=== PATIENT | female | born 1995 | race Caucasian/White ===

== ENCOUNTER 2016-09-09 04:30 | Emergency (ER) | payer BC ==
[~2016-09-09] VITALS: Ht 154.9 cm; Wt 66.7 kg
[2016-09-09 04:33] VITALS: TEMP 36.8; Ht 154.9 cm; Wt 66.7 kg
[2016-09-09] MEDS ORDERED: ONDANSETRON INJ 2 MG/ML 2 ML VIAL IV STA ×2 (04:43→06:56)
[2016-09-09] MEDS ORDERED: SODIUM CHLORIDE 0.9% 1000ML 1,000 ML IV STA ×3 (04:43→06:07)
[2016-09-09] MEDS ORDERED: DICYCLOMINE HCL 10 MG/ML 2 ML AMP IM ONE (04:45)
[2016-09-09 05:20] VITALS: O2SAT 99
[2016-09-09 05:34] LABS: BASO % 0.1 %; BASO ABS # 0.01 K/uL (0-0.2); COMPLETE YES; EOS % 0.9 %; HEMATOCRIT 38.9 % (37-47); IG% 0.1 %; LYMPH % 4.6 %; LYMPH ABS # 0.44 K/uL (1.2-3.4); MEAN CELL VOLUME 86.8 fL (80-100); MEAN CORPUSCULAR HEMOGLOBIN 30.4 pg (25-34); MEAN PLATELET VOLUME 11.3 fL (7.4-10.4); MONO % 3.2 %; NEUT % 91.1 %; PLATELET COUNT 182 K/uL (130-400); RED BLOOD COUNT 4.48 M/uL (4.2-5.4); WHITE BLOOD COUNT 9.63 K/uL (4.8-10.8)
[2016-09-09 05:50] LABS: BUN/CREATININE RATIO 17.7 (10-20); CREATININE 0.82 mg/dl (0.60-1.20); POTASSIUM 3.9 mmol/L (3.5-5.1)
[2016-09-09 06:00] LABS: URINE APPEARANCE CLEAR (CLEAR); URINE BILIRUBIN NEG (NEG); URINE COLOR YELLOW; URINE NITRITE NEG (NEG); URINE PH 8.5 (4.5-7.5); URINE SPECIFIC GRAVITY 1.033 (1.000-1.030); UROBILINOGEN NEG (NEG); ZZUR CULT IF INDIC CLEAN CATCH NO
[2016-09-09 06:02] LABS: MANUAL MICROSCOPIC REQUIRED? NO; REVIEW REQ? NO
[2016-09-09] MEDS ORDERED: MoRPHine SULFATE 4 MG/ML 1 ML CARP\\VIAL IV STA (06:13)
[2016-09-09 06:19] LABS: PREG INTERNAL NEGATIVE QC NEG CLEAR BACKGROUND; PREG INTERNAL POSITIVE QC POS CONTROL LINE
[2016-09-09] MEDS ORDERED: ETON1IMP2 (06:20)
[2016-09-09] MEDS ORDERED: ONDANSETRON HOME PACK 4MG OD TAB PO ONE (06:30)
[2016-09-09] MEDS ORDERED: OPTIRAY 320 IV PRN (06:30)
[2016-09-09] MEDS ORDERED: PROCHLORPERAZINE 5 MG/ML 2 ML VIAL IV STA (07:24)
[2016-09-09] MEDS ORDERED: DiphenhydrAMINE HCL 50 MG/ML VIAL IV STA (07:24)
--- NOTE | 2016-09-09 09:02 | DIAGNOSTIC IMAGING REPORT ---
CT SCAN OF THE ABDOMEN AND PELVIS WITH IV CONTRAST CLINICAL HISTORY: Right lower quadrant abdominal pain. COMPARISON STUDY: No priors. TECHNIQUE: Following the IV administration of 120 cc of Optiray 320, CT scan of the abdomen and pelvis is performed from the lung bases to the proximal femora. Images are reviewed in the axial, sagittal, and coronal planes. IV contrast was administered without complication. Automated dose control exposure was utilized. CT DOSE: 327.57 mGy.cm FINDINGS: Lung bases: The heart is normal in size and without pericardial effusion. The lung bases are clear. Liver: The contrast-enhanced liver is normal in size, contour, and attenuation. There is no intrahepatic biliary ductal dilatation. The hepatic veins and portal veins are patent. Gallbladder: Unremarkable. Spleen: Normal in size and attenuation. Pancreas: Unremarkable. Adrenal glands: Unremarkable. Kidneys: The contrast enhanced kidneys are normal in size and without hydronephrosis. The kidneys enhance symmetrically. Abdominal vasculature: The abdominal aorta is normal in course and caliber. Bowel: The small bowel and colon are normal in course and caliber. The appendix is well-visualized and normal. Peritoneum: There is no intraperitoneal free air or abdominal ascites. There is a fat-containing umbilical hernia. Lymphadenopathy: None. Pelvic viscera: The bladder, uterus, and adnexa are normal as visualized. There are numerous ovarian follicles. Trace free fluid is seen in the cul-de-sac. Skeletal structures: No lytic or blastic lesions are seen. IMPRESSION: 1. There are no acute infectious or inflammatory findings in the abdomen or pelvis. 2. There is trace and likely physiologic free fluid in the cul-de-sac. Electronically signed by: Vinicius Casas M.D. 09/09/2016 9:01 AM Dictated Date/Time: 09/09/2016 8:56 AM
[2016-09-09] MEDS ORDERED: ONDA4TAB10 SL (10:16)
[2016-09-09 10:20] VITALS: BP 107/68; PULSE 104; O2SAT 99
--- NOTE | 2016-09-09 21:34 | EMERGENCY ROOM VISIT NOTE ---
History First contact with patient: 04:38 Chief Complaint: ABDOMINAL PAIN Stated Complaint: RIGHT ABD PAIN,VOMITING Nursing Triage Summary: Pt complains of right sided abdominal pain, vomiting and diarrhea since 11pm. History of Present Illness The patient is a 20 year old female who presents to the Emergency Room with complaints of nausea, vomiting, diarrhea and lower abdominal cramping for the past few hours. Patient complains of several episodes of vomiting and diarrhea that is nonbloody nonbilious nonblack and tarry in nature. No recent antibiotics. No well water. No recent travel. Patient scribed the pain as cramping, ranging in severity 5 out of 10 to the lower abdomen. It does not radiate. Nothing makes it better or worse. Patient denies chest pain, dyspnea , fever, chills, cough, congestion, back pain, urinary symptoms, vaginal itching or discharge. Review of Systems See HPI for pertinent positives & negatives. A total of 10 systems reviewed and were otherwise negative. Past Medical/Surgical History None Social History Smoking Status: Never Smoker Smokeless Tobacco Use: No Drug Use: none Housing Status: lives with family Occupation Status: employed Current/Historical Medications Scheduled Etonogestrel (Nexplanon), 1 DOSE CONTINOUS Scheduled PRN Ondasetron Odt (Zofran Odt), 1 TAB SL Q6 PRN for Nausea or Vomiting Allergies Coded Allergies: No Known Allergies (Unverified , 09/09/16) Physical Exam Vital Signs Date Time Temp Pulse Resp B/P Pulse Ox O2 Delivery O2 Flow Rate FiO2 09/09/16 10:20 104 18 107/68 99 09/09/16 09:26 110 18 107/62 99 Room Air 09/09/16 09:03 105 09/09/16 07:52 108 18 116/66 99 Room Air 09/09/16 06:30 110 18 129/80 100 Room Air 09/09/16 05:25 105 09/09/16 05:20 99 Room Air 09/09/16 04:33 36.8 124 20 109/64 100 Room Air Physical Exam VITALS: Vitals are noted on the nurse's note and reviewed by myself. Vital signs stable. GENERAL: Pleasant female, in no acute distress, nondiaphoretic, well-developed well-nourished. SKIN: The skin was without rashes, erythema, edema, or bruising. There is no tenting of the skin. Capillary reflex less than 2 seconds. HEAD: Normocephalic atraumatic. EARS: External auditory canals clear, tympanic membranes pearly villarreal without erythema or effusion bilaterally. EYES: Pupils equal round and reactive to light and accommodation. Conjunctivae without injection, sclerae without icterus. Extraocular movements intact. NOSE: Patent, turbinates without inflammation or discharge. MOUTH: Mucous membranes mildly dry. Pharynx without erythema or exudate. Uvula midline. Airway patent. Tongue does not deviate. NECK: Supple without nuchal rigidity. No lymphadenopathy. No thyromegaly. Cervical spine is nontender. No JVD. HEART: Regular rate and rhythm without murmurs gallops or rubs. LUNGS: Clear to auscultation bilaterally without wheezes, rales or rhonchi. No dullness to percussion. No retractions or accessory muscle use. ABDOMEN: Positive bowel sounds x 4. Normal tympanic percussion. Soft, tender to palpation lower abdomen, no CVA tenderness, without masses or organomegaly. Ferrell sign negative. No guarding or rebound tenderness. MUSCULOSKELETAL: No muscle atrophy, erythema, or edema noted. NEURO: Patient was alert and oriented to person place and time. Normal sensation to light and sharp touch. No focal neurological deficits. Medical Decision & Procedures Laboratory Results 09/09/16 05:07 Red Blood Count 4.48, Mean Corpuscular Volume 86.8, Mean Corpuscular Hemoglobin 30.4, Mean Corpuscular Hemoglobin Concent 35.0, Mean Platelet Volume 11.3, Neutrophils (%) (Auto) 91.1, Lymphocytes (%) (Auto) 4.6, Monocytes (%) (Auto) 3.2, Eosinophils (%) (Auto) 0.9, Basophils (%) (Auto) 0.1, Neutrophils # (Auto) 8.77, Lymphocytes # (Auto) 0.44, Monocytes # (Auto) 0.31, Eosinophils # (Auto) 0.09, Basophils # (Auto) 0.01 09/09/16 05:07 Test 09/09/16 04:45 09/09/16 05:07 Urine Color YELLOW Urine Appearance CLEAR (CLEAR) Urine pH 8.5 (4.5-7.5) Urine Specific [place] 1.033 (1.000-1.030) Urine Protein NEG (NEG) Urine Glucose (UA) NEG (NEG) Urine Ketones 2+ (NEG) Urine Occult Blood NEG (NEG) Urine Nitrite NEG (NEG) Urine Bilirubin NEG (NEG) Urine Urobilinogen NEG (NEG) Urine Leukocyte Esterase NEG (NEG) White Blood Count 9.63 K/uL (4.8-10.8) Red Blood Count 4.48 M/uL (4.2-5.4) Hemoglobin 13.6 g/dL (12.0-16.0) Hematocrit 38.9 % (37-47) Mean Corpuscular Volume 86.8 fL (80-100) Mean Corpuscular Hemoglobin 30.4 pg (25-34) Mean Corpuscular Hemoglobin Concent 35.0 g/dl (32-36) Platelet Count 182 K/uL (130-400) Mean Platelet Volume 11.3 fL (7.4-10.4) Neutrophils (%) (Auto) 91.1 % Lymphocytes (%) (Auto) 4.6 % Monocytes (%) (Auto) 3.2 % Eosinophils (%) (Auto) 0.9 % Basophils (%) (Auto) 0.1 % Neutrophils # (Auto) 8.77 K/uL (1.4-6.5) Lymphocytes # (Auto) 0.44 K/uL (1.2-3.4) Monocytes # (Auto) 0.31 K/uL (0.11-0.59) Eosinophils # (Auto) 0.09 K/uL (0-0.5) Basophils # (Auto) 0.01 K/uL (0-0.2) RDW Standard Deviation 40.0 fL (36.4-46.3) RDW Coefficient of Variation 12.5 % (11.5-14.5) Immature Granulocyte % (Auto) 0.1 % Immature Granulocyte # (Auto) 0.01 K/uL (0.00-0.02) Anion Gap 10.0 mmol/L (3-11) Est Creatinine Clear Calc Drug Dose 94.0 ml/min Estimated GFR () 117.7 Estimated GFR (Non- 101.6 BUN/Creatinine Ratio 17.7 (10-20) Calcium Level 9.0 mg/dl (8.5-10.1) Total Bilirubin 1.0 mg/dl (0.2-1) Direct Bilirubin 0.2 mg/dl (0-0.2) Aspartate Amino Transf (AST/SGOT) 77 U/L (15-37) Alanine Aminotransferase (ALT/SGPT) 55 U/L (12-78) Alkaline Phosphatase 47 U/L (45-117) Total Protein 7.9 gm/dl (6.4-8.2) Albumin 4.4 gm/dl (3.4-5.0) Lipase 87 U/L (73-393) Human Chorionic Gonadotropin, Qual NEG (NEG) Medications Administered Medications (Trade) Dose Ordered Sig/Kimberly Route Start Time Stop Time Status Last Admin Dose Admin Sodium Chloride 1,000 ml @ 999 mls/hr Q1H1M STAT IV 09/09/16 04:43 09/09/16 05:43 DC 09/09/16 05:15 999 MLS/HR Sodium Chloride (Nss 1000ml) 1,000 ml @ 125 mls/hr Q8H STAT IV 09/09/16 04:43 09/09/16 11:00 DC 09/09/16 05:15 125 MLS/HR Ondansetron HCl (Zofran Inj) 4 mg NOW STAT IV 09/09/16 04:43 09/09/16 04:44 DC 09/09/16 05:15 4 MG Dicyclomine HCl 20 mg 20 mg NOW ONCE IM 09/09/16 04:45 09/09/16 04:46 DC 09/09/16 05:15 20 MG Sodium Chloride (Nss 1000ml) 1,000 ml @ 999 mls/hr Q1H1M STAT IV 09/09/16 06:07 09/09/16 07:10 DC 09/09/16 06:25 999 MLS/HR Morphine Sulfate (MoRPHine SULFATE INJ) 4 mg NOW STAT IV 09/09/16 06:13 09/09/16 06:14 DC 09/09/16 06:26 4 MG Ondansetron HCl (Zofran Inj) 4 mg NOW STAT IV 09/09/16 06:56 09/09/16 06:57 DC 09/09/16 07:03 4 MG Prochlorperazine Edisylate (Compazine Inj) 10 mg NOW STAT IV 09/09/16 07:24 09/09/16 07:25 DC 09/09/16 07:28 10 MG Diphenhydramine HCl (Benadryl Inj) 12.5 mg NOW STAT IV 09/09/16 07:24 09/09/16 07:25 DC 09/09/16 07:28 12.5 MG ED Course Prior records/ancillary studies reviewed. Triage Nursing notes reviewed. Additional history obtained from the family. The patient's history was concerning for nausea, vomiting, diarrhea, and abdominal pain. Differential diagnosis: Etiologies such as gastroenteritis, food borne illness, infections, appendicitis , diverticulitis, inflammatory bowel disease, obstruction, GI bleed, biliary pathology, as well as others were entertained. Physical examination findings: As above. Abdominal examination revealed lower abdominal tenderness. Vital signs reviewed and revealed tachycardic. ER treatment provided: IV hydration 1 L NSS. Zofrdouglas Bentyl On reassessment the patient felt better. Patient was tolerating p.o. intake. Diagnostics interpretation by me: The labs revealed no leukocytosis or left slight abnormality. Negative hCG 2+ ketones Imaging studies: pending COMPARISON STUDY: No priors. TECHNIQUE: Following the IV administration of 120 cc of Optiray 320, CT scan of the abdomen and pelvis is performed from the lung bases to the proximal femora. Images are reviewed in the axial, sagittal, and coronal planes. IV contrast was administered without complication. Automated dose control exposure was utilized. CT DOSE: 327.57 mGy.cm FINDINGS: Lung bases: The heart is normal in size and without pericardial effusion. The lung bases are clear. Liver: The contrast-enhanced liver is normal in size, contour, and attenuation. There is no intrahepatic biliary ductal dilatation. The hepatic veins and portal veins are patent. Gallbladder: Unremarkable. Spleen: Normal in size and attenuation. Pancreas: Unremarkable. Adrenal glands: Unremarkable. Kidneys: The contrast enhanced kidneys are normal in size and without hydronephrosis. The kidneys enhance symmetrically. Abdominal vasculature: The abdominal aorta is normal in course and caliber. Bowel: The small bowel and colon are normal in course and caliber. The appendix is well-visualized and normal. Peritoneum: There is no intraperitoneal free air or abdominal ascites. There is a fat-containing umbilical hernia. Lymphadenopathy: None. Pelvic viscera: The bladder, uterus, and adnexa are normal as visualized. There are numerous ovarian follicles. Trace free fluid is seen in the cul-de-sac. Skeletal structures: No lytic or blastic lesions are seen. IMPRESSION: 1. There are no acute infectious or inflammatory findings in the abdomen or pelvis. 2. There is trace and likely physiologic free fluid in the cul-de-sac. Electronically signed by: Vinicius Casas M.D. This appears to be consistent with V/D. Patient was well appearing. She was able tolerate by mouth fluids and ambulate without difficulties. She did not have an acute abdomen on exam. She was advised to do a clear liquid diet today and then progress as tolerated to bland diet tomorrow. She is advised to follow -up with family care in a few days or here in the ER sooner for abdominal pain, fevers, vomiting, worsening signs or symptoms or as needed. By the evaluation outlined above emergent etiologies such as appendicitis, diverticulitis, obstruction, cardiac sources, mesenteric ischemia, aortic pathology, inflammatory bowel disease, renal colic, PUD, biliary pathology, UTI, as well as others were deemed relatively unlikely. The pt informed about the findings as listed above. All questions were answered and pleased with the treatment. Return instructions were outlined and the patient was discharged in stable condition. Outpatient prescription management: zofran Referral: The patient was referred to their primary care physician for follow-up in 2 to 3 days for a recheck of the current condition. Case reviewed with my attending. Medical Decision As above Impression Primary Impression: Nausea vomiting and diarrhea Additional Impression: Dehydration Departure Information Dispostion Home / Self-Care Condition GOOD Prescriptions Ondasetron Odt (ZOFRAN ODT) 4 Mg Tab 1 TAB SL Q6 Y for Nausea or Vomiting for 5 Days, #20 TAB Prov: Eduardo May, TAYLOR 09/09/16 Referrals No Doctor, Assigned (PCP) Patient Instructions [facility] Additional Instructions DO NOT drive, drink alcohol, operate machinery, or perform dangerous activities today. You were given medications in the ER that can affect your ability to safely function or operate a vehicle. Zofran(odansetron) tablets 4mg: Take one and allow it to dissolve in your mouth every four to six hours as needed for nausea or vomiting. Ibuprofen(Motrin, Advil) may be used for fever or pain. Use 600mg every six hours as needed. Take with food. Avoid using more than 2400mg in a 24 hour period. Do not use 2400mg per day for more than three consecutive days without physician direction. Prolonged inappropriate use can lead to stomach upset or ulcers. (AND/OR) Acetaminophen(Tylenol) may be used for fever or pain. Use 1000mg every six hours as needed. Avoid using more than 3000mg in a 24 hour period. Rest and drink plenty of fluids as tolerated. Slow sips of water or sports drinks are recommended instead of large amounts all at once. Continue current medications. Once your stomach is settled start with a clear liquid diet (jello, soup broth, etc.) and then advance as tolerated. You should avoid full, heavy meals for about 24 hrs from the time your symptoms resolved. Return to the ER for persistent vomiting, fevers, abdominal pain, chest pains, difficulty breathing, black or bloody stools, worsening of your condition, or as needed. Follow up with your primary physician in 2-3 days for a recheck of your current condition. Problem Qualifiers
== END 2016-09-09 10:21 | disposition home or self-care (01) ==
LOC: C.EDB 04:31
DX: R11.2 Nausea with vomiting, unspecified (principal); R19.7 Diarrhea, unspecified; E86.0 Dehydration; K42.9 Umbilical hernia without obstruction or gangrene

== ENCOUNTER 2022-09-10 00:21 | Inpatient (IN) ==
[2022-09-10] MEDS ORDERED: BUTORPHANOL TARTRATE 1 MG/ML VIAL IV STA (02:19)
[2022-09-10] MEDS: LACTATED RINGER'S 1,000 ML IV SCH ×3 (02:32→08:44)
[2022-09-10] MEDS ORDERED: BUTORPHANOL TARTRATE 1 MG/ML VIAL IV ONE (03:30)
[2022-09-10] MEDS ORDERED: LIDOCAINE 1% LOCAL 20 ML VIAL INFIL PRN (03:40)
[2022-09-10 04:15] LABS: Basophils # (auto) 0.03 K/uL (0-0.2); Basophils % (auto) 0.2 %; Eosinophils # (auto) 0.02 K/uL (0-0.50); Eosinophils % (auto) 0.1 %; Hemoglobin 11.2 g/dl (12.0-16.0); Immature Granulocytes # (auto) 0.09 K/uL (0.01-0.20); Immature Granulocytes % (auto) 0.6 %; Lymphocytes # (auto) 1.85 K/uL (1.2-3.4); Lymphocytes % (auto) 11.4 %; Mean Corpuscular Hemoglobin 29.9 pg (25.0-34.0); Mean Corpuscular Volume 85.3 fL (80.0-100.0); Mean Platelet Volume 11.1 fL (9.4-12.4); Monocytes # (auto) 0.73 K/uL (0.11-0.59); Monocytes % (auto) 4.5 %; Neutrophils # (auto) 13.56 K/uL (1.40-6.50); Neutrophils % (auto) 83.2 %; Platelet Count 189 K/uL (130-400); RDW Coefficient of Variation 13.7 % (11.5-14.5); RDW Standard Deviation 42.2 fL (36.4-46.3); Red Blood Count 3.75 M/uL (4.20-5.40); White Blood Count 16.28 K/ul (4.8-10.8)
[2022-09-10] MEDS ORDERED: ePHEDrine sulfate 50 MG/ML AMP ONE (04:18)
[2022-09-10] MEDS ORDERED: fentaNYL 2MCG/ML ROPIVACAINE 1.25MG/ML 100 ML BAG EPI ONE (04:19)
[2022-09-10] MEDS ORDERED: SODIUM CHLORIDE 0.9% INJ 10 ML VIAL ONE (04:19)
[2022-09-10] MEDS ORDERED: BUPIVACAINE 0.25% 30 ML VIAL ONE (04:19)
[2022-09-10] MEDS ORDERED: fentaNYL citrate 100 MCG/2 ML VIAL ONE (04:19)
[2022-09-10] MEDS ORDERED: LIDOCAINE 2%/EPINEPHRINE 1:200,000 20 ML SDV ONE (04:19)
--- NOTE | 2022-09-10 04:51 | History & Physical Report ---
Date of Service September 10, 2022 Assessment & Plan Admission and Anticipated Discharge Date Admission Date: September 10, 2022 History of Present Illness Chief Complaint: contractions Primary Care Provider: NO PCP 26 F P0000 at 37.5 weeks admitted in early labor. GBS is negative. Covid is pending Allergies Allergy/AdvReac Type Severity Reaction Status Date / Time No Known Allergies Allergy Verified 09/10/22 00:37 Home Medications Medication Instructions Recorded Confirmed Type cyanocobalamin (vitamin B-12) mcg 09/10/22 History 1,000 mcg tablet (Vitamin B-12) docusate sodium 100 mg capsule 100 mg PO BID 09/10/22 09/10/22 History (Colace) ferrous sulfate 325 mg (65 mg 325 mg PO DAILY 09/10/22 09/10/22 History iron) tablet insulin detemir U-100 100 unit/mL 15 unit subcut HS 09/10/22 09/10/22 History (3 mL) subcutaneous pen (Levemir FlexPen) vit no.95-ferrous 1 tab PO DAILY 09/10/22 09/10/22 History fumarate 28 mg-folic acid 800 mcg tablet () Patient History Medical History Anemia Constipation Cyst of right ovary cardiac arrhythmia Gestational diabetes requiring insulin History of abnormal cervical Pap smear Marginal insertion of umbilical cord Surgical History H/O ovarian cystectomy Social History Smoking Status: Never smoker Hx Alcohol Use: No Hx Substance Use: No Preferred Language: Czech Communication Ability: Effective [employer] Required: No Beliefs That Will Affect Care: None marital status: Current Living Situation: Spouse Other Information That Helps Us Care for You: No Feels Safe at Home: Yes Safety Concerns: Feels Safe At This Time Assistive Devices: Contacts OB History 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 Review of Systems All systems reviewed & are unremarkable except as noted in HPI & below Physical Exam Constitutional: WD/WN, vitals as above Eyes: PERRL, conjunctivae normal, anicteric sclerae Respiratory: normal respiratory effort, lungs clear to auscultation Cardiovascular: Rate/Rhythm: regular rate and regular rhythm Gastrointestinal (Abdomen): Inspection/Auscultation: abdomen normal to inspection Musculoskeletal: Extremities: extremities normal to inspection Skin: no rashes, warm and dry Neurologic: patellar DTR's 2+ bilat, sensation intact Psychiatric: A+Ox3, euthymic affect Genitourinary: Manual OB Exam: + cervical dilation 2 cm and 3 cm, + cervical effacement 50% and + station -2 Results & Data ([facility]) Vital Signs (Past 12 Hours) Vital Signs Temp Pulse Resp BP Pulse Ox 09/10/22 00:47 36.7 C 18 09/10/22 04:42 88 90 09/10/22 04:40 73 90 09/10/22 04:35 82 96 09/10/22 04:36 75 90 09/10/22 04:30 76 92 09/10/22 04:27 73 94 09/10/22 04:25 76 94 09/10/22 04:22 80 94 09/10/22 04:20 118 H 94 09/10/22 04:15 70 93 09/10/22 04:13 76 94 09/10/22 04:10 83 93 09/10/22 04:08 36.9 C 68 18 114/67 09/10/22 04:05 96 09/10/22 04:05 99 H 09/10/22 04:05 77 93 09/10/22 04:00 83 95 09/10/22 03:59 77 93 09/10/22 03:55 83 100 09/10/22 03:50 79 99 09/10/22 03:34 106 H 81 L 09/10/22 03:33 88 91 09/10/22 03:29 80 95 09/10/22 03:24 79 97 09/10/22 03:19 70 97 09/10/22 03:14 85 98 09/10/22 03:03 75 94 09/10/22 03:02 76 96 09/10/22 02:57 95 09/10/22 02:57 93 H 09/10/22 02:57 72 94 09/10/22 02:52 85 99 09/10/22 02:50 74 94 09/10/22 02:47 89 98 09/10/22 02:38 79 93 09/10/22 02:33 93 H 122/83 100 09/10/22 00:31 83 127/69 Monitoring External Monitor Cat 1
[2022-09-10] MEDS ORDERED: fentaNYL 2MCG/ML ROPIVACAINE 1.25MG/ML 100 ML BAG EPI PRN (05:01)
[2022-09-10] MEDS ORDERED: NALOXONE HCL 1 MG in SODIUM CHLORIDE 0.9% 1000ML 1,000 ML IV PRN (05:01)
[2022-09-10] MEDS ORDERED: NALOXONE HCL 0.4 MG/1 ML VIAL/CARP IV PRN (05:01)
[2022-09-10] MEDS ORDERED: diphenhydrAMINE 50 MG/ML VIAL IV PRN (05:01)
[2022-09-10] MEDS ORDERED: NALBUPHINE HCL INJ 10 MG/ML AMP IV PRN (05:01)
[2022-09-10] MEDS ORDERED: ePHEDrine sulfate 50 MG/ML AMP IV PRN (05:01)
--- NOTE | 2022-09-10 05:01 | Anesthesiology Consultation ---
Date of Service September 10, 2022 Assessment & Plan (1) Encounter for pre-operative examination: Chart Review Chart Review: Patient NOT seen in Pre Admission Testing and Acceptable Risk for Labor Epidural Consults Requested none History Height/Weight Height: 5 ft 2 in Weight: 85.729 kg Allergies Allergy/AdvReac Type Severity Reaction Status Date / Time No Known Allergies Allergy Verified 09/10/22 00:37 Medications Home Medications Medication Instructions Recorded Confirmed Last Taken cyanocobalamin (vitamin B-12) mcg 09/10/22 09/09/22 1,000 mcg tablet (Vitamin B-12) docusate sodium 100 mg capsule 100 mg PO BID 09/10/22 09/10/22 09/09/22 (Colace) ferrous sulfate 325 mg (65 mg 325 mg PO DAILY 09/10/22 09/10/22 09/09/22 iron) tablet insulin detemir U-100 100 unit/mL 15 unit subcut HS 09/10/22 09/10/22 Unknown (3 mL) subcutaneous pen (Levemir FlexPen) vit no.95-ferrous 1 tab PO DAILY 09/10/22 09/10/22 09/09/22 fumarate 28 mg-folic acid 800 mcg tablet () Active Medications Generic Name Dose Route Start Last Admin Trade Name Freq PRN Reason Stop Dose Admin Lactated Ringer's 1,000 mls @ 125 mls/hr 09/10/22 02:45 09/10/22 04:45 Lr IV 10/10/22 02:44 999 mls/hr .Q8H ANA Infusion Past Medical History Medical History Anemia Constipation Cyst of right ovary cardiac arrhythmia Gestational diabetes requiring insulin History of abnormal cervical Pap smear Marginal insertion of umbilical cord Past Surgical History Surgical History H/O ovarian cystectomy Social History Smoking Status: Never smoker Hx Alcohol Use: No Hx Substance Use: No substance use type: does not use Physical Exam Vital Signs Last Vital Signs Temp 98.4 F 09/10/22 04:08 Pulse 72 09/10/22 04:50 Resp 18 09/10/22 04:08 BP 114/67 09/10/22 04:08 Pulse Ox 91 09/10/22 04:50 Testing Laboratory Results 09/10/22 04:02 09/10/22 01:55 POC Glucose 106 H
--- NOTE | 2022-09-10 08:09 | Obstetrical Progress Note ---
Date of Service September 10, 2022 Assessment & Plan Admission and Anticipated Discharge Date Admission Date: September 10, 2022 Subjective Patient is seen and examined. She is a 26-year-old G1, P0 at 37 weeks and 6 days of gestation presented in active labor and admitted for labor. She has received epidural and has slept for 2 hours. Now she is comfortable. Vital signs stable afebrile, heart rate category 1, Vaginal exam, she has bloody show on perineum, cervix is 8 to 9 cm dilated, 90% effaced and head is at +1 station with a large bulging bag, AROM done, unable to tell the color of the fluid due to bloody show. Continue to monitor closely and anticipate . Results & Data ([facility]) Vital Signs (Past 12 Hours) Vital Signs Temp Pulse Resp BP Pulse Ox 09/10/22 07:10 36.7 C 18 09/10/22 00:47 36.7 C 18 09/10/22 08:04 80 100 09/10/22 07:59 90 100 09/10/22 08:00 90 117/70 09/10/22 07:54 73 97 09/10/22 07:49 84 99 09/10/22 07:44 74 97 09/10/22 07:45 72 108/58 L 09/10/22 07:39 75 97 09/10/22 07:34 79 99 09/10/22 07:30 87 18 109/57 L 09/10/22 07:29 75 99 09/10/22 07:24 76 98 09/10/22 07:19 73 99 09/10/22 07:14 78 101/61 99 09/10/22 07:09 88 99 09/10/22 07:04 77 98 09/10/22 06:59 73 111/59 L 98 09/10/22 06:54 73 97 09/10/22 06:49 73 97 09/10/22 06:44 75 98 09/10/22 06:43 74 105/58 L 09/10/22 06:39 73 97 09/10/22 06:34 73 98 09/10/22 06:29 73 99 09/10/22 06:28 71 105/59 L 09/10/22 06:24 74 99 09/10/22 06:02 16 09/10/22 06:02 16 09/10/22 06:19 78 99 09/10/22 06:14 78 99 09/10/22 06:15 82 95/64 L 09/10/22 06:09 79 99 09/10/22 06:04 87 99 09/10/22 05:59 86 98 09/10/22 05:58 75 103/58 L 09/10/22 05:54 76 99 09/10/22 05:49 76 100 09/10/22 05:45 16 09/10/22 05:45 16 09/10/22 05:44 78 99 09/10/22 05:43 86 102/57 L 09/10/22 05:39 85 98 09/10/22 05:38 71 98/55 L 09/10/22 05:35 18 09/10/22 05:35 36.9 C 18 09/10/22 05:34 97 H 98 09/10/22 05:33 85 103/65 09/10/22 05:30 18 09/10/22 05:30 18 09/10/22 05:31 94 H 105/62 09/10/22 05:29 91 H 105/55 L 94 09/10/22 05:27 90 104/57 L 09/10/22 05:25 91 H 18 109/56 L 09/10/22 05:24 107 H 97 09/10/22 05:23 83 131/74 09/10/22 05:21 90 128/68 09/10/22 05:19 89 129/71 95 09/10/22 05:14 89 96 09/10/22 05:09 95 H 99 09/10/22 05:04 95 H 99 09/10/22 04:59 83 94 09/10/22 04:50 72 91 09/10/22 04:48 73 90 09/10/22 04:45 113 H 91 09/10/22 04:42 88 90 09/10/22 04:40 73 90 09/10/22 04:35 82 96 09/10/22 04:36 75 90 09/10/22 04:30 76 92 09/10/22 04:27 73 94 09/10/22 04:25 76 94 09/10/22 04:22 80 94 09/10/22 04:20 118 H 94 09/10/22 04:15 70 93 09/10/22 04:13 76 94 09/10/22 04:10 83 93 09/10/22 04:08 36.9 C 68 18 114/67 09/10/22 04:05 96 09/10/22 04:05 99 H 09/10/22 04:05 77 93 09/10/22 04:00 83 95 09/10/22 03:59 77 93 09/10/22 03:55 83 100 09/10/22 03:50 79 99 09/10/22 03:34 106 H 81 L 09/10/22 03:33 88 91 09/10/22 03:29 80 95 09/10/22 03:24 79 97 09/10/22 03:19 70 97 09/10/22 03:14 85 98 09/10/22 03:03 75 94 09/10/22 03:02 76 96 09/10/22 02:57 95 09/10/22 02:57 93 H 09/10/22 02:57 72 94 09/10/22 02:52 85 99 09/10/22 02:50 74 94 09/10/22 02:47 89 98 09/10/22 02:38 79 93 09/10/22 02:33 93 H 122/83 100 09/10/22 00:31 83 127/69
--- NOTE | 2022-09-10 09:45 | Delivery Summary ---
Vaginal Delivery Summary Date of Service September 10, 2022 Vaginal Delivery Summary The patient was found to be fully dilated and desire to push. She pushed for about an hour and there was a head without difficulty. The shoulders were delivered with minimal traction and the baby was handed off to the mother where mouth and nose were suctioned and the cord was clamped x2 and cut at 1 minute delay. The baby was vigorously moving and crying. Then the vagina perineum were checked for lacerations. There was a partial third-degree perineal laceration. Rectal exam was done and partial sphincher tone was noted. The gloves were changed. The external sphincter muscles were held with Allis clamps and reapproximated with 2-0 Vicryl with [id number] stitches x2. Then the more perineal body muscles were reapproximated supporting the sphincter. Rectal exam was repeated and good sphincter tone was noted and no sutures well felt. The gloves were changed again and vaginal mucosa was repaired with another serial 2-0 Vicryl in running locked fashion. Excellent hemostasis achieved. There were 2 small first-degree labial lacerations close to the urethra. Those were repaired with 3-0 Vicryl on SH needle with [id number] stitches. Straight catheter was placed during repair. The rest of the vagina was intact. Then the placenta was found to be in the vagina, delivered spontaneously as intact and complete. Uterus was explored and found to be empty, the lower segment was cleared of all clots and debris. The fundus was firm and EBL was 200 mL. Mom and the baby tolerated procedure well. Baby was a viable male infant, Apgars 8/9 and weight is pending. No complications happened and I was present during the whole procedure. At the end of the procedure the sponge needle and instrument count was correct x2.
--- NOTE | 2022-09-10 10:02 | Obstetrical Progress Note ---
Date of Service September 10, 2022 Assessment & Plan Admission and Anticipated Discharge Date Admission Date: September 10, 2022 Subjective Patient has been pushing since 09:23, good efforts Head at +3 small caput visible with each pushes FHR had decels after initial pushes and recovered and has been categ I Continue to monitor closely Anticipate Results & Data ([facility]) Vital Signs (Past 12 Hours) Vital Signs Temp Pulse Resp BP Pulse Ox 09/10/22 07:10 36.7 C 18 09/10/22 00:47 36.7 C 18 09/10/22 09:54 138 H 94 09/10/22 09:49 95 H 98 09/10/22 09:44 107 H 98 09/10/22 09:39 101 H 98 09/10/22 09:37 99 H 81 L 09/10/22 09:34 125 H 82 L 09/10/22 09:31 114 H 88 L 09/10/22 09:29 84 100 09/10/22 09:30 83 110/65 09/10/22 09:24 119 H 97 09/10/22 09:19 100 H 98 09/10/22 09:14 76 98 09/10/22 09:00 18 09/10/22 09:00 18 09/10/22 09:13 84 118/63 09/10/22 08:30 18 09/10/22 08:30 18 09/10/22 09:09 76 98 09/10/22 09:04 82 100 09/10/22 08:59 85 135/66 96 09/10/22 08:54 97 H 97 09/10/22 08:49 86 98 09/10/22 08:44 88 100 09/10/22 08:43 86 127/65 09/10/22 08:39 76 99 09/10/22 08:34 78 99 09/10/22 08:29 98 09/10/22 08:29 77 09/10/22 08:29 73 129/64 09/10/22 08:24 78 99 09/10/22 08:19 79 99 09/10/22 07:58 36.7 C 09/10/22 08:14 82 98 09/10/22 08:09 83 99 09/10/22 08:04 80 100 09/10/22 07:59 90 100 09/10/22 08:00 90 16 117/70 09/10/22 07:54 73 97 09/10/22 07:49 84 99 09/10/22 07:44 74 97 09/10/22 07:45 72 108/58 L 09/10/22 07:39 75 97 09/10/22 07:34 79 99 09/10/22 07:30 87 18 109/57 L 09/10/22 07:29 75 99 09/10/22 07:24 76 98 09/10/22 07:19 73 99 09/10/22 07:14 78 101/61 99 09/10/22 07:09 88 99 09/10/22 07:04 77 98 09/10/22 06:59 73 111/59 L 98 09/10/22 06:54 73 97 09/10/22 06:49 73 97 09/10/22 06:44 75 98 09/10/22 06:43 74 105/58 L 09/10/22 06:39 73 97 09/10/22 06:34 73 98 09/10/22 06:29 73 99 09/10/22 06:28 71 105/59 L 09/10/22 06:24 74 99 09/10/22 06:02 16 09/10/22 06:02 16 09/10/22 06:19 78 99 09/10/22 06:14 78 99 09/10/22 06:15 82 95/64 L 09/10/22 06:09 79 99 09/10/22 06:04 87 99 09/10/22 05:59 86 98 09/10/22 05:58 75 103/58 L 09/10/22 05:54 76 99 09/10/22 05:49 76 100 09/10/22 05:45 16 09/10/22 05:45 16 09/10/22 05:44 78 99 09/10/22 05:43 86 102/57 L 09/10/22 05:39 85 98 09/10/22 05:38 71 98/55 L 09/10/22 05:35 18 09/10/22 05:35 36.9 C 18 09/10/22 05:34 97 H 98 09/10/22 05:33 85 103/65 09/10/22 05:30 18 02/04/23 05:30 18 09/10/22 05:31 94 H 105/62 09/10/22 05:29 91 H 105/55 L 94 09/10/22 05:27 90 104/57 L 09/10/22 05:25 91 H 18 109/56 L 09/10/22 05:24 107 H 97 09/10/22 05:23 83 131/74 09/10/22 05:21 90 128/68 09/10/22 05:19 89 129/71 95 09/10/22 05:14 89 96 09/10/22 05:09 95 H 99 09/10/22 05:04 95 H 99 09/10/22 04:59 83 94 09/10/22 04:50 72 91 09/10/22 04:48 73 90 09/10/22 04:45 113 H 91 09/10/22 04:42 88 90 09/10/22 04:40 73 90 09/10/22 04:35 82 96 09/10/22 04:36 75 90 09/10/22 04:30 76 92 09/10/22 04:27 73 94 09/10/22 04:25 76 94 09/10/22 04:22 80 94 09/10/22 04:20 118 H 94 09/10/22 04:15 70 93 09/10/22 04:13 76 94 09/10/22 04:10 83 93 09/10/22 04:08 36.9 C 68 18 114/67 09/10/22 04:05 96 09/10/22 04:05 99 H 09/10/22 04:05 77 93 09/10/22 04:00 83 95 09/10/22 03:59 77 93 09/10/22 03:55 83 100 09/10/22 03:50 79 99 09/10/22 03:34 106 H 81 L 09/10/22 03:33 88 91 09/10/22 03:29 80 95 09/10/22 03:24 79 97 09/10/22 03:19 70 97 09/10/22 03:14 85 98 09/10/22 03:03 75 94 09/10/22 03:02 76 96 09/10/22 02:57 95 09/10/22 02:57 93 H 09/10/22 02:57 72 94 09/10/22 02:52 85 99 09/10/22 02:50 74 94 09/10/22 02:47 89 98 09/10/22 02:38 79 93 09/10/22 02:33 93 H 122/83 100 09/10/22 00:31 83 127/69
[2022-09-10] MEDS ORDERED: MINERAL OIL 30 ML UDC ONE (10:21)
[2022-09-10] MEDS ORDERED: ceFAZolin 2000MG 2,000 MG/15 ML SYR IV ONE (10:35)
[2022-09-10] MEDS: OXYTOCIN 30 UNITS/500 ML BAG IV PRN ×2 (10:39→10:51)
[2022-09-10] MEDS ORDERED: ACETAMINOPHEN W/CODEINE #3 1 TAB PO PRN (11:03)
[2022-09-10] MEDS ORDERED: BENZOCAINE 20% AER SPR 82.5 GM CAN EXT PRN (11:03)
[2022-09-10] MEDS ORDERED: HYDROCORTISONE ACETATE 25 MG SUPP PR PRN (11:03)
[2022-09-10] MEDS ORDERED: ACETAMINOPHEN 325 MG TAB PO PRN (11:03)
[2022-09-10] MEDS ORDERED: OXYTOCIN 30 UNITS/500 ML BAG IV PRN (11:03)
[2022-09-10] MEDS ORDERED: DIPHTHERIA/TETANUS/PERTUSSIS 0.5mL SYR/VIAL (Age 7+yrs) IM ONE (11:03)
[2022-09-10] MEDS: METHYLERGONOVINE MALEATE 0.2 MG TAB PO SCH ×4 (11:22→20:44)
[2022-09-10] MEDS: IBUPROFEN 600 MG TAB PO PRN (12:30)
--- NOTE | 2022-09-10 12:35 | Anesthesia Procedure Note ---
Date of Service September 10, 2022 Anesthesia Post Epidural Note Vital Signs Vital Signs: Temp Pulse Resp BP Pulse Ox 36.8 C 95 H 18 126/72 96 09/10/22 11:00 09/10/22 12:28 09/10/22 11:00 09/10/22 12:28 09/10/22 10:54 Pain Intensity Abdomen: Pain Intensity: 0 Notes Mental Status: alert / awake / arousable and participated in evaluation Nausea / Vomiting: adequately controlled Pain: adequately controlled Airway Patency, RR, SpO2: stable & adequate BP & HR: stable & adequate Hydration State: stable & adequate Neuraxial Anesthesia: was administered and sensory block is resolving Anesthetic Complications: no major complications apparent Epidural: Removed without complications and With tip intact
[2022-09-10] MEDS: DOCUSATE SODIUM 100 MG CAP PO SCH (20:44)
[2022-09-11] MEDS: IBUPROFEN 600 MG TAB PO PRN ×2 (04:47→20:16)
[2022-09-11 06:47] LABS: Hematocrit (blood only) 29.2 % (37.0-47.0); Mean Corpuscular Hemoglobin 29.2 pg (25.0-34.0); Mean Corpuscular Hgb Conc 34.2 g/dL (32.0-36.0); Mean Corpuscular Volume 85.4 fL (80.0-100.0); Mean Platelet Volume 11.8 fL (9.4-12.4); Platelet Count 152 K/uL (130-400); RDW Coefficient of Variation 13.6 % (11.5-14.5); RDW Standard Deviation 42.2 fL (36.4-46.3); Red Blood Count 3.42 M/uL (4.20-5.40); White Blood Count 16.39 K/ul (4.8-10.8)
[2022-09-11] MEDS: PRENATAL VITAMIN 1 TAB PO SCH (08:40)
[2022-09-11] MEDS: DOCUSATE SODIUM 100 MG CAP PO SCH ×2 (08:40→20:16)
[2022-09-11] MEDS: FERROUS SULFATE 325 MG TAB PO SCH (08:40)
[2022-09-11] MEDS: METHYLERGONOVINE MALEATE 0.2 MG TAB PO SCH (08:40)
--- NOTE | 2022-09-11 11:01 | Obstetrical Progress Note ---
Date of Service September 11, 2022 Assessment & Plan Admission and Anticipated Discharge Date Admission Date: September 10, 2022 Subjective Patient is seen and examined. She feels well, no complaints. Ambulating without dizziness Voiding without difficulty Tolerating regular diet with out N&V Bleeding is minimal No fever/ chills/ CP/ SOB/ N&V/ Leg pain Breast feeding without problems Vital Signs Temp Pulse Resp BP Pulse Ox O2 Del Method 09/11/22 08:30 36.8 C 92 H 18 110/75 97 Room Air 09/11/22 04:09 37.3 C 100 H 18 110/76 97 Room Air 09/11/22 00:55 Room Air 09/11/22 00:25 37.1 C 89 18 117/79 96 Room Air Lab Results 09/10/22 09/10/22 09/10/22 Range/Units 01:55 03:45 04:02 WBC 16.28 H (4.8-10.8) K/ul RBC 3.75 L (4.20-5.40) M/uL Hgb 11.2 L (12.0-16.0) g/dl Hct 32.0 L (37.0-47.0) % MCV 85.3 (80.0-100.0) fL MCH 29.9 (25.0-34.0) pg MCHC 35.0 (32.0-36.0) g/dL RDW Std Deviation 42.2 (36.4-46.3) fL RDW Coeff of Jazmin 13.7 (11.5-14.5) % Plt Count 189 (130-400) K/uL MPV 11.1 (9.4-12.4) fL Immature Gran % (Auto) 0.6 % Neut % (Auto) 83.2 % Lymph % (Auto) 11.4 % [place] % (Auto) 4.5 % Eos % (Auto) 0.1 % Baso % (Auto) 0.2 % Neut # (Auto) 13.56 H (1.40-6.50) K/uL Lymph # (Auto) 1.85 (1.2-3.4) K/uL [place] # (Auto) 0.73 H (0.11-0.59) K/uL Eos # (Auto) 0.02 (0-0.50) K/uL Baso # (Auto) 0.03 (0-0.2) K/uL Immature Gran # (Auto) 0.09 (0.01-0.20) K/uL POC Glucose 106 H (70-99) mg/dl SARS-CoV-2, RNA, NAAT NEGATIVE (NEGATIVE) 09/11/22 Range/Units 06:00 WBC 16.39 H (4.8-10.8) K/ul RBC 3.42 L (4.20-5.40) M/uL Hgb 10.0 L (12.0-16.0) g/dl Hct 29.2 L (37.0-47.0) % MCV 85.4 (80.0-100.0) fL MCH 29.2 (25.0-34.0) pg MCHC 34.2 (32.0-36.0) g/dL RDW Std Deviation 42.2 (36.4-46.3) fL RDW Coeff of Jazmin 13.6 (11.5-14.5) % Plt Count 152 (130-400) K/uL MPV 11.8 (9.4-12.4) fL Immature Gran % (Auto) % Neut % (Auto) % Lymph % (Auto) % [place] % (Auto) % Eos % (Auto) % Baso % (Auto) % Neut # (Auto) (1.40-6.50) K/uL Lymph # (Auto) (1.2-3.4) K/uL [place] # (Auto) (0.11-0.59) K/uL Eos # (Auto) (0-0.50) K/uL Baso # (Auto) (0-0.2) K/uL Immature Gran # (Auto) (0.01-0.20) K/uL POC Glucose (70-99) mg/dl SARS-CoV-2, RNA, NAAT (NEGATIVE) PE: General: Alert, orientedx3, NAD Abd: soft, NT, fundus firm, below Umbilicus Perineum intact, Lochia rubra minimal Ext; NT, no edema AP: 26 yo s/p , ppd# 1 VSS Afebrile doing well Continue routine care All questions were answered CBC in am D/C home tomorrow Results & Data ([facility]) Vital Signs (Past 12 Hours) Vital Signs Temp Pulse Resp BP Pulse Ox O2 Del Method 09/11/22 08:30 36.8 C 92 H 18 110/75 97 Room Air 09/11/22 04:09 37.3 C 100 H 18 110/76 97 Room Air 09/11/22 00:55 Room Air 09/11/22 00:25 37.1 C 89 18 117/79 96 Room Air
[2022-09-11] MEDS ORDERED: bisacodyL 5 MG TABEC PO SCH (20:00)
[2022-09-12 06:45] LABS: Basophils # (auto) 0.05 K/uL (0-0.2); Basophils % (auto) 0.4 %; Eosinophils # (auto) 0.35 K/uL (0-0.50); Eosinophils % (auto) 2.8 %; Hematocrit (blood only) 29.9 % (37.0-47.0); Hemoglobin 10.1 g/dl (12.0-16.0); Immature Granulocytes # (auto) 0.09 K/uL (0.01-0.20); Immature Granulocytes % (auto) 0.7 %; Lymphocytes # (auto) 3.24 K/uL (1.2-3.4); Lymphocytes % (auto) 25.8 %; Mean Corpuscular Hemoglobin 29.4 pg (25.0-34.0); Mean Corpuscular Hgb Conc 33.8 g/dL (32.0-36.0); Mean Corpuscular Volume 86.9 fL (80.0-100.0); Mean Platelet Volume 11.5 fL (9.4-12.4); Neutrophils # (auto) 7.83 K/uL (1.40-6.50); Neutrophils % (auto) 62.3 %; Platelet Count 168 K/uL (130-400); RDW Coefficient of Variation 13.7 % (11.5-14.5); RDW Standard Deviation 42.9 fL (36.4-46.3); Red Blood Count 3.44 M/uL (4.20-5.40); White Blood Count 12.56 K/ul (4.8-10.8)
[2022-09-12] MEDS: PRENATAL VITAMIN 1 TAB PO SCH (08:37)
[2022-09-12] MEDS: FERROUS SULFATE 325 MG TAB PO SCH (08:37)
[2022-09-12] MEDS: DOCUSATE SODIUM 100 MG CAP PO SCH (08:37)
[2022-09-12] MEDS ORDERED: bisacodyL 10 MG SUPP PR PRN (09:00)
--- NOTE | 2022-09-12 09:46 | Obstetrical Progress Note ---
Date of Service September 12, 2022 Subjective Ambulation: ambulating normally Voiding: no voiding problems Passing Gas:: Yes Diet Tolerance:: regular diet Feeding Type:: breast feeding Current Pain Level(1-10): 0 doing well. plans for d/c Physical Exam Constitutional WD/WN, vitals as above Gastrointestinal (Abdomen) Inspection/Auscultation: abdomen normal to inspection abdomen soft and non-tender. fundus firm below U Musculoskeletal Extremities: extremities normal to inspection Skin no rashes, warm and dry Neurologic patellar DTR's 2+ bilat, sensation intact Psychiatric A+Ox3, euthymic affect Results & Data ([facility]) Vital Signs (Past 12 Hours) Vital Signs Temp Pulse Resp BP Pulse Ox O2 Del Method 09/12/22 08:59 36.4 C L 99 H 121/80 99 Room Air 09/12/22 00:10 36.9 C 90 18 97/68 L 97 Room Air Laboratory Results 09/10/22 09/10/22 09/10/22 01:55 03:45 04:02 WBC 16.28 H RBC 3.75 L Hgb 11.2 L Hct 32.0 L MCV 85.3 MCH 29.9 MCHC 35.0 RDW Std Deviation 42.2 RDW Coeff of Jazmin 13.7 Plt Count 189 MPV 11.1 Immature Gran % (Auto) 0.6 Neut % (Auto) 83.2 Lymph % (Auto) 11.4 [place] % (Auto) 4.5 Eos % (Auto) 0.1 Baso % (Auto) 0.2 Neut # (Auto) 13.56 H Lymph # (Auto) 1.85 [place] # (Auto) 0.73 H Eos # (Auto) 0.02 Baso # (Auto) 0.03 Immature Gran # (Auto) 0.09 POC Glucose 106 H SARS-CoV-2, RNA, NAAT NEGATIVE 09/11/22 09/12/22 06:00 06:03 WBC 16.39 H 12.56 H RBC 3.42 L 3.44 L Hgb 10.0 L 10.1 L Hct 29.2 L 29.9 L MCV 85.4 86.9 MCH 29.2 29.4 MCHC 34.2 33.8 RDW Std Deviation 42.2 42.9 RDW Coeff of Jazmin 13.6 13.7 Plt Count 152 168 MPV 11.8 11.5 Immature Gran % (Auto) 0.7 Neut % (Auto) 62.3 Lymph % (Auto) 25.8 [place] % (Auto) 8.0 Eos % (Auto) 2.8 Baso % (Auto) 0.4 Neut # (Auto) 7.83 H Lymph # (Auto) 3.24 [place] # (Auto) 1.00 H Eos # (Auto) 0.35 Baso # (Auto) 0.05 Immature Gran # (Auto) 0.09 POC Glucose SARS-CoV-2, RNA, NAAT
== END 2022-09-12 13:00 | disposition home or self-care (01) | DRG 768 ==
LOC: OPB 00:21 → 4S1 00:24 → 4E2 13:24

== ENCOUNTER 2023-12-18 07:38 | Inpatient (IN) ==
--- OUTSIDE RECORDS SUMMARY | 2023-12-18 07:53 | External Medical Summary | Summary of Care ---
Author Name Unknown Organization [facility] Address [address] [place] [address] Phone [phone] Care Team Providers Care Laundry Agent Name Role Phone Taryn Melgar PA-C Primary Care Provider Encounter Details Date Type Department Care Team (Late st Contact Info) Description 12/08/2023 Telephone Network Professional Obstetrics Maternal Medicine, [place] [address] [place] [address] [place], Nurse Network Professional [facility] [address] [place] [address] Allergies Active Allergy Reactions Criticality Noted Date Comments Pollen Other (Please comment) Low 01/05/2021 documented as of this encounter (statuses as of 12/11/2023) Medications Medication Sig Dispensed Refills Start Date End Date Status Pre- Formula Oral Tablet Take 1 Tablet by mouth in the morning. 0 Active Docusate Sodium 100 MG Oral Capsule (Colace)Indications :Constipation during , antepartum Take 1 Capsule by mouth daily as needed for Constipation. 30 Capsule 3 05/23/2023 Active OneTouch Verio In Vitro Strip (Glucose Blood)Indications:A bnormal glucose tolerance in mother complicating Test blood sugars 4 times a day (fasting and one hour after meals). 120 Strip 5 06/21/2023 Active LancetsIndications: Abnormal glucose tolerance in mother complicating Test blood sugars 4 times a day (fasting and one hour after meals). 120 Each 5 06/21/2023 Active BD Pen Needle Mini U/F 31G X 5 MM (Insulin Pen Needle)Indications: Insulin controlled gestational diabetes mellitus (GDM) in second trimester,Supervisi on of high risk in second trimester Use to inject insulin once daily. 100 Each 3 07/06/2023 Active Insulin Glargine Solostar 100 UNIT/ML Subcutaneous Solution Pen-injector (Lantus SoloStar)Indication s:Insulin controlled gestational diabetes mellitus (GDM) in second trimester,Supervisi on of high risk in second trimester Inject 15 Units under the skin at bedtime. Take with bedtime snack. 15 mL 3 07/12/2023 Active Albuterol Sulfate HFA 108 (90 Base) MCG/ACT Inhalation Aerosol Solution Inhale 2 Puffs by mouth every 6 hours as needed for Cough or Shortness of Breath. 18 g 0 09/16/2023 Active Dextromethorphan-gu aiFENesin 10-100 MG/5ML Oral Liquid (Robitussin DM) Take 5 mL by mouth every 4 hours as needed for Cough. 120 mL 0 09/16/2023 Active Additional Information Patient not taking.Reported on 11/27/2023 Oxymetazoline HCl 0.05 % Nasal Solution Administer 2 Sprays into each nostril 2 times a day as needed for Congestion (for congestion). Do not use for more than three days. 20 mL 0 09/16/2023 Active Additional Information Patient not taking.Reported on 11/27/2023 Ferrous Sulfate 325 (65 Fe) MG Oral Tablet (Feosol) Take 1 Tablet by mouth daily. 90 Tablet 0 10/13/2023 Active Omeprazole 20 MG Oral Capsule Delayed Release (PriLOSEC) Take 1 Capsule by mouth daily. 30 Capsule 1 11/14/2023 Active documented as of this encounter (statuses as of 12/11/2023) Active Problems Problem Noted Date Diagnosed Date Nephrolithiasis 11/16/2023 Overview: 4 mm kidney stone seen on ultrasound. Antepartum anemia complicating 024 Overview: Ferritin 11 on 10/12/2023. Repeat CBC later in 3rd trimester. Obesity in , antepartum 06/27/2023 Overview: The patient's pre-gravid BMI is 32.73. Class 1 Last Assessment & Plan: DISCUSSION: Discussed obstetrical risks associated with class I obesity (pre- BMI of 30 to 34.9). Reviewed that the accuracy of ultrasound at diagnosing anomalies is significantly decreased for women with an increased BMI. RECOMMENDATIONS: Recommend restricting weight gain during to 11-20 pounds. Consider referral for nutrition consult. Recommend evaluation for signs and symptoms (snoring, excessive daytime sleepiness witnessed apnea or unexplained hypoxia) of obstructive sleep apnea. If any of these are present, referral to Sleep Medicine specialist for further evaluation should be considered. Recommend Maternal- Medicine ultrasound for anatomy at 20 weeks. Short interval between pregn ancies complicating , antepartum 06/27/2023 Overview: Last delivered in 09/2022. Last Assessment & Plan: CONSIDERATIONS: Reviewed that a short Inter- Interval (IPI) may place the patient at an increased risk for , low weight, and SGA . IPI is defined as less than a year from the time of delivery of one to conception of the next . Some studies show that a short IPI may be associated with an increased risk for maternal , third trimester bleeding, premature rupture of membranes, puerperal endometritis, and anemia as well as placental abruption. Insulin controlled gestation al diabetes mellitus (GDM) during , antepartum 06/26/2023 Overview: Diagnosed at 14 weeks via home glucose monitoring (elevated FBS) Nutrition referral: deferred OneTouch Verio meter Note: history of gestational diabetes in previous Lab Results Component Value Date/Time 50-G GESTATIONAL GLUCOSE, 1 HOUR - [facility] 154 (H) 06/02/2023 10:20 AM HEMOGLOBIN A1C - [facility] 5.2 06/21/2023 09:44 AM 06/28/23: MFM ADAPT consult complete. Enrolled in Current Health. Instructions provided to report blood sugars each week for MFM review; per recall, reports FBS 100-107 and PP <140s; admits to having changed her diet and increased exercise since diagnosis; is fasting ~9 hours overnight and is having cereal with banana for bedtime snack; recommend fasting 8-10 hours overnight along with having a bedtime snack of 30g CHO paired with protein; reviewed healthy bedtime snack options 07/05/23- sugars elevated- msg sent to PARS to schedule ADAPT 07/06/23: ADAPT visit complete; elevated FBS; ordered Lantus 10 units at bedtime 07/12/23-elevated sugars- msg send to FLIGHT COMMUNICATIONS SPECIALIST 07/12/23: RPM reviewed; elevated FBS; increase to Lantus 15 units at bedtime 07/18/23 stable 07/26/23-stable 08/01/23: RPM reviewed; missing readings but of those reported - stable; continue Lantus 15 units at bedtime 08/09/23- stable 08/16/23- stable 08/24/23- stable 08/29/23-stable 09/05/23-stable 09/12/23-stable but missing many readings 09/18/23: RPM reviewed; many missed readings; request updated log 09/27/23- no sugars reported since 09/16/23; msg sent to patient 09/27/23: RPM reviewed, many missed readings for the past week --patient reports she has been sick with the flu. FBS yesterday and today within target. Pt encouraged to return to checking 4x daily and follow diet. --KW 10/04/23- stable 10/10/23-stable 10/18/23- stable 10/31/23: RPM Stable 11/07/23: RPM Stable 11/14/23: RPM reviewed; Stable 11/22/23: RPM reviewed; minimal reporting; reports having trouble with the luis; message to PARs to schedule a follow up ADAPT 11/28/23: RPM reviewed; no blood sugars reported this week; will request updated log 12/01/23: Received message from team that they were unable to contact patient regarding her concerns w/ luis; will recommend F/U ADAPT 12/05/23: RPM reviewed. Only one blood sugar reported since 11/18. Patient did not respond to previous calls to schedule; will recommend F/U ADAPT again. 12/08/2023 No show to follow up ADAPT visit; message to MFM PARS to assist patient with rescheduling Last Assessment & Plan: Working with ADAPT. BMI 32.0-32.9,adult 05/27/2023 Supervision of high-risk , third trimes ter 05/27/2023 Overview: Estimated Date of Delivery: 12/23/23 Continue vitamin. O negative - Rhogam given on 10/12/2023. Varicella and rubella immune. S/p anatomy ultrasound. S/p CBC - anemia on iron. Tdap vaccine completed. GBS culture at 36 weeks. Desires to breastfeed. contraception: partner vasectomy. Last Assessment & Plan: Placenta is not low lying. Couple advised that no activity restrictions are necessary. Class 1 obesity 07/25/2022 Rh negative, antepartum 05/12/2022 Overview: Rhogam given on 10/12/2023. History of abnormal cervical Pap smear Overview: Normal pap smear in 02/2022. Female infertility 09/29/2021 S/P ovarian cystectomy 01/05/2021 Dizziness 01/05/2021 Cyst of ovary 07/15/2013 Menstrual irregularity 07/15/2013 Estimated Date of Delivery Comme nts Yes 12/23/2023 Based on last me nstrual period of 03/18/2023 (Exact Date) documented as of this encounter (statuses as of 12/11/2023) Resolved Problems Problem Noted Date Diagnosed Date Resolved Date Back pain affecting pregnanc y in third trimester 11/16/2023 11/27/2023 History of gestational diabe elizabeth mellitus (GDM) 06/27/2023 11/27/2023 Overview: History of gestational diabetes (GDMA2) in previous Last Assessment & Plan: Reviewed with patient that women who have a history of GDM in a previous may have up to a 75% risk for GDM in subsequent pregnancies. Abnormal glucose tolerance i n mother complicating 06/24/2023 11/27/2023 Constipation during , antepartum 05/27/2023 11/27/2023 History of gestational diabetes 05/27/2023 11/27/2023 arrhythmia affecting p regnancy, antepartum 08/17/2022 05/27/2023 Overview: arythmia noted 08/12, saw peds cardio IMPRESSION and PLAN: 1. PACs in bigeminy giving the appearance of HR variability between 60-160 bpm 2. 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 Normal biventricular function 4. Mild NC The above findings were shared with the patient and explained in great details. Patient understands that PACs are typically benign and even in bigeminy, are well tolerated. The possible mechanism explained. Most likely the above will resolve post natally with change from to post circulation. Do not expect the above to cause any hemodynamic compromise however variability in HR might be noted due to the above. PACs should NOT be a indication for CSx. Patient can deliver locally with these findings as long as the team taking care of her is comfortable dealing with it, otherwise can deliver in [place]. 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 Atrioventricular (AV) synchrony is noted . heart rate is 120-130 BPM. Frequent premature atrial contractions. PACs in bigeminy. 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 On today's evaluation, a arrhythmia is not appreciated. Rubella non-immune status, antepartum 08/17/2022 11/27/2023 Antepartum anemia complicating 07/05/2022 05/27/2023 Overview: Iron and vitamin B12 deficiency. Doing well on ferrous sulfate and vitamin B12. Last Assessment & Plan: DISCUSSION: Severe maternal anemia (hemoglobin levels below 6 to 7 g/dl) is associated with oligohydramnios, cerebral vasodilation, delivery, miscarriage, growth restriction, nonreassuring heart rate patterns, and stillbirth. There is also an increased risk for maternal . RECOMMENDATIONS: 1. If hemoglobin is below 11 g/dl during first and third trimesters or less than10.5 g/dL in 2nd trimester, we recommend anemia studies to assess serum ferritin, iron, iron binding capacity, transferritin saturation, and hemoglobin electrophoresis. 2. If iron-deficiency anemia is confirmed, then we recommend iron supplementation with oral (preferred) or parenteral therapy (if recommended by blood conservation program after oral therapy has failed) as indicated to keep hemoglobin level above 11 g/dl during . Oral iron should be taken with orange juice. 3. If anemia studies do not reflect iron deficiency anemia we recommend checking TSH, B12 and folate levels and referral to a market risk analyst. 4. If hemoglobin levels are below 8 g/dl, we recommend Maternal Medicine ultrasound for growth every 4 weeks after 24 weeks. Consider a blood transfusion if hemoglobin levels fall below 6 g/dL. ([employer] Bulletin Number 95, February,). 5. Consider Venofer transfusions if patient labs supportive of iron deficiency anemia with dosing of 300 mg IV weekly x 3 weeks Insulin controlled gestation al diabetes mellitus (GDM) in third trimester 07/05/20222022 Overview: Gestational diabetes diagnosed in third trimester by elevated 1 hour GCT and abnormal home glucose testing. Patient testing fasting and 1 hour postprandial blood sugars. Reports some fasting elevations as well as some higher numbers after meals. Nutrition consult completed 07/19. Will continue testing and report weekly to [facility] via [facility]. Discussed that medication may be needed if elevated blood sugars do not improve with diet alone. Patient agreeable to starting insulin if needed. Will review again next week. 07/25/22: [facility] ADAPT consult complete. 07/27/22: elevated fasting; nutrition on 08/23/22 08/02/22: Overall stable. Two elevated FBS. May need insulin. 08/09/22: Still having elevated FBS despite snacking appropriately. SM recommending insulin, awaiting patient response. 08/09/22: ordered Levemir 20 units at bedtime 08/15/22: Sent MYG message to patient to update blood sugars 08/15/22: Scattered elevations. Patient reports being sick. May only be taking 15 units of Levemir at bedtime, asked patient to confirm dose. 08/22/22: Sent MYG message to patient to update blood sugars 08/22/22: Taking 15 units Levemir at HS. [place] woozy after 20 units. Was sick last week, but FBS WNL for the past few days. No changes this week. 08/29/22: Stable 09/05/22: Sent MYG message to patient to update blood sugars 09/05/22: Stable Last Assessment & Plan: She presents for follow-up of growth secondary to GMDA2. Prior imaging has noted a marginal PCI and a arrhythmia. I reviewed her most recent blood glucose values. They appear to be fairly well-controlled with insulin thus far. We reviewed the results of today's ultrasound. The estimated weight is appropriate for gestational age in the 86th percentile. The visualized anatomy is unremarkable in appearance. The SHANNON is normal. A BPP is 8/8. Marginal insertion of umbili efrain cord affecting management of mother 06/09/2022 Overview: Discussed with Dr. Taylor. Continue to monitor fundal height and order growth scan if needed. MATERNAL MEDICINE referral made. Last Assessment & Plan: M anatomy/growth ultrasound scheduled for 08/03/22. Patient reports +FM. Back pain affecting pregnanc y in second trimester 05/12/2022 06/09/2022 Overview: Reports that the maternity support belt is working well. Patient declines physical therapy at this time. Supervision of high-risk pre gnancy, third trimester 02/17/2022 05/27/2023 Overview: Estimated Date of Delivery: 09/25/22 Continue vitamin. O negative - Rhogam given on 07/04/2022. Varicella immune. Rubella indeterminate. Qnatal low risk. Declines MSAFP testing. Anatomy ultrasound complete - marginal cord insertion. Has GDM. CBC with anemia - on iron and vitamin B12. Tdap vaccine completed on 07/04/2022. GBS culture at 36 weeks. Declines COVID-19 vaccine. Declines influenza vaccine. Obesity during 02/17/2022 Overview: Pre-gravid BMI 30.72 (#168, 5'2") Patient has gained approximately 12 lbs as of 31 weeks. Last Assessment & Plan: I reviewed the ultrasound with her. The anatomy was visualized appears unremarkable and the biometry is appropriate for the gestational age. The overall estimated weight is consistent with the 67th percentile for the gestational age and the fetus is in the vertex presentation. The amniotic fluid volume is normal at 8 cm. I reviewed her low risk noninvasive screen in light of a normal ultrasound. related nausea, antepartum 02/17/2022 05/12/2022 Constipation during pregnanc y in third trimester 02/17/2022 05/27/2023 Overview: Doing well on Colace. Postoperative nausea 01/05/2021 021 Encounter for preconception consultation 09/23/2020 08/17/2022 Pelvic pain in female 08/27/20202023 Nexplanon removal 09/13/2019 08/17/2022 documented as of this encounter (statuses as of 12/11/2023) Immunizations Name Administration Dates Next Due Seasonal Influenza, Split, I IV3, With Preserve, Inj 05/21/2013 TDAP (age 10 and older)(Boostrix) 10/12/2023,,03/04/2021 documented as of this encounter Social History Tobacco Use Types Packs/Day Years Used Date Smoking Tobacco: Never Smokeless Tobacco: Never Alcohol Use Standard Drinks/Week Comments Not Currently 0 (1 standard drink = 0.6 oz pur e alcohol) denies in 2022 PHQ-2 Answer Date Recorded PHQ Adult Total Score 0 07/05/2021 Hunger Vital Sign Answer Date Recorded Within the past 12 months, y ou worried that your food would run out before you got the money to buy more. Never true 11/02/19 23 Within the past 12 months, t he food you bought just didn't last and you didn't have money to get more. Never true 11/01/2022 Watts Depression Scale Answer Date Recorded Watts Depression Scale Total 2 09/14/2023 The thought of harming myself has occurred to me . Never 09/14/2023 Estimated Date of Delivery Comme nts Yes 12/23/2023 Based on last me nstrual period of 03/18/2023 (Exact Date) Sex and Gender Information Value Date Recorded Sex Assigned at Female 02/15/2022 9:32 AM EDT Gender Identity Female 02/15/2022 9:32 AM EDT Sexual Orientation Straight 02/15/2022 9: 32 AM EDT Job Start Date Occupation Industry Not on file Not on file Not on file documented as of this encounter Functional Status Functional Status Response Date of Assess ment Are you deaf or do you have serious difficulty hearing? No 01/05/2021 Are you blind or do you have serious difficulty seeing, even when wearing glasses? No-needs glasses to see anything 01/05/2021 Do you have serious difficul ty walking or climbing stairs? (5 years old or older) No 01/05/2021 Because of a physical, menta l, or emotional condition, do you have difficulty doing errands alone such as visiting a doctor s office or shopping? (15 years old or older) No 01/05/2021 Cognitive Status Response Date of Assessm ent Because of a physical, menta l, or emotional condition, do you have serious difficulty concentrating, remembering, or making decisions? (5 years old or older) No 01/05/2021 documented as of this encounter Miscellaneous Notes * Telephone Encounter - Kamilla Vazquez OSA - 12/11/2023 8:59 AM EDT Phone call to patient. Left message on [employer] voice mail. Encouraged patient to return call to [facility] to assist with scheduling. * Telephone Encounter - Amy Shearer OSA - 12/08/2023 2:18 PM EDT Phone call to patient. Left message on [employer] voice mail. Encouraged patient to return call to [facility] to assist with scheduling. * Telephone Encounter - Amy Shearer OSA - 12/08/2023 2:18 PM EDT ----- Message from MIRTA Riddle sent at 12/08/2023 1:27 PM EDT ----- Regarding: Needs FU ADAPT (please call; no showed) Hi, Please schedule Ms. Mckinney for a 30 minute ADAPT follow up to further manage gestational diabetes at the patient's earliest convenience. Ms. Mckinney did not show for her follow up ADAPT visit today. Thank you, Tasha documented in this encounter Plan of Treatment Upcoming Encounters Date Type Department Care Team (Late st Contact Info) Description 12/11/2023 11:00 AM EDT Office Visit Gynecology/Obstetrics Arlen Love [address] [place] [phone] [place], MIRTA German [address] [address] Betty Love Stress [facility] Kim [address] [place] [phone] 12/14/2023 1:00 PM EDT Office Visit Gynecology/Obstetrics Arlen Love [address] [place] [phone] Fatuma Gutierrez MD [address] [place] [address] [place] [phone] Ivan Non [facility] [address] [place] [phone] Health Maintenance Due Date Last Done Comments Hepatitis B (1 of 3 - 19+ 3-dose series) 2012 Depression Screening 07/05/2022 07/05/2021 COVID-19 Vaccine ( - 2022- season) 2023 HPV/Co-Test 11/03/2023 Influenza Vaccine (FLU shot) (Season Ended) 2024 05/21/2013 Cervical Cancer Screening 02/15/2025 Pap Smear 02/15/2025 02/15/2022, 08/08, 08/26/2019, Additional history exists DTaP,Tdap,and Td Vaccines (4 - Td or Tdap) 10/11/2033 10/12/2023, 07/04/2022, 03/04/2021 GARDASIL-HPV IMMUNIZATION SERIES Aged Out No longer eligible based on patient's age to complete this topic MENINGOCOCCAL (MENACTRA/MENVEO) Aged Out No longer eligible based on patient's age to complete this topic Pneumococcal Vaccine: Pediatrics (0 to 5 Years) and At-Risk Patients (6 to 64 Years) Aged Out No longer eligible based on patient's age to complete this topic documented as of this encounter Medical Devices Not on filedocumented as of this encounter Advance Directives Latest Code Status on File Code Status Date Activated Date Inactivated Comments Full Code 01/05/2021 6:10 PM 01/06/2021 6:29 PM This or jazmin reflects the patients wishes and were consensually agreed upon. Question Answer Comments Discussion of Advance Directives occurred with: Patient Does the patient have a Living Will? No Does the patient have Health Care Power of Hardening Machine Operator? No Code Status History Code Status Date Activated Date Inactivated Comments Full Code 01/05/2021 11:33 AM 01/05/2021 6:10 PM This o rder reflects the patients wishes and were consensually agreed upon. Care Teams Laundry Agent Relationship Specialty Start Date End Date Taryn Melgar PA-C [address] [place] [id number] PCP - General Physician Process Supervisor 09/20/18 documented as of this encounter
--- OUTSIDE RECORDS SUMMARY | 2023-12-18 07:53 | External Medical Summary | Summary of Care ---
Author Name Unknown Organization [facility] Address [address] [place] [address] Phone [phone] Care Team Providers Care Smooth Plater Name Role Phone Taryn Melgar PA-C Primary Care Provider Encounter Details Date Type Department Care Team (Late st Contact Info) Description 12/08/2023 Telephone Fabric Pattern Grader Obstetrics Maternal Medicine, [place] [address] [place] [address] [place], Nurse Fabric Pattern Grader [facility] [address] [place] [address] Allergies Active Allergy Reactions Criticality Noted Date Comments Pollen Other (Please comment) Low 01/05/2021 documented as of this encounter (statuses as of 12/08/2023) Medications Medication Sig Dispensed Refills Start Date [...] as of this encounter (statuses as of 12/08/2023) Active Problems Problem Noted Date Diagnosed Date [...] at bedtime 07/12/23-elevated sugars- msg send to VIDEO GAME ENGINEER 07/12/23: RPM reviewed; elevated FBS; increase to [...] as of this encounter (statuses as of 12/08/2023) Resolved Problems Problem Noted Date Diagnosed Date [...] PACs 3. Normal biventricular function 4. Mild [place] The above findings were shared with the [...] dealing with it, otherwise can deliver in [place]. Last Assessment & Plan: She was seen [...] and folate levels and referral to a galley boy. 4. If hemoglobin levels are below 8 g/dl, we recommend Maternal Medicine ultrasound for growth every 4 weeks after 24 weeks. Consider a blood transfusion if hemoglobin levels fall below 6 g/dL. ([employer] Drafting Officer Practice Bulletin Number 95, February,). 5. Consider [...] Will continue testing and report weekly to [facility] via [employer]. Discussed that medication may be needed if elevated blood sugars do not improve with diet alone. Patient agreeable to starting insulin if needed. Will review again next week. 07/25/22: [facility] ADAPT consult complete. 07/27/22: elevated fasting; nutrition [...] 08/22/22: Taking 15 units Levemir at HS. [place] woozy after 20 units. Was sick last [...] as of this encounter (statuses as of 12/08/2023) Immunizations Name Administration Dates Next Due Seasonal [...] money to get more. Never true 11/01/2022 K[place] Depression Scale Answer Date Recorded [place] Depression Scale Total 2 09/14/2023 The thought [...] encounter Miscellaneous Notes * Telephone Encounter - Amy Shearer OSA - 12/08/2023 2:18 PM EDT Phone call to patient. Left message on Lacy's voice mail. Encouraged patient to return call to [facility] to assist with scheduling. * Telephone Encounter [...] 12/11/2023 11:00 AM EDT Office Visit Gynecology/Obstetrics [place] Ivan [address] [place] [address] Antonietta Hair CRNP [address] [address] [place], Non Stress Tests Kim [address] [place] [address] 12/14/2023 1:00 PM EDT Office Visit Gynecology/Obstetrics [place] Ivan [address] [place] [address] Fatuma Gutierrez MD [address] [place] [address] [place] [address] Ivan Non Stress Tests Kim [address] [place] [address] Health Maintenance Due Date Last Done Comments [...] the patient have Health Care Power of Gluing Machine Feeder? No Code Status History Code Status Date Activated Date Inactivated Comments Full Code 01/05/2021 11:33 AM 01/05/2021 6:10 PM This o rder reflects the patients wishes and were consensually agreed upon. Care Teams Smooth Plater Relationship Specialty Start Date End Date Taryn Melgar PA-C [address] [place] [phone] PCP - General Physician Board Machine Set Up Operator 09/20/18 documented as of this encounter
--- OUTSIDE RECORDS SUMMARY | 2023-12-18 07:53 | External Medical Summary | Summary of Care ---
Author Name Unknown Organization [facility] Address [address] [place] [address] Phone [phone] Care Team Providers Care Rope Cleaner Name Role Phone Taryn Melgar PA-C Primary Care Provider Reason for Visit * Reason Comments Return Visit Non Stress Test Encounter Details Date Type Department Care Team (Late st Contact Info) Description 12/14/2023 1:00 PM EDT Office Visit Gynecology/Obstetric s Arlen Love [address] [place] [address] Fatuma Gutierrez MD [address] [place] [address] [place] [address] Ivan Non Stress Tests Kim [address] [place] [address] 38 weeks gestation of *; Insulin controlled gestational diabetes mellitus (GDM) during , antepartum; Obesity in , antepartum; Rh negative, antepartum; Short interval between pregnancies complicating , antepartum; Supervision of high-risk , third trimester; Antepartum anemia complicating ; Nephrolithiasis Allergies Active Allergy Reactions Criticality Noted Date Comments Pollen Other (Please comment) Low 01/05/2021 documented as of this encounter (statuses as of 12/14/2023) Medications Medication Sig Dispensed Refills Start Date End Date Status Pre-Antolin Formula Oral Tablet Take 1 Tablet by [...] as of this encounter (statuses as of 12/14/2023) Active Problems Problem Noted Date Diagnosed Date [...] at bedtime 07/12/23-elevated sugars- msg send to ROOTER OPERATOR 07/12/23: RPM reviewed; elevated FBS; increase to [...] to follow up ADAPT visit; message to [facility] to assist patient with rescheduling 12/12/23: RPM reviewed; continue Lantus 15 units at bedtime Last Assessment & Plan: Working with ADAPT. BMI 32.0-32.9,adult 05/27/2023 Supervision of high-risk , [place] 05/27/2023 Overview: Estimated Date of Delivery: 12/23/23 [...] as of this encounter (statuses as of 12/14/2023) Resolved Problems Problem Noted Date Diagnosed Date [...] PACs 3. Normal biventricular function 4. Mild [place] The above findings were shared with the [...] dealing with it, otherwise can deliver in [place]. Last Assessment & Plan: She was seen [...] and folate levels and referral to a breast trimmer. 4. If hemoglobin levels are below 8 g/dl, we recommend Maternal Medicine ultrasound for growth every 4 weeks after 24 weeks. Consider a blood transfusion if hemoglobin levels fall below 6 g/dL. ([employer] El[employer] Practice Bulletin Number 95, February,). 5. Consider [...] Will continue testing and report weekly to [facility] via [employer]. Discussed that medication may be needed if elevated blood sugars do not improve with diet alone. Patient agreeable to starting insulin if needed. Will review again next week. 07/25/22: [facility] ADAPT consult complete. 07/27/22: elevated fasting; nutrition [...] 08/22/22: Taking 15 units Levemir at HS. [place] woozy after 20 units. Was sick last [...] MEDICINE referral made. Last Assessment & Plan: [facility] anatomy/growth ultrasound scheduled for 08/03/22. Patient reports [...] as of this encounter (statuses as of 12/14/2023) Immunizations Name Administration Dates Next Due Seasonal [...] money to get more. Never true 11/01/2022 [place] Depression Scale Answer Date Recorded [place] Depression Scale Total 2 09/14/2023 The thought [...] on file documented as of this encounter Last Filed Vital Signs Vital Sign Reading Time Taken Comments Blood Pressure 122/82 12/14/2023 1:01 PM EDT Pulse - - Temperature - - Respiratory Rate - - Oxygen Saturation - - Inhaled Oxygen Concentration - - Weight 88.5 kg (195 lb) 12/14/2023 1:01 PM EDT Height 157.5 cm (5' 2") 12/14/2023 1:01 PM EDT Body Mass Index 35.67 12/14/2023 1:01 PM EDT documented in this encounter Functional Status Functional Status Response [...] No 01/05/2021 documented as of this encounter Progress Notes * Fatuma Gutierrez MD - 12/14/2023 1:00 PM EDT ASSESSMENT assessment with Non-stress test completed on 12/12/2023 at 38 5/7 gestation for indication of gestational diabetes mellitus. States she was 3 cm yesterday and having irregular contrcations heart baseline: 115 bpm Variability: Moderate Accelerations: present x1 Decelerations: absent Contractions: None-irritable NST strip reviewed, interpreted, and approved by OB provider, Marcus Gutierrez. NST strip stored in clinic storage file NST start time: 1300 NST stop time: 1324 Sent to BPP for non reactive NST Discussed infection risk with cervical checks when not in labor. Declines exam at this time IOL 12/17 [facility] Marcus Gutierrez MD PhD documented in this encounter Plan of Treatment Pending Results Name Type Priority Associated Diagnoses Date /Time US BPP W/O NON-STRESS TEST Medical Imaging Routine Insulin controlled gestational diabetes mellitus (GDM) during , antepartum 12/14/2023 1:28 PM EDT Scheduled Orders Name Type Priority Associated Diagnoses Orde r Schedule US BPP W/O NON-STRESS TEST Medical Imaging Routine Insulin controlled gestational diabetes mellitus (GDM) during , antepartum Expected: 12/14/2023, Expires: 01/13/2025 Health Maintenance Due Date Last Done Comments [...] Not on filedocumented as of this encounter Visit Diagnoses Diagnosis 38 weeks gestation of - Primary state, incidental Insulin controlled gestational diabetes mellitus (GDM) during , antepartum Obesity in , antepartum Obesity complicating , childbirth, or the puerperium, antepartum condition or complication Rh negative, antepartum Rhesus isoimmunization affecting management of mother, antepartum condition Short interval between pregnancies complicating , antepartum Supervision of other high-risk Supervision of high-risk , third trimester Antepartum anemia complicating Anemia, antepartum Nephrolithiasis Calculus of kidney documented in this encounter Advance Directives Latest Code Status on File Code Status Date Activated Date Inactivated Comments Full Code 01/05/2021 6:10 PM 01/06/2021 6:29 PM This or jazmin reflects the patients wishes and were consensually agreed upon. Question Answer Comments Discussion of Advance Directives occurred with: Patient Does the patient have a Living Will? No Does the patient have Health Care Power of Continuous Improvement Black Belt? No Code Status History Code Status Date Activated Date Inactivated Comments Full Code 01/05/2021 11:33 AM 01/05/2021 6:10 PM This o rder reflects the patients wishes and were consensually agreed upon. Care Teams Rope Cleaner Relationship Specialty Start Date End Date Taryn Melgar PA-C [address] [place], [place] [address] [phone] PCP - General Physician Web Press Jogger 09/20/18 documented as of this encounter
--- OUTSIDE RECORDS SUMMARY | 2023-12-18 07:53 | External Medical Summary | Summary of Care ---
Author Name Unknown Organization [facility] Address [address] [place] [address] Phone [phone] Care Team Providers Care Parking Attendant Name Role Phone Taryn Melgar PA-C Primary Care Provider Reason for Visit * Reason Comments Return Visit Encounter Details Date Type Department Care Team (Late st Contact Info) Description 12/13/2023 3:45 PM EDT Office Visit Gynecology/Obstetics [address] [address] Angie Nuñez PA-C [address] [place] [phone] Supervision of high-risk , third trimester*; Rh negative, antepartum; Insulin controlled gestational diabetes mellitus (GDM) during , antepartum; Antepartum anemia complicating Allergies Active Allergy Reactions Criticality Noted Date Comments Pollen Other (Please comment) Low 01/05/2021 documented as of this encounter (statuses as of 12/13/2023) Medications Medication Sig Dispensed Refills Start Date [...] as of this encounter (statuses as of 12/13/2023) Active Problems Problem Noted Date Diagnosed Date [...] (H) 06/02/2023 10:20 AM HEMOGLOBIN A1C - [facility] 5.2 06/21/2023 09:44 AM 06/28/23: MFM ADAPT [...] options 07/05/23- sugars elevated- msg sent to [facility] to schedule ADAPT 07/06/23: ADAPT visit complete; elevated FBS; ordered Lantus 10 units at bedtime 07/12/23-elevated sugars- msg send to INFORMATION COORDINATOR 07/12/23: RPM reviewed; elevated FBS; increase to [...] having trouble with the luis; message to [facility] to schedule a follow up ADAPT 11/28/23: [...] to follow up ADAPT visit; message to [facility] to assist patient with rescheduling [...] as of this encounter (statuses as of 12/13/2023) Resolved Problems Problem Noted Date Diagnosed Date [...] cardio IMPRESSION and PLAN: 1. PACs in [place]emin giving the appearance of HR variability between 60-160 bpm 2. 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 Normal biventricular function 4. Mild [place] The above findings were shared with the [...] dealing with it, otherwise can deliver in [place]. Last Assessment & Plan: She was seen [...] and folate levels and referral to a office secretary. 4. If hemoglobin levels are below 8 g/dl, we recommend Maternal Medicine ultrasound for growth every 4 weeks after 24 weeks. Consider a blood transfusion if hemoglobin levels fall below 6 g/dL. ([employer] Practice Bulletin Number 95, February,). 5. Consider [...] Will continue testing and report weekly to [facility] via [employer]. Discussed that medication may be needed if elevated blood sugars do not improve with diet alone. Patient agreeable to starting insulin if needed. Will review again next week. 07/25/22: [facility] ADAPT consult complete. 07/27/22: elevated fasting; [...] 08/22/22: Taking 15 units Levemir at HS. [place] woozy after 20 units. Was sick last [...] efrain cord affecting management of mother 06/09/2022 3 Overview: Discussed with Dr. Taylor. Continue to [...] as of this encounter (statuses as of 12/13/2023) Immunizations Name Administration Dates Next Due Seasonal [...] money to get more. Never true 11/01/2022 [place] Depression Scale Answer Date Recorded [place] Depression Scale Total 2 09/14/2023 The thought [...] Sign Reading Time Taken Comments Blood Pressure 110/64 12/13/2023 3:49 PM EDT Pulse - - Temperature - - Respiratory Rate - - Oxygen Saturation - - Inhaled Oxygen Concentration - - Weight - - Height - - Body Mass Index - - documented in this encounter Functional Status Functional [...] as of this encounter Progress Notes * Angie Nuñez PA-C - 12/13/2023 4:10 PM EDT Lacysamira Mckinney presents for visit at 38w4d. BP 110/64 | LMP 03/18/2023 (Exact Date) Denies vaginal bleeding, leaking of fluid, abdominal pain, or abnormal vaginal discharge. Denies headaches, blurry vision, or right upper quadrant pain. Patient states she feels good movement. Patient has been noticing irregular contractions since Monday. Patient reports that she is having irregular contractions lasting 45 minutes to 1 hour. Patient reports that contractions are 3 to 8 minutes apart. Patient has looser stools when she has contractions. Patient was 2 to 3 cm dilated on Monday. Patient has lost mucous plug yesterday or today. Patient has vaginal pressure. Physical Exam General: alert and oriented, no acute distress Pulmonary: normal respiratory effort, no accessory muscle use. Abdomen: gravid, soft, non-tender heart rate: 130's bpm Pelvic Exam: external genitalia and vagina anatomy within normal limits, mucous like physiologic discharge, no pooling in the vagina on valsalva. Cervix: 3 cm/30%/high Suture Winder Hand Documentation Patient offered bottom cager and declined. OB [place] Problems (from 05/09/23 to present) Problem Noted Resolved Nephrolithiasis 11/16/2023 by Angie Nuñez PA-C No 4 mm kidney stone seen on ultrasound. Antepartum anemia complicating 10/30/2023 by Angie Nuñez PA-C No Obesity in , antepartum 06/27/2023 by Amy Rivas CRNP No The patient's pre-gravid BMI is 32.73. Class 1 Short interval between pregnancies complicating , antepartum 06/27/2023 by Amy Rivas CRNP No Last delivered in 09/2022. Insulin controlled gestational diabetes mellitus (GDM) during , antepartum 06/26/2023 by Angie Nuñez PA-C No Diagnosed at 14 weeks via home glucose [...] options 07/05/23- sugars elevated- msg sent to [facility] to schedule ADAPT 07/06/23: ADAPT visit complete; elevated FBS; ordered Lantus 10 units at bedtime 07/12/23-elevated sugars- msg send to INFORMATION COORDINATOR 07/12/23: RPM reviewed; elevated FBS; increase to [...] having trouble with the luis; message to [facility] to schedule a follow up ADAPT 11/28/23: [...] to follow up ADAPT visit; message to [facility] to assist patient with rescheduling 12/12/23: RPM reviewed; continue Lantus 15 units at bedtime Supervision of high-risk , third trimester 05/27/2023 by Angie Nuñez PA-C No Estimated Date of Delivery: 12/23/23 Continue vitamin. O negative - Rhogam given on 10/12/2023. Varicella and rubella immune. S/p anatomy ultrasound. S/p CBC - anemia on iron. Tdap vaccine completed. GBS culture negative. Desires to breastfeed. contraception: partner vasectomy. Rh negative, antepartum 05/12/2022 by Angie Nuñez PA-C No Rhogam given on 10/12/2023. Plan: -GBS culture negative. -IOL scheduled. -Cervical check completed. -Counseled patient on labor precautions. Counseled patient to call triage/go to labor and delivery if she has any vaginal bleeding, leaking of fluid, vaginal pressure, more than 6 painful contractions in an hour for over an hour, abdominal pain, decreased movements, headaches, blurry vision, or right upper quadrant pain. Patient verbalized understanding. Return to the office for previously scheduled non stress test tomorrow or sooner if any concerns. Angie Stone-TAYLOR Darling documented in this encounter Nursing Notes * Evelyne Power LPN - 12/13/2023 3:48 PM EDT Patient here with irregular contractions, notes some vaginal discharge. Has has diarrhea the last 2days. Starts with the contractions Requesting a cervical check documented in this encounter Plan of Treatment Upcoming Encounters Date Type Department Care Team (Late st Contact Info) Description 12/14/2023 1:00 PM EDT Office Visit Gynecology/Obstetrics [address] [place] [address] Fatuma Gutierrez MD [address] [place] [address] [place] [address] Love, Non Stress Tests Kim [address] [place] [address] Health Maintenance Due Date Last Done Comments Hepatitis B (1 of 3 - 19+ 3-dose series) 2012 Depression Screening 07/05/2022 07/05/2021 COVID-19 Vaccine ( - 2022-24 season) 2023 HPV/Co-Test 11/03/2023 Influenza Vaccine (FLU [...] as of this encounter Visit Diagnoses Diagnosis Supervision of high-risk , third trimester- Primary Rh negative, antepartum Rhesus isoimmunization affecting management of mother, antepartum condition Insulin controlled gestational diabetes mellitus (GDM) during , antepartum Antepartum anemia complicating Anemia, antepartum documented in this encounter Advance Directives Latest [...] the patient have Health Care Power of Warehouse Supervisor 3Rd Shift? No Code Status History Code Status Date Activated Date Inactivated Comments Full Code 01/05/2021 11:33 AM 01/05/2021 6:10 PM This o rder reflects the patients wishes and were consensually agreed upon. Care Teams Parking Attendant Relationship Specialty Start Date End Date Taryn Melgar PA-C [address] [place] [address] [place] [phone] PCP - General Physician Senior Research Project Manager 09/20/18 documented as of this encounter
--- OUTSIDE RECORDS SUMMARY | 2023-12-18 07:53 | External Medical Summary | Summary of Care ---
Author Name Unknown Organization [facility] Address [address] [place] [address] Phone [phone] Care Team Providers Care Leasing Consultant Name Role Phone Taryn Melgar PA-C Primary Care Provider Reason for Visit * Reason Onset Date Comments Health Maintenance 12/13/2023 Encounter Details Date Type Department Care Team ([facility] st Contact Info) Description 12/13/2023 Telephone Family Practice [facility] [address] [place] [address] Taryn Melgar PA-C [address] [place] [address] Health Maintenance Allergies Active Allergy Reactions Criticality Noted Date [...] stone seen on ultrasound. Antepartum anemia complicating 03/25/2 024 Overview: Ferritin 11 on 10/12/2023. Repeat [...] options 07/05/23- sugars elevated- msg sent to [facility] to schedule ADAPT 07/06/23: ADAPT visit complete; elevated FBS; ordered Lantus 10 units at bedtime 07/12/23-elevated sugars- msg send to ROAD MARKER 07/12/23: RPM reviewed; elevated FBS; increase to [...] having trouble with the luis; message to [facility] to schedule a follow up ADAPT [...] to follow up ADAPT visit; message to [facility] to assist patient with rescheduling 12/12/23: [...] PACs 3. Normal biventricular function 4. Mild [place] The above findings were shared with the [...] dealing with it, otherwise can deliver in [place]. Last Assessment & Plan: She was seen [...] and folate levels and referral to a fence gate assembler. 4. If hemoglobin levels are below 8 g/dl, we recommend Maternal Medicine ultrasound for growth every 4 weeks after 24 weeks. Consider a blood transfusion if hemoglobin levels fall below 6 g/dL. ([employer] Room Practice Bulletin Number 95, February,). 5. Consider [...] Will continue testing and report weekly to [facility] via [employer]. Discussed that medication may be needed if elevated blood sugars do not improve with diet alone. Patient agreeable to starting insulin if needed. Will review again next week. 07/25/22: [facility] ADAPT consult complete. 07/27/22: elevated fasting; nutrition [...] 08/22/22: Taking 15 units Levemir at HS. [place] woozy after 20 units. Was sick last [...] MEDICINE referral made. Last Assessment & Plan: [facility] anatomy/growth ultrasound scheduled for 08/03/22. Patient reports [...] money to get more. Never true 11/01/2022 [place] Depression Scale Answer Date Recorded [place] Depression Scale Total 2 09/14/2023 The thought [...] encounter Miscellaneous Notes * Telephone Encounter - Lyla Lieberman LPN - 12/13/2023 1:44 PM EDT Care Gaps Comprehensive Care Outreach Last Office/Telemedicine Visit: 07/12/2023 (in office), Visit date not found (telemedicine) Next Office Visit: Visit date not found Hemoglobin AIC Results: Lab Results Component Value Date/Time HEMOGLOBIN A1C - [facility] 5.2 06/21/2023 09:44 AM HEMOGLOBIN A1C - [facility] 5.2 09/06/2019 08:12 AM BP Readings from Last 1 Encounters: 12/07/23 102/62 Reviewed Health Maintenance below: Health Maintenance Topic Date Due Hepatitis B (1 of 3 - 19+ 3-dose series) Never done Depression Screening 07/05/2022 COVID-19 Vaccine ( season) Never done Care Gap Outreach Action Taken: Outreach not indicated documented in this encounter Plan of Treatment Upcoming Encounters Date Type Department Care Team (Late st Contact Info) Description 12/14/2023 1:00 PM EDT Office Visit Gynecology/Obstetrics Arlen Love [address] [place] [address] Fatuma Gutierrez MD [address] [place] [address] Betty Love Stress Tests Kim [address] [place] [address] Health Maintenance Due Date Last Done Comments Hepatitis B (1 of 3 - 19+ 3-dose series) 2012 Depression Screening 07/05/2022 07/05/2021 COVID-19 Vaccine ( season) 2023 HPV/Co-Test 11/03/2023 Influenza Vaccine (FLU [...] the patient have Health Care Power of Customer Service Advocate? No Code Status History Code Status Date Activated Date Inactivated Comments Full Code 01/05/2021 11:33 AM 01/05/2021 6:10 PM This o rder reflects the patients wishes and were consensually agreed upon. Care Teams Leasing Consultant Relationship Specialty Start Date End Date Taryn Melgar PA-C [address] [place] [address] [phone] PCP - General Physician Financial Engineer 09/20/18 documented as of this encounter
--- OUTSIDE RECORDS SUMMARY | 2023-12-18 07:53 | External Medical Summary | Summary of Care ---
Author Name Unknown Organization [facility] Address [address] [place] [address] Phone [phone] Care Team Providers Care Produce Clerk Name Role Phone Taryn Melgar PA-C Primary Care Provider Reason for Visit * Reason Comments Non Stress Test Return Visit Encounter Details Date Type Department Care Team (Late st Contact Info) Description 12/11/2023 11:00 AM EDT Office Visit Gynecology/Obstetric s [facility] [address] [facility] [place] [address] Antonietta Hair CRNP [address] [facility] [place] [address] Ivan Non Stress Tests Kim [address] [place] [address] Supervision of high-risk , third trimester*; Rh negative, antepartum; Insulin controlled gestational diabetes mellitus (GDM) during , antepartum; Obesity in , antepartum; Short interval between pregnancies complicating , antepartum; Antepartum anemia complicating ; Nephrolithiasis Allergies Active [...] at bedtime 07/12/23-elevated sugars- msg send to CLINIC SPECIALIST 07/12/23: RPM reviewed; elevated FBS; increase [...] request updated log 12/01/23: Received message from [facility] team that they were unable to contact patient regarding her concerns w/ luis; will recommend F/U ADAPT 12/05/23: RPM reviewed. Only one blood sugar reported since 11/18. Patient did not respond to previous calls to schedule; will recommend F/U ADAPT again. 12/08/2023 No show to follow up ADAPT visit; message to [facility] to assist patient with rescheduling Last Assessment & Plan: Working with ADAPT. BMI 32.0-32.9,adult 05/27/2023 Supervision of high-risk , [facility] 05/27/2023 Overview: Estimated Date of Delivery: 12/23/23 [...] PACs 3. Normal biventricular function 4. Mild [place] The above findings were shared with the patient and explained in great details. Patient understands that PACs are typically benign and even in bigeminy, are well tolerated. The possible mechanism explained. Most likely the above will resolve post natally with change from to post archie circulation. Do not expect the above to cause any hemodynamic compromise however variability in HR might be noted due to the above. PACs should NOT be a indication for CSx. Patient can deliver locally with these findings as long as the team taking care of her is comfortable dealing with it, otherwise can deliver in [place]. Last Assessment & Plan: She was seen [...] and folate levels and referral to a fly winder. 4. If hemoglobin levels are below 8 g/dl, we recommend Maternal Medicine ultrasound for growth every 4 weeks after 24 weeks. Consider a blood transfusion if hemoglobin levels fall below 6 g/dL. ([employer] Ob[employer]ians and Cardiac Monitor Technician Practice Bulletin Number 95, February,). 5. Consider [...] Will continue testing and report weekly to [facility] via [employer]. Discussed that medication may be needed if elevated blood sugars do not improve with diet alone. Patient agreeable to starting insulin if needed. Will review again next week. 07/25/22: [facility] ADAPT consult complete. 07/27/22: elevated fasting; nutrition [...] 08/22/22: Taking 15 units Levemir at HS. [place] woozy after 20 units. Was sick last [...] MEDICINE referral made. Last Assessment & Plan: [facility] anatomy/growth ultrasound scheduled for 08/03/22. Patient reports [...] money to get more. Never true 11/01/2022 [place] Depression Scale Answer Date Recorded [place] Depression Scale Total 2 09/14/2023 The thought [...] Sign Reading Time Taken Comments Blood Pressure - - Pulse - - Temperature - - Respiratory Rate - - Oxygen Saturation - - Inhaled Oxygen Concentration - - Weight 87.5 kg (193 lb) 12/11/2023 10:54 AM EDT Height - - Body Mass Index 35.3 12/04/2023 9:15 AM EDT documented in this encounter Functional Status [...] as of this encounter Progress Notes * Antonietta Hair CRNP - 12/11/2023 11:12 AM EDT 38w2d Getting kick counts, but baby is less active than in the past. For the past few days, she has had increased pelvic pressure and irregular abdominal tightening/low back pain. No bleeding or LOF. Scheduled for 39 wk induction due to GDMA 2. Submits blood sugar readings for ADAPT review, well managed. MFM growth scan completed on 12/05. Good movement noted with NST. Requests cervical exam - cervix long, external os 2-3 cm. Reviewed labor instructions and FKC. Return for NST later this week, sooner prn. Potato Chip Sorter Documentation Provider requested bowl topper. Name of bowl topper: Gayle ASSESSMENT assessment with Non-stress Test completed on 12/11/2023 at 38.2 weeks gestation for indication of gestational diabetes mellitus heart baseline: 130 bpm Variability: Moderate Decelerations: absent Accelerations: present Contractions: None NST start time: 1047 NST stop time: 1119 NST strip reviewed, interpreted, and approved by OB provider, MIRTA Ge . NST strip stored in clinic storage file MIRTA Ge documented in this encounter Plan of Treatment Upcoming Encounters Date Type Department Care Team (Late st Contact Info) Description 12/14/2023 1:00 PM EDT Office Visit Gynecology/Obstetrics Arlen Love [address] [place] [address] Fatuma Gutierrez MD [address] [place] [address] [place] [address] Ivan Non Stress Tests Kim [address] [address] Health Maintenance Due Date Last Done Comments Hepatitis B (1 of 3 - 19+ 3-dose series) 2012 Depression Screening 07/05/2022 07/05/2021 COVID-19 Vaccine (1 - 2023-24 season) 2023 HPV/Co-Test 11/03/2023 Influenza Vaccine (FLU [...] or the puerperium, antepartum condition or complication Short interval between pregnancies complicating , antepartum Supervision of other high-risk Antepartum anemia complicating Anemia, antepartum Nephrolithiasis Calculus [...] the patient have Health Care Power of Newspaper Photojournalist? No Code Status History Code Status Date Activated Date Inactivated Comments Full Code 01/05/2021 11:33 AM 01/05/2021 6:10 PM This o rder reflects the patients wishes and were consensually agreed upon. Care Teams Produce Clerk Relationship Specialty Start Date End Date Taryn Melgar PA-C [address] [place] [id number] PCP - General Physician Entry Level Account Representative 09/20/18 documented as of this encounter
--- OUTSIDE RECORDS SUMMARY | 2023-12-18 07:53 | External Medical Summary | Summary of Care ---
Author Name Unknown Organization [facility] Address [address] [place] [address] Phone [phone] Care Team Providers Care Auto Damage Trainee Name Role Phone Taryn Melgar PA-C Primary Care Provider Encounter Details Date Type Department Care Team (Late st Contact Info) Description 12/12/2023 Telephone Gynecology/Obstetrics [facility] [address] [place] [address] Fatuma Gutierrez MD [address] [place] [address] Allergies Active Allergy Reactions Criticality Noted Date Comments Pollen Other (Please comment) Low 01/05/2021 documented as of this encounter (statuses as of 12/12/2023) Medications Medication Sig Dispensed Refills Start Date [...] as of this encounter (statuses as of 12/12/2023) Active Problems Problem Noted Date Diagnosed Date [...] options 07/05/23- sugars elevated- msg sent to [facility] to schedule ADAPT 07/06/23: ADAPT visit complete; elevated FBS; ordered Lantus 10 units at bedtime 07/12/23-elevated sugars- msg send to SCHOOL ADMISSIONS REPRESENTATIVE 07/12/23: RPM reviewed; elevated FBS; increase to [...] having trouble with the luis; message to [facility] to schedule a follow up ADAPT 11/28/23: [...] to follow up ADAPT visit; message to [facility] to assist patient with rescheduling Last [...] as of this encounter (statuses as of 12/12/2023) Resolved Problems Problem Noted Date Diagnosed Date [...] PACs 3. Normal biventricular function 4. Mild [place] The above findings were shared with the [...] dealing with it, otherwise can deliver in [place]. Last Assessment & Plan: She was seen [...] and folate levels and referral to a human resource internship. 4. If hemoglobin levels are below 8 g/dl, we recommend Maternal Medicine ultrasound for growth every 4 weeks after 24 weeks. Consider a blood transfusion if hemoglobin levels fall below 6 g/dL. ([employer] Obstetricians and Cashier Ticket Selling Practice Bulletin Number 95, February,). 5. Consider [...] Will continue testing and report weekly to [facility] via [employer]. Discussed that medication may be needed if elevated blood sugars do not improve with diet alone. Patient agreeable to starting insulin if needed. Will review again next week. 07/25/22: [facility] ADAPT consult complete. 07/27/22: elevated fasting; [...] 08/22/22: Taking 15 units Levemir at HS. [place] woozy after 20 units. Was sick last [...] MEDICINE referral made. Last Assessment & Plan: [facility] anatomy/growth ultrasound scheduled for 08/03/22. Patient [...] as of this encounter (statuses as of 12/12/2023) Immunizations Name Administration Dates Next Due Seasonal [...] money to get more. Never true 11/01/2022 [place] Depression Scale Answer Date Recorded [place] Depression Scale Total 2 09/14/2023 The thought [...] encounter Miscellaneous Notes * Telephone Encounter - Sheri Arauz LPN - 12/12/2023 9:48 AM EDT Images from the original note were not included. Fatuma Gutierrez MD [facility] Taxi Driver/Ob Nurse Triage PoolJust now (9:45 AM) Patient to continue to monitor. Hydrate and call if contractions are closer and more painful. Tylenol as needed for pain control Patient notified and agreeable. * Telephone Encounter - Sheri Arauz LPN - 12/12/2023 9:06 AM EDT Pt is currently 38w3d with an Estimated Date of Delivery: 12/23/23 - Reporting contractions started around 8 am. Coming every 3-8 minutes lasting approximately 1 min. Rating 5-6/10, is able to work through them. Denies LOF or bleeding, no bloody show. +FM. Was in the office yesterday with 2-3 cm dilation and NST done at that time. Patient reporting feeling of needing to have a bowel movement with contractions. Will review with Dr. Gutierrez cupola charger insulation for recommendations. documented in this encounter Plan of Treatment Upcoming Encounters Date Type Department Care Team (Late st Contact Info) Description 12/14/2023 1:00 PM EDT Office Visit Gynecology/Obstetrics Arlen Love [address] [place] [address] Fatuma Gutierrez MD [address] [place] [address] [place] [address] Ivan Non Stress Tests Kim [address] [place] [address] Health Maintenance Due Date Last Done Comments [...] the patient have Health Care Power of Recovery Operator? No Code Status History Code Status Date Activated Date Inactivated Comments Full Code 01/05/2021 11:33 AM 01/05/2021 6:10 PM This o rder reflects the patients wishes and were consensually agreed upon. Care Teams Auto Damage Trainee Relationship Specialty Start Date End Date Taryn Melgar PA-C [address] [place] [id number] PCP - General Physician Rating Officer 09/20/18 documented as of this encounter
--- OUTSIDE RECORDS SUMMARY | 2023-12-18 07:53 | External Medical Summary | Summary of Care ---
Author Name Unknown Organization [facility] Address [address] [place] [address] Phone [phone] Care Team Providers Care Net C Developer Name Role Phone Taryn Melgar PA-C Primary Care Provider Encounter Details Date Type Department Care Team (Late st Contact Info) Description 12/08/2023 Telephone Cook Helper Fruit Obstetrics Maternal Medicine, [place] [address] [place] [address] [place], Nurse Cook Helper Fruit [facility] [address] [place] [address] Allergies Active Allergy Reactions Criticality [...] at bedtime 07/12/23-elevated sugars- msg send to MUSIC COORDINATOR 07/12/23: RPM reviewed; elevated FBS; increase [...] PACs 3. Normal biventricular function 4. Mild [place] The above findings were shared with the [...] dealing with it, otherwise can deliver in [place]. Last Assessment & Plan: She was seen [...] and folate levels and referral to a tile layer helper. 4. If hemoglobin levels are below 8 g/dl, we recommend Maternal Medicine ultrasound for growth every 4 weeks after 24 weeks. Consider a blood transfusion if hemoglobin levels fall below 6 g/dL. ([employer] Obstetricians and Quality Nurse Practice Bulletin Number 95, February,). 5. Consider [...] Will continue testing and report weekly to [facility] via [employer]. Discussed that medication may be needed if elevated blood sugars do not improve with diet alone. Patient agreeable to starting insulin if needed. Will review again next week. 07/25/22: [facility] ADAPT consult complete. 07/27/22: elevated fasting; [...] 08/22/22: Taking 15 units Levemir at HS. [place] woozy after 20 units. Was sick last [...] money to get more. Never true 11/01/2022 [place] Depression Scale Answer Date Recorded [place] Depression Scale Total 2 09/14/2023 The thought [...] mail. Encouraged patient to return call to [facility] to assist with scheduling. * Telephone [...] [place] [facility] [address] [place] [address] Antonietta Hair CRNP [address] [address] Ivan, Non Stress Tests Kim [address] [place] [address] 12/14/2023 1:00 PM EDT Office Visit Gynecology/Obstetrics [place] Ivan [address] [place] [address] Fatuma Gutierrez MD [address] [place] [address] [place] [address] Ivan Non Stress Tests Kim [address] [place] [address] Health Maintenance Due Date Last Done Comments [...] the patient have Health Care Power of Appellate Court Judge? No Code Status History Code Status Date Activated Date Inactivated Comments Full Code 01/05/2021 11:33 AM 01/05/2021 6:10 PM This o rder reflects the patients wishes and were consensually agreed upon. Care Teams Net C Developer Relationship Specialty Start Date End Date Taryn Melgar PA-C [address] [place] [address] PCP - General Physician Sales Development Director 09/20/18 documented as of this encounter
--- OUTSIDE RECORDS SUMMARY | 2023-12-18 07:54 | External Medical Summary | Summary of Care ---
Author Name Unknown Organization [facility] Address [address] [place] [address] Phone [phone] Care Team Providers Care Funeral Director'S Assistant Name Role Phone Taryn Melgar PA-C Primary Care Provider Encounter Details Date Type Department Care Team (Late st Contact Info) Description 12/01/2023 Telephone Senior Embedded Software Engineer Obstetrics Maternal Medicine, [place] [address] [place] [address] [place], Nurse Senior Embedded Software Engineer [facility] [address] [place] [address] Allergies Active Allergy Reactions Criticality Noted Date Comments Pollen Other (Please comment) Low 01/05/2021 documented as of this encounter (statuses as of 12/04/2023) Medications Medication Sig Dispensed Refills Start Date [...] as of this encounter (statuses as of 12/04/2023) Active Problems Problem Noted Date Diagnosed Date [...] options 07/05/23- sugars elevated- msg sent to [facility] to schedule ADAPT 07/06/23: ADAPT visit complete; elevated FBS; ordered Lantus 10 units at bedtime 07/12/23-elevated sugars- msg send to APPLICATIONS ENGINEER MANUFACTURING 07/12/23: RPM reviewed; elevated FBS; increase to [...] having trouble with the luis; message to [facility] to schedule a follow up ADAPT 11/28/23: RPM reviewed; no blood sugars reported this week; will request updated log 12/01/23: Received message from CH team that they were unable to contact patient regarding her concerns w/ luis; will recommend F/U ADAPT c Last Assessment & Plan: Working with ADAPT. [...] as of this encounter (statuses as of 12/04/2023) Resolved Problems Problem Noted Date Diagnosed Date [...] post natally with change from to post antolin circulation. Do not expect the above to cause any hemodynamic compromise however variability in HR might be noted due to the above. PACs should NOT be a indication for CSx. Patient can deliver locally with these findings as long as the team taking care of her is comfortable dealing with it, otherwise can deliver in [place]. Last Assessment & Plan: She was seen [...] and folate levels and referral to a centrifuge separator tender. 4. If hemoglobin levels are below 8 g/dl, we recommend Maternal Medicine ultrasound for growth every 4 weeks after 24 weeks. Consider a blood transfusion if hemoglobin levels fall below 6 g/dL. ([employer] Obstetricians and Contractor General Building Practice Bulletin Number 95, February,). 5. Consider [...] Will continue testing and report weekly to [facility] via [employer]. Discussed that medication may be needed if elevated blood sugars do not improve with diet alone. Patient agreeable to starting insulin if needed. Will review again next week. 07/25/22: [facility] ADAPT consult complete. 07/27/22: elevated fasting; [...] 08/22/22: Taking 15 units Levemir at HS. [place] woozy after 20 units. Was sick last [...] MEDICINE referral made. Last Assessment & Plan: [facility] anatomy/growth ultrasound scheduled for 08/03/22. Patient [...] as of this encounter (statuses as of 12/04/2023) Immunizations Name Administration Dates Next Due Seasonal [...] money to get more. Never true 11/01/2022 [place] Depression Scale Answer Date Recorded [place] Depression Scale Total 2 09/14/2023 The thought [...] Telephone Encounter - Kamilla Vazquez OSA - 12/04/2023 9:25 AM EDT Phone call to patient. Left message on Gild's voice mail. Encouraged patient to return call to [facility] to assist with scheduling. Sent MyG * Telephone Encounter - Amy Shearer OSA - 12/01/2023 11:05 AM EDT Phone call to patient. Left message on Gild's voice mail. Encouraged patient to return call to [facility] to assist with scheduling. * Telephone Encounter - Amy Shearer OSA - 12/01/2023 11:05 AM EDT ----- Message from MIRTA Hahn sent at 12/01/2023 10:52 AM EDT ----- Regarding: please offer ADAPT follow-up Hi team, Please offer patient an ADAPT follow-up visit with any APPLICATIONS ENGINEER MANUFACTURING provider. Current Health team was unable to reach patient regarding her questions w/ luis. Thanks! Amy documented in this encounter Plan of Treatment Upcoming Encounters Date Type Department Care Team (Late st Contact Info) Description 12/06/2023 8:45 AM EDT Imaging Radiology, [facility] [address] [place] [address] 12/06/2023 8:45 AM EDT Office Visit Senior Embedded Software Engineer Obstetrics Maternal Medicine, [address] [address] Aniya Carson, DO [address] [facility] [place] [address] 12/07/2023 1:00 PM EDT Office Visit Gynecology/Obstetrics Arlen Love [address] [place] [address] Antonietta Hair CRNP [address] [place] [address] Ivan Non Stress Tests Kim [address] [place] [address] 12/11/2023 11:00 AM EDT Office Visit Gynecology/Obstetrics Andrewmar Love [address] [place] [address] Antonietta Hair CRNP [address] [place] [address] Ivan Non Stress Tests Kim [address] [place] [address] 12/14/2023 1:00 PM EDT Office Visit Gynecology/Obstetrics rAlen Love [address] [place] [phone] Fatuma Gutierrez MD [address] [place] [address] Love, Non Stress Tests Kim [address] [place] [address] Health Maintenance Due Date Last Done Comments Hepatitis B (1 of 3 - 19+ 3-dose series) 2012 Depression Screening 07/05/2022 07/05/2021 COVID-19 Vaccine (1 - 2022-24 season) 2023 HPV/Co-Test 11/03/2023 Influenza [...] the patient have Health Care Power of Biological Chemist? No Code Status History Code Status Date Activated Date Inactivated Comments Full Code 01/05/2021 11:33 AM 01/05/2021 6:10 PM This o rder reflects the patients wishes and were consensually agreed upon. Care Teams Funeral Director'S Assistant Relationship Specialty Start Date End Date Taryn Melgar PA-C [address] [place], [place] [address] [address] PCP - General Physician Tobacco Buyer 09/20/18 documented as of this encounter
--- OUTSIDE RECORDS SUMMARY | 2023-12-18 07:54 | External Medical Summary | Summary of Care ---
Author Name Unknown Organization [facility] Address [address] [place] [address] Phone [phone] Care Team Providers Care Off Premise Service Representative Name Role Phone Taryn Melgar PA-C Primary Care Provider Reason for Visit * Reason Onset Date Comments Home Monitoring Telephone 12/01/2023 Encounter Details Date Type Department Care Team (Late st Contact Info) Description 12/01/2023 Telephone Care Coordination [address] [place] [address] Gregory Townsend Community [facility] Industrial Health And Safety Professor [address] [place], [place] [id number] Home Monitoring Telephone Allergies Active Allergy Reactions Criticality Noted Date Comments Pollen Other (Please comment) Low 01/05/2021 documented as of this encounter (statuses as of 12/01/2023) Medications Medication Sig Dispensed Refills Start Date [...] as of this encounter (statuses as of 12/01/2023) Active Problems Problem Noted Date Diagnosed Date [...] options 07/05/23- sugars elevated- msg sent to [facility] to schedule ADAPT 07/06/23: ADAPT visit complete; elevated FBS; ordered Lantus 10 units at bedtime 07/12/23-elevated sugars- msg send to BARBER INSTRUCTOR 07/12/23: RPM reviewed; elevated FBS; increase to [...] having trouble with the luis; message to [facility] to schedule a follow up ADAPT [...] as of this encounter (statuses as of 12/01/2023) Resolved Problems Problem Noted Date Diagnosed Date [...] PACs 3. Normal biventricular function 4. Mild [place] The above findings were shared with the [...] dealing with it, otherwise can deliver in [place]. Last Assessment & Plan: She was seen [...] and folate levels and referral to a bracelet and brooch maker. 4. If hemoglobin levels are below 8 g/dl, we recommend Maternal Medicine ultrasound for growth every 4 weeks after 24 weeks. Consider a blood transfusion if hemoglobin levels fall below 6 g/dL. ([employer] and Check Scaler Practice Bulletin Number 95, February,). 5. Consider [...] Will continue testing and report weekly to MFM via [employer]. Discussed that medication may be needed if elevated blood sugars do not improve with diet alone. Patient agreeable to starting insulin if needed. Will review again next week. 07/25/22: [facility] ADAPT consult complete. 07/27/22: elevated fasting; [...] 08/22/22: Taking 15 units Levemir at HS. [place] woozy after 20 units. Was sick last [...] MEDICINE referral made. Last Assessment & Plan: MFM anatomy/growth ultrasound scheduled for 08/03/22. Patient reports [...] as of this encounter (statuses as of 12/01/2023) Immunizations Name Administration Dates Next Due Seasonal [...] money to get more. Never true 11/01/2022 English Depression Scale Answer Date Recorded English Depression Scale Total 2 09/14/2023 The thought [...] Miscellaneous Notes * Telephone Encounter - Amy Rivas CRNP - 12/01/2023 10:52 AM EDT Noted. Thank you. * Telephone Encounter - Gregory Townsend [facility] Industrial Health And Safety Professor - 12/01/2023 10:32 AM EDT Unable to contact for remote glucose monitoring. Attempts made on 11/22, 11/27, and 11/28. My G message also sent. Gregory Townsend Community Programs Specialist Electronically signed by Gregory Townsend Community Health Industrial Health And Safety Professor at 12/01/2023 10:35 AM EDT documented in this encounter Plan of Treatment Upcoming Encounters Date Type Department Care Team (Late st Contact Info) Description 12/04/2023 9:15 AM EDT Office Visit [facility] [address] [place] [address] Brenton Brown MD [address] [place] [address] Love, Non Stress Tests Kim [address] [place] [address] 12/06/2023 8:45 AM EDT Imaging Radiology, [place] [address] [place] [address] 12/07/2023 1:00 PM EDT Office Visit Gynecology/Obstetrics Arlen Love [address] [place] [address] BackAntonietta mustafa CRNP [address] [place] [address] Ivan Non Stress Tests Kim [address] [place] [address] 12/11/2023 11:00 AM EDT Office Visit Gynecology/Obstetrics Arlen Love [address] [place] [address] BackAntonietta mustafa CRNP [address] [place] [address] Ivan Non Stress Tests Kim [address] [place] [address] 12/14/2023 1:00 PM EDT Office Visit Gynecology/Obstetrics Arlen Love [address] [place] [address] Fatuma Gutierrez MD [address] [place] [address] [place] [address] Love, Non Stress Tests Kim [address] [place] [address] Health Maintenance Due Date Last Done Comments Hepatitis B (1 of 3 - 19+ 3-dose series) 2012 Depression Screening 07/05/2022 07/05/2021 COVID-19 Vaccine (24 season) 2023 HPV/Co-Test 11/03/2023 Influenza Vaccine (FLU [...] the patient have Health Care Power of Life Assurance Representative? No Code Status History Code Status Date Activated Date Inactivated Comments Full Code 01/05/2021 11:33 AM 01/05/2021 6:10 PM This o rder reflects the patients wishes and were consensually agreed upon. Care Teams Off Premise Service Representative Relationship Specialty Start Date End Date Taryn Melgar PA-C [address] [place] [address] [place] [id number] PCP - General Physician Industrial Health And Safety Professor 09/20/18 documented as of this encounter
--- OUTSIDE RECORDS SUMMARY | 2023-12-18 07:54 | External Medical Summary | Summary of Care ---
Author Name Unknown Organization [facility] Address [address] [place] [address] Phone [phone] Care Team Providers Care Cooker Loader Name Role Phone Taryn Melgar PA-C Primary Care Provider Encounter Details Date Type Department Care Team (Late st Contact Info) Description 12/06/2023 8:45 AM EDT Office Visit Printing Machine Operator Tape Rules Obstetrics Maternal Medicine[address] [address] Aniya Carson, DO [address] [place] [address] Obesity in , antepartum*; Insulin controlled gestational diabetes mellitus (GDM) during , antepartum; Ultrasound for screening for growth restriction; 37 weeks gestation of Allergies Active Allergy Reactions Criticality Noted Date Comments Pollen Other (Please comment) Low 01/05/2021 documented as of this encounter (statuses as of 12/06/2023) Medications Medication Sig Dispensed Refills Start Date [...] as of this encounter (statuses as of 12/06/2023) Active Problems Problem Noted Date Diagnosed Date [...] options 07/05/23- sugars elevated- msg sent to [facility] to schedule ADAPT 07/06/23: ADAPT visit complete; elevated FBS; ordered Lantus 10 units at bedtime 07/12/23-elevated sugars- msg send to REGISTERED NURSE FLOAT POOL 07/12/23: RPM reviewed; elevated FBS; increase to [...] having trouble with the luis; message to [facility] to schedule a follow up ADAPT 11/28/23: [...] to schedule; will recommend F/U ADAPT again. Last Assessment & Plan: Working with ADAPT. [...] as of this encounter (statuses as of 12/06/2023) Resolved Problems Problem Noted Date Diagnosed Date [...] PACs 3. Normal biventricular function 4. Mild [place] The above findings were shared with the [...] dealing with it, otherwise can deliver in [place]. Last Assessment & Plan: She was seen [...] and folate levels and referral to a soil technologist. 4. If hemoglobin levels are below 8 g/dl, we recommend Maternal Medicine ultrasound for growth every 4 weeks after 24 weeks. Consider a blood transfusion if hemoglobin levels fall below 6 g/dL. ([employer]ians and Production Worker Practice Bulletin Number 95, February,). 5. Consider [...] Will continue testing and report weekly to [facility] via [employer] Track[employer]. Discussed that medication may be needed if elevated blood sugars do not improve with diet alone. Patient agreeable to starting insulin if needed. Will review again next week. 07/25/22: [facility] ADAPT consult complete. 07/27/22: elevated fasting; [...] 08/22/22: Taking 15 units Levemir at HS. [place] woozy after 20 units. Was sick last [...] as of this encounter (statuses as of 12/06/2023) Immunizations Name Administration Dates Next Due Seasonal [...] money to get more. Never true 11/01/2022 [place] Depression Scale Answer Date Recorded [place] Depression Scale Total 2 09/14/2023 The thought [...] as of this encounter Progress Notes * Aniya Carson, - 12/06/2023 12:32 PM EDT Lacy presented today at 37w4d for an ultrasound for the following indications: Obesity in , antepartum Insulin controlled gestational diabetes mellitus (GDM) during , antepartum Ultrasound for screening for growth restriction 37 weeks gestation of Ultrasound summary: Patient presented at 37w 4d for growth assessment. Normal growth with EFW 3156 g at 51%ile. Normal SHANNON at 15.4 cm. Cephalic presentation. I reviewed the ultrasound images. Lacy was given the opportunity to meet with me if she had any questions. Please refer to the ultrasound report for additional details about today's ultrasound examination. RECOMMENDATIONS: Follow up with MFM for ultrasound as clinically indicated. See prior formal MFM consultation note. Thank you for allowing us to participate in the care of this patient. Please call with any questions. Aniya Carson DO 12/06/2023 12:32 PM documented in this encounter Plan of Treatment Upcoming Encounters Date Type Department Care Team (Late st Contact Info) Description 12/07/2023 1:00 PM EDT Office Visit Gynecology/Obstetrics [place]alesmar Love [address] [place] [address] Antonietta Hair CRNP [address] [place] [address] Ivan Non Stress Tests Kim [address] [place] [address] 12/08/2023 12:30 PM EDT Telemedicine Printing Machine Operator Tape Rules Obstetrics Maternal Medicine, [address] [place] [address] Tasha Masters CRNP [address] [facility] [address] [place] [address] 12/11/2023 11:00 AM EDT Office Visit Gynecology/Obstetrics Arlen Vasquezs [address] [place] [address] Antonietta Hair CRNP [address] [place] [address] Ivan Non Stress Tests Kim [address] [place] [address] 12/14/2023 1:00 PM EDT Office Visit Gynecology/Obstetrics Arlen Vasquezs [address] [place] [address] Fatuma Gutierrez MD [address] [place] [address] [place] [address] Love, Non Stress Tests Kim 132 [facility] [place] [address] Health Maintenance Due Date Last Done Comments Hepatitis B (1 of 3 - 19+ 3-dose series) 2012 Depression Screening 07/05/2022 07/05/2021 COVID-19 Vaccine ( - 24 season) 2023 HPV/Co-Test 11/03/2023 Influenza Vaccine (FLU [...] as of this encounter Visit Diagnoses Diagnosis Obesity in , antepartum- Primary Obesity complicating , childbirth, or the puerperium, antepartum condition or complication Insulin controlled gestational diabetes mellitus (GDM) during , antepartum Ultrasound for screening for growth restriction screening for growth retardation using ultrasonics 37 weeks gestation of state, incidental documented in this encounter Advance Directives Latest [...] the patient have Health Care Power of Hydroelectric Station Operator? No Code Status History Code Status Date Activated Date Inactivated Comments Full Code 01/05/2021 11:33 AM 01/05/2021 6:10 PM This o rder reflects the patients wishes and were consensually agreed upon. Care Teams Cooker Loader Relationship Specialty Start Date End Date Taryn Melgar PA-C [address] [place] [address] [place] [address] PCP - General Physician Court Advocate 09/20/18 documented as of this encounter
--- OUTSIDE RECORDS SUMMARY | 2023-12-18 07:54 | External Medical Summary | Summary of Care ---
Author Name Unknown Organization [facility] Address [address] [place] [address] Phone [phone] Care Team Providers Care Veneer Taping Machine Operator Name Role Phone Taryn Melgar PA-C Primary Care Provider Encounter Details Date Type Department Care Team (Late st Contact Info) Description 12/06/2023 8:45 AM EDT Office Visit Airport Tower Controller Obstetrics Maternal Medicine[address] [address] Aniya Carson, DO [address] [place] [address] Obesity in , antepartum*; Insulin [...] 07/05/23- sugars elevated- msg sent to [facility] to schedule ADAPT 07/06/23: ADAPT visit complete; elevated FBS; ordered Lantus 10 units at bedtime 07/12/23-elevated sugars- msg send to PIT CLERK 07/12/23: RPM reviewed; elevated FBS; increase to [...] trouble with the luis; message to [facility] to schedule a follow up ADAPT [...] dealing with it, otherwise can deliver in [place]. Last Assessment & Plan: She was seen [...] and folate levels and referral to a event representative. 4. If hemoglobin levels are below 8 g/dl, we recommend Maternal Medicine ultrasound for growth every 4 weeks after 24 weeks. Consider a blood transfusion if hemoglobin levels fall below 6 g/dL. ([employer] and Exercise Scientist Practice Bulletin Number 95, February,). 5. Consider [...] Will continue testing and report weekly to [facility] via [employer]. Discussed that medication may be needed if elevated blood sugars do not improve with diet alone. Patient agreeable to starting insulin if needed. Will review again next week. 07/25/22: [facility] ADAPT consult complete. 07/27/22: elevated fasting; nutrition [...] 08/22/22: Taking 15 units Levemir at HS. [place] woozy after 20 units. Was sick last [...] money to get more. Never true 11/01/2022 [place] Depression Scale Answer Date Recorded [place] Depression Scale Total 2 09/14/2023 The thought [...] Aniya Carson, - 12/06/2023 12:32 PM EDT Layc presented today at 37w4d for an ultrasound [...] Love [address] [place] [address] Antonietta Hair CRNP [address] [place] [address] Ivan Non Stress Tests Kim [address] [place] [address] 12/08/2023 12:30 PM EDT Telemedicine Airport Tower Controller Obstetrics Maternal Medicine, [address] [place] [address] Tasha Masters CRNP 190 [facility] 112 [place] [address] 12/11/2023 11:00 AM EDT Office Visit Gynecology/Obstetrics Arlen Vasquezs [address] [place] [address] Antonietta Hair CRNP [address] [place] [address] Ivan Non Stress Tests Kim [address] [place] [address] 12/14/2023 1:00 PM EDT Office Visit Gynecology/Obstetrics Arlen Vasquezs [address] [place] [address] Fatuma Gutierrez MD [address] [place] [address] [place] [address] Love, Non Stress Tests Kim 132 [facility] [place] [address] Health Maintenance Due Date Last Done Comments [...] the patient have Health Care Power of Orthophoto Tech/Draftsman? No Code Status History Code Status Date Activated Date Inactivated Comments Full Code 01/05/2021 11:33 AM 01/05/2021 6:10 PM This o rder reflects the patients wishes and were consensually agreed upon. Care Teams Veneer Taping Machine Operator Relationship Specialty Start Date End Date Taryn Melgar PA-C [address] [place] [address] [place] [address] PCP - General Physician Eeo Officer 09/20/18 documented as of this encounter
--- OUTSIDE RECORDS SUMMARY | 2023-12-18 07:54 | External Medical Summary | Summary of Care ---
Author Name Unknown Organization [facility] Address [address] [place] [address] Phone [phone] Care Team Providers Care Heavy Equipment Operating Engineer Name Role Phone Taryn Melgar PA-C Primary Care Provider Encounter Details Date Type Department Care Team (Late st Contact Info) Description 12/05/2023 Telephone Professor Of Literacy Obstetrics Maternal Medicine, [facility] [address] [place] [address] [facility], Nurse Professor Of Literacy [facility] [address] [place] [address] Allergies Active Allergy Reactions Criticality Noted Date Comments Pollen Other (Please comment) Low 01/05/2021 documented as of this encounter (statuses as of 12/05/2023) Medications Medication Sig Dispensed Refills Start Date [...] as of this encounter (statuses as of 12/05/2023) Active Problems Problem Noted Date Diagnosed Date [...] options 07/05/23- sugars elevated- msg sent to [facility] to schedule ADAPT 07/06/23: ADAPT visit complete; elevated FBS; ordered Lantus 10 units at bedtime 07/12/23-elevated sugars- msg send to NEEDLE POLISHER 07/12/23: RPM reviewed; elevated FBS; increase to [...] having trouble with the luis; message to [facility] to schedule a follow up ADAPT [...] as of this encounter (statuses as of 12/05/2023) Resolved Problems Problem Noted Date Diagnosed Date [...] PACs 3. Normal biventricular function 4. Mild [place] The above findings were shared with the [...] dealing with it, otherwise can deliver in [facility]. Last Assessment & Plan: She was seen [...] and folate levels and referral to a client support administrator. 4. If hemoglobin levels are below 8 g/dl, we recommend Maternal Medicine ultrasound for growth every 4 weeks after 24 weeks. Consider a blood transfusion if hemoglobin levels fall below 6 g/dL. ([employer]st[employer]ians and Constitutional Law Professor Practice Bulletin Number 95, February,). 5. Consider [...] testing and report weekly to MFM via [employer]. Discussed that medication may be needed if elevated blood sugars do not improve with diet alone. Patient agreeable to starting insulin if needed. Will review again next week. 07/25/22: [facility] ADAPT consult complete. 07/27/22: elevated fasting; nutrition [...] 08/22/22: Taking 15 units Levemir at HS. [place] woozy after 20 units. Was sick last [...] as of this encounter (statuses as of 12/05/2023) Immunizations Name Administration Dates Next Due Seasonal [...] money to get more. Never true 11/01/2022 Jones Depression Scale Answer Date Recorded Jones Depression Scale Total 2 09/14/2023 The thought [...] Telephone Encounter - Kamilla Vazquez OSA - 12/05/2023 3:08 PM EDT Spoke with Lacy. Appointment scheduled. Patient aware of date, time and location of Maternal Medicine appointment. * Telephone Encounter - Amy Shearer OSA - 12/05/2023 2:36 PM EDT Phone call to patient. Left message on Lacy's voice mail. Encouraged patient to return call to [facility] to assist with scheduling. * Telephone Encounter - Amy Shearer OSA - 12/05/2023 2:36 PM EDT ----- Message from MIRTA Bledsoe sent at 12/05/2023 2:13 PM EDT ----- Regarding: Needs FU ADAPT (please call) Dc, Please schedule Ms. Mckinney for a 30 minute ADAPT follow up to further manage gestational diabetes at the patient's earliest convenience. Thank you, MIRTA Bledsoe documented in this encounter Plan of Treatment Upcoming Encounters Date Type Department Care Team (Late st Contact Info) Description 12/06/2023 8:45 AM EDT Imaging Radiology, [address] [address] 12/06/2023 8:45 AM EDT Office Visit Professor Of Literacy Obstetrics Maternal Medicine, [address] [address] Aniya Carson, DO [address] [place] [address] 12/07/2023 1:00 PM EDT Office [facility] [address] [facility] [place] [address] Antonietta Hair CRNP [address] [place] [address] Betty Love Stress Tests [facility] [address] [place] [address] 12/08/2023 12:30 PM EDT Telemedicine Professor Of Literacy Obstetrics Maternal Medicine, [place] 190 [facility] 114 [place] [address] Tasha Masters CRNP 190 [facility] 112 [place] [address] 12/11/2023 11:00 AM EDT Office Visit Gynecology/Obstetrics [facility] [address] [place] [address] Antonietta Hair CRNP [address] [place] [address] Ivan, Non Stress Tests Kim [address] [place] [address] 12/14/2023 1:00 PM EDT Office Visit Gynecology/Obstetrics Arlen Love [address] [place] [address] Fatuma Gutierrez MD [address] [place] [address] [place] [address] Ivan, Non Stress Tests Kim [address] [place] [address] Health Maintenance Due Date Last Done Comments [...] the patient have Health Care Power of Paralegal Legal Secretary? No Code Status History Code Status Date Activated Date Inactivated Comments Full Code 01/05/2021 11:33 AM 01/05/2021 6:10 PM This o rder reflects the patients wishes and were consensually agreed upon. Care Teams Heavy Equipment Operating Engineer Relationship Specialty Start Date End Date Taryn Melgar PA-C [address] [place] [address] [place] [address] PCP - General Physician Bag Sealer 09/20/18 documented as of this encounter
--- OUTSIDE RECORDS SUMMARY | 2023-12-18 07:54 | External Medical Summary | Summary of Care ---
Author Name Unknown Organization [facility] Address [address] [place] [address] Phone [phone] Care Team Providers Care Intelligent Systems Engineer Name Role Phone Taryn Melgar PA-C Primary Care Provider Encounter Details Date Type Department Care Team (Late st Contact Info) Description 12/05/2023 Telephone Senior Controls Analyst Obstetrics Maternal Medicine, [place] [address] [place] [address] [place], Nurse Senior Controls Analyst [facility] [address] [place] [address] Allergies Active Allergy Reactions Criticality [...] options 07/05/23- sugars elevated- msg sent to [facility] to schedule ADAPT 07/06/23: ADAPT visit complete; elevated FBS; ordered Lantus 10 units at bedtime 07/12/23-elevated sugars- msg send to INSTRUMENTATION TECHNOLOGIST 07/12/23: RPM reviewed; elevated FBS; increase to [...] having trouble with the luis; message to [facility] to schedule a follow up [...] PACs 3. Normal biventricular function 4. Mild [place] The above findings were shared with the [...] dealing with it, otherwise can deliver in [place]. Last Assessment & Plan: She was seen [...] and folate levels and referral to a product safety professional. 4. If hemoglobin levels are below 8 g/dl, we recommend Maternal Medicine ultrasound for growth every 4 weeks after 24 weeks. Consider a blood transfusion if hemoglobin levels fall below 6 g/dL. ([employer] Practice Bulletin Number 95, February,). 5. Consider [...] testing and report weekly to MFM via [employer]. Discussed that medication may be needed if elevated blood sugars do not improve with diet alone. Patient agreeable to starting insulin if needed. Will review again next week. 07/25/22: [facility] ADAPT consult complete. 07/27/22: elevated fasting; [...] 08/22/22: Taking 15 units Levemir at HS. [place] woozy after 20 units. Was sick last [...] money to get more. Never true 11/01/2022 [place] Depression Scale Answer Date Recorded [place] Depression Scale Total 2 09/14/2023 The thought [...] mail. Encouraged patient to return call to [facility] to assist with scheduling. * Telephone Encounter - Amy Shearer OSA - 12/05/2023 2:36 PM EDT ----- Message from MIRTA Bledsoe sent at 12/05/2023 2:13 PM EDT ----- Regarding: Needs FU ADAPT (please call) [place], Please schedule Ms. Mckinney for a 30 minute ADAPT follow up to further manage gestational diabetes at the patient's earliest convenience. Thank you, MIRTA Bledsoe documented in this encounter Plan of Treatment Upcoming Encounters Date Type Department Care Team (Late st Contact Info) Description 12/06/2023 8:45 AM EDT Imaging Radiology, [place] [address] [address] 12/06/2023 8:45 AM EDT Office Visit Senior Controls Analyst Obstetrics Maternal Medicine, [address] [address] Aniya Carson, DO [address] [facility] [place] [address] 12/07/2023 1:00 PM EDT Office Visit Gynecology/Obstetrics [facility] [address] [place] [address] Antonietta Hair CRNP [address] [place] [address] Ivan Non Stress Tests Kim [address] [place] [address] 12/11/2023 11:00 AM EDT Office Visit Gynecology/Obstetrics [facility] Love [address] [place] [address] Antonietta Hair CRNP [address] [place] [address] Ivan Non Stress Tests Kim [address] [place] [address] 12/14/2023 1:00 PM EDT Office Visit Gynecology/Obstetrics [facility] Love [address] [place] [address] Fatuma Gutierrez MD [address] [place] [address] Ivan Non Stress Tests Kim [address] [place] [address] Health Maintenance Due Date Last Done Comments [...] the patient have Health Care Power of Dosimetrist? No Code Status History Code Status Date Activated Date Inactivated Comments Full Code 01/05/2021 11:33 AM 01/05/2021 6:10 PM This o rder reflects the patients wishes and were consensually agreed upon. Care Teams Intelligent Systems Engineer Relationship Specialty Start Date End Date Taryn Melgar PA-C [address] [place] [address] PCP - General Physician Shook Machine Operator 09/20/18 documented as of this encounter
--- OUTSIDE RECORDS SUMMARY | 2023-12-18 07:54 | External Medical Summary | Summary of Care ---
Author Name Unknown Organization [facility] Address [address] [place] [address] Phone [phone] Care Team Providers Care Financial Management Analyst Name Role Phone Taryn Melgar PA-C Primary Care Provider Encounter Details Date Type Department Care Team (Late st Contact Info) Description 12/01/2023 Telephone Director Funds Development Obstetrics Maternal Medicine, [place] [address] [place] [address] [place], Nurse Director Funds Development [facility] [address] [place] [address] Allergies Active Allergy Reactions Criticality [...] options 07/05/23- sugars elevated- msg sent to [facility] to schedule ADAPT 07/06/23: ADAPT visit complete; elevated FBS; ordered Lantus 10 units at bedtime 07/12/23-elevated sugars- msg send to INDUSTRIAL ENGINEERING 07/12/23: RPM reviewed; elevated FBS; increase to [...] having trouble with the luis; message to [facility] to schedule a follow up ADAPT [...] PACs 3. Normal biventricular function 4. Mild [place] The above findings were shared with the [...] dealing with it, otherwise can deliver in [place]. Last Assessment & Plan: She was seen [...] and folate levels and referral to a bun panner. 4. If hemoglobin levels are below 8 g/dl, we recommend Maternal Medicine ultrasound for growth every 4 weeks after 24 weeks. Consider a blood transfusion if hemoglobin levels fall below 6 g/dL. ([employer] Office Receptionist Practice Bulletin Number 95, February,). 5. Consider [...] Will continue testing and report weekly to [facility] via [employer]. Discussed that medication may be needed if elevated blood sugars do not improve with diet alone. Patient agreeable to starting insulin if needed. Will review again next week. 07/25/22: [facility] ADAPT consult complete. 07/27/22: elevated fasting; [...] 08/22/22: Taking 15 units Levemir at HS. [place] woozy after 20 units. Was sick last [...] MEDICINE referral made. Last Assessment & Plan: [facility] anatomy/growth ultrasound scheduled for 08/03/22. Patient [...] money to get more. Never true 11/01/2022 [place] Depression Scale Answer Date Recorded [place] Depression Scale Total 2 09/14/2023 The thought [...] mail. Encouraged patient to return call to [facility] to assist with scheduling. * Telephone Encounter - Amy Shearer OSA - 12/01/2023 11:05 AM EDT ----- Message from MIRTA Hahn sent at 12/01/2023 10:52 AM EDT ----- Regarding: please offer ADAPT follow-up Hi team, Please offer patient an ADAPT follow-up visit with any INDUSTRIAL ENGINEERING provider. Current Health team was unable to reach patient regarding her questions w/ luis. Thanks! Amy documented in this encounter Plan of Treatment Upcoming Encounters Date Type Department Care Team (Late st Contact Info) Description 12/04/2023 9:15 AM EDT Office Visit Gynecology/Obstetrics [facility] [address] [place] [address] Brenton Brown MD [address] [place] [address] Love, Non Stress Tests Kim [address] [place] [address] 12/06/2023 8:45 AM EDT Imaging Radiology, [facility] [address] [place] [address] 12/07/2023 1:00 PM EDT Office Visit Gynecology/Obstetrics [facility] [address] [place] [address] BackAntonietta mustafa CRNP [address] [place] [address] Ivan Non Stress Tests Kim [address] [place] [address] 12/11/2023 11:00 AM EDT Office Visit Gynecology/Obstetrics [facility] [address] [place] [address] BackAntonietta mustafa CRNP [address] [place] [address] Ivan Non Stress Tests Kim [address] [place] [address] 12/14/2023 1:00 PM EDT Office Visit Gynecology/Obstetrics [facility] [address] [place] [address] Fatuma Gutierrez MD [address] [place] [address] [place] [address] Ivan, Non Stress Tests Kim [address] [place] [address] Health Maintenance Due Date Last Done Comments [...] the patient have Health Care Power of Materials Management Clerk? No Code Status History Code Status Date Activated Date Inactivated Comments Full Code 01/05/2021 11:33 AM 01/05/2021 6:10 PM This o rder reflects the patients wishes and were consensually agreed upon. Care Teams Financial Management Analyst Relationship Specialty Start Date End Date Taryn Melgar PA-C [address] [place] [id number] PCP - General Physician Net Front End Developer 09/20/18 documented as of this encounter
--- OUTSIDE RECORDS SUMMARY | 2023-12-18 07:54 | External Medical Summary | Summary of Care ---
Author Name Unknown Organization [facility] Address [address] [place] [address] Phone [phone] Care Team Providers Care Slab Lifting Supervisor Name Role Phone Taryn Melgar PA-C Primary Care Provider Reason for Visit * Reason Comments Return Visit Non Stress Test Encounter Details Date Type Department Care Team (Late st Contact Info) Description 12/04/2023 9:15 AM EDT Office Visit Gynecology/Obstetric s [facility] [address] [facility] [place] [address] Brenton Brown MD [address] [facility] [address] Love, Non Stress Tests Kim [address] [facility] [place] [address] Rh negative, antepartum*; Supervision of high-risk , third trimester; Insulin controlled gestational diabetes mellitus (GDM) during [...] at bedtime 07/12/23-elevated sugars- msg send to ASSEMBLY PERSON 07/12/23: RPM reviewed; elevated FBS; increase to [...] PACs 3. Normal biventricular function 4. Mild [place] The above findings were shared with the [...] dealing with it, otherwise can deliver in [place]. Last Assessment & Plan: She was seen [...] and folate levels and referral to a heater operator helper. 4. If hemoglobin levels are below 8 g/dl, we recommend Maternal Medicine ultrasound for growth every 4 weeks after 24 weeks. Consider a blood transfusion if hemoglobin levels fall below 6 g/dL. ([employer] Project [employer] Practice Bulletin Number 95, February,). 5. Consider [...] Will continue testing and report weekly to [facility] via [employer]. Discussed that medication may be needed if elevated blood sugars do not improve with diet alone. Patient agreeable to starting insulin if needed. Will review again next week. 07/25/22: [facility] ADAPT consult complete. 07/27/22: elevated fasting; [...] 08/22/22: Taking 15 units Levemir at HS. [place] woozy after 20 units. Was sick last [...] MEDICINE referral made. Last Assessment & Plan: [facility] anatomy/growth ultrasound scheduled for 08/03/22. Patient [...] money to get more. Never true 11/01/2022 [place] Depression Scale Answer Date Recorded [place] Depression Scale Total 2 09/14/2023 The thought [...] Sign Reading Time Taken Comments Blood Pressure 100/64 12/04/2023 9:15 AM EDT Pulse - - Temperature - - Respiratory Rate - - Oxygen Saturation - - Inhaled Oxygen Concentration - - Weight 87.1 kg (192 lb) 12/04/2023 9:15 AM EDT Height 157.5 cm (5' 2") 12/04/2023 9:15 AM EDT Body Mass Index 35.12 12/04/2023 9:15 AM EDT documented in this [...] as of this encounter Progress Notes * Brenton Brown MD - 12/04/2023 10:01 AM EDT Pt doing well No complaints NST ; CAT1 GDMA2 on Insulin' Reports FBS is in the 80-90. 1PP is about 120's RTC 1 week documented in this encounter Nursing Notes * Ramona España LPN - 12/04/2023 9:21 AM EDT 37w2d NST, RUBINA documented in this encounter Plan of Treatment Upcoming Encounters Date Type Department Care Team (Late st Contact Info) Description 12/06/2023 8:45 AM EDT Imaging Radiology, [address] [address] 12/06/2023 8:45 AM EDT Office Visit Investment Banking Associate Obstetrics Maternal Medicine, [address] [address] Aniya Carson, DO [address] [place] [address] 12/07/2023 1:00 PM EDT Office Visit Gynecology/Obstetrics [facility] [address] [facility] [place] [address] Antonietta Hair CRNP [address] [place] [address] Ivan Non Stress Tests Kim [address] [place] [address] 12/11/2023 11:00 AM EDT Office Visit Gynecology/Obstetrics Ar[facility] Love [address] [place] [address] Antonietta Hair CRNP [address] [place] [address] Ivan Non Stress Tests Kim [address] [place] [address] 12/14/2023 1:00 PM EDT Office Visit Gynecology/Obstetrics [facility] [place] [address] Fatuma Gutierrez MD [address] [place] [address] [place] [phone] Ivan, Non Stress Tests Kim Liu [place] [address] Health Maintenance Due Date Last Done Comments [...] as of this encounter Visit Diagnoses Diagnosis Rh negative, antepartum- Primary Rhesus isoimmunization affecting management of mother, antepartum condition Supervision of high-risk , third trimester Insulin controlled gestational diabetes mellitus (GDM) during [...] the patient have Health Care Power of Fish Straightener? No Code Status History Code Status Date Activated Date Inactivated Comments Full Code 01/05/2021 11:33 AM 01/05/2021 6:10 PM This o rder reflects the patients wishes and were consensually agreed upon. Care Teams Slab Lifting Supervisor Relationship Specialty Start Date End Date Taryn Melgar PA-C [address] [place] [phone] PCP - General Physician Process Camera Operator 09/20/18 documented as of this encounter
--- OUTSIDE RECORDS SUMMARY | 2023-12-18 07:54 | External Medical Summary | Summary of Care ---
Author Name Unknown Organization [facility] Address [address] [place] [address] Phone [phone] Care Team Providers Care Paint Tinter Name Role Phone Taryn Melgar PA-C Primary Care Provider Reason for Visit * Reason Comments Non Stress Test Encounter Details Date Type Department Care Team (Late st Contact Info) Description 12/07/2023 1:00 PM EDT Office Visit Gynecology/Obstetric s [facility] [address] [place] [address] Antonietta Hair CRNP [address] [place] [address] Ivan Non Stress Tests Kim [address] [place] [address] Supervision of high-risk , third trimester*; Rh negative, antepartum; Insulin controlled gestational diabetes mellitus (GDM) during , antepartum; Obesity in , antepartum; Short interval between pregnancies complicating , antepartum; Antepartum anemia complicating ; Nephrolithiasis Allergies Active Allergy Reactions Criticality Noted Date Comments Pollen Other (Please comment) Low 01/05/2021 documented as of this encounter (statuses as of 12/07/2023) Medications Medication Sig Dispensed Refills Start Date [...] as of this encounter (statuses as of 12/07/2023) Active Problems Problem Noted Date Diagnosed Date [...] at bedtime 07/12/23-elevated sugars- msg send to SHOWROOM EXECUTIVE DIRECTOR 07/12/23: RPM reviewed; elevated FBS; increase to [...] as of this encounter (statuses as of 12/07/2023) Resolved Problems Problem Noted Date Diagnosed Date [...] dealing with it, otherwise can deliver in [place]. Last Assessment & Plan: She was seen [...] and folate levels and referral to a furnace roaster. 4. If hemoglobin levels are below 8 g/dl, we recommend Maternal Medicine ultrasound for growth every 4 weeks after 24 weeks. Consider a blood transfusion if hemoglobin levels fall below 6 g/dL. ([employer] Cob [employer]yer Practice Bulletin Number 95, February,). 5. Consider [...] Will continue testing and report weekly to [facility] via [employer]. Discussed that medication may be needed if elevated blood sugars do not improve with diet alone. Patient agreeable to starting insulin if needed. Will review again next week. 07/25/22: [facility] ADAPT consult complete. 07/27/22: elevated fasting; [...] 08/22/22: Taking 15 units Levemir at HS. [place] woozy after 20 units. Was sick last [...] MEDICINE referral made. Last Assessment & Plan: [facility] anatomy/growth ultrasound scheduled for 08/03/22. Patient [...] as of this encounter (statuses as of 12/07/2023) Immunizations Name Administration Dates Next Due Seasonal [...] money to get more. Never true 11/01/2022 [place] Depression Scale Answer Date Recorded [place] Depression Scale Total 2 09/14/2023 The thought [...] Sign Reading Time Taken Comments Blood Pressure 102/62 12/07/2023 1:42 PM EDT Pulse - - Temperature - - Respiratory Rate - - Oxygen Saturation - - Inhaled Oxygen Concentration - - Weight 88 kg (194 lb) 12/07/2023 1:42 PM EDT Height - - Body Mass Index 35.48 12/04/2023 9:15 AM EDT documented in this [...] Progress Notes * Antonietta Hair CRNP - 12/07/2023 2:11 PM EDT ASSESSMENT assessment with Non-stress Test completed on 12/07/2023 at 37.5 weeks gestation for indication of gestational diabetes mellitus heart baseline: 130 bpm Variability: Moderate Decelerations: absent Accelerations: present Contractions: None NST start time: 1304 NST stop time: 1326 NST strip reviewed, interpreted, and approved by OB provider, MIRTA Ge . NST strip stored in clinic storage file documented in this encounter Plan of Treatment Upcoming Encounters Date Type Department Care Team (Late st Contact Info) Description 12/08/2023 12:30 PM EDT Telemedicine Rehabilitation Physician Obstetrics Maternal Medicine, [place] [address] [facility] [address] [place] [address] Tasha Masters CRNP [address] [facility] [address] [place] [address] 12/11/2023 11:00 AM EDT Office Visit Gynecology/Obstetrics [facility] Love [address] [place] [address] Antonietta Hair CRNP [address] [place] [address] Ivan, Non Stress Tests Kim [address] [place] [address] 12/14/2023 1:00 PM EDT Office Visit Gynecology/Obstetrics [facility] Love [address] [place] [address] Fatuma Gutierrez MD [address] [place] [address] [place] [address] Ivan, Non Stress Tests Kim [address] [place] [address] Health Maintenance Due Date Last Done Comments [...] the patient have Health Care Power of Agricultural Sales Representative? No Code Status History Code Status Date Activated Date Inactivated Comments Full Code 01/05/2021 11:33 AM 01/05/2021 6:10 PM This o rder reflects the patients wishes and were consensually agreed upon. Care Teams Paint Tinter Relationship Specialty Start Date End Date Taryn Melgar PA-C [address] [place], [place] [address] [address] PCP - General Physician Yard Loader Operator 09/20/18 documented as of this encounter
--- OUTSIDE RECORDS SUMMARY | 2023-12-18 07:55 | External Medical Summary | Summary of Care ---
Author Name Unknown Organization [facility] Address [address] [place] [address] Phone [phone] Care Team Providers Care Sea Captain Name Role Phone Taryn Melgar PA-C Primary Care Provider Reason for Visit * Reason Onset Date Comments 11/29/[address] Brown Encounter Details Date Type Department Care Team (Late st Contact Info) Description 11/29/2023 Telephone Gynecology/Obstetics [place] [address] [place] [address] Angie Nuñez PA-C [address] [place] [address] (Review with Dr. Brown ) Allergies Active Allergy Reactions Criticality Noted Date Comments Pollen Other (Please comment) Low 01/05/2021 documented as of this encounter (statuses as of 11/29/2023) Medications Medication Sig Dispensed Refills Start Date [...] as of this encounter (statuses as of 11/29/2023) Active Problems Problem Noted Date Diagnosed Date [...] A1C - [facility] 5.2 06/21/2023 09:44 AM 11/22/23: [facility] ADAPT consult complete. Enrolled in Current [...] options 07/05/23- sugars elevated- msg sent to [facility] to schedule ADAPT 07/06/23: ADAPT visit complete; elevated FBS; ordered Lantus 10 units at bedtime 07/12/23-elevated sugars- msg send to [facility] 07/12/23: RPM reviewed; elevated FBS; increase to [...] reported this week; will request updated log Last Assessment & Plan: Working with ADAPT. [...] as of this encounter (statuses as of 11/29/2023) Resolved Problems Problem Noted Date Diagnosed Date [...] PACs 3. Normal biventricular function 4. Mild [place] The above findings were shared with the [...] dealing with it, otherwise can deliver in [place]. Last Assessment & Plan: She was seen [...] and folate levels and referral to a bridge worker apprentice. 4. If hemoglobin levels are below 8 g/dl, we recommend Maternal Medicine ultrasound for growth every 4 weeks after 24 weeks. Consider a blood transfusion if hemoglobin levels fall below 6 g/dL. ([employer] [facility] [employer] Station Attendant Practice Bulletin Number 95, February,). 5. Consider [...] Will continue testing and report weekly to M via [employer]. Discussed that medication may be needed if [...] 08/22/22: Taking 15 units Levemir at HS. [place] woozy after 20 units. Was sick last [...] as of this encounter (statuses as of 11/29/2023) Immunizations Name Administration Dates Next Due Seasonal [...] money to get more. Never true 11/01/2022 [place] Depression Scale Answer Date Recorded [place] Depression Scale Total 2 09/14/2023 The thought [...] encounter Miscellaneous Notes * Telephone Encounter - Willa Rodgers RN - 11/29/2023 3:20 PM EDT I spoke to Dr. Brown and reviewed patient with him. He advised patient to monitor and call back with changes. Patient also has appointment in the office tomorrow. Patient discussed with provider below also. I called patient and made her aware of Dr. Brown's advise. She verbalized understanding. She will call back with changes. * Telephone Encounter - Angie Nuñez PA-C - 11/29/2023 3:14 PM EDT Spoke with patient. Patient has left ankle and foot swelling. Patient denies redness and denies warmth. Patient denies pitting edema. Patient denies pain to left leg. Patient reports that ankle and foot swelling is improving with elevation. Blood pressure: 126/74 mmHg. Patient denies headaches, denies visual changes, and denies right upper abdominal pain. Patient reports that baby is moving well. Patient denies leaking of fluid and denies vaginal bleeding. Advised venous duplex + blood pressure check - patient declines. Patient declines further evaluation at this time. Patient will continue to monitor. Patient has appointment scheduled for tomorrow. Patient will seek medical care if any concerns. * Telephone Encounter - Willa Rodgers RN - 11/29/2023 1:38 PM EDT Patient calling in 36w4d . Now following with kim zhong, delivering at [facility]. She is c/o of left foot and ankle and hand swelling that just started as of today. She denies any other symptoms. Denies MARR/blurry vision, RUQ pain, denies Vaginal bleeding/leaking/contractions, + FM. Reports drinking 80 oz of water daily, she is elevating her feet at work and has not noticed any improvements. She denies any redness/swelling in the L leg that is swollen. Will review with oncall provider. * Telephone Encounter - Trudy Bolton RN - 11/29/2023 12:16 PM EDT Received a call from pt with c/o swelling in her left foot/ankle and her left hand. Denies any pain. Asking if she should be concerned or continue to monitor. documented in this encounter Plan of Treatment Upcoming Encounters Date Type Department Care Team (Late st Contact Info) Description 11/30/2023 1:00 PM EDT Office Visit Gynecology/Obstetrics [facility] Zhong [address] [place] [address] Isabel Quevedo CRNP [address] [place] [address] Betty Zhong Stress Tests Kim [address] [place] [address] 12/04/2023 9:15 AM EDT Office Visit Gynecology/Obstetrics [facility] [address] [place] [address] Brenton Brown MD [address] [place] [address] Zhong, Non Stress Tests Kim [address] [place] [address] 12/06/2023 8:45 AM EDT Imaging Radiology, [place] [address] [address] [place] [address] 12/07/2023 1:00 PM EDT Office Visit Gynecology/Obstetrics [facility] [address] [place] [address] Antonietta Hair CRNP [address] [place] [address] Zhong, Non Stress Tests Kim [address] [place] [address] 12/11/2023 11:00 AM EDT Office Visit Gynecology/Obstetrics [facility] [address] [place] [address] Antonietta Hair CRNP [address] [place] [address] Zhong, Non Stress Tests Kim [address] [place] [address] 12/14/2023 1:00 PM EDT Office Visit Gynecology/Obstetrics [facility] [address] [place] [address] Fatuma Gutierrez MD [address] [place] [address] [place] [id number] Zhong, Non Stress Tests Kim [address] [place] [address] Health Maintenance Due Date Last Done Comments [...] the patient have Health Care Power of Cardiac Rehabilitation Program Director? No Code Status History Code Status Date Activated Date Inactivated Comments Full Code 01/05/2021 11:33 AM 01/05/2021 6:10 PM This o rder reflects the patients wishes and were consensually agreed upon. Care Teams Sea Captain Relationship Specialty Start Date End Date Taryn Melgar PA-C NPI: [id number] [place] [id number] PCP - General Physician Chief Sustainability Officer 09/20/18 documented as of this encounter
--- OUTSIDE RECORDS SUMMARY | 2023-12-18 07:55 | External Medical Summary | Summary of Care ---
Author Name Unknown Organization [facility] Address [address] [place] [address] Phone [phone] Care Team Providers Care Sumatra Opener Name Role Phone Taryn Melgar PA-C Primary Care Provider Reason for Visit * Reason Onset Date Comments Home Monitoring Telephone 12/01/2023 Encounter Details Date Type Department Care Team (Late st Contact Info) Description 12/01/2023 Telephone Care Coordination [address] [place] [address] [facility] [place] [address] [place], [place] [id number] Home Monitoring Telephone Allergies Active Allergy Reactions [...] at bedtime 07/12/23-elevated sugars- msg send to [facility] 07/12/23: RPM reviewed; elevated FBS; increase to [...] PACs 3. Normal biventricular function 4. Mild [place] The above findings were shared with the [...] dealing with it, otherwise can deliver in [place]. Last Assessment & Plan: She was seen [...] and folate levels and referral to a base remover. 4. If hemoglobin levels are below 8 g/dl, we recommend Maternal Medicine ultrasound for growth every 4 weeks after 24 weeks. Consider a blood transfusion if hemoglobin levels fall below 6 g/dL. ([employer] [facility] and Mailing Machine Operator Practice Bulletin Number 95, February,). 5. Consider [...] testing and report weekly to M via [employer]. Discussed that medication may be needed if elevated blood sugars do not improve with diet alone. Patient agreeable to starting insulin if needed. Will review again next week. 07/25/22: [facility] ADAPT consult complete. 07/27/22: elevated [...] 08/22/22: Taking 15 units Levemir at HS. [place] woozy after 20 units. Was sick last [...] MEDICINE referral made. Last Assessment & Plan: [facility] anatomy/growth ultrasound scheduled for 08/03/22. [...] money to get more. Never true 11/01/2022 [place] Depression Scale Answer Date Recorded [place] Depression Scale Total 2 09/14/2023 The thought [...] encounter Miscellaneous Notes * Telephone Encounter - [facility] [place] - 12/01/2023 10:32 AM EDT Unable to contact for remote glucose monitoring. Attempts made on 11/22, 11/27, and 11/28. My [employer] message also sent. Gregory Townsend Community Programs Specialist documented in this encounter Plan of Treatment Upcoming Encounters Date Type Department Care Team (Late st Contact Info) Description 12/04/2023 9:15 AM EDT Office Visit Gynecology/Obstetrics Ar[facility] Love [address] [place] [address] Brenton Brown MD [address] [address] Betty Love Stress Tests Kim [address] [place] [address] 12/06/2023 8:45 AM EDT Imaging Radiology, [address] [place] [address] 12/07/2023 1:00 PM EDT Office Visit Gynecology/Obstetrics Arlen Love [address] [place] [address] Antonietta Hair CRNP [address] [place] [address] Ivan, Non Stress Tests Kim [address] [place] [address] 12/11/2023 11:00 AM EDT Office Visit Gynecology/Obstetrics Arlen Love [address] [place] [address] Antonietta Hair CRNP [address] [place] [address] Ivan Non Stress Tests Kim [address] [place] [address] 12/14/2023 1:00 PM EDT Office Visit Gynecology/Obstetrics Arlen Love [address] [place] [address] Fatuma Gutierrez MD [address] [place] [address] [place] [address] Love Non Stress Tests Kim [address] [place] [address] Health Maintenance Due Date Last Done Comments [...] the patient have Health Care Power of Commercial Front Load Driver? No Code Status History Code Status Date Activated Date Inactivated Comments Full Code 01/05/2021 11:33 AM 01/05/2021 6:10 PM This o rder reflects the patients wishes and were consensually agreed upon. Care Teams Sumatra Opener Relationship Specialty Start Date End Date Taryn Melgar PA-C [address] [place] [id number] PCP - General Physician [facility] [place] 09/20/18 documented as of this encounter
--- OUTSIDE RECORDS SUMMARY | 2023-12-18 07:55 | External Medical Summary | Summary of Care ---
Author Name Unknown Organization [facility] Address [address] [place] [address] Phone [phone] Care Team Providers Care Fur Cutting Machine Operator Name Role Phone Taryn Melgar PA-C Primary Care Provider Reason for Visit * Reason Onset Date Comments 11/29/[address] Brown Encounter Details Date Type Department Care Team (Late st Contact Info) Description 11/29/2023 Telephone Gynecology/Obstetics [facility] [address] [place] [address] Angie Nuñez PA-C [address] [place] [address] (Review with Dr. Brown ) [...] options 07/05/23- sugars elevated- msg sent to [facility] to schedule ADAPT 07/06/23: ADAPT visit complete; elevated FBS; ordered Lantus 10 units at bedtime 07/12/23-elevated sugars- msg send to EMERGENCY COMMUNICATIONS OFFICER 07/12/23: RPM reviewed; elevated FBS; increase to [...] PACs 3. Normal biventricular function 4. Mild [place] The above findings were shared with the [...] dealing with it, otherwise can deliver in [place]. Last Assessment & Plan: She was seen [...] and folate levels and referral to a forest management professor. 4. If hemoglobin levels are below 8 g/dl, we recommend Maternal Medicine ultrasound for growth every 4 weeks after 24 weeks. Consider a blood transfusion if hemoglobin levels fall below 6 g/dL. ([employer] [facility] and Bottle Assembler Practice Bulletin Number 95, February,). 5. Consider [...] testing and report weekly to M via [employer]. Discussed that medication may be needed if elevated blood sugars do not improve with diet alone. Patient agreeable to starting insulin if needed. Will review again next week. 07/25/22: [facility] ADAPT consult complete. 07/27/22: elevated [...] 08/22/22: Taking 15 units Levemir at HS. [place] woozy after 20 units. Was sick last [...] money to get more. Never true 11/01/2022 [place] Depression Scale Answer Date Recorded [place] Depression Scale Total 2 09/14/2023 The thought [...] encounter Miscellaneous Notes * Telephone Encounter - Angie Nuñez PA-C - 11/29/2023 3:14 PM EDT Spoke with patient. Patient has left ankle and foot swelling. Patient denies redness and denies warmth. Patient denies pitting edema. Patient denies pain to left leg. Blood pressure: 126/74 mmHg. Patient denies headaches, denies visual changes, and denies right upper abdominal pain. Patient reports that baby is moving well. Patient denies leaking of fluid and denies vaginal bleeding. Advised venous duplex + blood pressure check - patient declines. Patient declines further evaluation at this time. Patient will continue to monitor. * Telephone Encounter - Willa Rodgers RN - 11/29/2023 1:38 PM EDT Patient calling in 36w4d . Now following with kim zhong, delivering at [facility]. She is c/o of left foot and [...] Office Visit Gynecology/Obstetrics Ar[facility] Zhong [address] [place] [address] Isabel Quevedo CRNP [address] [place] [address] Ivan Non Stress Tests Kim [address] [place] [address] 12/04/2023 9:15 AM EDT Office Visit Gynecology/Obstetrics Arlen Zhong [address] [place] [address] Brenton Brown MD [address] [place] [address] Ivan Non Stress Tests Kim [address] [place] [address] 12/06/2023 8:45 AM EDT Imaging Radiology, [address] [place] [address] 12/07/2023 1:00 PM EDT Office Visit Gynecology/Obstetrics Arlen Zhong [address] [place] [address] Antonietta Hair CRNP [address] [place] [address] Ivan Non Stress Tests Kim [address] [place] [address] 12/11/2023 11:00 AM EDT Office Visit Gynecology/Obstetrics [facility] [address] [place] [address] Antonietta Hair CRNP [address] [place] [address] Betty Zhong Stress Tests Kim [address] [place] [address] 12/14/2023 1:00 PM EDT Office Visit Gynecology/Obstetrics [facility] [address] [place] [address] Fatuma Gutierrez MD [address] [place] [address] [place] [address] Betty Zhong Stress Tests [facility]mi [address] [place] [address] Health Maintenance Due Date Last Done Comments [...] the patient have Health Care Power of Felting Machine Operator? No Code Status History Code Status Date Activated Date Inactivated Comments Full Code 01/05/2021 11:33 AM 01/05/2021 6:10 PM This o rder reflects the patients wishes and were consensually agreed upon. Care Teams Fur Cutting Machine Operator Relationship Specialty Start Date End Date Taryn Melgar PA-C [address] [place] [id number] PCP - General Physician Sammying Machine Operator 09/20/18 documented as of this encounter
--- OUTSIDE RECORDS SUMMARY | 2023-12-18 07:55 | External Medical Summary | Summary of Care ---
Author Name Unknown Organization [facility] Address [address] [place] [address] Phone [phone] Care Team Providers Care Control Technician Name Role Phone Taryn Melgar PA-C Primary Care Provider Reason for Visit * Reason Comments Return Visit Encounter Details Date Type Department Care Team (Late st Contact Info) Description 11/30/2023 1:00 PM EDT Office Visit Gynecology/Obstetric s [facility] [address] [place] [address] Isabel Quevedo CRNP [address] [place] [address] Ivan, Non Stress Tests Kim [address] [place] [address] Supervision of high-risk , third trimester*; Rh negative, antepartum; Insulin controlled gestational diabetes mellitus (GDM) during , antepartum; Obesity in , antepartum; Short interval between pregnancies complicating , antepartum; Antepartum anemia complicating ; Nephrolithiasis Allergies Active Allergy Reactions Criticality Noted Date Comments Pollen Other (Please comment) Low 01/05/2021 documented as of this encounter (statuses as of 11/30/2023) Medications Medication Sig Dispensed Refills Start Date [...] as of this encounter (statuses as of 11/30/2023) Active Problems Problem Noted Date Diagnosed Date [...] at bedtime 07/12/23-elevated sugars- msg send to [facility] 07/12/23: RPM reviewed; elevated FBS; increase to [...] to PARs to schedule a follow up PAPITO 11/28/23: RPM reviewed; no blood sugars reported this week; will request updated log Last Assessment & Plan: Working with PAPITO. BMI 32.0-32.9,adult 05/27/2023 Supervision of high-risk , [...] as of this encounter (statuses as of 11/30/2023) Resolved Problems Problem Noted Date Diagnosed Date [...] dealing with it, otherwise can deliver in [place]. Last Assessment & Plan: She was seen [...] and folate levels and referral to a control technician. 4. If hemoglobin levels are below 8 g/dl, we recommend Maternal Medicine ultrasound for growth every 4 weeks after 24 weeks. Consider a blood transfusion if hemoglobin levels fall below 6 g/dL. ([employer] [facility] and Telecommunications Field Engineer Practice Bulletin Number 95, February,). 5. Consider [...] Will continue testing and report weekly to [facility] via [employer]. Discussed that medication may be needed if elevated blood sugars do not improve with diet alone. Patient agreeable to starting insulin if needed. Will review again next week. 07/25/22: [facility] ADAPT consult complete. 07/27/22: elevated [...] at bedtime, asked patient to confirm dose. 1/16/23: Sent MYG message to patient to update blood sugars 08/22/22: Taking 15 units Levemir at HS. [place] woozy after 20 units. Was sick last [...] MEDICINE referral made. Last Assessment & Plan: [facility] anatomy/growth ultrasound scheduled for 08/03/22. Patient reports [...] as of this encounter (statuses as of 11/30/2023) Immunizations Name Administration Dates Next Due Seasonal [...] money to get more. Never true 11/01/2022 [place] Depression Scale Answer Date Recorded [place] Depression Scale Total 2 09/14/2023 The [...] - - Weight 87.1 kg (192 lb) 11/30/2023 1:04 PM EDT Height 157.5 cm (5' 2") 11/30/2023 1:04 PM EDT Body Mass Index 35.12 11/30/2023 1:04 PM EDT documented in this encounter Functional [...] as of this encounter Progress Notes * Isabel Quevedo CRNP - 11/30/2023 1:30 PM EDT ASSESSMENT assessment with Non-stress Test completed on 11/30/2023 at 36.5weeks gestation for indication of gestational diabetes mellitus heart baseline: 130 bpm Variability: Moderate Decelerations: absent Accelerations: present Contractions: None NST start time: 1257 NST stop time: 1319 NST strip reviewed, interpreted, and approved by OB provider, MIRTA Ojeda . NST strip stored in clinic storage file documented in this encounter Plan of Treatment Upcoming Encounters Date Type Department Care Team (Late st Contact Info) Description 12/04/2023 9:15 AM EDT Office Visit Gynecology/Obstetrics [facility] Love [address] [place] [address] Brenton Brown MD [address] [place] [address] Ivan, Non Stress Tests Kim [address] [place] [address] 12/06/2023 8:45 AM EDT Imaging Radiology, [place] [address] [address] [place] [address] 12/07/2023 1:00 PM EDT Office Visit Gynecology/Obstetrics Arlen Love [address] [place] [address] Antonietta Hair CRNP [address] [place] [address] Ivan, Non Stress Tests Kim [address] [place] [address] 12/11/2023 11:00 AM EDT Office Visit Gynecology/Obstetrics [facility]quezs [address] [place] [address] Antonietta Hair CRNP [address] [place] [address] Ivan, Non Stress Tests Kim [address] [place] [address] 12/14/2023 1:00 PM EDT Office Visit Gynecology/Obstetrics Arlen Love [address] [place] [address] Fatuma Gutierrez MD [address] [place] [address] [place] [address] Ivan, Non Stress Tests Kim [address] [place] [address] Health Maintenance Due Date Last Done Comments [...] the patient have Health Care Power of Director Of Casino? No Code Status History Code Status Date Activated Date Inactivated Comments Full Code 01/05/2021 11:33 AM 01/05/2021 6:10 PM This o rder reflects the patients wishes and were consensually agreed upon. Care Teams Control Technician Relationship Specialty Start Date End Date Taryn Melgar PA-C [address] [place] [address] [place] [address] PCP - General Physician Crystal Evaluator 09/20/18 documented as of this encounter
--- OUTSIDE RECORDS SUMMARY | 2023-12-18 07:55 | External Medical Summary | Summary of Care ---
Author Name Unknown Organization [facility] Address [address] [place] [address] Phone [phone] Care Team Providers Care Steam Conditioner Operator Name Role Phone Taryn Melgar PA-C Primary Care Provider Reason for Visit * Reason Onset Date Comments 11/29/[address] Brown Encounter Details Date Type Department Care Team (Late st Contact Info) Description 11/29/2023 Telephone Gynecology/Obstetics [place] [address] [place] [address] Angie Nuñez PA-C [address] [place] [address] (Review with Dr. Brown ) [...] options 07/05/23- sugars elevated- msg sent to [facility] to schedule ADAPT 07/06/23: ADAPT visit complete; elevated FBS; ordered Lantus 10 units at bedtime 07/12/23-elevated sugars- msg send to SUPERVISOR [employer] 07/12/23: RPM reviewed; elevated FBS; increase to [...] PACs 3. Normal biventricular function 4. Mild [place] The above findings were shared with the [...] dealing with it, otherwise can deliver in [place]. Last Assessment & Plan: She was seen [...] and folate levels and referral to a cross cut saw operator. 4. If hemoglobin levels are below 8 g/dl, we recommend Maternal Medicine ultrasound for growth every 4 weeks after 24 weeks. Consider a blood transfusion if hemoglobin levels fall below 6 g/dL. ([employer] Bulletin Number 95, February,). 5. Consider [...] testing and report weekly to M via [employer]. Discussed that medication may be needed if elevated blood sugars do not improve with diet alone. Patient agreeable to starting insulin if needed. Will review again next week. 07/25/22: [facility] ADAPT consult complete. 07/27/22: elevated fasting; [...] 08/22/22: Taking 15 units Levemir at HS. [place] woozy after 20 units. Was sick last [...] money to get more. Never true 11/01/2022 [place] Depression Scale Answer Date Recorded [place] Depression Scale Total 2 09/14/2023 The thought [...] Now following with kim zhong, delivering at [facility]. She is c/o of left [...] Date Type Department Care Team (Late st [facility] Info) Description 11/30/2023 1:00 PM EDT Office Visit Gynecology/Obstetrics [facility] [address] [place] [address] Isabel Quevedo CRNP [address] [place] [address] Ivan Non Stress Tests Kim [address] [place] [address] 12/04/2023 9:15 AM EDT Office Visit Gynecology/Obstetrics [facility] [address] [place] [address] Brenton Brown MD [address] [place] [address] Ivan Non Stress Tests Kim [address] [place] [address] 12/06/2023 8:45 AM EDT Imaging Radiology, [place] [address] [place] [address] 12/07/2023 1:00 PM EDT Office Visit Gynecology/Obstetrics [facility] [address] [place] [address] Antonietta Hair CRNP [address] [place] [address] Ivan, Non Stress Tests Kim [address] [place] [address] 12/11/2023 11:00 AM EDT Office Visit Gynecology/Obstetrics [facility]ong [address] [place] [address] Antonietta Hair CRNP [address] [place] [address] Ivan, Non Stress Tests Kim [address] [place] [address] 12/14/2023 1:00 PM EDT Office Visit Gynecology/Obstetrics [facility] Zhong [address] [place] [address] Fatuma Gutierrez MD [address] [place], [place] [address] [address] Ivan, Non Stress Tests Kim [address] [place] [address] Health Maintenance Due Date Last Done Comments [...] the patient have Health Care Power of Concrete Floater? No Code Status History Code Status Date Activated Date Inactivated Comments Full Code 01/05/2021 11:33 AM 01/05/2021 6:10 PM This o rder reflects the patients wishes and were consensually agreed upon. Care Teams Steam Conditioner Operator Relationship Specialty Start Date End Date Taryn Melgar PA-C [address] [place] [phone] PCP - General Physician Event Services Manager 09/20/18 documented as of this encounter
--- OUTSIDE RECORDS SUMMARY | 2023-12-18 07:55 | External Medical Summary | Summary of Care ---
Author Name Unknown Organization [facility] Address [address] [place] [address] Phone [phone] Care Team Providers Care Software Installer Name Role Phone Taryn Melgar PA-C Primary Care Provider Reason for Visit * Reason Onset Date Comments 11/29/[address] Brown Encounter Details Date Type Department Care Team (Late st Contact Info) Description 11/29/2023 Telephone Gynecology/Obstetics [place] [address] [place] [address] Angie Nuñez PA-C [address] [place] [address] (Review with Dr. Brown ) [...] options 07/05/23- sugars elevated- msg sent to [facility] to schedule ADAPT 07/06/23: ADAPT visit complete; elevated FBS; ordered Lantus 10 units at bedtime 07/12/23-elevated sugars- msg send to JOB PLACEMENT SPECIALIST 07/12/23: RPM reviewed; elevated FBS; increase [...] PACs 3. Normal biventricular function 4. Mild [place] The above findings were shared with the [...] dealing with it, otherwise can deliver in [place]. Last Assessment & Plan: She was seen [...] and folate levels and referral to a entry level lab technician. 4. If hemoglobin levels are below 8 g/dl, we recommend Maternal Medicine ultrasound for growth every 4 weeks after 24 weeks. Consider a blood transfusion if hemoglobin levels fall below 6 g/dL. ([employer] Practice Bulletin Number 95, February,). 5. Consider [...] testing and report weekly to M via [employer]. Discussed that medication may be needed if elevated blood sugars do not improve with diet alone. Patient agreeable to starting insulin if needed. Will review again next week. 07/25/22: [facility] ADAPT consult complete. 07/27/22: elevated fasting; [...] Taking 15 units Levemir at HS. [place] woozy after 20 units. Was sick last [...] money to get more. Never true 11/01/2022 [place] Depression Scale Answer Date Recorded [place] Depression Scale Total 2 09/14/2023 The [...] Now following with kim zhong, delivering at [facility]. She is c/o of left foot and [...] Gynecology/Obstetrics Arlen Zhong [address] [place] [address] Isabel Quevedo CRNP [address] [address] Betty Zhong Stress Tests Kim [address] [place] [address] 12/04/2023 9:15 AM EDT Office Visit Gynecology/Obstetrics [facility] [address] [place] [address] Brenton Brown MD [address] [place] [address] Ivan, Non Stress Tests Kim [address] [place] [address] 12/06/2023 8:45 AM EDT Imaging Radiology, [facility] [address] [place] [address] 12/07/2023 1:00 PM EDT Office Visit Gynecology/Obstetrics [facility] [address] [place] [address] BackerAntonietta CRNP [address] [place] [address] Ivan, Non Stress Tests Kim [address] [place] [address] 12/11/2023 11:00 AM EDT Office Visit Gynecology/Obstetrics [facility] [address] [place] [address] BackerAntonietta CRNP [address] [place] [address] Ivan, Non Stress Tests Kim [address] [place] [address] 12/14/2023 1:00 PM EDT Office Visit Gynecology/Obstetrics [facility] [address] [place] [address] Fatuma Gutierrez MD [address] [place] [address] [place] [address] Zhong, Non Stress Tests Kim [address] [place] [address] Health Maintenance Due Date Last Done Comments [...] the patient have Health Care Power of Laborer [employer]? No Code Status History Code Status Date Activated Date Inactivated Comments Full Code 01/05/2021 11:33 AM 01/05/2021 6:10 PM This o rder reflects the patients wishes and were consensually agreed upon. Care Teams Software Installer Relationship Specialty Start Date End Date Taryn Melgar PA-C [address] [place], [place] [address] [id number] PCP - General Physician Coding Manager 09/20/18 documented as of this encounter
--- OUTSIDE RECORDS SUMMARY | 2023-12-18 07:56 | External Medical Summary | Summary of Care ---
Author Name Unknown Organization [facility] Address [address] [place] [address] Phone [phone] Care Team Providers Care Refrigeration Manager Name Role Phone Taryn Melgar PA-C Primary Care Provider Reason for Visit * Reason Comments Return Visit Encounter Details Date Type Department Care Team (Late st Contact Info) Description 11/23/2023 11:00 AM EDT Office Visit Gynecology/Obstetric s [facility] [address] [place] [address] Isabel Quevedo CRNP [address] [place] [address] Ivan, Non Stress Tests Kim [address] [place] [address] Supervision of high-risk , third trimester*; Abnormal glucose tolerance in mother complicating ; Insulin controlled gestational diabetes mellitus (GDM) during , antepartum; History of gestational diabetes mellitus (GDM); Obesity in , antepartum; Short interval between pregnancies complicating , antepartum; Antepartum anemia complicating ; Rh negative, antepartum; Nephrolithiasis Allergies Active Allergy Reactions Criticality Noted Date Comments Pollen Other (Please comment) Low 01/05/2021 documented as of this encounter (statuses as of 11/23/2023) Medications Medication Sig Dispensed Refills Start Date [...] bedtime snack. 15 mL 3 07/12/2023 Active metroNIDAZOLE 500 MG Oral Tablet (Flagyl) Take 1 Tablet by mouth in the morning and 1 Tablet before bedtime for 7 days until gone.. 14 Tablet 0 07/27/2023 Active Additional Information Patient not taking.Reported on 09/16/2023 Albuterol Sulfate HFA 108 (90 Base) MCG/ACT Inhalation Aerosol Solution Inhale 2 Puffs by mouth every 6 hours as needed for Cough or Shortness of Breath. 18 g 0 09/16/2023 Active Dextromethorphan-gu aiFENesin 10-100 MG/5ML Oral Liquid (Robitussin DM) Take 5 mL by mouth every 4 hours as needed for Cough. 120 mL 0 09/16/2023 Active Oxymetazoline HCl 0.05 % Nasal Solution Administer 2 Sprays into each nostril 2 times a day as needed for Congestion (for congestion). Do not use for more than three days. 20 mL 0 09/16/2023 Active Ferrous Sulfate 325 (65 Fe) MG Oral Tablet (Feosol) Take 1 Tablet by mouth daily. 90 Tablet 0 10/13/2023 Active Omeprazole 20 MG Oral Capsule Delayed Release (PriLOSEC) Take 1 Capsule by mouth daily. 30 Capsule 1 11/14/2023 Active documented as of this encounter (statuses as of 11/23/2023) Active Problems Problem Noted Date Diagnosed Date Back pain affecting in third trimester 11/16/2023 Nephrolithiasis 11/16/2023 Overview: 4 mm kidney stone seen on ultrasound. Antepartum anemia complicating 024 Overview: Ferritin 11 on 10/12/2023. Repeat CBC later in 3rd trimester. History of gestational diabetes mellitus (GDM) 1 08/27/2022 Overview: History of gestational diabetes (GDMA2) in previous Last Assessment & Plan: Reviewed with patient that women who have a history of GDM in a previous may have up to a 75% risk for GDM in subsequent pregnancies. Obesity in , antepartum 06/27/2023 Overview: The [...] at bedtime 07/12/23-elevated sugars- msg send to ELECTRICIAN CRANE MAINTENANCE 07/12/23: RPM reviewed; elevated FBS; increase to [...] PARs to schedule a follow up ADAPT Last Assessment & Plan: Working with PAPITO. Abnormal glucose tolerance in mother complicatin g 06/24/2023 BMI 32.0-32.9,adult 05/27/2023 Constipation during , antepartum 2022 History of gestational diabetes 05/27/2023 Supervision of high-risk , [facility] 05/27/2023 Overview: Estimated Date of Delivery: 12/23/23 Continue vitamin. O negative - Rhogam given on 10/12/2023. Varicella and rubella immune. S/p anatomy ultrasound. S/p CBC - anemia on iron. Tdap vaccine completed. GBS culture at 36 weeks. Desires to breastfeed. contraception: partner vasectomy. Last Assessment & Plan: Placenta is not low lying. Couple advised that no activity restrictions are necessary. Rubella non-immune status, antepartum 08/17/2022 Class 1 obesity 07/25/2022 Rh negative, antepartum 05/12/2022 Overview: Rhogam given on 10/12/2023. History of abnormal cervical Pap smear Overview: Normal pap smear in 02/2022. Female infertility 09/29/2021 S/P ovarian cystectomy 01/05/2021 Dizziness 01/05/2021 Pelvic pain in female 08/27/2020 Cyst of ovary 07/15/2013 Menstrual irregularity 07/15/2013 Estimated Date of Delivery Comme nts Yes 12/23/2023 Based on last me nstrual period of 03/18/2023 (Exact Date) documented as of this encounter (statuses as of 11/23/2023) Resolved Problems Problem Noted Date Diagnosed Date Resolved Date arrhythmia affecting p regnancy, antepartum 08/17/2022 05/27/2023 Overview: arythmia noted 08/12, saw peds cardio IMPRESSION and PLAN: 1. PACs in bigeminy giving the appearance of HR variability between 60-160 bpm 2. 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 Normal biventricular function 4. Mild [place] The above findings were shared with the [...] dealing with it, otherwise can deliver in [place]. 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 Atrioventricular (AV) synchrony is noted . heart rate is 120-130 BPM. Frequent premature atrial contractions. PACs in bigeminy. 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 On today's evaluation, a arrhythmia is not appreciated. Antepartum anemia complicating 07/05/2022 05/27/2023 Overview: Iron [...] and folate levels and referral to a coremaking machine operator. 4. If hemoglobin levels are below 8 g/dl, we recommend Maternal Medicine ultrasound for growth every 4 weeks after 24 weeks. Consider a blood transfusion if hemoglobin levels fall below 6 g/dL. ([employer] Bulletin Number 95, February,). 5. Consider [...] Will continue testing and report weekly to [facility] via [employer]. Discussed that medication may be needed if elevated blood sugars do not improve with diet alone. Patient agreeable to starting insulin if needed. Will review again next week. 07/25/22: [facility] ADAPT consult complete. 07/27/22: elevated fasting; [...] 08/22/22: Taking 15 units Levemir at HS. [place] woozy after 20 units. Was sick last [...] MEDICINE referral made. Last Assessment & Plan: [facility] anatomy/growth ultrasound scheduled for 08/03/22. Patient [...] 021 Encounter for preconception consultation 09/23/2020 08/17/2022 Nexplanon removal 09/13/2019 08/17/2022 documented as of this encounter (statuses as of 11/23/2023) Immunizations Name Administration Dates Next Due Seasonal [...] money to get more. Never true 11/01/2022 [place] Depression Scale Answer Date Recorded [place] Depression Scale Total 2 09/14/2023 The thought [...] Sign Reading Time Taken Comments Blood Pressure 100/58 11/23/2023 9:09 AM EDT Pulse - - Temperature - - Respiratory Rate - - Oxygen Saturation - - Inhaled Oxygen Concentration - - Weight 86.2 kg (190 lb) 11/23/2023 9:09 AM EDT Height 157.5 cm (5' 2") 11/23/2023 9:09 AM EDT Body Mass Index 34.75 11/23/2023 9:09 AM EDT documented in this encounter Functional [...] Progress Notes * Isabel Quevedo CRNP - 11/23/2023 9:21 AM EDT ASSESSMENT assessment with Non-stress Test completed on 11/23/2023 at 35.5weeks gestation for indication of gestational diabetes mellitus heart baseline: 125 bpm Variability: Moderate Decelerations: absent Accelerations: present Contractions: None NST start time: 0904 NST stop time: 945 NST strip reviewed, interpreted, and approved by OB provider, MIRTA Ojeda . NST strip stored in clinic storage file documented in this encounter Plan of Treatment Upcoming Encounters Date Type Department Care Team (Late st Contact Info) Description 11/27/2023 1:15 PM EDT Office Visit Gynecology/Obstetrics [facility] [address] [place] [address] BackerAntonietta CRNP [address] [place] [address] Ivan Non Stress Tests Kim [address] [place] [address] 11/30/2023 1:00 PM EDT Office Visit Gynecology/Obstetrics [facility] [address] [place] [address] Isabel Quevedo CRNP [address] [place] [address] Ivan Non Stress Tests Kim [address] [place] [address] 12/04/2023 9:15 AM EDT Office Visit Gynecology/Obstetrics [facility] [address] [place] [address] Brenton Brown MD [address] [place] [address] Ivan Non Stress Tests Kim [address] [place] [address] 12/06/2023 8:45 AM EDT Imaging Radiology, [place] [id number] [place] [address] 12/07/2023 1:00 PM EDT Office Visit Gynecology/Obstetrics [facility] [address] [place] [address] Antonietta Hair CRNP [address] [place] [place] [address] Ivan, Non Stress Tests Kim [address] [place] [address] 12/11/2023 11:00 AM EDT Office Visit Gynecology/Obstetrics [facility] [address] [place] [address] Antonietta Hair CRNP [address] [place] [address] Ivan Non Stress Tests Kim [address] [place] [address] 12/14/2023 1:00 PM EDT Office Visit Gynecology/Obstetrics [facility] [address] [place] [address] Fatuma Gutierrez MD [address] [place] [address] [place] [address] Love Non Stress Tests Kim [address] [place] [address] Health Maintenance Due Date Last Done Comments Hepatitis B (1 of 3 - 19+ 3-dose series) 2012 Depression Screening 07/05/2022 07/05/2021 COVID-19 Vaccine (2022- season) 2023 HPV/Co-Test 11/03/2023 Influenza Vaccine (FLU [...] Supervision of high-risk , third trimester- Primary Abnormal glucose tolerance in mother complicating Abnormal maternal glucose tolerance, complicating , childbirth, or the puerperium, unspecified as to episode of care Insulin controlled gestational diabetes mellitus (GDM) during , antepartum History of gestational diabetes mellitus (GDM) Obesity in , antepartum Obesity complicating , childbirth, or the puerperium, antepartum condition or complication Short interval between pregnancies complicating , antepartum Supervision of other high-risk Antepartum anemia complicating Anemia, antepartum Rh negative, antepartum Rhesus isoimmunization affecting management of mother, antepartum condition Nephrolithiasis Calculus of kidney documented in this [...] the patient have Health Care Power of Service Center Representative? No Code Status History Code Status Date Activated Date Inactivated Comments Full Code 01/05/2021 11:33 AM 01/05/2021 6:10 PM This o rder reflects the patients wishes and were consensually agreed upon. Care Teams Refrigeration Manager Relationship Specialty Start Date End Date Taryn Melgar PA-C [address] [place] [address] [place] [address] PCP - General Physician Magento Developer 09/20/18 documented as of this encounter
--- OUTSIDE RECORDS SUMMARY | 2023-12-18 07:56 | External Medical Summary | Summary of Care ---
Author Name Unknown Organization [facility] Address [address] [place] [address] Phone [phone] Care Team Providers Care Shiatsu Therapist Name Role Phone Taryn Melgar PA-C Primary Care Provider Encounter Details Date Type Department Care Team (Late st Contact Info) Description 08/29/2023 Telephone Cook Supervisor Obstetrics Maternal Medicine, [place] [address] [place] [address] [place], Nurse Cook Supervisor [facility] [address] [place] [address] Allergies Active Allergy Reactions Criticality Noted Date Comments Pollen Other (Please comment) Low 01/05/2021 documented as of this encounter (statuses as of 11/28/2023) Medications Medication Sig Dispensed Refills Start Date End Date Status Pre-Antolin Formula Oral Tablet Take 1 Tablet by mouth in the morning. 0 Active Docusate Sodium 100 MG Oral Capsule (Colace)Indications:C onstipation during , antepartum Take 1 Capsule by mouth daily as needed for Constipation. 30 Capsule 3 05/23/2023 Active OneTouch Verio In Vitro Strip (Glucose Blood)Indications:Abn ormal glucose tolerance in mother complicating Test blood sugars 4 times a day (fasting and one hour after meals). 120 Strip 5 06/21/2023 Active LancetsIndications:Ab normal glucose tolerance in mother complicating Test blood sugars 4 times a day (fasting and one hour after meals). 120 Each 5 06/21/2023 Active BD Pen Needle Mini U/F 31G X 5 MM (Insulin Pen Needle)Indications:In sulin controlled gestational diabetes mellitus (GDM) in second trimester,Supervision of high risk in second trimester Use to inject insulin once daily. 100 Each 3 07/06/2023 Active Insulin Glargine Solostar 100 UNIT/ML Subcutaneous Solution Pen-injector (Lantus SoloStar)Indications: Insulin controlled gestational diabetes mellitus (GDM) in second trimester,Supervision of high risk in second trimester Inject 15 Units under the skin at bedtime. Take with bedtime snack. 15 mL 3 07/12/2023 Active documented as of this encounter (statuses as of 11/28/2023) Active Problems Problem Noted Date Diagnosed Date [...] at bedtime 07/12/23-elevated sugars- msg send to GAS LEAK INSPECTOR 07/12/23: RPM reviewed; elevated FBS; increase to Lantus 15 units at bedtime 07/18/23 stable 07/26/23-stable 08/01/23: RPM reviewed; missing readings but of those reported - stable; continue Lantus 15 units at bedtime 08/09/23- stable 08/16/23- stable 08/24/23- stable 08/29/23-stable 09/05/23-stable 09/12/23-stable but missing many readings 09/18/23: RPM reviewed; many missed readings; request updated log 2/21/24- no sugars reported since 09/16/23; msg sent [...] BMI 32.0-32.9,adult 05/27/2023 Supervision of high-risk , [facility] 05/27/2023 Overview: Estimated Date of Delivery: 12/23/23 [...] as of this encounter (statuses as of 11/28/2023) Resolved Problems Problem Noted Date Diagnosed Date [...] dealing with it, otherwise can deliver in [place]. Last Assessment & Plan: She was seen [...] and folate levels and referral to a assistant track coach. 4. If hemoglobin levels are below 8 g/dl, we recommend Maternal Medicine ultrasound for growth every 4 weeks after 24 weeks. Consider a blood transfusion if hemoglobin levels fall below 6 g/dL. ([employer] Practice Bulletin Number 95, February,). 5. Consider [...] Will continue testing and report weekly to [facility] via [employer]. Discussed that medication may be needed if elevated blood sugars do not improve with diet alone. Patient agreeable to starting insulin if needed. Will review again next week. 07/25/22: [facility] ADAPT consult complete. 07/27/22: elevated fasting; [...] 08/22/22: Taking 15 units Levemir at HS. [place] woozy after 20 units. Was sick last [...] MEDICINE referral made. Last Assessment & Plan: [facility] anatomy/growth ultrasound scheduled for 08/03/22. Patient [...] as of this encounter (statuses as of 11/28/2023) Immunizations Name Administration Dates Next Due Seasonal Influenza, Split, IIV3, With Preserve, Inj 05/21/2013 TDAP (age 10 and older)(Boostrix) 07/04/2022, documented as of this encounter Social History [...] money to get more. Never true 11/01/2022 [place] Depression Scale Answer Date Recorded [place] Depression Scale Total 2 09/14/2023 The thought [...] Telephone Encounter - Kamilla Vazquez OSA - 08/29/2023 2:36 PM EST Spoke with Lacy to reschedule her appointment on 10/31 at due to the provider not being in clinic that day. Appointment rescheduled. Patient aware of date, time and location of Maternal Medicine appointment. documented in this encounter Plan of Treatment Upcoming Encounters Date Type Department Care Team (Late st Contact Info) Description 11/30/2023 1:00 PM EDT Office Visit Gynecology/Obstetrics [facility] [address] [place] [address] Isabel Quevedo CRNP [address] [place] [address] Ivan Non Stress Tests Kim [address] [place] [address] 12/04/2023 9:15 AM EDT Office Visit Gynecology/Obstetrics [facility] Love [address] [place] [address] Brenton Brown MD [address] [place] [address] Ivan Non Stress Tests Kim [address] [place] [address] 12/06/2023 8:45 AM EDT Imaging Radiology, [address] [address] 12/07/2023 1:00 PM EDT Office Visit Gynecology/Obstetrics [facility] Love [address] [place] [address] Antonietta Hair CRNP [address] [place] [address] Ivan Non Stress Tests Kim [address] [place] [address] 12/11/2023 11:00 AM EDT Office Visit Gynecology/Obstetrics Arlen Love [address] [place] [address] Antonietta Hair CRNP [address] [place] [address] Ivan, Non Stress Tests Kim [address] [place] [address] 12/14/2023 1:00 PM EDT Office Visit Gynecology/Obstetrics Ar[facility] Love [address] [place] [address] Fatuma Gutierrez MD [address] [place], [place] [address] [address] Ivan, Non Stress Tests Kim [address] [place] [address] Health Maintenance Due Date Last Done Comments [...] Not on filedocumented as of this encounter Additional Health Concerns Infection Onset Date Last Indicated Resolved Time Influenza (seasonal) 09/16/2023 09/16/2023 024 12:21 AM EST documented as of this encounter Advance Directives Latest [...] the patient have Health Care Power of Ruby On Rails Web Developer? No Code Status History Code Status Date Activated Date Inactivated Comments Full Code 01/05/2021 11:33 AM 01/05/2021 6:10 PM This o rder reflects the patients wishes and were consensually agreed upon. Care Teams Shiatsu Therapist Relationship Specialty Start Date End Date Taryn Melgar PA-C [address] [place], [place] [address] [id number] PCP - General Physician Inventory Management Specialist 09/20/18 documented as of this encounter
--- OUTSIDE RECORDS SUMMARY | 2023-12-18 07:56 | External Medical Summary | Summary of Care ---
Author Name Unknown Organization [facility] Address [address] [place] [address] Phone [phone] Care Team Providers Care Thoracic Medicine Physician Name Role Phone Taryn Melgar PA-C Primary Care Provider Reason for Visit * Reason Onset Date Comments Advice 11/16/2023 Encounter Details Date Type Department Care Team ([facility] st Contact Info) Description 11/16/2023 Telephone Gynecology/Obstetics [facility] [address] [place] [address] Angie Nuñez PA-C [address] [place] [address] Advice Allergies Active Allergy Reactions Criticality Noted Date Comments Pollen Other (Please comment) Low 01/05/2021 documented as of this encounter (statuses as of 11/17/2023) Medications Medication Sig Dispensed Refills Start Date [...] as of this encounter (statuses as of 11/17/2023) Active Problems Problem Noted Date Diagnosed Date [...] 06/28/23: MFM ADAPT consult complete. Enrolled in [employer]. Instructions provided to report blood sugars each [...] at bedtime 07/12/23-elevated sugars- msg send to ASSEMBLER SEAT 07/12/23: RPM reviewed; elevated FBS; increase to [...] 11/07/23: RPM Stable 11/14/23: RPM reviewed; Stable Last Assessment & Plan: Working with [facility]. Abnormal glucose tolerance in mother complicatin g 06/24/2023 BMI 32.0-32.9,adult 05/27/2023 Constipation during , antepartum 2022 History of gestational diabetes 05/27/2023 Supervision of high-risk , third trimes [...] as of this encounter (statuses as of 11/17/2023) Resolved Problems Problem Noted Date Diagnosed Date [...] dealing with it, otherwise can deliver in [place]. Last Assessment & Plan: She was seen [...] and folate levels and referral to a tumbling and rolling supervisor. 4. If hemoglobin levels are below 8 g/dl, we recommend Maternal Medicine ultrasound for growth every 4 weeks after 24 weeks. Consider a blood transfusion if hemoglobin levels fall below 6 g/dL. ([employer] Practice Bulletin Number 95, February,). 5. [...] testing and report weekly to [facility] via [employer]. Discussed that medication may be needed if elevated blood sugars do not improve with diet alone. Patient agreeable to starting insulin if needed. Will review again next week. 07/25/22: [facility] ADAPT consult complete. 07/27/22: elevated fasting; [...] 08/22/22: Taking 15 units Levemir at HS. [place] woozy after 20 units. Was sick last [...] as of this encounter (statuses as of 11/17/2023) Immunizations Name Administration Dates Next Due Seasonal [...] money to get more. Never true 11/01/2022 [place] Depression Scale Answer Date Recorded [place] Depression Scale Total 2 09/14/2023 The thought [...] encounter Miscellaneous Notes * Telephone Encounter - Trudy Bolton RN - 11/17/2023 2:25 PM EDT Received a call from pt asking if the results of her urine dip change the plans - per Angie Estrada - no change. * Telephone Encounter - Angie Nuñez PA-C - 11/16/2023 6:55 PM EDT Spoke with patient. Patient reports that she drank a lot of water and back pain got much better. Patient reports she is doing well overall - mild symptoms now. documented in this encounter Plan of Treatment Upcoming Encounters Date Type Department Care Team (Late st Contact Info) Description 11/20/2023 8:30 AM EDT Office Visit Gynecology/Obstetrics [facility] Love [address] [place] [address] Kayy Costa PA-C [address] [place] [address] Betty Love Stress Tests Kim [address] [place] [address] 11/23/2023 11:15 AM EDT Office Visit Gynecology/Obstetrics [facility] [address] [place] [address] Isabel Quevedo CRNP [address] [place] [address] Love, Non Stress Tests Kim [address] [place] [address] 11/27/2023 1:15 PM EDT Office Visit Gynecology/Obstetrics [facility] [address] [place] [address] Antonietta Hair CRNP [address] [place] [address] Love Non Stress Tests Kim [address] [place] [address] 11/30/2023 1:00 PM EDT Office Visit Gynecology/Obstetrics [facility] [address] [place] [address] Isabel Quevedo CRNP [address] [place] [address] Love, Non Stress Tests Kim [address] [place] [address] 12/04/2023 9:15 AM EDT Office Visit Gynecology/Obstetrics [facility] [address] [place] [address] Brenton Brown MD [address] [place] [address] Love, Non Stress Tests Kim [address] [place] [address] 12/06/2023 8:45 AM EDT Imaging Radiology, [facility] [address] [place] [address] 12/07/2023 1:00 PM EDT Office Visit Gynecology/Obstetrics Arlen Love [address] [place] [address] BackerAntonietta CRNP [address] [place] [address] Ivan Non Stress Tests Kim [address] [place] [address] 12/11/2023 11:00 AM EDT Office Visit Gynecology/Obstetrics Arlen Love [address] [place] [address] Backer, MIRTA German [address] [place] [address] Ivan Non Stress Tests Kim [address] [place] [address] 12/14/2023 1:00 PM EDT Office Visit Gynecology/Obstetrics Arlen Love [address] [place] [address] Fatuma Gutierrez MD [address] [place] [address] [place] [address] Ivan Non Stress Tests Kim [address] [place] [address] Health Maintenance Due Date Last Done Comments [...] the patient have Health Care Power of Wood Carver Hand? No Code Status History Code Status Date Activated Date Inactivated Comments Full Code 01/05/2021 11:33 AM 01/05/2021 6:10 PM This o rder reflects the patients wishes and were consensually agreed upon. Care Teams Thoracic Medicine Physician Relationship Specialty Start Date End Date Taryn Melgar PA-C [address] [place], [place] [address] [address] PCP - General Physician Stud Driver 09/20/18 documented as of this encounter
--- OUTSIDE RECORDS SUMMARY | 2023-12-18 07:56 | External Medical Summary | Summary of Care ---
Author Name Unknown Organization [facility] Address [address] [place] [address] Phone [phone] Care Team Providers Care Press Clipper Name Role Phone Taryn Melgar PA-C Primary Care Provider Reason for Visit * Reason Comments Return Visit Encounter Details Date Type Department Care Team (Late st Contact Info) Description 11/16/2023 9:30 AM EDT Office Visit Gynecology/Obstetics [address] [address] Angie Nuñez PA-C [address] [place] [address] Supervision of high-risk , third trimester*; Rh negative, antepartum; Insulin controlled gestational diabetes mellitus (GDM) during , antepartum; Short interval between pregnancies complicating , antepartum; Antepartum anemia complicating ; Back pain affecting in third trimester; Nephrolithiasis Allergies Active Allergy Reactions Criticality Noted Date Comments Pollen Other (Please comment) Low 01/05/2021 documented as of this encounter (statuses as of 11/16/2023) Medications Medication Sig Dispensed Refills Start Date [...] as of this encounter (statuses as of 11/16/2023) Active Problems Problem Noted Date Diagnosed Date [...] 06/28/23: [facility] ADAPT consult complete. Enrolled in [employer] [facility]. Instructions provided to report blood sugars each [...] at bedtime 07/12/23-elevated sugars- msg send to ASSOCIATE BIOLOGICAL SALES 07/12/23: RPM reviewed; elevated FBS; increase to [...] Stable Last Assessment & Plan: Working with ADAPT. Abnormal glucose tolerance in mother complicatin g 06/24/2023 BMI 32.0-32.9,adult 05/27/2023 Constipation during , antepartum 2022 History of gestational diabetes 05/27/2023 [facility] Overview: Estimated Date of Delivery: [...] as of this encounter (statuses as of 11/16/2023) Resolved Problems Problem Noted Date Diagnosed Date [...] dealing with it, otherwise can deliver in [place]. Last Assessment & Plan: She was seen [...] and folate levels and referral to a dimension warehouse supervisor. 4. If hemoglobin levels are below 8 g/dl, we recommend Maternal Medicine ultrasound for growth every 4 weeks after 24 weeks. Consider a blood transfusion if hemoglobin levels fall below 6 g/dL. ([employer] Practice Bulletin Number 95, February,). 5. Consider [...] Will continue testing and report weekly to [facility] via [employer]. Discussed that medication may be needed if elevated blood sugars do not improve with diet alone. Patient agreeable to starting insulin if needed. Will review again next week. 07/25/22: [facility] ADAPT consult complete. 07/27/22: elevated [...] 08/22/22: Taking 15 units Levemir at HS. [place] woozy after 20 units. Was sick last [...] as of this encounter (statuses as of 11/16/2023) Immunizations Name Administration Dates Next Due Seasonal [...] money to get more. Never true 11/01/2022 [place] Depression Scale Answer Date Recorded [place] Depression Scale Total 2 09/14/2023 The thought [...] Sign Reading Time Taken Comments Blood Pressure 122/74 11/16/2023 10:09 AM EDT Pulse - - Temperature - - Respiratory Rate - - Oxygen Saturation - - Inhaled Oxygen Concentration - - Weight 86 kg (189 lb 8 oz) 11/16/2023 10:09 AM E DT Height - - Body Mass Index 34.66 09/08/2022 10:04 AM EST documented in this encounter Functional Status Functional [...] Progress Notes * Angie Nuñez PA-C - 11/16/2023 10:29 AM EDT Lacy Mckinney presents for visit at 34w5d. BP 122/74 | Wt 86 kg (189 lb 8 oz) | LMP 03/18/2023 (Exact Date) | BMI 34.66 kg/m | BSA 1.94 m Doing well. Denies vaginal bleeding, leaking of fluid, abdominal pain, or abnormal vaginal discharge. Denies headaches, blurry vision, or right upper quadrant pain. Patient states she feels good movement. Patient has intermittent talib storey contractions. Patient declines cervical check. Patient has backache from kidney stone. Patient reports that symptoms are waxing and waning. Patient is hydrating well with water. Physical Exam General: alert and oriented, no acute distress NON STRESS TEST reactive. OB [place] Problems (from 05/09/23 to present) Problem Noted Resolved Nephrolithiasis 11/16/2023 by Angie Nuñez PA-C No 4 mm kidney stone seen on ultrasound. Antepartum anemia complicating 10/30/2023 by Angie Nuñez PA-C No Ferritin 11 on 10/12/2023. Ferritin and hemoglobin improved on repeat lab work. History of gestational diabetes mellitus (GDM) 06/27/2023 by Amy Rivas CRNP No History of gestational diabetes (GDMA2) in previous Obesity in , antepartum 06/27/2023 by Amy [...] at bedtime 07/12/23-elevated sugars- msg send to ASSOCIATE BIOLOGICAL SALES 07/12/23: RPM reviewed; elevated FBS; increase to [...] 11/07/23: RPM Stable 11/14/23: RPM reviewed; Stable Supervision of high-risk , third trimester 05/27/2023 by Angie Nuñez PA-C No Estimated Date of Delivery: 12/23/23 Continue vitamin. O negative - Rhogam given on 10/12/2023. Varicella and rubella immune. S/p anatomy ultrasound. S/p CBC - anemia on iron. Tdap vaccine completed. GBS culture at 36 weeks. Desires to breastfeed. contraception: partner vasectomy. Rh negative, antepartum 05/12/2022 by Angie Nuñez PA-C No Rhogam given on 10/12/2023. Plan: -GBS culture at 36 weeks. -NON STRESS TEST reactive. Continue twice weekly NSTs until delivery. -Back pain: Suspect due to kidney stone. Advised good hydration. Advised patient to go to [facility] labor and delivery if fever, chills, worsening back pain, or any other unusual symptoms. Patient agrees. Urine dip with trace blood and trace leukocytes. Other values in urinalysis are negative. Urine culture in process. -Following with [facility] Love for remainder of due to desire to deliver at [facility]. -Rhogam given. Tdap given. - contraception: partner vasectomy. -Continue oral iron daily. Counseled patient to call triage/go to labor and delivery if she has any vaginal bleeding, leaking of fluid, vaginal pressure, 6 or more painful contractions in an hour, abdominal pain, decreased movements, headaches, blurry vision, or right upper quadrant pain. Patient verbalized understanding. RTO in 1 week for return appointment or sooner if any concerns. Angie Estrada PA-C documented in this encounter Nursing Notes * Ivon Rankin RN - 11/16/2023 10:10 AM EDT Patient presents for scheduled NST. Having pain in right upper back which is coming and going. EFM applied at 0955 - Angie Estrada PA-C aware. documented in this encounter Plan of Treatment Upcoming Encounters Date Type Department Care Team (Late st Contact Info) Description 11/20/2023 8:30 AM EDT Office Visit Gynecology/Obstetrics [facility] Love [address] [place] [address] Kayy Costa PA-C [address] [place] [address] Betty Love Stress Tests Kim [address] [place] [address] 11/23/2023 11:15 AM EDT Office Visit Gynecology/Obstetrics [facility] Love [address] [place] [address] Isabel Quevedo CRNP [address] [place] [address] Betty Love Stress Tests Kim [address] [place] [address] 11/27/2023 1:15 PM EDT Office Visit Gynecology/Obstetrics [facility] [address] [place] [address] Antonietta Hair CRNP [address] [place] [address] Betty Love Stress Tests Kim [address] [place] [address] 11/30/2023 1:00 PM EDT Office Visit Gynecology/Obstetrics [facility] Love [address] [place] [address] Isabel Quevedo CRNP [address] [place] [address] Betty Love Stress Tests Kim [address] [place] [address] 12/04/2023 9:15 AM EDT Office Visit Gynecology/Obstetrics [facility] Love [address] [place] [address] Brenton Brown MD [address] [place] [address] Betty Love Stress Tests Kim [address] [place] [address] 12/06/2023 8:45 AM EDT Imaging Radiology, [place] [address] [place] [address] 12/07/2023 1:00 PM EDT Office Visit Gynecology/Obstetrics [facility] Love [address] [place] [address] Antonietta Hair CRNP [address] [place] [address] Ivan, Non Stress Tests Kim [address] [place] [address] 12/11/2023 11:00 AM EDT Office Visit Gynecology/Obstetrics Ar[facility] Love [address] [place] [address] Antonietta Hair CRNP [address] [place] [address] Ivan, Non Stress Tests Kim [address] [place] [address] 12/14/2023 1:00 PM EDT Office Visit Gynecology/Obstetrics [facility] Love [address] [place] [address] Fatuma Gutierrez MD [address] [place] [address] [place] [address] Ivan, Non Stress Tests Kim [address] [place] [address] Pending Results Name Type Priority Associated Diagnoses Date /Time CULTURE, URINE, QUANTITATIVE Lab Routine Back pain affecting in third trimester 11/16/2023 10:37 AM EDT Scheduled Orders Name Type Priority Associated Diagnoses Order Schedule URINALYSIS OBSTETRICS, POINT OF CARE Point of Care Testing - Unsolicited Results Routine Back pain affecting in third trimester Ordered: 11/16/2023 Health Maintenance Due Date Last Done Comments [...] Not on filedocumented as of this encounter Procedures Procedure Name Priority Date/Time Associated Diagnosis Comments NON-STRESS TEST Routine 11/16/2023 9:55 AM EDT Insulin controlled gestational diabetes mellitus (GDM) during , antepartum documented in this encounter Results * NON-STRESS TEST (11/16/2023 9:55 AM EDT) NST Reactive 11/16/2023 9:5 5 AM EDT Narrative Angie Nuñez PA-C - 11/16/2023 9:55 AM EDT ASSESSMENT assessment with Non-stress Test completed on 11/16/2023 at 34 weeks, 5 days gestation for indication of gestational diabetes insulin controlled. heart baseline: 125 bpm Variability: Moderate Decelerations: absent Accelerations: present (more than two 15 x 15 accelerations) Contractions: Present - one contraction NST start time: 9:55 am NST stop time: 10:23 am NST strip reviewed, interpreted, and approved by OB provider, Angie Estrada PA-C. NST strip stored in clinic storage file. Angie Darling PA-C SURGERY documented in this encounter Visit Diagnoses Diagnosis Supervision of high-risk , third trimester- Primary Rh negative, antepartum Rhesus isoimmunization affecting management of mother, antepartum condition Insulin controlled gestational diabetes mellitus (GDM) during , antepartum Short interval between pregnancies complicating , antepartum Supervision of other high-risk Antepartum anemia complicating Anemia, antepartum Back pain affecting in third trimester Nephrolithiasis Calculus of kidney documented in this [...] the patient have Health Care Power of Escalator Service Mechanic? No Code Status History Code Status Date Activated Date Inactivated Comments Full Code 01/05/2021 11:33 AM 01/05/2021 6:10 PM This o rder reflects the patients wishes and were consensually agreed upon. Care Teams Press Clipper Relationship Specialty Start Date End Date Taryn Melgar PA-C [address] [place] [address] [place] [address] PCP - General Physician Combination Building Inspector 09/20/18 documented as of this encounter
--- OUTSIDE RECORDS SUMMARY | 2023-12-18 07:56 | External Medical Summary | Summary of Care ---
Author Name Unknown Organization [facility] Address [address] [place] [address] Phone [phone] Care Team Providers Care Clothes Drier Repairer Name Role Phone Taryn Melgar PA-C Primary Care Provider Reason for Visit * Reason Comments Return Visit Non Stress Test Encounter Details Date Type Department Care Team (Late st Contact Info) Description 11/27/2023 1:15 PM EDT Office Visit Gynecology/Obstetric s Arlen Love [address] [facility] [place] [address] Antonietta Hair CRNP [address] [facility] [place] [address] Ivan Non Stress Tests Kim [address] [place] [address] Supervision of high-risk , third trimester*; Rh negative, antepartum; Insulin controlled gestational diabetes mellitus (GDM) during , antepartum; Obesity in , antepartum; Short interval between pregnancies complicating , antepartum; Antepartum anemia complicating Allergies Active Allergy Reactions Criticality Noted Date Comments Pollen Other (Please comment) Low 01/05/2021 documented as of this encounter (statuses as of 11/27/2023) Medications Medication Sig Dispensed Refills Start Date End Date Status Pre- Formula Oral Tablet Take 1 Tablet by mouth in the morning. 0 Active Docusate Sodium 100 MG Oral Capsule (Colace)Indication s:Constipation during , antepartum Take 1 Capsule by mouth daily as needed for Constipation. 30 Capsule 3 05/23/2023 Active OneTouch Verio In Vitro Strip (Glucose Blood)Indications: Abnormal glucose tolerance in mother complicating Test blood sugars 4 times a day (fasting and one hour after meals). 120 Strip 5 06/21/2023 Active LancetsIndications :Abnormal glucose tolerance in mother complicating Test blood sugars 4 times a day (fasting and one hour after meals). 120 Each 5 06/21/2023 Active BD Pen Needle Mini U/F 31G X 5 MM (Insulin Pen Needle)Indications :Insulin controlled gestational diabetes mellitus (GDM) in second trimester,Supervis ion of high risk in second trimester Use to inject insulin once daily. 100 Each 3 07/06/2023 Active Insulin Glargine Solostar 100 UNIT/ML Subcutaneous Solution Pen-injector (Lantus SoloStar)Indicatio ns:Insulin controlled gestational diabetes mellitus (GDM) in second trimester,Supervis ion of high risk in second trimester Inject 15 Units under the skin at bedtime. Take with bedtime snack. 15 mL 3 07/12/2023 Active Albuterol Sulfate HFA 108 (90 Base) MCG/ACT Inhalation Aerosol Solution Inhale 2 Puffs by mouth every 6 hours as needed for Cough or Shortness of Breath. 18 g 0 09/16/2023 Active Dextromethorphan-g uaiFENesin 10-100 MG/5ML Oral Liquid (Robitussin DM) Take [...] mouth daily. 30 Capsule 1 11/14/2023 Active metroNIDAZOLE 500 MG Oral Tablet (Flagyl) Take 1 Tablet by mouth in the morning and 1 Tablet before bedtime for 7 days until gone.. 14 Tablet 0 07/27/2023 4 Discontinue d(Medicatio n List Clean Up) documented as of this encounter (statuses as of 11/27/2023) Active Problems Problem Noted Date Diagnosed Date [...] at bedtime 07/12/23-elevated sugars- msg send to ENGRAVING OPERATOR 07/12/23: RPM reviewed; elevated FBS; increase [...] PARs to schedule a follow up PAPITO Last Assessment & Plan: Working with PAPITO. BMI 32.0-32.9,adult 05/27/2023 Supervision of high-risk , third trimes [facility] 05/27/2023 Overview: Estimated Date of Delivery: [...] as of this encounter (statuses as of 11/27/2023) Resolved Problems Problem Noted Date Diagnosed Date [...] PACs 3. Normal biventricular function 4. Mild UT The above findings were shared with the [...] dealing with it, otherwise can deliver in [place]. Last Assessment & Plan: She was seen [...] and folate levels and referral to a mechanical expert. 4. If hemoglobin levels are below 8 g/dl, we recommend Maternal Medicine ultrasound for growth every 4 weeks after 24 weeks. Consider a blood transfusion if hemoglobin levels fall below 6 g/dL. ([employer] Bulletin Number 95, February,). 5. Consider [...] weekly to [facility] via [employer]. Discussed that medication may be needed if [...] 08/22/22: Taking 15 units Levemir at HS. [place] woozy after 20 units. Was sick last [...] as of this encounter (statuses as of 11/27/2023) Immunizations Name Administration Dates Next Due Seasonal [...] money to get more. Never true 11/01/2022 [place] Depression Scale Answer Date Recorded [place] Depression Scale Total 2 09/14/2023 The thought [...] Sign Reading Time Taken Comments Blood Pressure 98/60 11/27/2023 1:05 PM EDT Pulse - - Temperature - - Respiratory Rate - - Oxygen Saturation - - Inhaled Oxygen Concentration - - Weight 87.5 kg (192 lb 12.8 oz) 11/27/2023 1:05 PM EDT Height - - Body Mass Index 35.26 11/23/2023 9:09 AM EDT documented in this [...] Progress Notes * Antonietta Hair CRNP - 11/27/2023 1:24 PM EDT 36w2d Baby is moving well. No regular ctx, leaking/bleeding. GDMA2, blood sugars managed by ADAPT. GBS swab today. Continue twice weekly NSTs. Cross Tie Maker Documentation Provider requested staff therapist. Name of staff therapist: Gayle Dash LPN ASSESSMENT assessment with Non-stress Test completed on 11/27/2023 at 36.2 weeks gestation for indicationof gestational diabetes mellitus heart baseline: 130 bpm Variability: Moderate Decelerations: absent Accelerations: present Contractions: Present x1 NST start time: 1300 NST stop time: 1323 NST strip reviewed, interpreted, and approved by OB provider, MIRTA Ge . NST strip stored in clinic storage file documented in this encounter Nursing Notes * Gayle Dash LPN - 11/27/2023 1:32 PM EDT 36w2d NST today Denies vaginal bleeding/rom + movement No new concerns documented in this encounter Plan of Treatment Upcoming Encounters Date Type Department Care Team (Late st Contact Info) Description 11/30/2023 1:00 PM EDT Office Visit Gynecology/Obstetrics Arlen Love [address] [place] [address] Isabel Quevedo CRNP [address] [place] [address] eBtty Love Stress Tests Kim [address] [place] [address] 12/04/2023 9:15 AM EDT Office Visit Gynecology/Obstetrics Arlen Loev [address] [place] [address] Brenton Brown MD [address] [place] [address] Betty Love Stress Tests Kim [address] [place] [address] 12/06/2023 8:45 AM EDT Imaging Radiology, [facility] [address] [place] [address] 12/07/2023 1:00 PM EDT Office Visit Gynecology/Obstetrics Arlen Love [address] [place] [address] Antonietta Hair CRNP [address] [place] [address] Ivan, Non Stress Tests Kim [address] [place] [address] 12/11/2023 11:00 AM EDT Office Visit Gynecology/Obstetrics Arlen Love [address] [place] [address] Antonietta Hair CRNP [address] [place] [address] Ivan, Non Stress Tests Kim [address] [place] [address] 12/14/2023 1:00 PM EDT Office Visit Gynecology/Obstetrics Arlen Love [address] [place] [address] Fatuma Gutierrez MD [address] [place] [address] [place] [address] Love, Non Stress Tests iKm [address] [place] [address] Pending Results Name Type Priority Associated Diagnoses Date /Time GROUP B STREP CULTURE/PCR Lab Routine Supervision of high-risk , third trimester 11/27/2023 1:46 PM EDT Health Maintenance Due Date Last Done Comments [...] other high-risk Antepartum anemia complicating Anemia, antepartum documented in [...] the patient have Health Care Power of Candle Making Supervisor? No Code Status History Code Status Date Activated Date Inactivated Comments Full Code 01/05/2021 11:33 AM 01/05/2021 6:10 PM This o rder reflects the patients wishes and were consensually agreed upon. Care Teams Clothes Drier Repairer Relationship Specialty Start Date End Date Taryn Melgar PA-C [address] [place] [id number] PCP - General Physician Building Materials Sales Attendant 09/20/18 documented as of this encounter
--- OUTSIDE RECORDS SUMMARY | 2023-12-18 07:56 | External Medical Summary | Summary of Care ---
Author Name Unknown Organization [facility] Address [address] [place] [address] Phone [phone] Care Team Providers Care Freight Car Inspector Name Role Phone Taryn Melgar PA-C Primary Care Provider Reason for Visit * Reason Comments Return Visit Non Stress Test Encounter Details Date Type Department Care Team (Late st Contact Info) Description 10/30/2023 10:15 AM EDT Office Visit Gynecology/Obstetics [facility] [address] [place] [address] Angie Nuñez PA-C [address] [place] [address] Supervision of high-risk , third trimester*; Rh negative, antepartum; Insulin controlled gestational diabetes mellitus (GDM) during , antepartum; Antepartum anemia complicating ; Short interval between pregnancies complicating , antepartum Allergies Active Allergy Reactions Criticality Noted Date Comments Pollen Other (Please comment) Low 01/05/2021 documented as of this encounter (statuses as of 11/18/2023) Medications Medication Sig Dispensed Refills Start Date [...] mouth daily. 90 Tablet 0 10/13/2023 Active documented as of this encounter (statuses as of 11/18/2023) Active Problems Problem Noted Date Diagnosed Date [...] at bedtime 07/12/23-elevated sugars- msg send to LIQUOR GRINDING MILL OPERATOR 07/12/23: RPM reviewed; elevated FBS; increase [...] 05/27/2023 Supervision of high-risk , third trimes [facility] 05/27/2023 Overview: Estimated Date of Delivery: [...] as of this encounter (statuses as of 11/18/2023) Resolved Problems Problem Noted Date Diagnosed Date [...] dealing with it, otherwise can deliver in [place]. Last Assessment & Plan: She was seen [...] and folate levels and referral to a scientific laboratory supervisor. 4. If hemoglobin levels are below 8 g/dl, we recommend Maternal Medicine ultrasound for growth every 4 weeks after 24 weeks. Consider a blood transfusion if hemoglobin levels fall below 6 g/dL. ([employer] and Loop Machine Operator Practice Bulletin Number 95, February,). [...] testing and report weekly to [facility] via [employer]. Discussed that medication may be needed if elevated blood sugars do not improve with diet alone. Patient agreeable to starting insulin if needed. Will review again next week. 07/25/22: [facility] consult complete. 07/27/22: elevated fasting; [...] 08/22/22: Taking 15 units Levemir at HS. [place] woozy after 20 units. Was sick last [...] as of this encounter (statuses as of 11/18/2023) Immunizations Name Administration Dates Next Due Seasonal [...] money to get more. Never true 11/01/2022 [place] Depression Scale Answer Date Recorded [place] Depression Scale Total 2 09/14/2023 The thought [...] Sign Reading Time Taken Comments Blood Pressure 112/64 10/30/2023 9:15 AM EDT Pulse - - Temperature - - Respiratory Rate - - Oxygen Saturation - - Inhaled Oxygen Concentration - - Weight 84.6 kg (186 lb 9.6 oz) 10/30/2023 9:15 A M EDT Height - - Body Mass Index 34.13 09/08/2022 10:04 AM EST documented in this [...] Progress Notes * Angie Nuñez PA-C - 10/30/2023 10:04 AM EDT Lacy Mckinney presents for visit at 32w2d. BP 112/64 | Wt 84.6 kg (186 lb 9.6 oz) | LMP 03/18/2023 (Exact Date) | BMI 34.13 kg/m | BSA 1.92 m Doing well. Denies vaginal bleeding, leaking of fluid, vaginal pressure, contractions, abdominal pain, or abnormal vaginal discharge. Denies headaches, blurry vision, or right upper quadrant pain. Patient states she feels good movement. Physical Exam General: alert and oriented, no acute distress Pulmonary: normal respiratory effort, no accessory muscle use. Abdomen: gravid, soft, non-tender NON STRESS TEST reactive. OB [place] Problems (from 05/09/23 to present) Problem Noted Resolved Antepartum anemia complicating 10/30/2023 by Angie Nuñez PA-C No Ferritin 11 on 10/12/2023. Repeat CBC later in 3rd trimester. History of gestational diabetes mellitus (GDM) 06/27/2023 [...] options 07/05/23- sugars elevated- msg sent to [facility] to schedule [facility]APT 07/06/23: [facility]T visit complete; elevated FBS; ordered Lantus 10 units at bedtime 07/12/23-elevated sugars- msg send to LIQUOR GRINDING MILL OPERATOR 07/12/23: RPM reviewed; elevated FBS; increase [...] stable 10/10/23-stable 10/18/23- stable 10/31/23: RPM Stable Supervision of high-risk , third trimester [...] PA-C No Rhogam given on 10/12/2023. Plan: -Repeat CBC at future appointment. Continue oral iron. -NON STRESS TEST reactive. Continue twice weekly NSTs until delivery. -Rhogam given and Tdap vaccine given. -Following with [facility] for blood sugars management and ultrasounds. - contraception: partner vasectomy. Counseled patient to call triage/go to labor and delivery if she has any vaginal bleeding, leaking of fluid, vaginal pressure, 6 or more painful contractions in an hour, abdominal pain, decreased movements, headaches, blurry vision, or right upper quadrant pain. Patient verbalized understanding. RTO in 2 weeks for return appointment or sooner if any concerns. Angie Estrada PA-C documented in this encounter Nursing Notes * Evelyne Power, SHELTON - 10/30/2023 9:15 AM EDT Routine OB check. Denies questions or complaints. Here for NST. EFM applied. Provider aware documented in this encounter Plan of Treatment Upcoming Encounters Date Type Department Care Team (Late st Contact Info) Description 11/20/2023 8:30 AM EDT Office Visit Gynecology/Obstetrics [facility] [address] [place] [address] Kayy Costa PA-C [address] [place] [address] Betty Love Stress Tests Kim [address] [place] [address] 11/23/2023 11:15 AM EDT Office Visit Gynecology/Obstetrics Arlen Vasquezs [address] [place] [address] Isabel Quevedo CRNP [address] [place] [address] Betty Love Stress Tests Kim [address] [place] [address] 11/27/2023 1:15 PM EDT Office Visit Gynecology/Obstetrics Arlen Vasquezs [address] [place] [address] Antonietta Hair CRNP [address] [place] [address] Betty Love Stress Tests Kim [address] [place] [address] 11/30/2023 1:00 PM EDT Office Visit Gynecology/Obstetrics Andrew[facility] Vasquezs [address] [place] [address] Isabel Quevedo CRNP [address] [place] [address] Love, Non Stress Tests Kim [address] [place] [address] 12/04/2023 9:15 AM EDT Office Visit Gynecology/Obstetrics [facility] Love [address] [place] [address] Brenton Brown MD [address] [place] [address] Love, Non Stress Tests Kim [address] [place] [address] 12/06/2023 8:45 AM EDT Imaging Radiology, [address] [address] 12/07/2023 1:00 PM EDT Office Visit Gynecology/Obstetrics Andrew[facility] Love [address] [place] [address] Antonietta Hair CRNP [address] [place] [address] Ivan Non Stress Tests Kim [address] [place] [address] 12/11/2023 11:00 AM EDT Office Visit Gynecology/Obstetrics [facility] Love [address] [place] [address] Antonietta Hair CRNP [address] [place] [address] Love, Non Stress Tests Kim [address] [place] [address] 12/14/2023 1:00 PM EDT Office Visit Gynecology/Obstetrics [facility] Love [address] [place] [address] Fatuma Gutierrez MD [address] [place] [address] [place] [address] Ivan, Non Stress Tests Kim [address] [place] [address] Health Maintenance Due Date Last Done Comments [...] Date/Time Associated Diagnosis Comments NON-STRESS TEST Routine 10/30/2023 9:03 AM EDT Insulin controlled gestational diabetes mellitus (GDM) during , antepartum documented in this encounter Results * NON-STRESS TEST (10/30/2023 9:03 AM EDT) NST Reactive 10/30/2023 9:03 AM EDT Narrative Chase Darling, Angie Cox PA-C - 10/30/2023 9:03 AM EDT ASSESSMENT assessment with Non-stress Test completed on 10/30/2023 at 32 weeks, 2 days gestation for indication of insulin dependent gestational diabetes. heart baseline: 130 bpm Variability: Moderate Decelerations: absent Accelerations: present (more than two 15 x 15 accelerations) Contractions: None NST start time: 9:03 am NST stop time: 9:59 am NST strip reviewed, interpreted, and approved by OB provider, Angie Estrada PA-C. NST strip stored in clinic storage file. Angie Darling PA-C SURGERY documented in this encounter Visit Diagnoses Diagnosis Supervision of high-risk , third trimester- Primary Rh negative, antepartum Rhesus isoimmunization affecting management of mother, antepartum condition Insulin controlled gestational diabetes mellitus (GDM) during , antepartum Antepartum anemia complicating Anemia, antepartum Short interval between pregnancies complicating , antepartum Supervision of other high-risk documented in this encounter Advance Directives Latest [...] the patient have Health Care Power of Film Processing Supervisor? No Code Status History Code Status Date Activated Date Inactivated Comments Full Code 01/05/2021 11:33 AM 01/05/2021 6:10 PM This o rder reflects the patients wishes and were consensually agreed upon. Care Teams Freight Car Inspector Relationship Specialty Start Date End Date Taryn Melgar PA-C [address] [place] [address] [place] [address] PCP - General Physician Senior Loan Processor 09/20/18 documented as of this encounter
--- OUTSIDE RECORDS SUMMARY | 2023-12-18 07:56 | External Medical Summary | Summary of Care ---
Author Name Unknown Organization [facility] Address [address] [place] [address] Phone [phone] Care Team Providers Care Refractory Manager Name Role Phone Taryn Melgar PA-C Primary Care Provider Reason for Visit * Reason Comments Return Visit Non Stress Test Encounter Details Date Type Department Care Team (Late st Contact Info) Description 11/27/2023 1:15 PM EDT Office Visit Gynecology/Obstetric s Arlen Love [address] [facility] [place] [address] Antonietta Hair CRNP [address] [place] [address] Ivan Non Stress Tests Kim [address] [place] [address] Supervision of high-risk , third trimester*; Rh [...] at bedtime 07/12/23-elevated sugars- msg send to SOFTWARE APPLICATIONS ENGINEER 07/12/23: RPM reviewed; elevated FBS; increase [...] 05/27/2023 Supervision of high-risk , third trimes [facility] 05/27/2023 Overview: Estimated Date of Delivery: 12/23/23 [...] dealing with it, otherwise can deliver in [place]. Last Assessment & Plan: She was seen [...] and folate levels and referral to a conveyor belt operator. 4. If hemoglobin levels are below 8 g/dl, we recommend Maternal Medicine ultrasound for growth every 4 weeks after 24 weeks. Consider a blood transfusion if hemoglobin levels fall below 6 g/dL. ([employer] and [employer] Practice Bulletin Number 95, February,). 5. Consider [...] testing and report weekly to [facility] via [employer]. Discussed that medication may be needed if elevated blood sugars do not improve with diet alone. Patient agreeable to starting insulin if needed. Will review again next week. 07/25/22: [facility] ADAPT consult complete. 07/27/22: elevated fasting; [...] 08/22/22: Taking 15 units Levemir at HS. [place] woozy after 20 units. Was sick last [...] made. Last Assessment & Plan: [facility] anatomy/growth ultrasound scheduled for 08/03/22. Patient [...] money to get more. Never true 11/01/2022 [place] Depression Scale Answer Date Recorded [place] Depression Scale Total 2 09/14/2023 The thought [...] GBS swab today. Continue twice weekly NSTs. Package Maker Documentation Provider requested phlebotomy program coordinator. Name of phlebotomy program coordinator: Gayle Dash LPN ASSESSMENT assessment with Non-stress [...] 1:00 PM EDT Office Visit Gynecology/Obstetrics Arlen oLve [address] [place] [address] Isabel Quevedo CRNP [address] [place] [address] Betty Love Stress Tests [facility] [address] [place] [address] 12/04/2023 9:15 AM EDT Office Visit Gynecology/Obstetrics Arlen Love [address] [place] [address] Brenton Brown MD [address] [place] [address] Betty Love Stress Tests Kim [address] [place] [address] 12/06/2023 8:45 AM EDT Imaging Radiology, [facility] [address] [place] [address] 12/07/2023 1:00 PM EDT Office Visit Gynecology/Obstetrics Arlen Love [address] [place] [address] Antonietta Hair CRNP [address] [place] [address] Ivan, Non Stress Tests Kim [address] [place] [address] 12/11/2023 11:00 AM EDT Office Visit Gynecology/Obstetrics Arlen Love [address] [place] [address] Antonietta Hair CRNP [address] [place] [address] Ivan, Non Stress Tests Kim [address] [place] [address] 12/14/2023 1:00 PM EDT Office Visit Gynecology/Obstetrics Arlen Love [address] [place] [address] Fatuma Gutierrez MD [address] [place] [address] [place] [address] Love, Non Stress Tests Kim [address] [place] [address] Pending Results Name Type Priority Associated Diagnoses [...] the patient have Health Care Power of Sex Therapist? No Code Status History Code Status Date Activated Date Inactivated Comments Full Code 01/05/2021 11:33 AM 01/05/2021 6:10 PM This o rder reflects the patients wishes and were consensually agreed upon. Care Teams Refractory Manager Relationship Specialty Start Date End Date Taryn Melgar PA-C [address] [place] [address] PCP - General Physician Environmental Engineer Scientist 09/20/18 documented as of this encounter
--- OUTSIDE RECORDS SUMMARY | 2023-12-18 07:56 | External Medical Summary | Summary of Care ---
Author Name Unknown Organization [facility] Address [address] [place] [address] Phone [phone] Care Team Providers Care Charting Clerk Name Role Phone Taryn Melgar PA-C Primary Care Provider Reason for Visit * Reason Comments Return Visit Non Stress Test Encounter Details Date Type Department Care Team (Late st Contact Info) Description 11/20/2023 8:30 AM EDT Office Visit Gynecology/Obstetric s [facility] [address] [place] [address] Kayy Costa PA-C [address] [place] [address] Ivan Non Stress Tests Kim [address] [place] [address] Supervision of high-risk , third trimester*; Abnormal glucose tolerance in mother complicating ; Insulin controlled gestational diabetes mellitus (GDM) during , antepartum; Rh negative, antepartum; History of gestational diabetes mellitus (GDM); Obesity in , antepartum; Short interval between pregnancies complicating , antepartum; Antepartum anemia complicating ; Nephrolithiasis Allergies Active Allergy Reactions Criticality Noted Date Comments Pollen Other (Please comment) Low 01/05/2021 documented as of this encounter (statuses as of 11/20/2023) Medications Medication Sig Dispensed Refills Start Date [...] as of this encounter (statuses as of 11/20/2023) Active Problems Problem Noted Date Diagnosed Date [...] at bedtime 07/12/23-elevated sugars- msg send to CRUDE TESTER 07/12/23: RPM reviewed; elevated FBS; increase to [...] diabetes 05/27/2023 Supervision of high-risk , third [facility] 05/27/2023 Overview: Estimated Date of Delivery: 12/23/23 [...] as of this encounter (statuses as of 11/20/2023) Resolved Problems Problem Noted Date Diagnosed Date Resolved Date arrhythmia affecting p regnancy, antepartum 08/17/2022 05/27/2023 Overview: arythmia noted 08/12, saw peds cardio IMPRESSION and PLAN: 1. PACs in bigeminy giving the appearance of HR variability between 60-160 bpm 2. 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 Normal biventricular function 4. Mild [place] The above findings were shared with the [...] dealing with it, otherwise can deliver in [place]. Last Assessment & Plan: She was seen [...] and folate levels and referral to a general agent. 4. If hemoglobin levels are below 8 g/dl, we recommend Maternal Medicine ultrasound for growth every 4 weeks after 24 weeks. Consider a blood transfusion if hemoglobin levels fall below 6 g/dL. ([employer] Practice Bulletin Number 95, February,). 5. Consider [...] Will continue testing and report weekly to [facility] via [employer]. Discussed that medication may be needed if elevated blood sugars do not improve with diet alone. Patient agreeable to starting insulin if needed. Will review again next week. 07/25/22: [facility] ADAPT consult complete. 07/27/22: elevated fasting; [...] 08/22/22: Taking 15 units Levemir at HS. [place] woozy after 20 units. Was sick last [...] as of this encounter (statuses as of 11/20/2023) Immunizations Name Administration Dates Next Due Seasonal [...] money to get more. Never true 11/01/2022 [place] Depression Scale Answer Date Recorded [place] Depression Scale Total 2 09/14/2023 The thought of harming myself has occurred to me . Never 09/14/2023 Estimated Date of Delivery Comme nts Yes 12/23/2023 Based on last me nstrual period of 03/18/2023 (Exact Date) Sex and Gender Information Value Date Recorded Sex Assigned at Female 02/15/2022 9:32 AM EDT Gender Identity Female 02/15/2022 9:32 AM EDT Sexual Orientation Straight 02/15/2022 9 :32 AM EDT Job Start Date Occupation Industry Not on file Not on file Not on file documented as of this encounter Last Filed Vital Signs Vital Sign Reading Time Taken Comments Blood Pressure - - Pulse - - Temperature - - Respiratory Rate - - Oxygen Saturation - - Inhaled Oxygen Concentration - - Weight 85.7 kg (189 lb) 11/20/2023 8:41 AM EDT Height - - Body Mass Index 34.57 09/08/2022 10:04 AM EST documented in this [...] as of this encounter Progress Notes * Kayy Costa PA-C - 11/20/2023 9:07 AM EDT 35w2d Patient transferring care from [place] ahead of planned delivery at [facility]. GDM on insulin, compliant with reporting and stable. To continue twice weekly NST. Delivery plan 39weeks. Last growth with MFM 11/08/2023: EFW 2274 g at 49%ile. Scheduled in follow up 12/05. No complaints. Reviewed [facility] delivery. IOL scheduled 12/18/2023, given instructions along with labor instructions GBS next visit at 36 weeks. RTC in 3 days for NST ASSESSMENT assessment with Non-stress Test completed on 11/20/2023 at 35.2 weeks gestation for indicationof gestational diabetes mellitus on insulin heart baseline: 130 bpm Variability: Moderate Decelerations: absent Accelerations: present Contractions: Present x 1, lasting about 1 minute peak 25 mmHg NST start time: 08:29 AM NST stop time: 09:04 AM NST strip reviewed, interpreted, and approved by OB provider, Kayy Costa PA-C. NST strip stored in clinic storage file Kayy Costa PA-C * Gayle Dash LPN - 11/20/2023 8:42 AM EDT 35w2d LH pt transferring for delivery at [facility] Needs 39 week IOL for GDM insulin [place] preadmission paperwork given to pt today documented in this encounter Plan of Treatment Upcoming Encounters Date Type Department Care Team (Late st Contact Info) Description 11/23/2023 11:15 AM EDT Office Visit Gynecology/Obstetrics Arlen Love [address] [place] [address] Isabel Quevedo CRNP [address] [place] [address] Ivan Non Stress Tests Kim [address] [place] [address] 11/27/2023 1:15 PM EDT Office Visit Gynecology/Obstetrics Arlen Love [address] [place] [address] Antonietta Hair CRNP [address] [place] [address] Ivan Non Stress Tests Kim [address] [place] [address] 11/30/2023 1:00 PM EDT Office Visit Gynecology/Obstetrics [facility] [address] [place] [address] Isabel Quevedo CRNP [address] [place] [address] Love, Non Stress Tests Kim [address] [place] [address] 12/04/2023 9:15 AM EDT Office Visit Gynecology/Obstetrics [facility] [address] [place] [address] Brenton Brown MD [address] [place] [address] Love, Non Stress Tests Kim [address] [place] [address] 12/06/2023 8:45 AM EDT Imaging Radiology, [address] [address] 12/07/2023 1:00 PM EDT Office Visit Gynecology/Obstetrics [facility] [address] [place] [address] Antonietta Hair CRNP [address] [place] [address] Love, Non Stress Tests Kim [address] [place] [address] 12/11/2023 11:00 AM EDT Office Visit Gynecology/Obstetrics [facility] [address] [place] [address] Antonietta Hair CRNP [address] [place] [address] Love, Non Stress Tests Kim [address] [place] [address] 12/14/2023 1:00 PM EDT Office Visit Gynecology/Obstetrics Arlen Love [address] [place] [address] Fatuma Gutierrez MD [address] [place] [address] [place] [address] Ivan, Non Stress Tests Kim [address] [place] [address] Health Maintenance Due Date Last Done Comments [...] gestational diabetes mellitus (GDM) during , antepartum Rh negative, antepartum Rhesus isoimmunization affecting management of mother, antepartum condition History of gestational diabetes mellitus (GDM) Obesity [...] the patient have Health Care Power of Finish Molder? No Code Status History Code Status Date Activated Date Inactivated Comments Full Code 01/05/2021 11:33 AM 01/05/2021 6:10 PM This o rder reflects the patients wishes and were consensually agreed upon. Care Teams Charting Clerk Relationship Specialty Start Date End Date Taryn Melgar PA-C [address] [place] [id number] PCP - General Physician Veterinary Attendant 09/20/18 documented as of this encounter
--- OUTSIDE RECORDS SUMMARY | 2023-12-18 07:56 | External Medical Summary ---
Author Name Unknown Address Unknown Organization K01:LABOR[facility]ORY [facility] - [address] [facility] [address] Laboratory Report Ordering Provider Test Date Status XENA WOODARD 11/27/2023 13:46:50 Final Observation Date Value Abnormality Reference (Units ) Status Streptococcus agalactiae DNA [Presence] in Specimen by LAURENCE with probe detection 11/27/2023 13:46:50 Negative Negative Final No Group B Streptococcus det ected by culture-enhanced PCR (amplified probe).
The collection of vaginal/rectal swab specimen combinations (FDA approved specimen type) is optimal for the detection of Group B Streptococcus. Single source collection (vaginal only or rectal only) or alternate specimen sources may lead to false negative results. Performing Location [facility] - [address] [place] [address]
--- OUTSIDE RECORDS SUMMARY | 2023-12-18 07:56 | External Medical Summary | Summary of Care ---
Author Name Unknown Organization [facility] Address [address] [place] [address] Phone [phone] Care Team Providers Care Quality Assurance Tech Name Role Phone Taryn Melgar PA-C Primary Care Provider Reason for Visit * Reason Onset Date Comments Advice 11/16/2023 Encounter Details Date Type Department Care Team ([facility] st Contact Info) Description 11/16/2023 Telephone Gynecology/Obstetics [place] [address] [place] [address] Angie Nuñez PA-C [address] [place] [address] Advice Allergies Active Allergy Reactions [...] 06/28/23: M[facility] ADAPT consult complete. Enrolled in [employer]. Instructions provided to report blood sugars each [...] at bedtime 07/12/23-elevated sugars- msg send to INSIDE SALES ACCOUNT MANAGER 07/12/23: RPM reviewed; elevated FBS; increase to [...] PACs 3. Normal biventricular function 4. Mild [place] The above findings were shared with the [...] dealing with it, otherwise can deliver in [place]. Last Assessment & Plan: She was seen [...] and folate levels and referral to a utility worker. 4. If hemoglobin levels are below 8 g/dl, we recommend Maternal Medicine ultrasound for growth every 4 weeks after 24 weeks. Consider a blood transfusion if hemoglobin levels fall below 6 g/dL. ([employer] Practice Bulletin Number 95, February,). 5. Consider [...] testing and report weekly to M via [employer]. Discussed that medication may be needed if elevated blood sugars do not improve with diet alone. Patient agreeable to starting insulin if needed. Will review again next week. 07/25/22: [facility] ADAPT consult complete. 07/27/22: elevated fasting; [...] 08/22/22: Taking 15 units Levemir at HS. [place] woozy after 20 units. Was sick last [...] money to get more. Never true 11/01/2022 [place] Depression Scale Answer Date Recorded [place] Depression Scale Total 2 09/14/2023 The thought [...] Arlen Love [address] [place] [address] Kayy Costa PA-C [address] [place] [address] Betty Love Stress Tests Kim [address] [place] [address] 11/23/2023 11:15 AM EDT Office Visit Gynecology/Obstetrics Arlen Love [address] [place] [address] Isabel Quevedo CRNP [address] [place] [address] Ivan Non Stress Tests Kim [address] [place] [address] 11/27/2023 1:15 PM EDT Office Visit Gynecology/Obstetrics [facility] [address] [place] [address] Antonietta Hair CRNP [address] [place] [address] Ivan Non Stress Tests Kim [address] [place] [address] 11/30/2023 1:00 PM EDT Office Visit Gynecology/Obstetrics Arlen Love [address] [place] [address] Isabel Quevedo CRNP [address] [place] [address] Ivan Non Stress Tests Kim [address] [place] [address] 12/04/2023 9:15 AM EDT Office Visit Gynecology/Obstetrics Arlen Love [address] [place] [address] Brenton Brown MD [address] [place] [address] Ivan Non Stress Tests Kim [address] [place] [address] 12/06/2023 8:45 AM EDT Imaging Radiology, [facility] [address] [facility] [place] [address] 12/07/2023 1:00 PM EDT Office Visit Gynecology/Obstetrics Arlen Love [address] [place] [address] Antonietta Hair CRNP [address] [place] [address] Ivan Non Stress Tests Kim [address] [place] [address] 12/11/2023 11:00 AM EDT Office Visit Gynecology/Obstetrics Arlen Love [address] [place] [address] BackerAntonietta CRNP [address] [place] [address] Ivan Non Stress Tests Kim [address] [place] [address] 12/14/2023 1:00 PM EDT Office Visit Gynecology/Obstetrics [facility] [address] [place] [address] Fatuma Gutierrez MD [address] [place] [address] [place] [address] Betty Love Stress Tests Kim [address] [place] [address] Health Maintenance Due Date Last Done Comments [...] the patient have Health Care Power of Core Sticker? No Code Status History Code Status Date Activated Date Inactivated Comments Full Code 01/05/2021 11:33 AM 01/05/2021 6:10 PM This o rder reflects the patients wishes and were consensually agreed upon. Care Teams Quality Assurance Tech Relationship Specialty Start Date End Date Taryn Melgar PA-C [address] [place] [address] [place] [address] PCP - General Physician Filing And Polishing Supervisor 09/20/18 documented as of this encounter
--- OUTSIDE RECORDS SUMMARY | 2023-12-18 07:56 | External Medical Summary | Summary of Care ---
Author Name Unknown Organization [facility] Address [address] [place] [address] Phone [phone] Care Team Providers Care Hand Router Operator Name Role Phone Taryn Melgar PA-C Primary Care Provider Reason for Visit * Reason Comments Return Visit Encounter Details Date Type Department Care Team (Late st Contact Info) Description 11/16/2023 9:30 AM EDT Office Visit Gynecology/Obstetics [address] [phone] Angie Nuñez PA-C [address] [place] [phone] Supervision of high-risk , third trimester*; Rh [...] 06/28/23: [facility] ADAPT consult complete. Enrolled in [facility] [facility]. Instructions provided to report blood sugars [...] at bedtime 07/12/23-elevated sugars- msg send to LUNCHROOM OPERATOR 07/12/23: RPM reviewed; elevated FBS; increase [...] diabetes 05/27/2023 [facility] Overview: Estimated Date of Delivery: [...] dealing with it, otherwise can deliver in [place]. Last Assessment & Plan: She was seen [...] and folate levels and referral to a count room clerk. 4. If hemoglobin levels are below 8 g/dl, we recommend Maternal Medicine ultrasound for growth every 4 weeks after 24 weeks. Consider a blood transfusion if hemoglobin levels fall below 6 g/dL. ([employer] Liver Sorter Practice Bulletin Number 95, February,). 5. Consider [...] Will continue testing and report weekly to [facility] via [employer]. Discussed that medication may be needed if elevated blood sugars do not improve with diet alone. Patient agreeable to starting insulin if needed. Will review again next week. 07/25/22: [facility] ADAPT consult complete. 07/27/22: elevated fasting; [...] 08/22/22: Taking 15 units Levemir at HS. [place] woozy after 20 units. Was sick last [...] money to get more. Never true 11/01/2022 [place] Depression Scale Answer Date Recorded [place] Depression Scale Total 2 09/14/2023 The thought [...] acute distress NON STRESS TEST reactive. OB [place] Problems (from 05/09/23 to present) Problem Noted [...] at bedtime 07/12/23-elevated sugars- msg send to LUNCHROOM OPERATOR 07/12/23: RPM reviewed; elevated FBS; increase [...] good hydration. Advised patient to go to [facility] labor and delivery if fever, chills, worsening back pain, or any other unusual symptoms. Patient agrees. Urine dip with trace blood and trace leukocytes. Other values in urinalysis are negative. Urine culture in process. Patient will contact the office if plans to go to labor and delivery d ue to worsening symptoms. -Following with Arlen Love for remainder of due to desire to deliver at [facility]. -Rhogam given. Tdap given. - contraception: [...] in this encounter Nursing Notes * Ivon Rankin, RN - 11/16/2023 10:10 AM EDT Patient [...] Arlen Love [address] [place] [address] Kayy Costa PA-C [address] [place] [address] Ivan Non Stress Tests Kim [address] [place] [address] 11/23/2023 11:15 AM EDT Office Visit Gynecology/Obstetrics Arlen Love [address] [place] [address] Isabel Quevedo CRNP [address] [place] [address] Love, Non Stress Tests Kim [address] [place] [address] 11/27/2023 1:15 PM EDT Office Visit Gynecology/Obstetrics [facility] [address] [place] [address] Antonietta Hair CRNP [address] [place] [address] Love, Non Stress Tests Kim [address] [place] [address] 11/30/2023 1:00 PM EDT Office Visit Gynecology/Obstetrics [facility] [address] [place] [address] Isabel Quevedo CRNP [address] [place] [address] Ivan Non Stress Tests Kim [address] [place] [address] 12/04/2023 9:15 AM EDT Office Visit Gynecology/Obstetrics [facility] [address] [place] [address] Brenton Brown MD [address] [place] [address] Love, Non Stress Tests Kim [address] [place] [address] 12/06/2023 8:45 AM EDT Imaging Radiology, [place] [id number] [place] [address] 12/07/2023 1:00 PM EDT Office Visit Gynecology/Obstetrics [facility] [address] [place] [address] Antonietta Hair CRNP [address] [place] [address] Ivan Non Stress Tests Kim [address] [place] [address] 12/11/2023 11:00 AM EDT Office Visit Gynecology/Obstetrics Arlen Love [address] [place] [address] Antonietta Hair CRNP [address] [place] [address] Ivan Non Stress Tests Kim [address] [place] [address] 12/14/2023 1:00 PM EDT Office Visit Gynecology/Obstetrics Arlen Love [address] [place] [address] Fatuma Gutierrez MD [address] [place] [address] [place] [address] Ivan Non Stress Tests Kim [address] [place] [address] Pending Results Name Type Priority Associated Diagnoses [...] (11/16/2023 9:55 AM EDT) NST Reactive 11/16/2023 9:55 AM EDT Narrative Angie Nuñez PA-C - [...] the patient have Health Care Power of Granite Polisher? No Code Status History Code Status Date Activated Date Inactivated Comments Full Code 01/05/2021 11:33 AM 01/05/2021 6:10 PM This o rder reflects the patients wishes and were consensually agreed upon. Care Teams Hand Router Operator Relationship Specialty Start Date End Date Taryn Melgar PA-C [address] [place] [address] [place] [address] PCP - General Physician Skip Loader 09/20/18 documented as of this encounter
--- OUTSIDE RECORDS SUMMARY | 2023-12-18 07:57 | External Medical Summary | Summary of Care ---
Author Name Unknown Organization [facility] Address [address] [place] [address] Phone [phone] Care Team Providers Care Furnace Maintenance Name Role Phone Taryn Melgar PA-C Primary Care Provider Reason for Visit * Reason Onset Date Comments Advice 11/14/2023 Encounter Details Date Type Department Care Team ([facility] st Contact Info) Description 11/14/2023 Telephone Gynecology/Obstetics [facility] [address] [place] [phone] Angie Nuñez PA-C [address] [place] [address] Advice Allergies Active Allergy Reactions Criticality Noted Date Comments Pollen Other (Please comment) Low 01/05/2021 documented as of this encounter (statuses as of 11/14/2023) Medications Medication Sig Dispensed Refills Start Date [...] as of this encounter (statuses as of 11/14/2023) Active Problems Problem Noted Date Diagnosed Date Antepartum anemia complicating 024 Overview: Ferritin 11 [...] at bedtime 07/12/23-elevated sugars- msg send to COMMUNITY DEVELOPMENT AIDE 07/12/23: RPM reviewed; elevated FBS; increase to [...] as of this encounter (statuses as of 11/14/2023) Resolved Problems Problem Noted Date Diagnosed Date Resolved Date arrhythmia affecting p regnancy, antepartum 08/17/2022 05/27/2023 Overview: arythmia noted 08/12, saw peds cardio IMPRESSION and PLAN: 1. PACs in [place] giving the appearance of HR variability between 60-160 bpm 2. 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 Normal biventricular function 4. Mild [place] The above findings were shared with the [...] dealing with it, otherwise can deliver in [place]. Last Assessment & Plan: She was seen [...] and folate levels and referral to a aws software development engineer. 4. If hemoglobin levels are below 8 g/dl, we recommend Maternal Medicine ultrasound for growth every 4 weeks after 24 weeks. Consider a blood transfusion if hemoglobin levels fall below 6 g/dL. ([employer] Practice Bulletin Number 95, February,). 5. Consider [...] testing and report weekly to M via [employer]. Discussed that medication may be needed if elevated blood sugars do not improve with diet alone. Patient agreeable to starting insulin if needed. Will review again next week. 07/25/22: [facility] ADAPT consult complete. 07/27/22: elevated fasting; [...] 08/22/22: Taking 15 units Levemir at HS. [place] woozy after 20 units. Was sick last [...] as of this encounter (statuses as of 11/14/2023) Immunizations Name Administration Dates Next Due Seasonal [...] money to get more. Never true 11/01/2022 Eminence Depression Scale Answer Date Recorded Eminence Depression Scale Total 2 09/14/2023 The thought [...] Telephone Encounter - Angie Nuñez PA-C - 11/14/2023 6:38 PM EDT Spoke with patient while in the office today. Patient reports that baby is moving well. Patient denies leaking of fluid and denies vaginal bleeding. Patient reports that she had right upper abdominal pain after eating both last night and this morning. Patient has some nausea as well. Denies fever or chills. Advised pre-eclampsia lab work and advised ultrasound of the gallbladder. Patient agrees. Advised patient to go to labor and delivery if fever, chills, continued nausea/vomiting, worsening right upper abdominal pain. Patient agrees. * Telephone Encounter - Ivon Rankin RN - 11/14/2023 9:34 AM EDT Patient called back into clinic. Reports pain came back again some this morning after having toast but that it wasn't as bad as pain she was having last night. * Telephone Encounter - Apple Wong CCMA - 11/14/2023 8:25 AM EDT Pt called in with concerns of pain under right breast. States it started after she had dinner last night. Has also been experiencing a lot of nausea. Denies any headaches, visual changes, fevers/chills. States it is sore to the touch. Pt looking for advice documented in this encounter Plan of Treatment Upcoming Encounters Date Type Department Care Team (Late st Contact Info) Description 11/16/2023 9:30 AM EDT Nurse Only Gynecology/Obstetics [facility] [address] [place] [phone] Havesamira, Nurse Master Automotive Technician Lock [address] [place] [address] 11/16/2023 9:30 AM EDT Office Visit Gynecology/Obstetics [facility] [address] [place] [phone] Hermilo Taylor MD [address] [place], [place] [phone] 11/20/2023 8:30 AM EDT Office Visit Gynecology/Obstetrics [facility] [address] [place] [address] Kayy Costa PA-C [address] [place] [address] Betty Love Stress Tests Kim [address] [place] [address] 11/23/2023 11:15 AM EDT Office Visit Gynecology/Obstetrics [facility] [address] [place] [address] Isabel Quevedo CRNP [address] [place] [address] Ivan Non Stress Tests Kim [address] [place] [address] 11/27/2023 1:15 PM EDT Office Visit Gynecology/Obstetrics [facility] [address] [place] [address] Antonietta Hair CRNP [address] [place] [address] Love, Non Stress Tests Kmi [address] [place] [address] 11/30/2023 1:00 PM EDT Office Visit Gynecology/Obstetrics [facility] [address] [place] [address] Isabel Quevedo CRNP [address] [place] [address] Love, Non Stress Tests Kim [address] [place] [address] 12/04/2023 9:15 AM EDT Office Visit Gynecology/Obstetrics [facility] [address] [place] [address] Brenton Brown MD [address] [place] [address] Love, Non Stress Tests Kim [address] [place] [address] 12/06/2023 8:45 AM EDT Imaging Radiology, [address] [address] 12/07/2023 1:00 PM EDT Office Visit Gynecology/Obstetrics [facility] [address] [place] [address] Antonietta Hair CRNP [address] [place] [address] Love, Non Stress Tests Kim [address] [place] [address] 12/11/2023 11:00 AM EDT Office Visit Gynecology/Obstetrics [facility] [address] [place] [address] Backer, MIRTA German [address] [place] [address] Ivan, [place] [address] 12/14/2023 1:00 PM EDT Office Visit Gynecology/Obstetrics [facility] [address] [place] [address] Fatuma Gutierrez MD [address] [place] [address] [place] [address] Ivan, Non Stress Tests [place] [address] Pending Results Name Type Priority Associated Diagnoses Date /Time US ABDOMEN LIMITED Medical Imaging Routine Right upper quadrant abdominal pain affecting 11/14/2023 3:31 PM EDT Scheduled Orders Name Type Priority Associated Diagnoses Orde r Schedule US ABDOMEN LIMITED Medical Imaging Routine Right upper quadrant abdominal pain affecting Expected: 11/14/2023, Expires: 12/13/2024 Health Maintenance Due Date Last Done Comments [...] Not on filedocumented as of this encounter Results * PROTEIN/ CREATININE RATIO, URINE (11/14/2023 10:44 AM EDT) Protein/ Creatinine Ratio, Urine 148 <150 mg/g 11/14/2023 5:42 PM EDT [facility] Protein, Random Urine 25 mg/dL 11/14/2023 5:42 PM EDT [facility] Creatinine, Random Urine 169 mg/dL 11/14/2023 5:42 PM EDT [facility] Urine Urine specimen / Unknown Non-blood Collection / Unknown 11/14/2023 10:44 AM EDT 11/14/2023 10:44 AM EDT Narrative [facility] - 11/14/2023 5:42 PM EDT Normal: <150 mg/g creatinine High: 150-500 mg/g creatinine Very High: >500 mg/g creatinine Nephrotic: >3000 mg/g creatinine Angie Darling PA-C LAB URINE ORDERABLES [facility] [place] [address] [place] [address] * (ABNORMAL) COMPREHENSIVE METABOLIC PANEL (11/14/2023 10:44 AM EDT) BUN 4(L) 6 - 20 mg/dL 11/14/2023 6:26 PM EDT [facility] Creatinine 0.5 0.5 - 1.0 mg/dL 11/14/2023 6:26 PM EDT [facility] Estimated Glomerular Filtration Rate >90 >=60 mL/min 11/14/2023 6:26 PM EDT [facility] Comment:eGFR is calculated b ased on the CKD-EPI 2020 equation Sodium 136 135 - 146 mmol/L 11/14/2023 6:26 PM EDT [facility] Potassium 3.7 3.5 - 5.1 mmol/L 11/14/2023 6:26 PM EDT [facility] Chloride 104 98 - 107 mmol/L 11/14/2023 6:26 PM EDT [facility] CO2 19(L) 22 - 32 mmol/L 11/14/2023 6:26 PM EDT [facility] Anion Gap 13 7 - 15 mmol/L 11/14/2023 6:26 PM EDT [facility] Glucose 124(H) 70 - 120 mg/dL 11/14/2023 6:26 PM EDT [facility] Albumin 3.4(L) 3.8 - 5.0 g/dL 11/14/2023 6:26 PM EDT [facility] AST 13 10 - 35 U/L 11/14/2023 6:26 PM EDT [facility] Alkaline Phosphatase 93 35 - 130 U/L 11/14/2023 6:26 PM EDT [facility] Bilirubin, Total 0.2 <=1.2 mg/dL 11/14/2023 6:26 PM EDT [facility] Calcium 8.3(L) 8.4 - 10.2 mg/dL 11/14/2023 6:26 PM EDT [facility] Protein 5.5(L) 6.0 - 8.3 g/dL 11/14/2023 6:26 PM EDT [facility] ALT 10 10 - 35 U/L 11/14/2023 6:26 PM EDT LABORATORY C Blood Venous blood specimen / Unknown Venipuncture / Unknown 11/14/2023 10:44 AM EDT 11/14/2023 10:44 AM EDT Angie Darling PA-C LAB BLOOD ORDERABLES Performing Organization Address City/State/[facility] [place] Co de Phone Number LABORATORY [facility] [place] [address] [place] [address] documented in this encounter Visit Diagnoses Diagnosis Right upper quadrant abdominal pain affecting - Primary documented in this encounter Advance Directives Latest [...] the patient have Health Care Power of Manager Credit? No Code Status History Code Status Date Activated Date Inactivated Comments Full Code 01/05/2021 11:33 AM 01/05/2021 6:10 PM This o rder reflects the patients wishes and were consensually agreed upon. Care Teams Furnace Maintenance Relationship Specialty Start Date End Date Taryn Melgar PA-C [address] [place] [address] [place] [address] PCP - General Physician Senior Reservations Agent 09/20/18 documented as of this encounter
--- OUTSIDE RECORDS SUMMARY | 2023-12-18 07:57 | External Medical Summary ---
Author Name Unknown Address Unknown Organization K01:LAB[facility]ATORY [facility] [place] - [address] [place] [address] Laboratory Report Ordering Provider Test Date Status LIDIA ORTA 11/16/2023 10:37:03 Final Observation Date Value Abnormality Reference (Units) Status Bacteria identified in Specimen by Culture 11/16/2023 10:37:03 No significant growth Final Test: Culture, Urine, Quanti tative
Specimen Source: Urine, Clean Catch
Specimen Type: Urine
Specimen Date: 11/16/2023 10:37 AM
Result Date: 11/17/2023 3:56 PM
Result Status: Final result
Resulting Lab: LAB[facility]ATORY [facility] [place]
[address]
[facility] [address]

CULTURE

No significant growth

null Performing Location LAB[facility]ATORY [facility] [place] - [address] [facility] [address]
--- OUTSIDE RECORDS SUMMARY | 2023-12-18 07:57 | External Medical Summary | Summary of Care ---
Author Name Unknown Organization [facility] Address [address] [place] [address] Phone [phone] Care Team Providers Care Photographic Laboratory Technician Name Role Phone Taryn MelgarC Primary Care Provider Reason for Visit * Reason Comments Return Visit Encounter Details Date Type Department Care Team (Late st Contact Info) Description 11/13/2023 8:30 AM EDT Office Visit Gynecology/Obstetic s [facility] [address] [place] [phone] Angie Nuñez PA-C [address] [place] [phone] Nurse Adebayo Espitia RN [address] [place] [phone] Supervision of high-risk , third trimester*; Rh negative, antepartum; Insulin controlled gestational diabetes mellitus (GDM) during , antepartum; Short interval between pregnancies complicating , antepartum; Antepartum anemia complicating Allergies Active Allergy Reactions Criticality Noted Date Comments Pollen Other (Please comment) Low 01/05/2021 documented as of this encounter (statuses as of 11/15/2023) Medications Medication Sig Dispensed Refills Start Date [...] as of this encounter (statuses as of 11/15/2023) Active Problems Problem Noted Date Diagnosed Date [...] bedtime 07/12/23-elevated sugars- msg send to ASSOCIATE SCHOOL PSYCHOLOGIST 07/12/23: RPM reviewed; elevated FBS; increase to [...] 05/27/2023 Supervision of high-risk , third trimes [facility] 05/27/2023 Overview: Estimated Date of [...] as of this encounter (statuses as of 11/15/2023) Resolved Problems Problem Noted Date Diagnosed Date Resolved Date arrhythmia affecting p regnancy, antepartum 08/17/2022 05/27/2023 Overview: arythmia noted 08/12, saw peds cardio IMPRESSION and PLAN: 1. PACs in [facility] giving the appearance of HR variability between 60-160 bpm 2. 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 Normal biventricular function 4. Mild [place] The above findings were shared with the [...] dealing with it, otherwise can deliver in [place]. 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 Atrioventricular (AV) synchrony is noted . heart rate is 120-130 BPM. Frequent premature atrial contractions. PACs in [facility]. 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 On today's [...] and folate levels and referral to a museum service scheduler. 4. If hemoglobin levels are below 8 g/dl, we recommend Maternal Medicine ultrasound for growth every 4 weeks after 24 weeks. Consider a blood transfusion if hemoglobin levels fall below 6 g/dL. ([employer] Practice Bulletin Number 95, February,). 5. Consider [...] testing and report weekly to MFM via [employer]. Discussed that medication may be needed if elevated blood sugars do not improve with diet alone. Patient agreeable to starting insulin if needed. Will review again next week. 07/25/22: [facility] ADAPT consult complete. 07/27/22: elevated fasting; nutrition [...] 08/22/22: Taking 15 units Levemir at HS. [place] woozy after 20 units. Was sick last [...] as of this encounter (statuses as of 11/15/2023) Immunizations Name Administration Dates Next Due Seasonal [...] money to get more. Never true 11/01/2022 Bee[place] Depression Scale Answer Date Recorded Bee[place] Depression Scale Total 2 09/14/2023 The thought [...] Sign Reading Time Taken Comments Blood Pressure 116/72 11/13/2023 8:44 AM EDT Pulse - - Temperature - - Respiratory Rate - - Oxygen Saturation - - Inhaled Oxygen Concentration - - Weight 85.7 kg (188 lb 14.4 oz) 11/13/2023 8:44 AM EDT Height - - Body Mass Index 34.55 09/08/2022 10:04 AM EST documented in this [...] Progress Notes * Angie Nuñez PA-C - 11/13/2023 7:01 PM EDT Lacy Mckinney presents for visit at 34w2d. BP 116/72 | Wt 85.7 kg (188 lb 14.4 oz) | LMP 03/18/2023 (Exact Date) | BMI 34.55 kg/m | BSA 1.94m Doing well. Denies vaginal bleeding, leaking of fluid, abdominal pain, or abnormal vaginal discharge. Denies headaches, blurry vision, or right upper quadrant pain. Patient states she feels good movement. Patient has some intermittent talib storey contractions. Physical Exam General: alert and oriented, no acute distress Pulmonary: normal respiratory effort, no accessory muscle use. Abdomen: gravid, soft, non-tender NON STRESS TEST reactive. OB [place] Problems (from 05/09/23 to present) Problem Noted Resolved Antepartum anemia complicating 10/30/2023 by Angie Nuñez PA-C No Ferritin 11 on 10/12/2023. Anemia improved, History of gestational diabetes mellitus (GDM) 06/27/2023 [...] bedtime 07/12/23-elevated sugars- msg send to ASSOCIATE SCHOOL PSYCHOLOGIST 07/12/23: RPM reviewed; elevated FBS; increase to [...] stable 10/31/23: RPM Stable 11/07/23: RPM Stable Supervision of high-risk , third [...] PA-C No Rhogam given on 10/12/2023. Plan: -NON STRESS TEST reactive. -Rhogam given. -Tdap given. -GBS culture at 36 weeks. -Continue twice weekly NSTs until delivery. -Following with MATERNAL MEDICINE. -Anemia improved on repeat CBC. Counseled patient to call triage/go to labor [...] documented in this encounter Nursing Notes * Trudy Bolton RN - 11/13/2023 8:44 AM EDT Routine OB check. Denies questions or complaints. Pt for NST - EFM applied. documented in this encounter Plan of Treatment Upcoming Encounters Date Type Department Care Team (Late st Contact Info) Description 11/16/2023 9:30 AM EDT Nurse Only Gynecology/Obstetics [facility] [address] [place] [phone] Havesamira, Nurse Eyelet Machine Operator Lock [address] [place] [address] 11/16/2023 9:30 AM EDT Office Visit Gynecology/Obstetics [address] [phone] Hermilo Taylor MD [address] [place] [address] 11/20/2023 8:30 AM EDT Office Visit Gynecology/Obstetrics [facility] [address] [place] [address] Kayy Costa PA-C [address] [place] [address] Ivan Non Stress Tests Kim [address] [place] [address] 11/23/2023 11:15 AM EDT Office Visit Gynecology/Obstetrics [facility] [address] [place] [address] Isabel Quevedo CRNP [address] [place] [address] Ivan, Non Stress Tests Kim [address] [place] [address] 11/27/2023 1:15 PM EDT Office Visit Gynecology/Obstetrics [facility] [address] [place] [address] Antonietta Hair CRNP [address] [place] [address] Love, Non Stress Tests Kim [address] [place] [address] 11/30/2023 1:00 PM EDT Office Visit Gynecology/Obstetrics [facility] [address] [place] [address] Isabel Quevedo CRNP [address] [place] [address] Love, Non Stress Tests Kim [address] [place] [address] 12/04/2023 9:15 AM EDT Office Visit Gynecology/Obstetrics [facility] [address] [place] [address] Brenton Brown MD [address] [place] [address] Love, Non Stress Tests Kim [address] [place] [address] 12/06/2023 8:45 AM EDT Imaging Radiology, [address] [address] 12/07/2023 1:00 PM EDT Office Visit Gynecology/Obstetrics [facility] [address] [place] [address] Antonietta Hair CRNP [address] [place] [address] Love, Non Stress Tests Kim [address] [place] [address] 12/11/2023 11:00 AM EDT Office Visit Gynecology/Obstetrics [facility] [address] [place] [address] Antonietta Hair CRNP [address] [place] [address] Ivan Non Stress Tests Kim [address] [place] [address] 12/14/2023 1:00 PM EDT Office Visit Gynecology/Obstetrics [facility] [address] [facility] [place] [address] Fatuma Gutierrez MD [address] [place] [address] [place] [address] IvanBetty Stress Tests Kim [address] [place] [address] Health Maintenance Due Date Last Done Comments Hepatitis B (1 of 3 - 19+ 3-dose series) 2012 Depression Screening 07/05/2022 07/05/2021 COVID-19 Vaccine ( - season) 2023 HPV/Co-Test 11/03/2023 Influenza Vaccine (FLU [...] Date/Time Associated Diagnosis Comments NON-STRESS TEST Routine 11/13/2023 8:39 AM EDT Insulin controlled gestational diabetes mellitus (GDM) during , antepartum documented in this encounter Results * NON-STRESS TEST (11/13/2023 8:39 AM EDT) NST Reactive 11/13/2023 8:39 AM EDT Narrative Chase Darling, Angie Cox PA-C - 11/13/2023 8:39 AM EDT ASSESSMENT assessment with Non-stress Test completed on 11/13/2023 at 34 weeks, 2 days gestation for indication of gestational diabetes insulin controlled. heart baseline: 125 bpm Variability: Moderate Decelerations: absent Accelerations: present (more than two 15 x 15 accelerations) Contractions: None NST start time: 8:39 am NST stop time: 9:23 am NST strip reviewed, interpreted, and approved [...] patient have Health Care Power of Customer Engineer? No Code Status History Code Status Date Activated Date Inactivated Comments Full Code 01/05/2021 11:33 AM 01/05/2021 6:10 PM This o rder reflects the patients wishes and were consensually agreed upon. Care Teams Photographic Laboratory Technician Relationship Specialty Start Date End Date Taryn Melgar PA-C [address] [place] [id number] PCP - General Physician Tire Retreader 09/20/18 documented as of this encounter
--- OUTSIDE RECORDS SUMMARY | 2023-12-18 07:57 | External Medical Summary | Summary of Care ---
Author Name Unknown Organization [facility] Address [address] [place] [address] Phone [phone] Care Team Providers Care Manager Sports Name Role Phone Taryn Melgar PA-C Primary Care Provider Reason for Visit * Reason Comments Blood Pressure Check Encounter Details Date Type Department Care Team (Late st Contact Info) Description 11/14/2023 10:30 AM EDT Nurse Only Gynecology/Obstetics [place] [address] [place] [address] Havesamira, Nurse Berry Picker Machine Operator Lock [address] [place] [phone] Blood Pressure Check Allergies Active Allergy Reactions Criticality Noted Date [...] mouth daily. 30 Capsule 1 11/14/2023 Active Omeprazole 20 MG Oral Capsule Delayed Release (PriLOSEC) Take 1 Capsule by mouth daily. 30 Capsule 1 11/14/2023 Discontinue d(Refill) documented as of this encounter (statuses as [...] bedtime 07/12/23-elevated sugars- msg send to SUPERVISOR POWDERED METAL 07/12/23: RPM reviewed; elevated FBS; increase to [...] stable 10/10/23-stable 10/18/23- stable 10/31/23: RPM Stable 04/02/24: RPM Stable 11/14/23: RPM reviewed; Stable Last [...] dealing with it, otherwise can deliver in [place]. Last Assessment & Plan: She was seen [...] and folate levels and referral to a director targeted marketing. 4. If hemoglobin levels are below 8 g/dl, we recommend Maternal Medicine ultrasound for growth every 4 weeks after 24 weeks. Consider a blood transfusion if hemoglobin levels fall below 6 g/dL. ([employer] Signal [employer] Switch Operator Practice Bulletin Number 95, February,). 5. [...] testing and report weekly to M via Beroomers. Discussed that medication may be needed if elevated blood sugars do not improve with diet alone. Patient agreeable to starting insulin if needed. Will review again next week. 07/25/22: [facility] ADAPT consult complete. 07/27/22: elevated fasting; [...] 08/22/22: Taking 15 units Levemir at HS. [place] woozy after 20 units. Was sick last [...] money to get more. Never true 11/01/2022 [place] Depression Scale Answer Date Recorded [place] Depression Scale Total 2 09/14/2023 The thought [...] Sign Reading Time Taken Comments Blood Pressure 110/72 11/14/2023 10:15 AM EDT Pulse - - Temperature - [...] No 01/05/2021 documented as of this encounter Nursing Notes * Apple Wong CCMA - 11/14/2023 10:15 AM EDT Pt here for BP check per You Estrada PA-C documented in this encounter Miscellaneous Notes * Addendum Note - You Nuñez PA-C - 11/14/2023 10:22 AM EDT Addended by: YOU NUÑEZ on: 11/14/2023 10:22 AM Modules accepted: Orders documented in this encounter Plan of Treatment Upcoming Encounters Date Type Department Care Team ([facility] st Contact Info) Description 11/14/2023 3:00 PM EDT Imaging Radiology, [place] [address] [facility] [place] [address] 11/16/2023 9:30 AM EDT Nurse Only Gynecology/Obstetics [place] [address] [facility] [place] [phone] Nupur, Nurse Berry Picker Machine Operator Lock [address] [place] [address] 11/16/2023 9:30 AM EDT Office Visit Gynecology/Obstetics [place] [address] [place] [address] Hermilo Taylor MD [address] [place] [address] 11/20/2023 8:30 AM EDT Office Visit Gynecology/Obstetrics [facility] [address] [place] [address] Kayy Costa PA-C [address] [place] [address] Ivan Non Stress Tests Kim [address] [place] [address] 11/23/2023 11:15 AM EDT Office Visit Gynecology/Obstetrics [facility] [address] [place] [address] Isabel Quevedo CRNP [address] [place] [address] Ivan Non Stress Tests Kim [address] [place] [address] 11/27/2023 1:15 PM EDT Office Visit Gynecology/Obstetrics [facility] [address] [place] [address] Antonietta Hair CRNP [address] [place] [address] Ivan Non Stress Tests Kim [address] [place] [address] 11/30/2023 1:00 PM EDT Office Visit Gynecology/Obstetrics [facility] [address] [place] [address] Isabel Quevedo CRNP [address] [place] [address] Ivan, Non Stress Tests Kim [address] [place] [address] 12/04/2023 9:15 AM EDT Office Visit Gynecology/Obstetrics [facility] [address] [place] [address] Brenton Brown MD [address] [place] [address] Ivan Non Stress Tests Kim [address] [place] [address] 12/06/2023 8:45 AM EDT Imaging Radiology, [place] [id number] [place] [address] 12/07/2023 1:00 PM EDT Office Visit Gynecology/Obstetrics [facility] [address] [place] [address] Antonietta Hair CRNP [address] [place] [address] Ivan, Non Stress Tests Kim [address] [place] [address] 12/11/2023 11:00 AM EDT Office Visit Gynecology/Obstetrics [facility] [address] [place] [address] Antonietta Hair CRNP [address] [place] [address] Love, Non Stress Tests Kim [address] [place] [address] 12/14/2023 1:00 PM EDT Office Visit Gynecology/Obstetrics [facility] [address] [place] [address] Fatuma Gutierrez MD [address] [place] [address] Ivan, Non Stress Tests Kim [address] [place] [address] Health Maintenance Due Date Last Done Comments [...] the patient have Health Care Power of Photolithographer? No Code Status History Code Status Date Activated Date Inactivated Comments Full Code 01/05/2021 11:33 AM 01/05/2021 6:10 PM This o rder reflects the patients wishes and were consensually agreed upon. Care Teams Manager Sports Relationship Specialty Start Date End Date Taryn Melgar PA-C [address] [place] [address] [place] [id number] PCP - General Physician Chuck Boner 09/20/18 documented as of this encounter
--- OUTSIDE RECORDS SUMMARY | 2023-12-18 07:57 | External Medical Summary ---
Author Name Unknown Address Unknown Organization : Laboratory Report Ordering Provider Test Date Status LIDIA ORTA 11/16/2023 10:36:00 Final Observation Date Value Abnormality Reference (Units ) Status Color of Urine by Auto 11/16/2023 10:36:00 Yellow Light Yellow, Yellow Final Clarity, Urine 11/16/2023 10:36:00 Cloudy Abnormal Clear Final Glucose [Mass/volume] in Urine by Automated test strip 11/16/2023 10:36:00 Negative Negative (mg/dL) Final Bilirubin.total [Presence] in Urine by Automated test strip 11/16/2023 10:36:00 Negative Negative Final Ketones [Mass/volume] in Urine by Automated test strip 11/16/2023 10:36:00 Negative Negative (mg/dL) Final Specific gravity, Urine 11/16/2023 10:36:00 1.020 1.003-1.030 Final Hemoglobin [Presence] in Urine by Automated test strip 11/16/2023 10:36:00 Trace-intact Abnormal Negative Final pH, Urine 11/16/2023 10:36:00 6.5 5.0, 5.5, 6.0, 6.5, 7.0, 7.5 (units) Final Protein [Mass/volume] in Urine by Automated test strip 11/16/2023 10:36:00 Negative Negative (mg/dL) Final Urobilinogen, Urine 11/16/2023 10:36:00 0.2 0.2, 1.0 (mg/dL) Final Nitrite [Presence] in Urine by Automated test strip 11/16/2023 10:36:00 Negative Negative Final Leukocyte esterase [Presence] in Urine by Automated test strip 11/16/2023 10:36:00 Trace Abnormal Negative Final Performing Location
--- OUTSIDE RECORDS SUMMARY | 2023-12-18 07:57 | External Medical Summary | Summary of Care ---
Author Name Unknown Organization [facility] Address [address] [place] [address] Phone [phone] Care Team Providers Care Wood Turner Name Role Phone Taryn Melgar PA-C Primary Care Provider Reason for Visit * Reason Comments Outpatient Testing Encounter Details Date Type Department Care Team (Late st Contact Info) Description 11/14/2023 11:20 AM EDT Laboratory Laboratory Patient Service [address] [phone] [address] Right upper quadrant abdominal pain affecting Allergies Active Allergy Reactions Criticality Noted Date [...] at bedtime 07/12/23-elevated sugars- msg send to SUPERINTENDENT MAINTENANCE 07/12/23: RPM reviewed; elevated FBS; increase [...] PACs 3. Normal biventricular function 4. Mild PA The above findings were shared with the [...] dealing with it, otherwise can deliver in [place]. 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 Atrioventricular (AV) synchrony is noted . heart rate is 120-130 BPM. Frequent premature atrial contractions. PACs in [facility]. 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 On today's [...] and folate levels and referral to a air quality manager. 4. If hemoglobin levels are below 8 g/dl, we recommend Maternal Medicine ultrasound for growth every 4 weeks after 24 weeks. Consider a blood transfusion if hemoglobin levels fall below 6 g/dL. ([employer] Signing Agent Practice Bulletin Number 95, February,). 5. Consider [...] testing and report weekly to M via [employer]. Discussed that medication may be needed if elevated blood sugars do not improve with diet alone. Patient agreeable to starting insulin if needed. Will review again next week. 07/25/22: [facility]T consult complete. 07/27/22: elevated fasting; [...] 08/22/22: Taking 15 units Levemir at HS. [place] woozy after 20 units. Was sick last [...] money to get more. Never true 11/01/2022 [place] Depression Scale Answer Date Recorded [place] Depression Scale Total 2 09/14/2023 The thought [...] No 01/05/2021 documented as of this encounter Plan of Treatment Upcoming Encounters Date Type Department Care Team (Late st Contact Info) Description 11/14/2023 3:00 PM EDT Imaging Radiology, [address] [phone] 11/16/2023 9:30 AM EDT Nurse Only Gynecology/Obstetics [address] [address] Havesamira, Nurse Senior Storage Administrator [address] [address] 11/16/2023 9:30 AM EDT Office Visit Gynecology/Obstetics [address] [phone] Hermilo Taylor MD [address] [place] [address] 11/20/2023 8:30 AM EDT Office Visit Gynecology/Obstetrics [facility] [address] [facility] [place] [address] Kayy Costa PA-C [address] [place] [address] Ivan, Non Stress Tests Kim [address] [place] [address] 11/23/2023 11:15 AM EDT Office Visit Gynecology/Obstetrics [facility] [address] [place] [address] Isabel Quevedo CRNP [address] [place] [address] Love, Non Stress Tests Kim [address] [place] [address] 11/27/2023 1:15 PM EDT Office Visit Gynecology/Obstetrics [facility] [address] [place] [address] Antonietta Hair CRNP [address] [place] [address] Love, Non Stress Tests Kim [address] [place] [address] 11/30/2023 1:00 PM EDT Office Visit Gynecology/Obstetrics [facility] [address] [place] [address] Isabel Quevedo CRNP [address] [place] [address] Ivan Non Stress Tests Kim [address] [place] [address] 12/04/2023 9:15 AM EDT Office Visit Gynecology/Obstetrics [facility] [address] [place] [address] Brenton Brown MD [address] [place] [address] Ivan, Non Stress Tests Kim [address] [place] [address] 12/06/2023 8:45 AM EDT Imaging Radiology, [address] [address] 12/07/2023 1:00 PM EDT Office Visit Gynecology/Obstetrics [facility] [address] [place] [address] Backer, MIRTA German [address] [place] [address] Love, Non Stress Tests Kim [address] [place] [address] 12/11/2023 11:00 AM EDT Office Visit Gynecology/Obstetrics [facility] [address] [place] [address] Backer, MIRTA German [address] [place] [address] Ivan Non Stress Tests Kim [address] [place] [address] 12/14/2023 1:00 PM EDT Office Visit Gynecology/Obstetrics [facility] [address] [place] [address] Fatuma Gutierrez MD [address] [place] [address] [place] [address] Ivan Non Stress Tests Kim [address] [place] [address] Pending Results Name Type Priority Associated Diagnoses Date /Time CBC WITH WBC DIFFERENTIAL Lab Routine Right upper quadrant abdominal pain affecting 11/14/2023 10:44 AM EDT COMPREHENSIVE METABOLIC PANEL Lab Routine Right upper quadrant abdominal pain affecting 11/14/2023 10:44 AM EDT PROTEIN/ CREATININE RATIO, URINE Lab Routine Right upper quadrant abdominal pain affecting 11/14/2023 10:44 AM EDT CBC Lab Routine Right upper quadrant abdominal pain affecting 11/14/2023 10:44 AM EDT DIFFERENTIAL, AUTOMATED Lab Routine Right upper quadrant abdominal pain affecting 11/14/2023 10:44 AM EDT Health Maintenance Due Date Last Done Comments Hepatitis B (1 of 3 - 19+ 3-dose series) 2012 Depression Screening 07/05/2022 07/05/2021 COVID-19 Vaccine (2022-24 season) 2023 HPV/Co-Test 11/03/2023 Influenza Vaccine (FLU [...] as of this encounter Visit Diagnoses Diagnosis Right upper quadrant abdominal pain affecting documented in this encounter Advance Directives Latest [...] the patient have Health Care Power of Condenser Tube Tender? No Code Status History Code Status Date Activated Date Inactivated Comments Full Code 01/05/2021 11:33 AM 01/05/2021 6:10 PM This o rder reflects the patients wishes and were consensually agreed upon. Care Teams Wood Turner Relationship Specialty Start Date End Date Taryn Melgar PA-C [address] [place], [place] [address] [id number] PCP - General Physician Hemmer Chainstitch 09/20/18 documented as of this encounter
--- OUTSIDE RECORDS SUMMARY | 2023-12-18 07:57 | External Medical Summary | Summary of Care ---
Author Name Unknown Organization [facility] Address [address] [place] [address] Phone [phone] Care Team Providers Care Remarketing Rep Name Role Phone Taryn Melgar PA-C Primary Care Provider Reason for Visit * Reason Comments Blood Pressure Check Encounter Details Date Type Department Care Team (Late st Contact Info) Description 11/14/2023 10:30 AM EDT Nurse Only Gynecology/Obstetics [place] [address] [place] [address] Havesamira, Nurse Gunite Mixer Lock [address] [place] [phone] Blood Pressure Check Allergies Active Allergy Reactions [...] at bedtime 07/12/23-elevated sugars- msg send to DRY GOODS CLERK 07/12/23: RPM reviewed; elevated FBS; increase [...] dealing with it, otherwise can deliver in [place]. Last Assessment & Plan: She was seen [...] and folate levels and referral to a memorial designer. 4. If hemoglobin levels are below 8 g/dl, we recommend Maternal Medicine ultrasound for growth every 4 weeks after 24 weeks. Consider a blood transfusion if hemoglobin levels fall below 6 g/dL. ([employer] and Raschel Knitting Machine Operator Practice Bulletin Number 95, February,). [...] testing and report weekly to M via Asoka. Discussed that medication may be needed if elevated blood sugars do not improve with diet alone. Patient agreeable to starting insulin if needed. Will review again next week. 07/25/22: [facility] AD[facility]T consult complete. 07/27/22: elevated fasting; [...] 08/22/22: Taking 15 units Levemir at HS. [place] woozy after 20 units. Was sick last [...] money to get more. Never true 11/01/2022 [place] Depression Scale Answer Date Recorded [place] Depression Scale Total 2 09/14/2023 The thought [...] Upcoming Encounters Date Type Department Care Team ([facility] st Contact Info) Description 11/14/2023 3:00 PM EDT Imaging Radiology, [place] [address] [facility] [place] [address] 11/16/2023 9:30 AM EDT Nurse Only Gynecology/Obstetics [place] [address] [facility] [place] [phone] Nupur, Nurse Gunite Mixer Lock [address] [place] [address] 11/16/2023 9:30 AM EDT Office Visit Gynecology/Obstetics [place] [address] [place] [address] Hermilo Taylor MD [address] [place] [address] 11/20/2023 8:30 AM EDT Office Visit Gynecology/Obstetrics [facility] [address] [place] [address] Kayy Costa PA-C [address] [place] [address] Ivan Non Stress Tests Kim [address] [place] [address] 11/23/2023 11:15 AM EDT Office Visit Gynecology/Obstetrics [facility] [address] [place] [address] sIabel Quevedo CRNP [address] [place] [address] Ivan Non Stress Tests Kim [address] [place] [address] 11/27/2023 1:15 PM EDT Office Visit Gynecology/Obstetrics [facility] [address] [place] [address] Antonietta Hair CRNP [address] [place] [address] Ivan Non Stress Tests Kim [address] [place] [address] 11/30/2023 1:00 PM EDT Office Visit Gynecology/Obstetrics [facility] [address] [place] [address] Isabel Quevedo CRNP [address] [place] [address] Ivan, Non Stress Tests Kim [address] [place] [address] 12/04/2023 9:15 AM EDT Office Visit Gynecology/Obstetrics [facility] [address] [place] [address] Brenton Brown MD [address] [place] [address] Ivan Non Stress Tests Kim [address] [place] [address] 12/06/2023 8:45 AM EDT Imaging Radiology, [place] [address] [place] [address] 12/07/2023 1:00 PM EDT Office Visit Gynecology/Obstetrics [facility] [address] [place] [address] Antonietta Hair CRNP [address] [place] [address] Ivan, Non Stress Tests Kim [address] [place] [address] 12/11/2023 11:00 AM EDT Office Visit Gynecology/Obstetrics [facility] [address] [place] [address] Antonietta Hair CRNP [address] [place] [address] Love, Non Stress Tests Kim [address] [place] [address] 12/14/2023 1:00 PM EDT Office Visit Gynecology/Obstetrics [facility] [address] [place] [address] Fatuma Gutierrez MD [address] [place] [address] Ivan, Non Stress Tests Kim [address] [place] [address] Health Maintenance Due Date Last Done Comments [...] the patient have Health Care Power of Tube Test Technician? No Code Status History Code Status Date Activated Date Inactivated Comments Full Code 01/05/2021 11:33 AM 01/05/2021 6:10 PM This o rder reflects the patients wishes and were consensually agreed upon. Care Teams Remarketing Rep Relationship Specialty Start Date End Date Taryn Melgar PA-C [address] [place] [address] [place] [phone] PCP - General Physician Television Engineer 09/20/18 documented as of this encounter
--- OUTSIDE RECORDS SUMMARY | 2023-12-18 07:58 | External Medical Summary | Summary of Care ---
Author Name Unknown Organization [facility] Address [address] [place] [address] Phone [phone] Care Team Providers Care Materials Planner/Production Planner Name Role Phone Taryn Melgar PA-C Primary Care Provider Reason for Visit * Reason Comments Outpatient Testing Encounter Details Date Type Department Care Team (Late st Contact Info) Description 11/06/2023 9:30 AM EDT Laboratory Laboratory Patient Service [address] [phone] [address] Arrived Allergies Active Allergy Reactions Criticality Noted Date Comments Pollen Other (Please comment) Low 01/05/2021 documented as of this encounter (statuses as of 11/06/2023) Medications Medication Sig Dispensed Refills Start Date [...] as of this encounter (statuses as of 11/06/2023) Active Problems Problem Noted Date Diagnosed Date [...] at bedtime 07/12/23-elevated sugars- msg send to MARQUETRY WORKER 07/12/23: RPM reviewed; elevated FBS; increase to [...] stable 10/10/23-stable 10/18/23- stable 10/31/23: RPM Stable Last Assessment & Plan: Working with ADAPT. Abnormal glucose tolerance in mother complicatin g 06/24/2023 BMI 32.0-32.9,adult 05/27/2023 Constipation during , antepartum 2022 History of gestational diabetes 05/27/2023 [facility]23 Overview: Estimated Date of [...] as of this encounter (statuses as of 11/06/2023) Resolved Problems Problem Noted Date Diagnosed Date [...] dealing with it, otherwise can deliver in [place]. 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 Atrioventricular (AV) synchrony is noted . heart rate is 120-130 BPM. Frequent premature atrial contractions[facility] 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 On [...] and folate levels and referral to a compliance paralegal. 4. If hemoglobin levels are below 8 g/dl, we recommend Maternal Medicine ultrasound for growth every 4 weeks after 24 weeks. Consider a blood transfusion if hemoglobin levels fall below 6 g/dL. ([employer] Practice Bulletin Number 95, February,). 5. Consider Venofer transfusions if patient labs supportive of iron deficiency anemia with dosing of 300 mg IV weekly x 3 weeks Insulin controlled gestation al diabetes mellitus (GDM) in third trimester 07/05/20223 Overview: Gestational diabetes diagnosed in third trimester by elevated 1 hour GCT and abnormal home glucose testing. Patient testing fasting and 1 hour postprandial blood sugars. Reports some fasting elevations as well as some higher numbers after meals. Nutrition consult completed 07/19. Will continue testing and report weekly to M via [employer]. Discussed that medication may be needed if elevated blood sugars do not improve with diet alone. Patient agreeable to starting insulin if needed. Will review again next week. 07/25/22: [facility] ADAPT consult complete. 07/27/22: elevated fasting; [...] 08/22/22: Taking 15 units Levemir at HS. [place] woozy after 20 units. Was sick last [...] as of this encounter (statuses as of 11/06/2023) Immunizations Name Administration Dates Next Due Seasonal [...] money to get more. Never true 11/01/2022 Agness Depression Scale Answer Date Recorded Ag[place] Depression Scale Total 2 09/14/2023 The thought [...] Care Team (Late st Contact Info) Description 11/08/2023 8:45 AM EDT Imaging Radiology, [facility] [address] [place] [address] 11/09/2023 3:00 PM EDT Nurse Only Gynecology/Obstetics [place] [facility] [phone] Nupur, Nurse Client Care Manager Lock 68 [place] [address] 11/13/2023 8:30 AM EDT Office Visit Gynecology/Obstetics [place] [address] [place], [place] [address]NE[place] [phone] Angie Nuñez PA-C 68 [place] [address] Nurse Adebayo Espitia RN 68 [place] [address] 11/13/2023 9:00 AM EDT Nurse Only Gynecology/Obstetics [place] [address] [place], [place] [address]NE[place] [phone] Nupur, Nurse Client Care Manager Lock [address] [place], [place] [address]NE[place]ITO hogan [address] 11/16/2023 9:30 AM EDT Nurse Only Gynecology/Obstetics [place] [address] [place], [place] [address]NE[place] [phone] Nupur, Nurse Client Care Manager Lock [address] [place], [place] [address]NE[place] [address] 11/16/2023 9:30 AM EDT Office Visit Gynecology/Obstetics [place] 68 [facility] [place] [phone] Hermilo Taylor MD [address] [place] [address], [place] [address] 11/20/2023 8:30 AM EDT Office Visit Gynecology/Obstetrics [facility] [address] [place] [address] Kayy Costa PA-C [address] [place] [address] Ivan Non Stress Tests Kim [address] [place] [address] 11/23/2023 11:15 AM EDT Office Visit Gynecology/Obstetrics [facility] [address] [place] [address] Isabel Quevedo CRNP [address] [place] [address] Ivan Non Stress Tests Kim [address] [place] [address] 11/27/2023 1:15 PM EDT Office Visit Gynecology/Obstetrics [facility] [address] [place] [address] Antonietta Hair CRNP [address] [place] [address] Ivan Non Stress Tests Kim [address] [place] [address] 11/30/2023 1:00 PM EDT Office Visit Gynecology/Obstetrics [facility] [address] [place] [address] Isabel Quevedo CRNP [address] [place] [address] Love, Non Stress Tests Kim [address] [place] [address] 12/04/2023 9:15 AM EDT Office Visit Gynecology/Obstetrics [facility] [address] [place] [address] Brenton Brown MD [address] [place] [address] Love, Non Stress Tests Kim [address] [place] [address] 12/07/2023 1:00 PM EDT Office Visit Gynecology/Obstetrics [facility] [address] [place] [address] BackerAntonietta CRNP [address] [place] [address] Ivan Non Stress Tests Kim [address] [place] [address] 12/11/2023 11:00 AM EDT Office Visit Gynecology/Obstetrics [facility] [address] [place] [address] BackerAntonietta CRNP [address] [place] [address] Ivan Non Stress Tests Kim [address] [place] [address] 12/14/2023 1:00 PM EDT Office Visit Gynecology/Obstetrics [facility] [address] [place] [address] Fatuma Gutierrez MD [address] [place] [address] [place] [address] Love, Non Stress Tests [facility] [address] [place] [address] Health Maintenance Due Date Last Done Comments [...] the patient have Health Care Power of [employer] Executive Director? No Code Status History Code Status Date Activated Date Inactivated Comments Full Code 01/05/2021 11:33 AM 01/05/2021 6:10 PM This o rder reflects the patients wishes and were consensually agreed upon. Care Teams Materials Planner/Production Planner Relationship Specialty Start Date End Date Taryn Melgar PA-C [address] [place] [address] [place]it[place] [address] PCP - General Physician It Web Development Consultant 09/20/18 documented as of this encounter
--- OUTSIDE RECORDS SUMMARY | 2023-12-18 07:58 | External Medical Summary ---
Author Name Unknown Address Unknown Organization K01:[facility] [place] [address] [place] [address] [facility] [address] Laboratory Report Ordering Provider Test Date Status LIDIA ORTA 11/14/2023 10:44:13 Final Observation Date Value Abnormality Reference (Units ) Status WBC, Total 11/14/2023 10:44:13 6.61 4.00-10.80 (K/uL) Final RBC 11/14/2023 10:44:13 3.93 3.85-5.15 (M/uL) Final Hemoglobin 11/14/2023 10:44:13 11.4 Below low normal 12.0-15.3 (g/dL) Final HCT 11/14/2023 10:44:13 33.8 Below low normal 36.0-45.2 (%) Final MCV 11/14/2023 10:44:13 86.0 81.5-97.5 (fL) Final MCH 11/14/2023 10:44:13 29.0 27.0-34.0 (pg) Final MCHC 11/14/2023 10:44:13 33.7 32.0-36.0 (g/dL) Final RDW 11/14/2023 10:44:13 14.5 11.5-15.5 (%) Final Platelets 11/14/2023 10:44:13 183 140-400 (K/uL) Final MPV 11/14/2023 10:44:13 12.2 6.6-11.1 (fL) Final Nucleated erythrocytes/100 leukocytes [Ratio] in Blood by Automated count 11/14/2023 10:44:13 0 <=0 (/100 WBCs) Final Performing Location [facility] [address] [facility] [address]
--- OUTSIDE RECORDS SUMMARY | 2023-12-18 07:58 | External Medical Summary | Summary of Care ---
Author Name Unknown Organization [facility] Address [address] [place] [address] Phone [phone] Care Team Providers Care Fire Support Specialist Name Role Phone Taryn Melgar PA-C Primary Care Provider Reason for Visit * Reason Comments Non Stress Test Encounter Details Date Type Department Care Team (Late st Contact Info) Description 11/06/2023 9:15 AM EDT Office Visit Gynecology/Obstetics [place] [address] [place] [phone] Angie Nuñez PA-C [address] [place] [address] Insulin controlled gestational diabetes mellitus (GDM) during , antepartum* Allergies Active Allergy Reactions Criticality Noted Date [...] at bedtime 07/12/23-elevated sugars- msg send to TURF FARMER 07/12/23: RPM reviewed; elevated FBS; increase to [...] dealing with it, otherwise can deliver in [place]. 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 Atrioventricular (AV) synchrony is noted . heart rate is 120-130 BPM. Frequent premature atrial contractions. [facility]. 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 On [...] and folate levels and referral to a sweatband flanger. 4. If hemoglobin levels are below 8 g/dl, we recommend Maternal Medicine ultrasound for growth every 4 weeks after 24 weeks. Consider a blood transfusion if hemoglobin levels fall below 6 g/dL. ([employer] K[employer] Practice Bulletin Number 95, February,). 5. Consider [...] weekly to [facility] via [employer]. Discussed that medication may be needed if [...] 08/22/22: Taking 15 units Levemir at HS. [place] woozy after 20 units. Was sick last [...] money to get more. Never true 11/01/2022 [place] Depression Scale Answer Date Recorded [place] Depression Scale Total 2 09/14/2023 The thought [...] Sign Reading Time Taken Comments Blood Pressure 106/64 11/06/2023 9:06 AM EDT Pulse - - Temperature - [...] Progress Notes * Angie Nuñez PA-C - 11/06/2023 10:13 AM EDT BP 106/64 | LMP 03/18/2023 (Exact Date) Patient is here for NON STRESS TEST. NON STRESS TEST is reactive. Continue twice weekly NSTs until delivery. Angie Estrada PA-C documented in this encounter Nursing Notes * Ivon Rankin, RN - 11/06/2023 9:01 AM EDT Patient presents for scheduled NST. Denies any concerns. EFM applied at 0839 - Angie Estrada PA-C aware. documented in this encounter Plan of Treatment Upcoming Encounters Date Type Department Care Team (Late st Contact Info) Description 11/08/2023 8:45 AM EDT Imaging Radiology, [facility] [address] [place] [address] 11/09/2023 3:00 PM EDT Nurse Only Gynecology/Obstetics [place] [address] [place] [phone] Haven, Nurse Evaluator Transfer Students Lock [address] [place] [address] 11/13/2023 8:30 AM EDT Office Visit Gynecology/Obstetics [place] [address] [place] [phone] Angie Nuñez PA-C [address] [place], [place] [phone] Haven, Nurse Healthy Beginnings Dean, RN [address] [place], [place] [phone] 11/13/2023 9:00 AM EDT Nurse Only Gynecology/Obstetics [place] [address] [place] [phone] Haven, Nurse Evaluator Transfer Students Lock [address] [place] [phone] 11/16/2023 9:30 AM EDT Nurse Only Gynecology/Obstetics [place] [address] [place] [address] [place] [phone] uNpur, Nurse Evaluator Transfer Students Lock [address] [place] [address] 11/16/2023 9:30 AM EDT Office Visit Gynecology/Obstetics [place] 68 [facility] [place] [phone] Hermilo Taylor MD [address] [place], [place] [phone] 11/20/2023 8:30 AM EDT Office Visit Gynecology/Obstetrics [facility] [address] [facility] [place] [address] Kayy Costa PA-C [address] [place] [address] Betty Love Stress Tests Kim [address] [place] [address] 11/23/2023 11:15 AM EDT Office Visit Gynecology/Obstetrics [facility] [address] [place] [address] Isabel Quevedo CRNP [address] [place] [address] Love, Non Stress Tests Kim [address] [place] [address] 11/27/2023 1:15 PM EDT Office Visit Gynecology/Obstetrics [facility] [address] [place] [address] Antonietta Hair CRNP [address] [place] [address] Love, Non Stress Tests Kim [address] [place] [address] 11/30/2023 1:00 PM EDT Office Visit Gynecology/Obstetrics [facility] [address] [place] [address] Isabel Quevedo CRNP [address] [place] [address] Love, Non Stress Tests Kim [address] [place] [address] 12/04/2023 9:15 AM EDT Office Visit Gynecology/Obstetrics [facility] [address] [place] [address] Brenton Brown MD [address] [place] [address] Love, Non Stress Tests Kim [address] [place] [address] 12/07/2023 1:00 PM EDT Office Visit Gynecology/Obstetrics Arlen Love [address] [place] [address] BackerAntonietta CRNP [address] [place] [address] Ivan, Non Stress Tests Kim [address] [place] [address] 12/11/2023 11:00 AM EDT Office Visit Gynecology/Obstetrics Arlen Love [address] [place] [address] BackerAntonietta CRNP [address] [place] [address] Love Non Stress Tests Kim [address] [place] [address] 12/14/2023 1:00 PM EDT Office Visit Gynecology/Obstetrics Ar[facility] Love [address] [place] [address] Fatuma Gutierrez MD [address] [place] [address] [place] [address] Ivan Non Stress Tests Kim [address] [place] [address] Health Maintenance Due Date Last Done Comments [...] Date/Time Associated Diagnosis Comments NON-STRESS TEST Routine 11/06/2023 8:39 AM EDT Insulin controlled gestational diabetes mellitus (GDM) during , antepartum documented in this encounter Results * NON-STRESS TEST (11/06/2023 8:39 AM EDT) NST Reactive 11/06/2023 8:39 AM EDT Narrative Chase Darling, Angie Cox PA-C - 11/06/2023 8:39 AM EDT ASSESSMENT assessment with Non-stress Test completed on 11/06/2023 at 33 weeks, 2 days gestation for indication of insulin dependent gestational diabetes. heart baseline: 130 bpm Variability: Moderate Decelerations: absent Accelerations: present (more than two 15 x 15 accelerations) Contractions: None NST start time: 8:39 am NST stop time: 9:01 am NST strip reviewed, interpreted, and approved by OB provider, Angie Estrada PA-C. NST strip stored in clinic storage file. Angie Darling PA-C SURGERY documented in this encounter Visit Diagnoses Diagnosis Insulin controlled gestational diabetes mellitus (GDM) during , antepartum- Primary documented in this encounter Advance Directives [...] the patient have Health Care Power of Kick Plate Installer? No Code Status History Code Status Date Activated Date Inactivated Comments Full Code 01/05/2021 11:33 AM 01/05/2021 6:10 PM This o rder reflects the patients wishes and were consensually agreed upon. Care Teams Fire Support Specialist Relationship Specialty Start Date End Date Taryn Melgar PA-C [address] [place] [address] [place]pitia [address] PCP - General Physician Legal Summer Intern 09/20/18 documented as of this encounter
--- OUTSIDE RECORDS SUMMARY | 2023-12-18 07:58 | External Medical Summary | Summary of Care ---
Author Name Unknown Organization [facility] Address [address] [place] [address] Phone [phone] Care Team Providers Care Maintainer Central Office Name Role Phone Taryn Melgar PA-C Primary Care Provider Encounter Details Date Type Department Care Team (Late st Contact Info) Description 11/08/2023 8:45 AM EDT Office Visit Press Cleaner Obstetrics [facility] [address] Aniya Carson, DO [address] [place] [address] Obesity in , antepartum*; Insulin controlled gestational diabetes mellitus (GDM) during , antepartum; Ultrasound for screening for growth restriction; 33 weeks gestation of Allergies Active Allergy Reactions Criticality Noted Date Comments Pollen Other (Please comment) Low 01/05/2021 documented as of this encounter (statuses as of 11/08/2023) Medications Medication Sig Dispensed Refills Start Date [...] as of this encounter (statuses as of 11/08/2023) Active Problems Problem Noted Date Diagnosed Date [...] at bedtime 07/12/23-elevated sugars- msg send to [facility] RN 07/12/23: RPM reviewed; elevated FBS; increase to [...] stable 10/31/23: RPM Stable 11/07/23: RPM Stable Last Assessment & Plan: Working [...] as of this encounter (statuses as of 11/08/2023) Resolved Problems Problem Noted Date Diagnosed Date Resolved Date arrhythmia affecting p regnancy, antepartum 08/17/2022 05/27/2023 Overview: arythmia noted 08/12, saw peds cardio IMPRESSION and PLAN: 1. PACs in [place] giving the appearance of HR variability between 60-160 bpm 2. 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 Normal biventricular function 4. Mild NM The above findings were shared with the [...] dealing with it, otherwise can deliver in [place]. 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 Atrioventricular (AV) synchrony is noted . heart rate is 120-130 BPM. Frequent premature atrial contractions. PACs in [facility]. 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 On [...] and folate levels and referral to a tobacco grower. 4. If hemoglobin levels are below 8 g/dl, we recommend Maternal Medicine ultrasound for growth every 4 weeks after 24 weeks. Consider a blood transfusion if hemoglobin levels fall below 6 g/dL. ([employer] and [employer] Promoter Practice Bulletin Number 95, February,). 5. Consider [...] Will continue testing and report weekly to [facility] via [employer]. Discussed that medication may be needed if elevated blood sugars do not improve with diet alone. Patient agreeable to starting insulin if needed. Will review again next week. 07/25/22: [facility] ADAPT consult complete. 07/27/22: elevated fasting; [...] 08/22/22: Taking 15 units Levemir at HS. [place] woozy after 20 units. Was sick last [...] MEDICINE referral made. Last Assessment & Plan: [facility] anatomy/growth ultrasound scheduled for 08/03/22. Patient [...] Doing well on Colace. Postoperative nausea 01/05/2021 06/18/2 021 Encounter for preconception consultation 09/23/2020 08/17/2022 Nexplanon removal 09/13/2019 08/17/2022 documented as of this encounter (statuses as of 11/08/2023) Immunizations Name Administration Dates Next Due Seasonal [...] money to get more. Never true 11/01/2022 [place] Depression Scale Answer Date Recorded [place] Depression Scale Total 2 09/14/2023 The thought [...] of this encounter Progress Notes * Aniya Carson DO - 11/08/2023 11:46 AM EDT Lacy presented today at 33w4d for an ultrasound for the following indications: Obesity in , antepartum Insulin controlled gestational diabetes mellitus (GDM) during , antepartum Ultrasound for screening for growth restriction 33 weeks gestation of Ultrasound summary: Patient presented at 33w 4d for growth assessment. Normal growth with EFW 2274 g at 49%ile. Normal SHANNON at 15.4 cm. Cephalic presentation. BPP 03/14. I reviewed the ultrasound images. Lacy was given the opportunity to meet with me if she had any questions. Please refer to the ultrasound report for additional details about today's ultrasound examination. RECOMMENDATIONS: Recommend follow up ultrasound with MFM in 4 weeks for growth secondary to above indications. 2x weekly NSTs. See prior formal MFM consultation note. Thank you for allowing us to participate in the care of this patient. Please call with any questions. Aniya Carson DO 11/08/2023 11:47 AM documented in this encounter Plan of Treatment Upcoming Encounters Date Type Department Care Team (Late st Contact Info) Description 11/09/2023 3:00 PM EDT Nurse Only Gynecology/Obstetics [place] 68 [facility] ExpressNEGRITO [place] [phone] Nupur Nurse Manager Of Case Lock 68 [facility] [address] 11/09/2023 3:15 PM EDT Office Visit Gynecology/Obstetics [place] 68 [facility] [place] [phone] Angie Nuñez PA-C [address] [place] [address] 11/13/2023 8:30 AM EDT Office Visit Gynecology/Obstetics [place] [address] [place] [phone] Angie Nuñez PA-C [address] [place] [address] Nupur, Nurse Healthy Beginnings Dean, RN [address] [place] [address] 11/13/2023 9:00 AM EDT Nurse Only Gynecology/Obstetics [place] [address] [place] [phone] Nupur, Nurse Manager Of Case Lock [address] [place] [address] 11/16/2023 9:30 AM EDT Nurse Only Gynecology/Obstetics [place] [address] [place] [address], [place] [phone] Nupur, Nurse Manager Of Case Lock [address] [place] [address] 11/16/2023 9:30 AM EDT Office Visit Gynecology/Obstetics [place] [address] [place] [address] [place] [phone] Hermilo Taylor MD [address] [place] [address] 11/20/2023 8:30 AM EDT Office Visit Gynecology/Obstetrics [facility] Love [address] [facility] [place] [address] Kayy Costa PA-C [address] [place] [address] Love, Non Stress Tests Kim [address] [place] [address] 11/23/2023 11:15 AM EDT Office Visit Gynecology/Obstetrics [facility] [address] [place] [address] Isabel Quevedo CRNP [address] [place] [address] Love, Non Stress Tests Kim [address] [place] [address] 11/27/2023 1:15 PM EDT Office Visit Gynecology/Obstetrics [facility] [address] [place] [address] Antonietta Hair CRNP [address] [place] [address] Love, Non Stress Tests Kim [address] [place] [address] 11/30/2023 1:00 PM EDT Office Visit Gynecology/Obstetrics Arlen Vasquezs [address] [place] [address] Isabel Quevedo CRNP [address] [place] [address] Love, Non Stress Tests Kim [address] [place] [address] 12/04/2023 9:15 AM EDT Office Visit Gynecology/Obstetrics Moisess Love [address] [place] [address] Brenton Brown MD [address] [place] [address] Love, Non Stress Tests Kim [address] [place] [address] 12/06/2023 8:45 AM EDT Imaging Radiology, [facility] [address] [place] [address] 12/07/2023 1:00 PM EDT Office Visit Gynecology/Obstetrics Moralesmar Vasquezs [address] [place] [address] Antonietta Hair CRNP [address] [place] [address] Ivan Non Stress Tests Kim [address] [place] [address] 12/11/2023 11:00 AM EDT Office Visit Gynecology/Obstetrics AndrewRhiannoncher Love [address] [place] [address] BackAntonietta mustafa CRNP [address] [place] [address] Ivan Non Stress Tests Kim [address] [place] [address] 12/14/2023 1:00 PM EDT Office Visit Gynecology/Obstetrics Andrewmar Ivan [address] [place] [address] Fatuma Gutierrez MD [address] [place] [address] [place] [address] Ivan Non Stress Tests Kim [address] [place] [address] Health Maintenance Due Date Last Done Comments [...] restriction screening for growth retardation using ultrasonics 33 weeks gestation of state, incidental documented in [...] the patient have Health Care Power of Aligner Typewriter? No Code Status History Code Status Date Activated Date Inactivated Comments Full Code 01/05/2021 11:33 AM 01/05/2021 6:10 PM This o rder reflects the patients wishes and were consensually agreed upon. Care Teams Maintainer Central Office Relationship Specialty Start Date End Date Taryn Melgar PA-C [address] [place] [phone] PCP - General Physician Knife Operator 09/20/18 documented as of this encounter
--- OUTSIDE RECORDS SUMMARY | 2023-12-18 07:58 | External Medical Summary ---
Author Name Unknown Address Unknown Organization K01:LABORATORY [facility] [place] - [address] [place] [id number] Laboratory Report Ordering Provider Test Date Status LIDIA ORTA 11/14/2023 10:44:13 Final Normal: <150 mg/ g creatinine
High: 150-500 mg/g creatinine
Very High: >500 mg/g creatinine
Nephrotic: >3000 mg/g creatinine Observation Date Value Abnormality Reference (Units ) Status Protein/Creatinine [Ratio] in Urine 11/14/2023 10:44:13 148 <150 (mg/g ) Final Protein, Urine 11/14/2023 10:44:13 25 (mg/dL) Final Creatinine, Urine 11/14/2023 10:44:13 169 (mg/dL) Final Performing Location LAB[facility]ATORY [facility] - [address] [place] [id number]
--- OUTSIDE RECORDS SUMMARY | 2023-12-18 07:58 | External Medical Summary | Summary of Care ---
Author Name Unknown Organization [facility] Address [address] [place] [address] Phone [phone] Care Team Providers Care Mainframe Systems Engineer Name Role Phone Taryn Melgar PA-C Primary Care Provider Reason for Visit * Reason Comments Return Visit Encounter Details Date Type Department Care Team (Late st Contact Info) Description 11/09/2023 3:45 PM EDT Office Visit Gynecology/Obstetics [address] [phone] Angie Nuñez PA-C [address] [place], [place] [phone] Supervision of high-risk , third trimester*; Rh negative, antepartum; Insulin controlled gestational diabetes mellitus (GDM) during , antepartum; Short interval between pregnancies complicating , antepartum; Antepartum anemia complicating Allergies Active Allergy Reactions Criticality Noted Date Comments Pollen Other (Please comment) Low 01/05/2021 documented as of this encounter (statuses as of 11/10/2023) Medications Medication Sig Dispensed Refills Start Date [...] as of this encounter (statuses as of 11/10/2023) Active Problems Problem Noted Date Diagnosed Date [...] at bedtime 07/12/23-elevated sugars- msg send to EVP 07/12/23: RPM reviewed; elevated FBS; increase to [...] as of this encounter (statuses as of 11/10/2023) Resolved Problems Problem Noted Date Diagnosed Date [...] dealing with it, otherwise can deliver in [place]. Last Assessment & Plan: She was seen [...] and folate levels and referral to a school community relations coordinator. 4. If hemoglobin levels are below 8 g/dl, we recommend Maternal Medicine ultrasound for growth every 4 weeks after 24 weeks. Consider a blood transfusion if hemoglobin levels fall below 6 g/dL. ([employer] Practice Bulletin Number 95, February,). 5. [...] report weekly to [facility] via [employer] Discussed that medication may be needed if [...] 08/22/22: Taking 15 units Levemir at HS. [place] woozy after 20 units. Was sick last [...] as of this encounter (statuses as of 11/10/2023) Immunizations Name Administration Dates Next Due Seasonal [...] money to get more. Never true 11/01/2022 Dover Depression Scale Answer Date Recorded [place] Depression Scale Total 2 09/14/2023 The thought [...] Sign Reading Time Taken Comments Blood Pressure 114/70 11/09/2023 3:22 PM EDT Pulse - - Temperature - - Respiratory Rate - - Oxygen Saturation - - Inhaled Oxygen Concentration - - Weight 87.2 kg (192 lb 4.8 oz) 11/09/2023 3:22 P M EDT Height - - Body Mass Index 35.17 09/08/2022 10:04 AM EST documented in this [...] Progress Notes * Angie Nuñez PA-C - 11/09/2023 3:43 PM EDT Lacy Mckinney presents for visit at 33w5d. BP 114/70 | Wt 87.2 kg (192 lb 4.8 oz) | LMP 03/18/2023 (Exact Date) | BMI 35.17 kg/m | BSA 1.95m Doing well. Denies vaginal bleeding, leaking of fluid, vaginal pressure, abdominal pain, or abnormal vaginal discharge. Denies headaches, blurry vision, or right upper quadrant pain. Patient states she feels good movement. Patient has some intermittent talib storey contractions. Physical Exam General: alert and oriented, no acute distress Pulmonary: normal respiratory effort, no accessory muscle use. Abdomen: gravid, soft, non-tender NON STRESS TEST reactive. OB [place] Problems (from 05/09/23 to present) Problem Noted Resolved Antepartum anemia complicating 10/30/2023 by Angie Nuñez PA-C No Ferritin 11 on 10/12/2023. Anemia improved - continue oral iron. History of gestational diabetes mellitus (GDM) 06/27/2023 [...] at bedtime 07/12/23-elevated sugars- msg send to EVP 07/12/23: RPM reviewed; elevated FBS; increase to [...] on 10/12/2023. Plan: -NON STRESS TEST reactive. Continue twice weekly NSTs. -GBS culture at 36 weeks. -Rhogam given. -Tdap given. -Desires to breastfeed. -Anemia improved. Continue oral iron. Counseled patient to call triage/go to labor [...] Nursing Notes * Trudy Bolton RN - 11/09/2023 3:22 PM EDT Routine OB check. Denies questions or complaints. documented in this encounter Plan of Treatment Upcoming Encounters Date Type Department Care Team (Late st Contact Info) Description 11/13/2023 8:30 AM EDT Office Visit Gynecology/Obstetics [place] [address] [place] [phone] Angie Nuñez PA-C [address] [place] [address] Nupur, Nurse [facility] SOBIA Moran [address] [place], [place] [phone] 11/13/2023 9:00 AM EDT Nurse Only Gynecology/Obstetics [place] [address] [place] [phone] Nupur, Nurse Shift Supervisor Rn Lock [address] [place] [phone] 11/16/2023 9:30 AM EDT Nurse Only Gynecology/Obstetics [place] [address] [place] [phone] Nupur, Nurse Shift Supervisor Rn Lock [address] [place] [phone] 11/16/2023 9:30 AM EDT Office Visit Gynecology/Obstetics [place] [address] [place] [phone] Hermilo Taylor MD [address] [place] [phone] 11/20/2023 8:30 AM EDT Office Visit Gynecology/Obstetrics Arlen Love [address] [facility] [place] [address] Kayy Costa PA-C [address] [place] [address] Ivan Non Stress Tests Kim [address] [place] [address] 11/23/2023 11:15 AM EDT Office Visit Gynecology/Obstetrics [facility] Love [address] [place] [address] Isabel Quevedo CRNP [address] [place] [address] Love, Non Stress Tests Kim [address] [place] [address] 11/27/2023 1:15 PM EDT Office Visit Gynecology/Obstetrics [facility] Love [address] [place] [address] Antonietta Hair CRNP [address] [place] [address] Love, Non Stress Tests Kim [address] [place] [address] 11/30/2023 1:00 PM EDT Office Visit Gynecology/Obstetrics [facility] Love [address] [place] [address] Isabel Quevedo CRNP [address] [place] [address] Love, Non Stress Tests Kim [address] [place] [address] 12/04/2023 9:15 AM EDT Office Visit Gynecology/Obstetrics [facility] Love [address] [place] [address] Brenton Brown MD [address] [place] [address] Love, Non Stress Tests Kim [address] [place] [address] 12/06/2023 8:45 AM EDT Imaging Radiology, [facility] [address] [place] [address] 12/07/2023 1:00 PM EDT Office Visit Gynecology/Obstetrics Arlen Love [address] [place] [address] Backer, MIRTA German [address] [place] [address] Ivan Non Stress Tests Kim [address] [place] [address] 12/11/2023 11:00 AM EDT Office Visit Gynecology/Obstetrics Arlen Love [address] [place] [address] Backer, MIRTA German [address] [place] [address] Betty Love Stress Tests Kim [address] [place] [address] 12/14/2023 1:00 PM EDT Office Visit Gynecology/Obstetrics Arlen Love [address] [place] [address] Fatuma Gutierrez MD [address] [place] [address] [place] [address] Ivan Non Stress Tests Kim [address] [place] [address] Health Maintenance Due Date Last Done Comments [...] Date/Time Associated Diagnosis Comments NON-STRESS TEST Routine 11/09/2023 3:12 PM EDT Insulin controlled gestational diabetes mellitus (GDM) during , antepartum documented in this encounter Results * NON-STRESS TEST (11/09/2023 3:12 PM EDT) NST Reactive 11/09/2023 3:12 PM EDT Narrative Angie Nuñez PA-C - 11/09/2023 3:12 PM EDT ASSESSMENT assessment with Non-stress Test completed on 11/09/2023 at 33 weeks, 5 days gestation for indication of insulin dependent gestational diabetes. heart baseline: 130 bpm Variability: Moderate Decelerations: absent Accelerations: present (more than two 15 x 15 accelerations) Contractions: None NST start time: 3:12 pm NST stop time: 3:40 pm NST strip reviewed, interpreted, and approved by [...] the patient have Health Care Power of Family Practice Doctor? No Code Status History Code Status Date Activated Date Inactivated Comments Full Code 01/05/2021 11:33 AM 01/05/2021 6:10 PM This o rder reflects the patients wishes and were consensually agreed upon. Care Teams Mainframe Systems Engineer Relationship Specialty Start Date End Date Taryn Melgar PA-C [address] [place], [place] [address] [address] PCP - General Physician Ceramic Coater 09/20/18 documented as of this encounter
--- OUTSIDE RECORDS SUMMARY | 2023-12-18 07:58 | External Medical Summary ---
Author Name Unknown Address Unknown Organization K01:LABORATORY [facility] [place] - [address] [facility] [place] [address] Laboratory Report Ordering Provider Test Date Status LIDIA ORTA 11/06/2023 09:15:28 Final Observation Date Value Abnormality Reference (Units ) Status SYNC LEUKOCYTES IN BLOOD BY AUTOMATED COUNT 11/06/2023 09:15:28 9.27 4.00-10.80 (K/uL) Final Segs 11/06/2023 09:15:28 70.6 40.0-75.0 (%) Final Lymphs % 11/06/2023 09:15:28 21.4 18.0-42.0 (%) Final Monos 11/06/2023 09:15:28 6.1 1.0-11.0 (%) Final Eosinophils 11/06/2023 09:15:28 1.1 0.0-6.0 (%) Final Basos 11/06/2023 09:15:28 0.3 0.0-2.0 (%) Final Immature Granulocyte, Percent 11/06/2023 09:15:28 0.5 0.0-2.0 (%) Final Absolute Segs 11/06/2023 09:15:28 6.54 1.80-7.70 (K/uL) Final Lymphs, absolute 11/06/2023 09:15:28 1.98 1.00-4.80 (K/ul) Final Monos, Abs 11/06/2023 09:15:28 0.57 0.00-1.10 (K/uL) Final Eos, Abs 11/06/2023 09:15:28 0.10 0.00-0.70 (K/uL) Final Basos, Abs 11/06/2023 09:15:28 0.03 0.00-0.20 (K/uL) Final Immature Granulocytes, Number 11/06/2023 09:15:28 0.05 0.00-0.20 (K/uL) Final Performing Location LABORATORY [facility] - [address] [facility] [address]
--- OUTSIDE RECORDS SUMMARY | 2023-12-18 07:58 | External Medical Summary ---
Author Name Unknown Address Unknown Organization K01:LABORATORY [facility] [place] - [address] [facility] [place] [address] Laboratory Report Ordering Provider Test Date Status LIDIA ORTA 11/14/2023 10:44:13 Final Observation Date Value Abnormality Reference (Units ) Status BUN 11/14/2023 10:44:13 4 Below low normal 6-20 (mg/dL) Final Creatinine 11/14/2023 10:44:13 0.5 0.5-1.0 (mg/dL) Final Glomerular filtration rate/1.73 sq M.predicted [Volume Rate/Area] in Serum, Plasma or Blood by Creatinine-based formula (CKD-EPI) 11/14/2023 10:44:13 >90 >=60 (mL/min) Final eGFR is calculated based on the CKD-EPI 2020 equation Sodium 11/14/2023 10:44:13 136 135-146 (m mol/L) Final Potassium 11/14/2023 10:44:13 3.7 3.5-5.1 (m mol/L) Final Cl 11/14/2023 10:44:13 104 98-107 (mm ol/L) Final CO2 11/14/2023 10:44:13 19 Below low normal 22- 32 (mmol/L) Final Anion gap 11/14/2023 10:44:13 13 7-15 (mmol /L) Final Glucose 11/14/2023 10:44:13 124 Above high normal 70 -120 (mg/dL) Final Albumin 11/14/2023 10:44:13 3.4 Below low normal 3.8 -5.0 (g/dL) Final AST (Aspartate aminotransferase) 11/14/2023 10:44:13 13 10-35 (U/L) Fin al Alk Phos 11/14/2023 10:44:13 93 35-130 (U/ L) Final Bilirubin, Total 11/14/2023 10:44:13 0.2 <=1 .2 (mg/dL) Final Calcium 11/14/2023 10:44:13 8.3 Below low normal 8.4 -10.2 (mg/dL) Final Protein 11/14/2023 10:44:13 5.5 Below low normal 6.0 -8.3 (g/dL) Final ALT (Alanine aminotransferase) 11/14/2023 10:44:13 10 10-35 (U/L) Nik dillard Performing Location LABORATORY [facility] - [address] [facility] [address]
--- OUTSIDE RECORDS SUMMARY | 2023-12-18 07:58 | External Medical Summary ---
Author Name Unknown Address Unknown Organization K01:LABORATORY [facility] [place] - [address] [facility] [address] Laboratory Report Ordering Provider Test Date Status LIDIA ORTA 11/14/2023 10:44:13 Final Observation Date Value Abnormality Reference (Units ) Status SYNC LEUKOCYTES IN BLOOD BY AUTOMATED COUNT 11/14/2023 10:44:13 6.61 4.00-10.80 (K/uL) Final Segs 11/14/2023 10:44:13 79.8 Above high normal 40.0-75.0 (%) Final Lymphs % 11/14/2023 10:44:13 9.4 Below low normal 18.0-42.0 (%) Final Monos 11/14/2023 10:44:13 8.9 1.0-11.0 (%) Final Eosinophils 11/14/2023 10:44:13 1.1 0.0-6.0 (%) Final Basos 11/14/2023 10:44:13 0.2 0.0-2.0 (%) Final Immature Granulocyte, Percent 11/14/2023 10:44:13 0.6 0.0-2.0 (%) Final Absolute Segs 11/14/2023 10:44:13 5.28 1.80-7.70 (K/uL) Final Lymphs, absolute 11/14/2023 10:44:13 0.62 Below low normal 1.00-4.80 (K/ul) Final Monos, Abs 11/14/2023 10:44:13 0.59 0.00-1.10 (K/uL) Final Eos, Abs 11/14/2023 10:44:13 0.07 0.00-0.70 (K/uL) Final Basos, Abs 11/14/2023 10:44:13 0.01 0.00-0.20 (K/uL) Final Immature Granulocytes, Number 11/14/2023 10:44:13 0.04 0.00-0.20 (K/uL) Final Performing Location LABORATORY [facility] - [facility] [place] [address]
--- OUTSIDE RECORDS SUMMARY | 2023-12-18 07:59 | External Medical Summary ---
Author Name Unknown Address Unknown Organization K01:[facility]ORY [facility] [place] - [address] [facility] [place] [address] Laboratory Report Ordering Provider Test Date Status LIDIA ORTAYESSICA 10/12/2023 08:45:03 Final Observation Date Value Abnormality Reference (Units ) Status SYNC LEUKOCYTES IN BLOOD BY AUTOMATED COUNT 10/12/2023 08:45:03 10.06 4.00-10.80 (K/uL) Final Segs 10/12/2023 08:45:03 68.6 40.0-75.0 (%) Final Lymphs % 10/12/2023 08:45:03 21.8 18.0-42.0 (%) Final Monos 10/12/2023 08:45:03 8.0 1.0-11.0 (%) Final Eosinophils 10/12/2023 08:45:03 0.8 0.0-6.0 (%) Final Basos 10/12/2023 08:45:03 0.3 0.0-2.0 (%) Final Immature Granulocyte, Percent 10/12/2023 08:45:03 0.5 0.0-2.0 (%) Final Absolute Segs 10/12/2023 08:45:03 6.91 1.80-7.70 (K/uL) Final Lymphs, absolute 10/12/2023 08:45:03 2.19 1.00-4.80 (K/ul) Final Monos, Abs 10/12/2023 08:45:03 0.80 0.00-1.10 (K/uL) Final Eos, Abs 10/12/2023 08:45:03 0.08 0.00-0.70 (K/uL) Final Basos, Abs 10/12/2023 08:45:03 0.03 0.00-0.20 (K/uL) Final Immature Granulocytes, Number 10/12/2023 08:45:03 0.05 0.00-0.20 (K/uL) Final Performing Location LABORATORY [facility] - [address] [facility] [address]
--- OUTSIDE RECORDS SUMMARY | 2023-12-18 07:59 | External Medical Summary ---
Author Name Unknown Address Unknown Organization K01:LABORATORY [facility] [place] - [facility] [address] [facility] [address] Laboratory Report Ordering Provider Test Date Status LIDIA ORTA 10/12/2023 08:45:03 Final Observation Date Value Abnormality Reference (Units) Status Blood group antibody investigation [Interpretation] in Plasma or RBC 10/12/2023 08:45:03 Findings: Final Blood group antibody investigation [Interpretation] in Plasma or RBC 10/12/2023 08:45:03 Final Blood group antibody investigation [Interpretation] in Plasma or RBC 10/12/2023 08:45:03 Passive anti-D. Final Blood group antibody investigation [Interpretation] in Plasma or RBC 10/12/2023 08:45:03 Final Blood group antibody investigation [Interpretation] in Plasma or RBC 10/12/2023 08:45:03 The patient types as ONEG and is . In the patient's sample from 10/12/23, anti-D is identified, likely due to Rh immune globulin administration during this (08/10/23). Final Blood group antibody investigation [Interpretation] in Plasma or RBC 10/12/2023 08:45:03 Final Blood group antibody investigation [Interpretation] in Plasma or RBC 10/12/2023 08:45:03 If transfusion is necessary, the Blood Bank will issue extended crossmatch-compatibl e RhD-negative red blood cell units to prevent sensitization to the D antigen. Final Blood group antibody investigation [Interpretation] in Plasma or RBC 10/12/2023 08:45:03 Final Performing Location LABORATORY [facility] [place] - [facility] [address] [facility] [address]
--- OUTSIDE RECORDS SUMMARY | 2023-12-18 07:59 | External Medical Summary | Summary of Care ---
Author Name Unknown Organization [facility] Address [address] [place] [address] Phone [phone] Care Team Providers Care Wedding Makeup Artist Name Role Phone Taryn Melgar PA-C Primary Care Provider Reason for Visit * Reason Comments Return Visit Non Stress Test Encounter Details Date Type Department Care Team (Late st Contact Info) Description 10/30/2023 10:15 AM EDT Office Visit Gynecology/Obstetics [place] [address] [place] [phone] Angie Nuñez PA-C [address] [place] [address] Supervision of high-risk , third trimester*; Rh negative, antepartum; Insulin controlled gestational diabetes mellitus (GDM) during , antepartum; Antepartum anemia complicating ; Short interval between pregnancies complicating , antepartum Allergies Active Allergy Reactions Criticality Noted Date Comments Pollen Other (Please comment) Low 01/05/2021 documented as of this encounter (statuses as of 11/03/2023) Medications Medication Sig Dispensed Refills Start Date [...] as of this encounter (statuses as of 11/03/2023) Active Problems Problem Noted Date Diagnosed Date [...] at bedtime 07/12/23-elevated sugars- msg send to PHARMACY TECH 07/12/23: RPM reviewed; elevated FBS; increase to [...] as of this encounter (statuses as of 11/03/2023) Resolved Problems Problem Noted Date Diagnosed Date [...] dealing with it, otherwise can deliver in [place]. Last Assessment & Plan: She was seen [...] and folate levels and referral to a composing machine operator/tender. 4. If hemoglobin levels are below 8 g/dl, we recommend Maternal Medicine ultrasound for growth every 4 weeks after 24 weeks. Consider a blood transfusion if hemoglobin levels fall below 6 g/dL. ([employer] Practice Bulletin Number 95, February,). 5. Consider [...] testing and report weekly to M via [employer]. Discussed that medication may be needed if elevated blood sugars do not improve with diet alone. Patient agreeable to starting insulin if needed. Will review again next week. 07/25/22: [facility] consult complete. 07/27/22: elevated [...] 08/22/22: Taking 15 units Levemir at HS. [place] woozy after 20 units. Was sick last [...] as of this encounter (statuses as of 11/03/2023) Immunizations Name Administration Dates Next Due Seasonal [...] money to get more. Never true 11/01/2022 [place] Depression Scale Answer Date Recorded [place] Depression Scale Total 2 09/14/2023 The thought [...] soft, non-tender NON STRESS TEST reactive. OB [place] Problems (from 05/09/23 to present) Problem Noted [...] at bedtime 07/12/23-elevated sugars- msg send to PHARMACY TECH 07/12/23: RPM reviewed; elevated FBS; increase to [...] appointment or sooner if any concerns. Angie Stone-TAYLOR Darling documented in this encounter Nursing Notes * Evelyne Power LPN - 10/30/2023 9:15 AM EDT Routine OB check. Denies questions or complaints. Here for NST. EFM applied. Provider aware documented in this encounter Plan of Treatment Upcoming Encounters Date Type Department Care Team (Late st Contact Info) Description 11/06/2023 8:30 AM EDT Nurse Only Gynecology/Obstetics [place] [address] [facility] [phone] H[place], Nurse Carding Supervisor Lock [address] [place] [address] 11/06/2023 9:15 AM EDT Office Visit Gynecology/Obstetics [place] [address] [facility] [place] [phone] Angie Nuñez PA-C [address] [place] [address] 11/08/2023 8:45 AM EDT Imaging Radiology, [address] [address] 11/09/2023 3:00 PM EDT Nurse Only Gynecology/Obstetics [place] [address] [facility] [place] [address] Nupur, Nurse Carding Supervisor Lock [address] [place] [address] 11/13/2023 8:30 AM EDT Office Visit Gynecology/Obstetics [place] [address] [facility] [place] [address] Angie Nuñez PA-C [address] [place] [address] Nupur, Nurse Adebayo Beginning SOBIA Moran [address] [place] [address] 11/13/2023 9:00 AM EDT Nurse Only Gynecology/Obstetics [place] [address] [place] [address] Haven, Nurse Carding Supervisor Lock [address] [facility] [place] [address] 11/16/2023 9:30 AM EDT Nurse Only Gynecology/Obstetics [place] [address] [place] [phone] Havesamira, Nurse Carding Supervisor Lock [address] [place] [address] 11/16/2023 9:30 AM EDT Office Visit Gynecology/Obstetics [place] [address] [place] [phone] Hermilo Taylor MD [address] [place] [address] 11/20/2023 8:30 AM EDT Office Visit Gynecology/Obstetrics [facility] [address] [place] [address] Kayy Costa PA-C [address] [place] [address] Betty Love Stress Tests Kim [address] [place] [address] 11/23/2023 11:15 AM EDT Office Visit Gynecology/Obstetrics [facility] [address] [place] [address] Isabel Quevedo CRNP [address] [place] [address] Betty Love Stress Tests Kim [address] [place] [address] 11/27/2023 1:15 PM EDT Office Visit Gynecology/Obstetrics [facility] Love [address] [place] [address] Antonietta Hair CRNP [address] [place] [address] Love, Non Stress Tests Kim [address] [place] [address] 11/30/2023 1:00 PM EDT Office Visit Gynecology/Obstetrics [facility] Love [address] [place] [address] Isabel Quevedo CRNP [address] [place] [address] Love, Non Stress Tests Kim [address] [place] [address] 12/04/2023 9:15 AM EDT Office Visit Gynecology/Obstetrics [facility]quez[facility] [address] [place] [address] Brenton Brown MD [address] [place] [address] Ivan Non Stress Tests Kim [address] [place] [address] 12/07/2023 1:00 PM EDT Office Visit Gynecology/Obstetrics Arlen Love [address] [place] [address] Antonietta Hair CRNP [address] [place] [address] Ivan Non Stress Tests Kim [address] [place] [address] 12/11/2023 11:00 AM EDT Office Visit Gynecology/Obstetrics [facility] Love [address] [place] [address] BackAntonietta mustafa CRNP [address] [place] [address] Love, Non Stress Tests Kim [place] [address] 12/14/2023 1:00 PM EDT Office Visit Gynecology/Obstetrics Arlen [place] [address] Fatuma Gutierrez MD [address] [place] [address] [place] [address] Ivan, Non Stress Tests Kim [address] [place] [address] Health Maintenance Due Date Last Done Comments Hepatitis B (1 of 3 - 19+ 3-dose series) 2012 Depression Screening 07/05/2022 07/05/2021 COVID-19 Vaccine ( season) 2023 Influenza Vaccine (FLU shot) (#1) 2023 05/21/2013 HPV/Co-Test 11/03/2023 Cervical Cancer Screening 02/15/2025 Pap Smear 02/15/2025 [...] NST Reactive 10/30/2023 9:03 AM EDT Narrative Angie Nuñez PA-C - 10/30/2023 9:03 AM EDT ASSESSMENT [...] the patient have Health Care Power of Scientific Aide? No Code Status History Code Status Date Activated Date Inactivated Comments Full Code 01/05/2021 11:33 AM 01/05/2021 6:10 PM This o rder reflects the patients wishes and were consensually agreed upon. Care Teams Wedding Makeup Artist Relationship Specialty Start Date End Date Taryn Melgar PA-C [address] [place], [place] [address] [phone] PCP - General Physician Composing Machine Operator/Tender 09/20/18 documented as of this encounter
--- OUTSIDE RECORDS SUMMARY | 2023-12-18 07:59 | External Medical Summary ---
Author Name Unknown Address Unknown Organization K01:[facility] [place] [address] [place] [address] Laboratory Report Ordering Provider Test Date Status LIDIA ORTA 10/12/2023 08:45:03 Final Observation Date Value Abnormality Reference (Units ) Status ABO 10/12/2023 08:45:03 O Final RH 10/12/2023 08:45:03 Negative Final RED BLOOD CELL ANTIBODY SCREEN 10/12/2023 08:45:03 Positive Final If RBC use is anticipated, katty chin prepare order
Antibodies may delay blood availability SPECIMEN EXPIRATION DATE 10/12/2023 08:45:03 10/15/2023 23:5 9 Final Performing Location [facility] - [address] [place] [address]
--- OUTSIDE RECORDS SUMMARY | 2023-12-18 07:59 | External Medical Summary | Summary of Care ---
Author Name Unknown Organization [facility] Address [address] [place] [address] Phone [phone] Care Team Providers Care Fitter Armament Name Role Phone Taryn Melgar PA-C Primary Care Provider Reason for Visit * Reason Comments Return Visit Encounter Details Date Type Department Care Team (Late st Contact Info) Description 10/12/2023 9:15 AM EST Office Visit Gynecology/Obstetics [address] [phone] Angie Nuñez PA-C [address] [place] [id number] Supervision of high-risk , third trimester*; Rh negative, antepartum; Insulin controlled gestational diabetes mellitus (GDM) during , antepartum; Short interval between pregnancies complicating , antepartum; Need for prophylactic vaccination with combined tnevkicnbs-vzcufps-sr rtussis (DTP) vaccine Allergies Active Allergy Reactions Criticality Noted Date Comments Pollen Other (Please comment) Low 01/05/2021 documented as of this encounter (statuses as of 10/12/2023) Medications Medication Sig Dispensed Refills Start Date [...] three days. 20 mL 0 09/16/2023 Active Hospital, Clinic, or Other Facility Administered Medication Ordered Dose Route Frequency Start Date End Date Status Rho D Immune Globulin (Rhophylac) inj 300 mcgIndications:Rh negative, antepartum 300 mcg IM ONCE 10/12/2023 10/12/2023 Ended documented as of this encounter (statuses as of 10/12/2023) Active Problems Problem Noted Date Diagnosed Date History of gestational diabetes mellitus (GDM) 1 [...] at bedtime 07/12/23-elevated sugars- msg send to SOLE LEATHER CUTTING MACHINE OPERATOR 07/12/23: RPM reviewed; elevated FBS; increase [...] and follow diet. --KW 10/04/23- stable 10/10/23-stable Last Assessment & Plan: Working with ADAPT. Abnormal glucose tolerance in mother complicatin g 06/24/2023 BMI 32.0-32.9,adult 05/27/2023 Constipation during , antepartum 2022 History of gestational diabetes 05/27/2023 Supervision of high-risk , third trimes ter 05/27/2023 Overview: Estimated Date of Delivery: 12/23/23 Continue vitamin. O negative - Rhogam given on 10/12/2023. Varicella and rubella immune. S/p anatomy ultrasound. Completed the following lab work: CBC, type and screen, and RPR. Tdap vaccine completed. GBS culture at 36 weeks. Desires to breastfeed. contraception: partner vasectomy. Last Assessment & Plan: Placenta is not low lying. Couple advised that no activity restrictions are necessary. Rubella non-immune status, antepartum 08/17/2022 Class 1 obesity 07/25/2022 Rh negative, antepartum 05/12/2022 Overview: Rhogam given on 08/10/2023. Needs to repeat Rhogam in 12 weeks from 08/10/2023. History of abnormal cervical Pap smear Overview: Normal pap smear in 02/2022. Female infertility 09/29/2021 S/P ovarian cystectomy 01/05/2021 Dizziness 01/05/2021 Pelvic pain in female 08/27/2020 Cyst of ovary 07/15/2013 Menstrual irregularity 07/15/2013 Estimated Date of Delivery Comme nts Yes 12/23/2023 Based on last me nstrual period of 03/18/2023 (Exact Date) documented as of this encounter (statuses as of 10/12/2023) Resolved Problems Problem Noted Date Diagnosed Date Resolved Date arrhythmia affecting p regnancy, antepartum 08/17/2022 05/27/2023 Overview: arythmia noted 08/12, saw peds cardio IMPRESSION and PLAN: 1. PACs in bigeminy giving the appearance of HR variability between 60-160 bpm 2. 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 Normal biventricular function 4. Mild TN The above findings were shared with the [...] dealing with it, otherwise can deliver in [place]. Last Assessment & Plan: She was seen [...] and folate levels and referral to a chronograph operator. 4. If hemoglobin levels are below 8 g/dl, we recommend Maternal Medicine ultrasound for growth every 4 weeks after 24 weeks. Consider a blood transfusion if hemoglobin levels fall below 6 g/dL. ([employer] Practice Bulletin Number 95, February,). 5. Consider [...] testing and report weekly to M via [employer]. Discussed that medication may be needed if elevated blood sugars do not improve with diet alone. Patient agreeable to starting insulin if needed. Will review again next week. 07/25/22: [facility] consult complete. 07/27/22: elevated fasting; [...] 08/22/22: Taking 15 units Levemir at HS. [place] woozy after 20 units. Was sick last [...] as of this encounter (statuses as of 10/12/2023) Immunizations Name Administration Dates Next Due Seasonal [...] money to get more. Never true 11/01/2022 [place] Depression Scale Answer Date Recorded [place] Depression Scale Total 2 09/14/2023 The thought [...] Sign Reading Time Taken Comments Blood Pressure 114/66 10/12/2023 9:01 AM EST Pulse - - Temperature - - Respiratory Rate - - Oxygen Saturation - - Inhaled Oxygen Concentration - - Weight 84.4 kg (186 lb 1.6 oz) 10/12/2023 9:01 A M EST Height - - Body Mass Index 34.04 09/08/2022 10:04 AM EST documented in this [...] Progress Notes * Angie Nuñez PA-C - 10/12/2023 9:01 AM EST Lacy Mckinney presents for visit at 29w5d. BP 114/66 | Wt 84.4 kg (186 lb 1.6 oz) | LMP 03/18/2023 (Exact Date) | BMI 34.04 kg/m | BSA 1.92 m Doing well. Denies vaginal bleeding, leaking of fluid, vaginal pressure, contractions, abdominal pain, or abnormal vaginal discharge. Denies headaches, blurry vision, or right upper quadrant pain. Patient states she feels good movement. Patient reports that she has some pubic bone pain when changing positions. Physical Exam General: alert and oriented, no acute distress Pulmonary: normal respiratory effort, no accessory muscle use. Abdomen: gravid, soft, non-tender heart rate: 130's bpm OB [place] Problems (from 05/09/23 to present) Problem Noted Resolved History of gestational diabetes mellitus (GDM) 06/27/2023 [...] at bedtime 07/12/23-elevated sugars- msg send to SOLE LEATHER CUTTING MACHINE OPERATOR 07/12/23: RPM reviewed; elevated FBS; increase [...] and follow diet. --KW 10/04/23- stable 10/10/23-stable Supervision of high-risk , third trimester 05/27/2023 by Angie Nuñez PA-C No Estimated Date of Delivery: 12/23/23 Continue vitamin. O negative - Rhogam given on 10/12/2023. Varicella and rubella immune. S/p anatomy ultrasound. Completed the following lab work: CBC, type and screen, and RPR. Tdap vaccine completed. GBS culture at 36 weeks. Desires to breastfeed. contraception: partner vasectomy. Rh negative, antepartum 05/12/2022 by Angie Nuñez PA-C No Rhogam given on 10/12/2023. Plan: -Rhogam completed and Tdap vaccine completed. -NSTs twice a week at 32 weeks. -Blood sugars stable. -Following with MATERNAL MEDICINE for growth ultrasounds. -Desires [facility] delivery. Counseled patient to call triage/go to labor [...] documented in this encounter Nursing Notes * Apple Wong CCMA - 10/12/2023 9:43 AM EST Pre-Administration Time Out Procedure Performed: Yes Patient Identified (Ask Name/Date of ): Yes Does the patient have a fever greater than 101 degrees today? No Patient allergic to latex? No Has the patient ever fainted after receiving an injection? No VFC Stock: No Injection(s) verified: Yes, Injection Name: Tdap and Rhogam Verified Side and Site: Yes Verified Shot(s) with Parent(s)/Patient: Yes * Evelyne Power LPN - 10/12/2023 9:01 AM EST Routine OB check. Denies questions or complaints. documented in this encounter Plan of Treatment Upcoming Encounters Date Type Department Care Team (Late st Contact Info) Description 10/30/2023 9:00 AM EDT Nurse Only Gynecology/Obstetics [place] [address] [facility] [place] [address] [place], Nurse Personal Development Coach [address] [place] [address] 10/30/2023 10:15 AM EDT Office Visit Gynecology/Obstetics [place] [address] [facility] [place] [address] Angie Nuñez PA-C [address] [place] [address] 2023 3:00 PM EDT Nurse Only Gynecology/Obstetics [place] [address] [facility] [place] [address] Haven, Nurse Personal Development Coach [address] [place] [address] 11/06/2023 8:30 AM EDT Nurse Only Gynecology/Obstetics [place] [address] [place] [address] Haven, Nurse Personal Development Coach [address] [place] [address] 11/08/2023 8:45 AM EDT Imaging Radiology, [facility] [address] [place] [address] 11/09/2023 3:00 PM EDT Nurse Only Gynecology[facility]Obstetics [place] [facility] [address] Nupur, Nurse Personal Development Coach [address] [place] [address] 11/13/2023 8:30 AM EDT Office Visit Gynecology/Obstetics [place] [address] [facility] [place] [address] Angie Nuñez PA-C [address] [place] [address] Nupur, Nurse Healthy Beginning Dean, RN [address] [place] [address] 11/13/2023 9:00 AM EDT Nurse Only Gynecology/Obstetics [place] [address] [facility] [place] [address] Nupur, Nurse Personal Development Coach [address] [place] [address], [place] [address] 11/16/2023 9:30 AM EDT Nurse Only Gynecology/Obstetics [place] [address] [place] [address] [address] Nupur, Nurse Personal Development Coach [address] [place] [address], [place] [address] 11/20/2023 7:45 AM EDT [facility] [address] [facility] [place] [address] Kayy Costa PA-C [address] [place] [address] 11/20/2023 8:00 AM EDT Nurse Only Gynecology/Obstetrics [facility] [address] [facility] [place] [address] Nurse Cinda Jason [address] [place] [address] 11/23/2023 3:00 PM EDT Nurse Only Gynecology/Obstetics [place] [address] [place] [address] [place], Nurse Personal Development Coach [address] [place] [address] Health Maintenance Due Date Last Done Comments Hepatitis B (1 of 3 - 19+ 3-dose series) 2012 Depression Screening 07/05/2022 07/05/2021 COVID-19 Vaccine (1 - 2022- season) 2023 Influenza Vaccine (FLU shot) (#1) 2023 05/21/2013 Pap Smear 02/15/2025 02/15/2022, 08/08, 08/26/2019, Additional [...] complicating , antepartum Supervision of other high-risk Need for prophylactic vaccination with combined wgitgbzbjy-nedbebn-sccnwzwmm (DTP) vaccine documented in this encounter Administered Medications Inactive Administered Medications - up to 3 most recent administrations Medication Order MAR Action Action Date Dose Rate Site Rho D Immune Globulin (Rhophylac) inj 300 mcg 300 mcg, Intramuscular, ONCE, On Mariah 10/12/23 at 0945, For 1 dose, Do not administer until type and screen has been collected! 1 MCG = 5 INTERNATIONAL UNITS Given 10/12/2023 9:41 AM EST 300 mcg Dorsogluteal Left documented in this encounter Advance Directives Latest [...] the patient have Health Care Power of Cargo Broker? No Code Status History Code Status Date Activated Date Inactivated Comments Full Code 01/05/2021 11:33 AM 01/05/2021 6:10 PM This o rder reflects the patients wishes and were consensually agreed upon. Care Teams Fitter Armament Relationship Specialty Start Date End Date Taryn Melgar PA-C [address] [place], [place] [address] [address] PCP - General Physician Amusement Or Recreation Card Checker 09/20/18 documented as of this encounter
--- OUTSIDE RECORDS SUMMARY | 2023-12-18 07:59 | External Medical Summary ---
Author Name Unknown Address Unknown Organization K01:[facility] [place] [address] [place] [address] Laboratory Report Ordering Provider Test Date Status LIDIA ORTA 10/12/2023 08:45:03 Final Observation Date Value Abnormality Reference (Units ) Status Iron 10/12/2023 08:45:03 43 33-151 (ug/dL) Final Iron-binding capacity 10/12/2023 08:45:03 458 Above high normal 250-425 (ug/dL) Final Transferrin Sat % 10/12/2023 08:45:03 9 Below low normal 15-55 (%) Final Performing Location LABORATORY C - [address] [place] [address]
--- OUTSIDE RECORDS SUMMARY | 2023-12-18 07:59 | External Medical Summary | Summary of Care ---
Author Name Unknown Organization [facility] Address [address] [place] [address] Phone [phone] Care Team Providers Care Clinical Services Consultant Name Role Phone Taryn Melgar PA-C Primary Care Provider Reason for Visit * Reason Comments Return Visit Encounter Details Date Type Department Care Team (Late st Contact Info) Description 10/12/2023 9:15 AM EST Office Visit Gynecology/Obstetics [address] [address] Angie Nuñez PA-C [address] [place] [address] Supervision of high-risk , third trimester*; Rh negative, antepartum; Insulin controlled gestational diabetes mellitus (GDM) during , antepartum; Short interval between pregnancies complicating , antepartum; Need for prophylactic vaccination with combined lckslslrub-phurtcu-if rtussis (DTP) vaccine Allergies Active Allergy Reactions [...] at bedtime 07/12/23-elevated sugars- msg send to ENRICHMENT DIRECTOR 07/12/23: RPM reviewed; elevated FBS; increase [...] dealing with it, otherwise can deliver in [place]. Last Assessment & Plan: She was seen [...] and folate levels and referral to a advertising columnist. 4. If hemoglobin levels are below 8 g/dl, we recommend Maternal Medicine ultrasound for growth every 4 weeks after 24 weeks. Consider a blood transfusion if hemoglobin levels fall below 6 g/dL. ([employer] Practice Bulletin Number 95, February,). 5. Consider [...] testing and report weekly to M via [employer]. Discussed that medication may be needed if elevated blood sugars do not improve with diet alone. Patient agreeable to starting insulin if needed. Will review again next week. 07/25/22: [facility] consult complete. 07/27/22: elevated fasting; [...] 08/22/22: Taking 15 units Levemir at HS. [place] woozy after 20 units. Was sick last [...] money to get more. Never true 11/01/2022 [place] Depression Scale Answer Date Recorded [place] Depression Scale Total 2 09/14/2023 The thought [...] Date) | BMI 34.04 kg/m | BSA 1.92m Doing well. Denies vaginal bleeding, leaking of [...] soft, non-tender heart rate: 130's bpm OB [place] Problems (from 05/09/23 to present) Problem Noted [...] at bedtime 07/12/23-elevated sugars- msg send to ENRICHMENT DIRECTOR 07/12/23: RPM reviewed; elevated FBS; increase [...] with MATERNAL MEDICINE for growth ultrasounds. -Desires [facility] delivery. Counseled patient to call triage/go to [...] 10/30/2023 9:00 AM EDT Nurse Only Gynecology/Obstetics [place] [address] [facility] [place] [address] Haven, Nurse Well Service Floorperson [address] [place] [address] 10/30/2023 10:15 AM EDT Office Visit Gynecology/Obstetics [place] [address] [facility] [place] [address] Angie Nuñez PA-C [address] [place] [address] 2023 3:00 PM EDT Nurse Only Gynecology/Obstetics [place] [address] [facility] [place] [address] Haven, Nurse Well Service Floorperson [address] [place] [address] 11/06/2023 8:30 AM EDT Nurse Only Gynecology/Obstetics [place] [address] [place] [address] Haven, Nurse Well Service Floorperson [address] [place] [address] 11/08/2023 8:45 AM EDT Imaging Radiology, [facility] [address] [place] [address] 11/09/2023 3:00 PM EDT Nurse Only Gynecology/Obstetics [place] [facility] [address] Nupur, Nurse Well Service Floorperson [address] [place] [address] 11/13/2023 8:30 AM EDT Office Visit Gynecology/Obstetics [place] [facility] [place] [address] Angie Nuñez PA-C [address] [place] [address] Nupur, Nurse Healthy Beginning Dean, RN [address] [place] [address] 11/13/2023 9:00 AM EDT Nurse Only Gynecology/Obstetics [place] [facility] [place] [address] Nupur, Nurse Well Service Floorperson Lock [address] [place] [address], [place] [address] 11/16/2023 9:30 AM EDT Nurse Only Gynecology/Obstetics [place] [address] [place], [place] [address] [address] Nupur, Nurse Well Service Floorperson [address] [place] [address], [place] [address] 11/20/2023 7:45 AM EDT [facility] [address] [facility] [place] [address] Kayy Costa PA-C [address] [place] [address] 11/20/2023 8:00 AM EDT Nurse Only Gynecology/Obstetrics [facility] [address] [facility] [place] [address] Nurse Cinda Jason [address] [place] [address] 11/23/2023 3:00 PM EDT Nurse Only Gynecology/Obstetics [place] [address] [place] [address] [place], Nurse Well Service Floorperson [address] [place] [address] Health Maintenance Due Date Last Done Comments [...] high-risk Need for prophylactic vaccination with combined cxbzrqsnqr-iyyydhc-wvgvarczr (DTP) vaccine documented in this encounter Administered [...] the patient have Health Care Power of Wool Washer Feeder? No Code Status History Code Status Date Activated Date Inactivated Comments Full Code 01/05/2021 11:33 AM 01/05/2021 6:10 PM This o rder reflects the patients wishes and were consensually agreed upon. Care Teams Clinical Services Consultant Relationship Specialty Start Date End Date Taryn Melgar PA-C [address] [place], [place] [address] [address] PCP - General Physician Signal Wirer 09/20/18 documented as of this encounter
--- OUTSIDE RECORDS SUMMARY | 2023-12-18 07:59 | External Medical Summary ---
Author Name Unknown Address Unknown Organization K01:[facility] [place] [facility] [address] [place] [address] Laboratory Report Ordering Provider Test Date Status LIDIA ORTA 10/12/2023 08:45:03 Final Observation Date Value Abnormality Reference (Units ) Status Creatinine 10/12/2023 08:45:03 0.5 0.5-1.0 (mg/dL) Final Glomerular filtration rate/1.73 sq M.predicted [Volume Rate/Area] in Serum, Plasma or Blood by Creatinine-based formula (CKD-EPI) 10/12/2023 08:45:03 >90 >=60 (mL/min) Final eGFR is calculated based on the CKD-EPI 2020 equation Performing Location LABORATORY [place] [address] [place] [address]
--- OUTSIDE RECORDS SUMMARY | 2023-12-18 07:59 | External Medical Summary | Summary of Care ---
Author Name Unknown Organization [facility] Address [address] [place] [address] Phone [phone] Care Team Providers Care Thread Singer Name Role Phone Taryn Melgar PA-C Primary Care Provider Encounter Details Date Type Department Care Team (Late st Contact Info) Description 10/13/2023 Orders Only Gynecology/Obstetics [place] [address] [place] [phone] Angie Nuñez PA-C [address] [place] [address] Allergies Active Allergy Reactions Criticality Noted Date Comments Pollen Other (Please comment) Low 01/05/2021 documented as of this encounter (statuses as of 10/13/2023) Medications Medication Sig Dispensed Refills Start Date [...] as of this encounter (statuses as of 10/13/2023) Active Problems Problem Noted Date Diagnosed Date [...] at bedtime 07/12/23-elevated sugars- msg send to [employer] 07/12/23: RPM reviewed; elevated FBS; increase to [...] as of this encounter (statuses as of 10/13/2023) Resolved Problems Problem Noted Date Diagnosed Date [...] dealing with it, otherwise can deliver in [place]. Last Assessment & Plan: She was seen [...] and folate levels and referral to a cutter operator brick. 4. If hemoglobin levels are below 8 g/dl, we recommend Maternal Medicine ultrasound for growth every 4 weeks after 24 weeks. Consider a blood transfusion if hemoglobin levels fall below 6 g/dL. ([employer] Coating Worker Practice Bulletin Number 95, February,). 5. [...] Will continue testing and report weekly to [facility] via [facility] [facility]. Discussed that medication may be needed if elevated blood sugars do not improve with diet alone. Patient agreeable to starting insulin if needed. Will review again next week. 07/25/22: [facility] ADAPT consult complete. 07/27/22: elevated fasting; [...] 08/22/22: Taking 15 units Levemir at HS. [place] woozy after 20 units. Was sick last [...] MEDICINE referral made. Last Assessment & Plan: [facility] anatomy/growth ultrasound scheduled for 08/03/22. Patient [...] as of this encounter (statuses as of 10/13/2023) Immunizations Name Administration Dates Next Due Seasonal [...] money to get more. Never true 11/01/2022 [place] Depression Scale Answer Date Recorded [place] Depression Scale Total 2 09/14/2023 The thought [...] 10/30/2023 9:00 AM EDT Nurse Only [facility]necology[facility] [place] [facility] [phone] [place], Nurse Head Filter Press Tender [place] [address] [facility] [place] [address] 10/30/2023 10:15 AM EDT Office Visit Gynecology/Obstetics [place] [address] [place] [phone] Angie Nuñez PA-C 68 [place] [address] 2023 3:00 PM EDT Nurse Only Gynecology/Obstetics [place] [address] [place] [address] [place] [phone] Nupur, Nurse Head Filter Press Tender Lock [address] [place] [address] [place] [address] 11/06/2023 8:30 AM EDT Nurse Only Gynecology/Obstetics [place] [address] [place] [address] [place] [phone] Curtisn, Nurse Head Filter Press Tender Lock [address] [place] [address] [place] [address] 11/08/2023 8:45 AM EDT Imaging Radiology, [facility] [address] [place] [address] 11/09/2023 3:00 PM EDT Nurse Only Gynecology/Obstetics [place] [facility] [place] [phone] [place], Nurse Head Filter Press Tender Lock [address] [place] [address] [place] [address] 11/13/2023 8:30 AM EDT Office Visit Gynecology/Obstetics [place] [address] [place], [place] [address]NE[place] [phone] Angie Nuñez PA-C [address] [place] [address] Nupur Nurse [facility] [employer] Dean, SOBIA [address] [place] [address] 11/13/2023 9:00 AM EDT Nurse Only Gynecology/Obstetics [place] [facility] [place] [phone] Nupur, Nurse Head Filter Press Tender Lock [facility] [place] [phone] 11/16/2023 9:30 AM EDT Nurse Only Gynecology/Obstetics [place] [address] [place], [place] [address]NE[place] [phone] Nupur, Nurse Head Filter Press Tender Lock [address] [place], [place] [address] [address] 11/20/2023 7:45 AM EDT Office Visit Gynecology/Obstetrics [facility] [address] [place] [address] Kayy Costa PA-C [address] [facility] [place] [address] 11/20/2023 8:00 AM EDT Nurse Only Gynecology/Obstetrics [facility] [address] [facility] [place] [address] Eren, Nurse Senior It Project Manager New [address] [facility] [place] [address] 11/23/2023 3:00 PM EDT Nurse Only Gynecology/Obstetics [place] [facility] [place] [phone] Nupur, Nurse Head Filter Press Tender Lock [address] [place], [place] [address]NE[place] hogan [address] Health Maintenance Due Date Last Done Comments Hepatitis B (1 of 3 - 19+ 3-dose series) 2012 Depression Screening 07/05/2022 07/05/2021 COVID-19 Vaccine ( - 2022- season) 2023 Influenza Vaccine (FLU [...] the patient have Health Care Power of Foot Specialist? No Code Status History Code Status Date Activated Date Inactivated Comments Full Code 01/05/2021 11:33 AM 01/05/2021 6:10 PM This o rder reflects the patients wishes and were consensually agreed upon. Care Teams Thread Singer Relationship Specialty Start Date End Date Taryn Melgar PA-C [address] [place], [place] [address]NE[place]IT[place] hogan [phone] PCP - General Physician Mechanical Field Engineer 09/20/18 documented as of this encounter
--- OUTSIDE RECORDS SUMMARY | 2023-12-18 07:59 | External Medical Summary ---
Author Name Unknown Address Unknown Organization K01:[facility] - [address] [place] [address] Laboratory Report Ordering Provider Test Date Status LIDIA ORTA 11/06/2023 09:15:28 Final Observation Date Value Abnormality Reference (Units ) Status Ferritin 11/06/2023 09:15:28 13 13-150 (ng /mL) Final Performing Location [facility] - [address] [place] [address]
--- OUTSIDE RECORDS SUMMARY | 2023-12-18 07:59 | External Medical Summary | Summary of Care ---
Author Name Unknown Organization [facility] Address [address] [place] [address] Phone [phone] Care Team Providers Care Boat Joiner Name Role Phone Taryn Melgar PA-C Primary Care Provider Reason for Visit * Reason Comments Non Stress Test Encounter Details Date Type Department Care Team (Late st Contact Info) Description 2023 3:00 PM EDT Nurse Only Gynecology/Obstetics [place] [address] [place] [phone] Haves[place], Nurse Tennis Player Lock [address] [place] [address] Non Stress Test Allergies Active Allergy Reactions Criticality Noted Date [...] Date Diagnosed Date Antepartum anemia complicating 024 History of gestational diabetes mellitus (GDM) 1 [...] at bedtime 07/12/23-elevated sugars- msg send to FAMILY READINESS SUPPORT ASSISTANT 07/12/23: RPM reviewed; elevated FBS; increase to [...] PACs 3. Normal biventricular function 4. Mild FL The above findings were shared with the [...] dealing with it, otherwise can deliver in [place]. Last Assessment & Plan: She was seen [...] and folate levels and referral to a master [place] lakes. 4. If hemoglobin levels are below 8 g/dl, we recommend Maternal Medicine ultrasound for growth every 4 weeks after 24 weeks. Consider a blood transfusion if hemoglobin levels fall below 6 g/dL. ([employer] Ass[employer] Practice Bulletin Number 95, February,). 5. Consider [...] Will continue testing and report weekly to [facility] via [employer]. Discussed that medication may be needed if elevated blood sugars do not improve with diet alone. Patient agreeable to starting insulin if needed. Will review again next week. 07/25/22: [facility] ADAPT consult complete. 07/27/22: elevated fasting; [...] 08/22/22: Taking 15 units Levemir at HS. [place] woozy after 20 units. Was sick last [...] money to get more. Never true 11/01/2022 [place] Depression Scale Answer Date Recorded [place] Depression Scale Total 2 09/14/2023 The thought [...] Sign Reading Time Taken Comments Blood Pressure 104/58 2023 3:41 PM EDT Pulse - - Temperature - - Respiratory Rate - - Oxygen Saturation - - Inhaled Oxygen Concentration - - Weight 85.4 kg (188 lb 4.8 oz) 2023 3:41 P M EDT Height - - Body Mass Index 34.44 09/08/2022 10:04 AM EST documented in this [...] as of this encounter Nursing Notes * Trudy Bolton RN - 2023 3:41 PM EDT Pt presents for NST. Denies any concerns. EFM applied. documented in this encounter Plan of Treatment Upcoming Encounters Date Type Department Care Team (Late st Contact Info) Description 11/06/2023 8:30 AM EDT Nurse Only Gynecology/Obstetics [place] 68 [facility] [place] [phone] Nupur, Nurse Tennis Player [facility] [address] [place] [address] 11/06/2023 9:15 AM EDT Office Visit Gynecology/Obstetics [place] 68 [facility] [place] [phone] Angie Nuñez PA-C 68 [place] [address] 11/08/2023 8:45 AM EDT Imaging Radiology, [facility] [address] [place] [address] 11/09/2023 3:00 PM EDT Nurse Only Gynecology/Obstetics [place] 68 [facility] [place] [address] [place], Nurse Tennis Player Lock [address] [facility] [address] 11/13/2023 8:30 AM EDT Office Visit Gynecology/Obstetics [place] [address] [place] [phone] Angie Nuñez PA-C [address] [place], [place] [phone] Nupur, Nurse [facility] SOBIA [place] [address] [place] [address] 11/13/2023 9:00 AM EDT Nurse Only Gynecology/Obstetics [place] [address] [place] [address] [place] [phone] Nupur, Nurse Tennis Player Lock [address] [place] [phone] 11/16/2023 9:30 AM EDT Nurse Only Gynecology/Obstetics [place] [address] [place] [phone] Nupur, Nurse Tennis Player Lock [address] [place] [address] 11/16/2023 9:30 AM EDT Office Visit Gynecology/Obstetics [place] [address] [place] [address] [place] [phone] Hermilo Taylor MD [address] [place] [address] 11/20/2023 8:30 AM EDT Office Visit Gynecology/Obstetrics [facility] [address] [facility] [place] [address] Kayy Costa PA-C [address] [facility] [place] [address] Ivan Non Stress Tests Kim [address] [place] [address] 11/23/2023 11:15 AM EDT Office Visit Gynecology/Obstetrics [facility] [address] [place] [address] Isabel Quevedo CRNP [address] [place] [address] Love, Non Stress Tests Kim [address] [place] [address] 11/27/2023 1:15 PM EDT Office Visit Gynecology/Obstetrics [facility] [address] [place] [address] Antonietta Hair CRNP [address] [place] [address] Ivan Non Stress Tests Kim [address] [place] [address] 11/30/2023 1:00 PM EDT Office Visit Gynecology/Obstetrics [facility] [address] [place] [address] Isabel Quevedo CRNP [address] [place] [address] Ivan Non Stress Tests Kim [address] [place] [address] 12/04/2023 9:15 AM EDT Office Visit Gynecology/Obstetrics [facility] [address] [place] [address] Brenton Brown MD [address] [place] [address] Love, Non Stress Tests Kim [address] [place] [address] 12/07/2023 1:00 PM EDT Office Visit Gynecology/Obstetrics [facility] Love [address] [place] [address] Antonietta Hair CRNP [address] [place] [address] Ivan Non Stress Tests Kim [address] [place] [address] 12/11/2023 11:00 AM EDT Office Visit Gynecology/Obstetrics [facility] Love [address] [place] [address] Antonietta Hair CRNP [address] [place] [address] Betty Love Stress Tests Kim [address] [place] [address] 12/14/2023 1:00 PM EDT Office Visit Gynecology/Obstetrics [facility] Love [address] [place] [address] Fatuma Gutierrez MD [address] [place] [address] [place] [address] Betty Love Stress Tests [place] [address] [place] [address] Health Maintenance Due Date Last Done Comments Hepatitis B (1 of 3 - 19+ 3-dose series) 2012 Depression Screening 07/05/2022 07/05/2021 COVID-19 Vaccine (1 - 2022-24 season) 2023 Influenza Vaccine (FLU shot) (#1) [...] Date/Time Associated Diagnosis Comments NON-STRESS TEST Routine 2023 3:32 PM EDT Insulin controlled gestational diabetes mellitus (GDM) during , antepartum documented in this encounter Results * NON-STRESS TEST (2023 3:32 PM EDT) NST Reactive 2023 3:32 PM EDT Narrative Angie Nuñez PA-C - 2023 3:32 PM EDT ASSESSMENT assessment with Non-stress Test completed on 11/03/2023 at 32 weeks, 5 days gestation for indication of insulin dependent gestational diabetes. heart baseline: 130 bpm Variability: Moderate Decelerations: absent Accelerations: present (two 15 x 15 accelerations) Contractions: None NST start time: 3:32 pm NST stop time: 3:55 pm NST strip reviewed, interpreted, and approved by OB provider, Angie Estrada PA-C. NST strip stored in clinic storage file. Angie Darling PA-C SURGERY documented in this encounter Visit Diagnoses Diagnosis Insulin controlled gestational diabetes mellitus (GDM) during , antepartum- Primary Supervision of high-risk , third trimester documented in this encounter Advance Directives Latest [...] the patient have Health Care Power of Health Education Aide? No Code Status History Code Status Date Activated Date Inactivated Comments Full Code 01/05/2021 11:33 AM 01/05/2021 6:10 PM This o rder reflects the patients wishes and were consensually agreed upon. Care Teams Boat Joiner Relationship Specialty Start Date End Date Taryn Melgar PA-C [address] [place] [address] [place] [phone] PCP - General Physician Hvac Technician Residential 09/20/18 documented as of this encounter
--- OUTSIDE RECORDS SUMMARY | 2023-12-18 07:59 | External Medical Summary | Summary of Care ---
Author Name Unknown Organization [facility] Address [address] [place] [address] Phone [phone] Care Team Providers Care Muskrat Trapper Name Role Phone Taryn Melgar PA-C Primary Care Provider Reason for Visit * Reason Comments Outpatient Testing Encounter Details Date Type Department Care Team (Late st Contact Info) Description 10/12/2023 8:40 AM [facility] Laboratory Laboratory Patient Service [address] [phone] [address] Supervision of high-risk , third trimester Allergies Active Allergy Reactions Criticality Noted Date [...] three days. 20 mL 0 09/16/2023 Active documented as of this encounter (statuses [...] at bedtime 07/12/23-elevated sugars- msg send to RESEARCH STATISTICIAN 07/12/23: RPM reviewed; elevated FBS; increase to [...] Delivery: 12/23/23 Continue vitamin. O negative - needs Rhogam injection at 28 weeks and if she has vaginal bleeding in prengancy. Varicella and rubella immune. S/p anatomy ultrasound. Ordered lab work to be completed: CBC, type and screen, and RPR. Tdap vaccine at 27 to 36 weeks. Desires next appointment. GBS culture at 36 weeks. Tdap vaccine at 27 to 36 weeks. Last Assessment & Plan: Placenta is not [...] dealing with it, otherwise can deliver in [place]. Last Assessment & Plan: She was seen [...] and folate levels and referral to a hot plate plywood press laborer. 4. If hemoglobin levels are below 8 g/dl, we recommend Maternal Medicine ultrasound for growth every 4 weeks after 24 weeks. Consider a blood transfusion if hemoglobin levels fall below 6 g/dL. ([employer] Office Manager Practice Bulletin Number 95, February,). 5. [...] Will continue testing and report weekly to [facility] via [employer]. Discussed that medication may be needed if [...] 08/22/22: Taking 15 units Levemir at HS. [place] woozy after 20 units. Was sick last [...] MEDICINE referral made. Last Assessment & Plan: [facility] anatomy/growth ultrasound scheduled for 08/03/22. [...] money to get more. Never true 11/01/2022 [place] Depression Scale Answer Date Recorded [place] Depression Scale Total 2 09/14/2023 The thought [...] Upcoming Encounters Date Type Department Care Team (Johan Contact Info) Description 10/12/2023 9:15 AM EST Office Visit Gynecology/Obstetics [place] [address] [place] [phone] Angie Nuñez PA-C [address] [place] [address] Arrived 10/25/2023 9:30 AM EDT Office Visit Gynecology/Obstetics [place] [address] [place] [phone] Angie Nuñez PA-C [address] [place] [address] 11/08/2023 8:45 AM EDT Imaging Radiology, [address] [phone] Pending Results Name Type Priority Associated Diagnoses Date /Time CBC WITH WBC DIFFERENTIAL AND ANEMIA REFLEX WORKUP Lab Routine Supervision of high-risk , third trimester 10/12/2023 8:45 AM EST TYPE AND SCREEN Lab Routine Supervision of high-risk , third trimester 10/12/2023 8:45 AM EST RPR Lab Routine Supervision of high-risk , third trimester 10/12/2023 8:45 AM EST ANEMIA CBC Lab Routine Supervision of high-risk , third trimester 10/12/2023 8:45 AM EST DIFFERENTIAL, AUTOMATED Lab Routine Supervision of high-risk , third trimester 10/12/2023 8:45 AM EST ANEMIA REFLEX CHEMISTRY HOLD Lab Routine Supervision of high-risk , third trimester 10/12/2023 8:45 AM EST Health Maintenance Due Date Last Done Comments Hepatitis B (1 of 3 - 19+ 3-dose series) 2012 Depression Screening 07/05/2022 07/05/2021 COVID-19 Vaccine ( - 2022- season) 2023 Influenza Vaccine (FLU shot) (#1) 2023 05/21/2013 Pap Smear 02/15/2025 02/15/2022, 08/08, 08/26/2019, Additional history exists DTaP,Tdap,and Td Vaccines (3 - Td or Tdap) 07/04/2032 07/04/2022, 03/04/2021 GARDASIL-HPV IMMUNIZATION SERIES Aged Out [...] Diagnoses Diagnosis Supervision of high-risk , third trimester documented [...] the patient have Health Care Power of Nurses Educator? No Code Status History Code Status Date Activated Date Inactivated Comments Full Code 01/05/2021 11:33 AM 01/05/2021 6:10 PM This o rder reflects the patients wishes and were consensually agreed upon. Care Teams Muskrat Trapper Relationship Specialty Start Date End Date Taryn Melgar PA-C [address] [place] [address] PCP - General Physician Machine Adjuster Leader Case Trim 09/20/18 documented as of this encounter
--- OUTSIDE RECORDS SUMMARY | 2023-12-18 07:59 | External Medical Summary | Summary of Care ---
Author Name Unknown Organization [facility] Address [address] [place] [address] Phone [phone] Care Team Providers Care Robotic Welding Operator Name Role Phone Taryn Melgar PA-C Primary Care Provider Reason for Visit * Reason Comments Outpatient Testing Encounter Details Date Type Department Care Team (Late st Contact Info) Description 10/12/2023 8:40 AM [facility] Laboratory Laboratory Patient Service [address] [phone] [address] Supervision of high-risk , third trimester Allergies [...] at bedtime 07/12/23-elevated sugars- msg send to DIVISION TOLL WIRE CHIEF 07/12/23: RPM reviewed; elevated FBS; increase to [...] dealing with it, otherwise can deliver in [place]. Last Assessment & Plan: She was seen [...] and folate levels and referral to a utilization manager. 4. If hemoglobin levels are below 8 g/dl, we recommend Maternal Medicine ultrasound for growth every 4 weeks after 24 weeks. Consider a blood transfusion if hemoglobin levels fall below 6 g/dL. ([employer] [place] [employer] Bulletin Number 95, February,). 5. Consider [...] Will continue testing and report weekly to [facility] via [employer]. Discussed that medication may be needed if elevated blood sugars do not improve with diet alone. Patient agreeable to starting insulin if needed. Will review again next week. 07/25/22: [facility] ADAPT consult complete. 07/27/22: [...] 08/22/22: Taking 15 units Levemir at HS. [place] woozy after 20 units. Was sick last [...] MEDICINE referral made. Last Assessment & Plan: [facility] anatomy/growth ultrasound scheduled for [...] money to get more. Never true 11/01/2022 Cecilia Depression Scale Answer Date Recorded Cecilia Depression Scale Total 2 09/14/2023 The thought [...] as of this encounter Miscellaneous Notes * Addendum Note - WestleySarah knox TECH - 10/13/2023 10:42 AM ESTAddended by: SARAH CHRISTY on: 10/13/2023 10:42 AM Modules accepted: Orders documented in this encounter Plan of Treatment Upcoming Encounters Date Type Department Care Team (Late st Contact Info) Description 10/30/2023 9:00 AM EDT Nurse Only Gynecology/Obstetics [place] [address] [place] [address] [place], Nurse Heel [place]er [address] [place] [address] 10/30/2023 10:15 AM EDT Office Visit Gynecology/Obstetics [place] [facility] [place] [address] Angie Nuñez PA-C [address] [facility] [place] [address] 2023 3:00 PM EDT Nurse Only Gynecology/Obstetics [place] [address] [place] [address] [place], Nurse Heel [place] [address] [place] [address] 11/06/2023 8:30 AM EDT Nurse Only Gynecology/Obstetics [place] [address] [place] [address] [place], Nurse Heel [place] [place] [address] 11/08/2023 8:45 AM EDT Imaging Radiology, [facility] [address] [place] [address] 11/09/2023 3:00 PM EDT Nurse Only Gynecology/Obstetics [place] [facility] [address] [place], Nurse Heel [place] [address] [place] [address] 11/13/2023 8:30 AM EDT Office Visit Gynecology/Obstetics [place] [address] [place] [phone] Angie Nuñez PA-C [address] [place] [address] Nupur Nurse Healthy Beginning Dean, SOB[place] [address] [place] [address] 11/13/2023 9:00 AM EDT Nurse Only Gynecology/Obstetics [place] [address] [place] [phone] [place], Nurse Heel [place]er [place] [address] [place] [address] 11/16/2023 9:30 AM EDT Nurse Only Gynecology/Obstetics [place] [address] [place] [phone] [place], Nurse Heel [place]er [place] [address] [place] [address] 11/20/2023 7:45 AM EDT Office Visit Gynecology/Obstetrics [facility] [address] [facility] [address] Kayy Costa PA-C [address] [place] [address] 11/20/2023 8:00 AM EDT Nurse Only Gynecology/Obstetrics [facility] [address] [facility] [place] [address] [place], Nurse Cinda New [address] [place] [address] 11/23/2023 3:00 PM EDT Nurse Only Gynecology/Obstetics [place] [address] [place] [address] [place], Nurse Heel [place] [address] [facility] [place] [place] [address] Pending Results Name Type Priority Associated Diagnoses Date /Time RED BLOOD CELL ANTIBODY IDENTIFICATION INTERPRETATION Lab STAT Supervision of high-risk , third trimester 10/12/2023 [...] Procedure Name Priority Date/Time Associated Diagnosis Comments ANEMIA REFLEX CHEMISTRY HOLD Routine 10/12/2023 8:45 AM EST Supervision of high-risk , third trimester RED BLOOD CELL ANTIBODY IDENTIFICATION STAT 10/12/2023 8:45 AM EST Supervision of high-risk , third trimester ANEMIA CBC Routine 10/12/2023 8:45 AM EST Supervision of high-risk , third trimester DIFFERENTIAL, AUTOMATED Routine 10/12/19 8:45 AM EST Supervision of high-risk , third trimester DIFFERENTIAL, AUTOMATED Routine 10/12/19 8:45 AM EST Supervision of high-risk , third trimester RETICULOCYTE PANEL Routine 10/12/2023 8: 45 AM EST Supervision of high-risk , third trimester RPR Routine 10/12/2023 8:45 AM EST Supervision of high-risk , third trimester TYPE AND SCREEN Routine 10/12/2023 8:45 AM EST Supervision of high-risk , third trimester IRON SCREEN, INCLUDING TIBC Routine 10/12/2023 8:45 AM EST Supervision of high-risk , third trimester CREATININE Routine 10/12/2023 8:45 AM EST Supervision of high-risk , third trimester FERRITIN Routine 10/12/2023 8:45 AM EST Supervision of high-risk , third trimester documented in this encounter Results * CREATININE (10/12/2023 8:45 AM EST) Creatinine 0.5 0.5 - 1.0 mg/dL 10/12/2023 9:27 PM EST [facility] Estimated Glomerular Filtration Rate >90 >=60 mL/min 10/12/2023 9:27 PM EST [facility] Comment:eGFR is calculated b ased on the CKD-EPI 2020 equation Blood Venous blood specimen / Unknown Venipuncture / Unknown 10/12/2023 8:45 AM EST 10/12/2023 8:45 AM EST Angie Darling PA-C LAB BLOOD ORDERABLES [facility] [address] [place] [address] * (ABNORMAL) FERRITIN (10/12/2023 8:45 AM EST) Ferritin 11(L) 13 - 150 ng/mL 10/12/2023 9:52 PM EST [facility] Blood Venous blood specimen / Unknown Venipuncture / Unknown 10/12/2023 8:45 AM EST 10/12/2023 8:45 AM EST Angie MAHAN-C LAB BLOOD ORDERABLES Performing Organization Address City/[facility]/ZIP Co de Phone Number LAB[facility]ATORY [facility] [address] [place] [address] * (ABNORMAL) IRON SCREEN, INCLUDING TIBC (10/12/2023 8:45 AM EST) Pathologist [facility] Iron 43 33 - 151 ug/dL 10/12/2023 9:27 PM EST [facility] Iron Binding Capacity 458(H) 250 - 425 ug/dL 10/12/2023 9:27 PM EST LABORATORY C Transferrin Saturation Percent 9(L) 15 - 55 % 10/12/2023 9:27 PM EST LABORATORY C Blood Venous blood specimen / Unknown Venipuncture / Unknown 10/12/2023 8:45 AM EST 10/12/2023 8:45 AM EST Angie MAHAN-C LAB BLOOD ORDERABLES Performing Organization Address City/[facility] Co de Phone Number LAB[facility]ATORY [facility] [address] [place] [address] * RED BLOOD CELL ANTIBODY IDENTIFICATION (10/12/2023 8:45 AM EST) Pathologist [facility] Red Blood Cell Antibody Identification Passive D Antibody 10/12/2023 8:18 PM EST LAB[facility] BLOOD BANK Blood Venous blood specimen / Unknown Venipuncture / Unknown 10/12/2023 8:45 AM EST 10/12/2023 8:45 AM EST Angie NOEC LAB BLOOD BANK TEST ORDERABLES Performing Organization Address City/[facility]/ZIP Co de Phone Number LAB[facility]ATORY [facility] BLOOD BANK [address] [place] [address] * (ABNORMAL) RETICULOCYTE PANEL (10/12/2023 8:45 AM EST) Reticulocyte Percent 1.97(H) 0.80 - 1.90 % 10/12/2023 8:24 PM EST [facility] Absolute Reticulocyte 73.1 31.3 - 100.1 K/uL 10/12/2023 8:24 PM EST [facility] Immature Reticuloctye Fraction 28.3(H) 2.5 - 20.6 % 10/12/2023 8:24 PM EST [facility] Reticulocyte Hemoglobin 30.1 29.7 - 37.4 pg 10/12/2023 8:24 PM EST [facility] Blood Venous blood specimen / Unknown Venipuncture / Unknown 10/12/2023 8:45 AM EST 10/12/2023 8:45 AM EST Angie Darling PA-C LAB BLOOD ORDERABLES Performing Organization Address City/[facility]/ZIP Co de Phone Number [facility] [address] [place] [address] * ANEMIA REFLEX CHEMISTRY HOLD (10/12/2023 8:45 AM EST) Blood Venous blood specimen / Unknown Venipuncture / Unknown 10/12/2023 8:45 AM EST 10/12/2023 8:45 AM EST Angie Darling PA-C LAB BLOOD ORDERABLES Performing Organization Address City/[facility]/ZIP Co de Phone Number LABORATORY [facility] [address] [place] [address] * DIFFERENTIAL, AUTOMATED (10/12/2023 8:45 AM EST) WBC 10.06 4.00 - 10.80 K/uL 10/12/2023 8:03 PM EST [facility] Neutrophils % 68.6 40.0 - 75.0 % 10/12/2023 8:03 PM EST [facility] Lymphocytes % 21.8 18.0 - 42.0 % 10/12/2023 8:03 PM EST [facility] Monocytes % 8.0 1.0 - 11.0 % 10/12/2023 8:03 PM EST [facility] Eosinophils % 0.8 0.0 - 6.0 % 10/12/2023 8:03 PM EST [facility] Basophils % 0.3 0.0 - 2.0 % 10/12/2023 8:03 PM EST [facility] Immature Granulocytes % 0.5 0.0 - 2.0 % 10/12/2023 8:03 PM EST [facility] Absolute Neutrophils 6.91 1.80 - 7.70 K/uL 10/12/2023 8:03 PM EST [facility] Absolute Lymphocytes 2.19 1.00 - 4.80 K/ul 10/12/2023 8:03 PM EST [facility] Absolute Monocytes 0.80 0.00 - 1.10 K/uL 10/12/2023 8:03 PM EST [facility] Absolute Eosinophils 0.08 0.00 - 0.70 K/uL 10/12/2023 8:03 PM EST [facility] Absolute Basophils 0.03 0.00 - 0.20 K/uL 10/12/2023 8:03 PM EST [facility] Absolute Immature Granulocytes 0.05 0.00 - 0.20 K/uL 10/12/2023 8:03 PM EST [facility] Blood Venous blood specimen / Unknown Venipuncture / Unknown 10/12/2023 8:45 AM EST 10/12/2023 8:45 AM EST Angie Darling PA-C LAB BLOOD ORDERABLES Performing Organization Address City/State/[facility] Co de Phone Number LABORATORY [facility] [address] [place] [address] * (ABNORMAL) ANEMIA CBC (10/12/2023 8:45 AM EST) WBC 10.06 4.00 - 10.80 K/uL 10/12/2023 8:03 PM EST [facility] RBC 3.71 3.85 - 5.15 M/uL 10/12/2023 8:03 PM EST [facility] HGB 10.9(L) 12.0 - 15.3 g/dL 10/12/2023 8:03 PM EST [facility] Comment: Anemia reflex testing triggers on a HGB < 12.0 for Females and HGB < 13.0 for Males in accordance with the WHO Anemia Guidelines Anemia reflex testing triggers on a HGB < 12.0 for Females and HGB < 13.0 for Males in accordance with the WHO Anemia Guidelines HCT 33.2(L) 36.0 - 45.2 % 10/12/2023 8:03 PM EST [facility] MCV 89.5 81.5 - 97.5 fL 10/12/2023 8:03 PM EST [facility] MCH 29.4 27.0 - 34.0 pg 10/12/2023 8:03 PM EST [facility] MCHC 32.8 32.0 - 36.0 g/dL 10/12/2023 8:03 PM EST [facility] RDW 13.8 11.5 - 15.5 % 10/12/2023 8:03 PM EST [facility] PLT 203 140 - 400 K/uL 10/12/2023 8:03 PM EST [facility] MPV 12.2 6.6 - 11.1 fL 10/12/2023 8:03 PM EST [facility] nRBCs 0 <=0 /100 WBCs 10/12/2023 8:03 PM EST [facility] Blood Venous blood specimen / Unknown Venipuncture / Unknown 10/12/2023 8:45 AM EST 10/12/2023 8:45 AM EST Angie Darling PA-C LAB BLOOD ORDERABLES Performing Organization Address City/[facility] Co de Phone Number [facility] [address] [place] [address] * RPR (10/12/2023 8:45 AM EST) RPR Screen Nonreactive Nonreactive 10/13/2023 8:57 AM EST [facility] Blood Venous blood specimen / Unknown Venipuncture / Unknown 10/12/2023 8:45 AM EST 10/12/2023 8:45 AM EST Angie Darling PA-C LAB BLOOD ORDERABLES Performing Organization Address City/State/[facility] Co de Phone Number [facility]ORY [facility] [address] [place] [address] * TYPE AND SCREEN (10/12/2023 8:45 AM EST) ABO O 10/12/2023 7:49 PM EST [facility] BLOOD BANK Rh Negative 10/12/2023 7:49 PM EST [facility] BLOOD BANK Red Blood Cell Antibody Screen Positive 10/12/2023 7:49 PM EST [facility] BLOOD BANK Comment: If RBC use is anticipated, place a prepare order Antibodies may delay blood availability Specimen Expiration Date 10/15/2023 23:59 10/12/2023 7:49 PM EST LAB[facility] BLOOD BANK Blood Venous blood specimen / Unknown Venipuncture / Unknown 10/12/2023 8:45 AM EST 10/12/2023 8:45 AM EST Angie Darling PA-C LAB BLOOD BANK TEST ORDERABLES Performing Organization Address [facility] Co de Phone Number LAB[facility]ATORY [facility] BLOOD BANK [address] [place] [address] documented in this encounter Visit Diagnoses Diagnosis [...] the patient have Health Care Power of Chain Maker Hand? No Code Status History Code Status Date Activated Date Inactivated Comments Full Code 01/05/2021 11:33 AM 01/05/2021 6:10 PM This o rder reflects the patients wishes and were consensually agreed upon. Care Teams Robotic Welding Operator Relationship Specialty Start Date End Date Taryn Melgar PA-C [address] [place] [address] PCP - General Physician Spool Sander 09/20/18 documented as of this encounter
--- OUTSIDE RECORDS SUMMARY | 2023-12-18 07:59 | External Medical Summary ---
Author Name Unknown Address Unknown Organization [id number]:[facility]ATORY [facility] [address] [place] [address] Laboratory Report Ordering Provider Test Date Status LIDIA ORTA 10/12/2023 08:45:03 Final Observation Date Value Abnormality Reference (Units) Status RED BLOOD CELL ANTIBODY IDENTIFICATION 10/12/2023 08:45:03 Passive D Antibody Final Performing Location LAB[facility]ATORY [facility] - [address] [place] [address]
--- OUTSIDE RECORDS SUMMARY | 2023-12-18 07:59 | External Medical Summary ---
Author Name Unknown Address Unknown Organization [id number]:[facility] [address] [facility] [place] [address] Laboratory Report Ordering Provider Test Date Status LIDIA ORTA 10/12/2023 08:45:03 Final Observation Date Value Abnormality Reference (Units ) Status WBC, Total 10/12/2023 08:45:03 10.06 4.00-10.8 0 (K/uL) Final RBC 10/12/2023 08:45:03 3.71 3.85-5.15 (M/uL) Final Hemoglobin 10/12/2023 08:45:03 10.9 Below low normal 12 .0-15.3 (g/dL) Final Anemia reflex testing trigge rs on a HGB < 12.0 for Females and HGB < 13.0 for Males in accordance with the WHO Anemia Guidelines
Anemia reflex testing triggers on a HGB < 12.0 for Females and HGB < 13.0 for Males in accordance with the WHO Anemia Guidelines HCT 10/12/2023 08:45:03 33.2 Below low normal 36. 0-45.2 (%) Final MCV 10/12/2023 08:45:03 89.5 81.5-97.5 (fL) Final MCH 10/12/2023 08:45:03 29.4 27.0-34.0 (pg) Final MCHC 10/12/2023 08:45:03 32.8 32.0-36.0 (g/dL) Final RDW 10/12/2023 08:45:03 13.8 11.5-15.5 (%) Final Platelets 10/12/2023 08:45:03 203 140-400 (K /uL) Final MPV 10/12/2023 08:45:03 12.2 6.6-11.1 ( fL) Final Nucleated erythrocytes/100 leukocytes [Ratio] in Blood by Automated count 10/12/2023 08:45:03 0 <=0 (/100 WBCs) Final Performing Location [facility] [place] [address] [facility] [address]
--- OUTSIDE RECORDS SUMMARY | 2023-12-18 08:00 | External Medical Summary | Summary of Care ---
Author Name Unknown Organization [facility] Address [address] [place] [address] Phone [phone] Care Team Providers Care Chief Enterprise Architect Name Role Phone Taryn Melgar PA-C Primary Care Provider Reason for Visit * Reason Onset Date Comments Referral 06/27/2023 Encounter Details Date Type Department Care Team (Late st Contact Info) Description 06/27/2023 Telephone Hand Etcher Helper Obstetrics Maternal Medicine, [place] [address] [place] [address] [place], Nurse Hand Etcher Helper [facility] [address] [place] [address] Referral Allergies Active Allergy Reactions Criticality Noted Date Comments Pollen Other (Please comment) Low 01/05/2021 documented as of this encounter (statuses as of 09/26/2023) Medications Medication Sig Dispensed Refills Start Date [...] after meals). 120 Each 5 06/21/2023 Active documented as of this encounter (statuses as of 09/26/2023) Active Problems Problem Noted Date Diagnosed Date [...] 06/28/23: MFM ADAPT consult complete. Enrolled in [employer]. Instructions provided to report blood sugars each [...] at bedtime 07/12/23-elevated sugars- msg send to PHOTOCOPYING MACHINE OPERATOR 07/12/23: RPM reviewed; elevated FBS; increase to Lantus 15 units at bedtime 07/18/23 stable 07/26/23-stable 08/01/23: RPM reviewed; missing readings but of those reported - stable; continue Lantus 15 units at bedtime 08/09/23- stable 08/16/23- stable 08/24/23- stable 08/29/23-stable 09/05/23-stable 09/12/23-stable but missing many readings 09/18/23: RPM reviewed; many missed readings; request updated log Last Assessment & Plan: Working with ADAPT. Abnormal glucose tolerance in mother complicatin g 06/24/2023 BMI 32.0-32.9,adult 05/27/2023 Constipation during , antepartum 2022 History of gestational diabetes 05/27/2023 Supervision of high-risk , second trime ster 05/27/2023 Overview: Estimated Date of Delivery: 12/23/23 Continue vitamin. O negative - needs Rhogam injection at 28 weeks and if she has vaginal bleeding in prengancy. Varicella and rubella immune. S/p anatomy ultrasound. Will order CBC, type and screen, and RPR at 28 weeks. Tdap vaccine at 27 to 36 [...] as of this encounter (statuses as of 09/26/2023) Resolved Problems Problem Noted Date Diagnosed Date Resolved Date arrhythmia affecting p regnancy, antepartum 08/17/2022 05/27/2023 Overview: arythmia noted 08/12, saw peds cardio IMPRESSION and PLAN: 1. PACs in bigeminy giving the appearance of HR variability between 60-160 bpm 2. 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 Normal biventricular function 4. Mild RI The above findings were shared with the [...] dealing with it, otherwise can deliver in [place]. 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 Atrioventricular (AV) synchrony is noted . heart rate is 120-130 BPM. Frequent premature atrial contractions. PACs in [facility]. 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 On today's [...] and folate levels and referral to a snow removal supervisor. 4. If hemoglobin levels are below 8 g/dl, we recommend Maternal Medicine ultrasound for growth every 4 weeks after 24 weeks. Consider a blood transfusion if hemoglobin levels fall below 6 g/dL. ([employer] Practice Bulletin Number 95, February,). 5. Consider [...] Will continue testing and report weekly to [facility] via [employer]. Discussed that medication may be needed if [...] 08/22/22: Taking 15 units Levemir at HS. [place] woozy after 20 units. Was sick last [...] mother 06/09/2022 3 Overview: Discussed with Dr. Adigun. Continue to monitor fundal height and order [...] Overview: Doing well on Colace. Postoperative nausea 01/05/202101/22/ 021 Encounter for preconception consultation 09/23/2020 08/17/2022 Nexplanon removal 09/13/2019 08/17/2022 documented as of this encounter (statuses as of 09/26/2023) Immunizations Name Administration Dates Next Due Seasonal Influenza, Split, IIV3, With Preserve, Inj 05/21/2013 TDAP (age 10 and older)(Boostrix) 07/04/2022, documented as of this encounter Social History Tobacco Use Types Packs/Day Years Used Date Smoking Tobacco: Never Smokeless Tobacco: Never Alcohol Use Standard Drinks/Week Comments Not Currently 0 (1 standard drink = 0.6 oz pur e alcohol) occasionally, wine PHQ-2 Answer Date Recorded PHQ Adult Total [...] money to get more. Never true 11/01/2022 [place] Depression Scale Answer Date Recorded [place] Depression Scale Total 2 09/14/2023 The thought [...] Telephone Encounter - Kamilla Vazquez OSA - 06/27/2023 8:40 AM EST Appointments scheduled * Telephone Encounter - Angie Garay MED ASSIST - 06/27/2023 8:12 AM EST Estimated Date of Delivery: 12/23/23 Please schedule for 45 MINUTE ADAPT WITH PHOTOCOPYING MACHINE OPERATOR, in time frame of next available or at patient's earliest convenience at location [facility] with the indication of GDM. Please schedule limited anatomy before 16 weeks (now-07/08/23). Please schedule anatomy between 19-21 weeks (07/29/23-08/12/23). Referring Provider: Angie Nuñez PA-C documented in this encounter Plan of Treatment Upcoming Encounters Date Type Department Care Team (Late st Contact Info) Description 09/29/2023 9:30 AM EST Office Visit Gynecology/Obstetics [place] [address] [place] [address] Angie Nuñez PA-C [address] [place] [address] 10/04/2023 8:00 AM EST Imaging Radiology, [place] [phone] [place] [address] 10/12/2023 9:15 AM EST Office Visit Gynecology[facility]st[facility] [place] [facility] [phone] Angie Nuñez PA-C [address] [place] [address] 10/25/2023 9:30 AM EDT Office Visit Gynecology/Obstetics [place] [address] [place] [phone] Angie Nuñez PA-C [address] [place] [address] 11/08/2023 8:45 AM EDT Imaging Radiology, [facility] [address] [place] [address] Health Maintenance Due Date Last Done Comments Hepatitis B (1 of 3 - 3-dose series) 1993 COVID-19 Vaccine (#1) 05/05/1994 Depression Screening 07/05/2022 07/05/2021 Influenza Vaccine (FLU shot) (#1) 2023 05/21/2013 [...] Indicated Resolved Time Influenza (seasonal) 09/16/2023 09/16/2023 documented as of this encounter Advance Directives [...] the patient have Health Care Power of Production Assistant? No Code Status History Code Status Date Activated Date Inactivated Comments Full Code 01/05/2021 11:33 AM 01/05/2021 6:10 PM This o rder reflects the patients wishes and were consensually agreed upon. Care Teams Chief Enterprise Architect Relationship Specialty Start Date End Date Taryn Melgar PA-C [address] [place] [phone] PCP - General Physician Vice President Financial 09/20/18 documented as of this encounter
--- OUTSIDE RECORDS SUMMARY | 2023-12-18 08:00 | External Medical Summary | Summary of Care ---
Author Name Unknown Organization [facility] Address [address] [place] [address] Phone [phone] Care Team Providers Care Chip Drier Name Role Phone Taryn Melgar PA-C Primary Care Provider Encounter Details Date Type Department Care Team (Late st Contact Info) Description 10/04/2023 8:00 AM EST Office Visit Activity Director Obstetrics Maternal Medicine, [address] [address] Aniya Carson, DO [address] [place] [address] Insulin controlled gestational diabetes mellitus (GDM) during , antepartum*; 28 weeks gestation of ; Ultrasound for screening for growth restriction Allergies Active Allergy Reactions Criticality Noted Date Comments Pollen Other (Please comment) Low 01/05/2021 documented as of this encounter (statuses as of 10/04/2023) Medications Medication Sig Dispensed Refills Start Date [...] as of this encounter (statuses as of 10/04/2023) Active Problems Problem Noted Date Diagnosed Date [...] at bedtime 07/12/23-elevated sugars- msg send to PROGRAM ASSOCIATE 07/12/23: RPM reviewed; elevated FBS; increase to [...] daily and follow diet. --KW 10/04/23- stable Last Assessment & Plan: Working with ADAPT. [...] as of this encounter (statuses as of 10/04/2023) Resolved Problems Problem Noted Date Diagnosed Date [...] dealing with it, otherwise can deliver in [place]. Last Assessment & Plan: She was seen [...] and folate levels and referral to a dispatcher ship pilot. 4. If hemoglobin levels are below 8 g/dl, we recommend Maternal Medicine ultrasound for growth every 4 weeks after 24 weeks. Consider a blood transfusion if hemoglobin levels fall below 6 g/dL. ([employer] Production Supervisor Practice Bulletin Number 95, February,). 5. Consider [...] Will continue testing and report weekly to [facility] via [employer]. Discussed that medication may be needed if elevated blood sugars do not improve with diet alone. Patient agreeable to starting insulin if needed. Will review again next week. 07/25/22: [facility] ADAPT consult complete. 07/27/22: elevated [...] 08/22/22: Taking 15 units Levemir at HS. [place] woozy after 20 units. Was sick last [...] MEDICINE referral made. Last Assessment & Plan: [facility] anatomy/growth ultrasound scheduled for 08/03/22. [...] as of this encounter (statuses as of 10/04/2023) Immunizations Name Administration Dates Next Due Seasonal [...] money to get more. Never true 11/01/2022 Pinson Depression Scale Answer Date Recorded Pinson Depression Scale Total 2 09/14/2023 The thought [...] encounter Progress Notes * Aniya Carson, - 10/04/2023 11:43 AM EST Lacy presented today at 28w4d for an ultrasound for the following indications: Insulin controlled gestational diabetes mellitus (GDM) during , antepartum 28 weeks gestation of Ultrasound for screening for growth restriction Ultrasound summary: Patient presented at 28w 4d for growth assessment. Normal growth with EFW 1240 g at 35%ile. Normal SHANNON at 14 cm. Transverse presentation. I reviewed the ultrasound images. Lacy was given the opportunity to meet with me if she had any questions. Please refer to the ultrasound report for additional details about today's ultrasound examination. RECOMMENDATIONS: Recommend follow up ultrasound with MFM in 4-6 weeks for growth secondary to above indications. See prior formal MFM consultation note. Thank you for allowing us to participate in the care of this patient. Please call with any questions. Aniya Carson DO 10/04/2023 11:43 AM documented in this encounter Plan of Treatment Upcoming Encounters Date Type Department Care Team (Late st Contact Info) Description 10/06/2023 9:30 AM EST Office Visit Gynecology/Obstetics [address] [phone] Angie Nuñez PA-C [address] [place] [address] 10/12/2023 9:15 AM EST Office Visit Gynecology/Obstetics [place] [address] [place] [address] [place] [address] Angie Nuñez PA-C [address] [place] [address] 10/25/2023 9:30 AM EDT Office Visit Gynecology/Obstetics [place] [address] [place] [address] [place] [phone] Angie Nuñez PA-C [address] [place] [address] 11/08/2023 8:45 AM EDT Imaging Radiology, [place] [address] Health Maintenance Due Date Last Done Comments [...] as of this encounter Visit Diagnoses Diagnosis Insulin controlled gestational diabetes mellitus (GDM) during , antepartum- Primary 28 weeks gestation of state, incidental Ultrasound for screening for growth restriction screening for growth retardation using ultrasonics documented in this encounter Additional Health Concerns Infection Onset [...] the patient have Health Care Power of Comfort Advisor? No Code Status History Code Status Date Activated Date Inactivated Comments Full Code 01/05/2021 11:33 AM 01/05/2021 6:10 PM This o rder reflects the patients wishes and were consensually agreed upon. Care Teams Chip Drier Relationship Specialty Start Date End Date Taryn Melgar PA-C [address] [place], [place] [address]NE[place]ITO hogan [phone] PCP - General Physician Manufacturing Laborer 09/20/18 documented as of this encounter
--- OUTSIDE RECORDS SUMMARY | 2023-12-18 08:00 | External Medical Summary | Summary of Care ---
Author Name Unknown Organization [facility] Address [address] [place] [address] Phone [phone] Care Team Providers Care Wallcovering Hanger Name Role Phone Taryn Melgar PA-C Primary Care Provider Encounter Details Date Type Department Care Team (Late st Contact Info) Description 07/05/2023 Telephone Drafting Teacher Obstetrics Maternal Medicine, [place] [address] [place] [address] [place], Nurse Drafting Teacher [facility] [address] [place] [address] Allergies Active Allergy Reactions Criticality [...] at bedtime 07/12/23-elevated sugars- msg send to MARKETING OPERATIONS MANAGER 07/12/23: RPM reviewed; elevated FBS; increase [...] dealing with it, otherwise can deliver in [place]. Last Assessment & Plan: She was seen [...] and folate levels and referral to a commercial management accountant. 4. If hemoglobin levels are below 8 g/dl, we recommend Maternal Medicine ultrasound for growth every 4 weeks after 24 weeks. Consider a blood transfusion if hemoglobin levels fall below 6 g/dL. ([employer] Lead Person Practice Bulletin Number 95, February,). 5. Consider [...] Will continue testing and report weekly to [facility] via [employer]. Discussed that medication may be needed if elevated blood sugars do not improve with diet alone. Patient agreeable to starting insulin if needed. Will review again next week. 07/25/22: [facility] ADAPT consult complete. 07/27/22: elevated fasting; nutrition [...] 08/22/22: Taking 15 units Levemir at HS. [place] woozy after 20 units. Was sick last [...] money to get more. Never true 11/01/2022 [place] Depression Scale Answer Date Recorded [place] Depression Scale Total 2 09/14/2023 The thought [...] Telephone Encounter - Kamilla Vazquez OSA - 07/05/2023 12:49 PM EST Appointment scheduled * Telephone Encounter - Kamilla Vazquez OSA - 07/05/2023 12:49 PM EST ----- Message from Pily Carrillo LPN sent at 07/05/2023 10:32 AM EST ----- Regarding: adapt Please schedule adapt follow up documented in this encounter Plan of Treatment Upcoming Encounters Date Type Department Care Team (Late st Contact Info) Description 10/06/2023 9:30 AM EST Office Visit Gynecology/Obstetics [place] [address] [place] [address] Angie Nuñez PA-C 68 [place] [address] 10/12/2023 9:15 AM EST Office Visit Gynecology/Obstetics [place] 68 [facility] [place] [address] Angie Nuñez PA-C 68 [place] [address] 10/25/2023 9:30 AM EDT Office Visit Gynecology/Obstetics [place] [address] [facility] [place] [phone] Angie Nuñez PA-C 68 [facility] [place] [address] 11/08/2023 8:45 AM EDT Imaging Radiology, [facility] [address] [place] [address] Health Maintenance Due Date Last Done Comments Hepatitis B (1 of 3 - 19+ 3-dose series) 2012 Depression Screening 07/05/2022 07/05/2021 COVID-19 Vaccine ( - 2022-24 season) 2023 Influenza Vaccine (FLU [...] the patient have Health Care Power of Credit Union Teller? No Code Status History Code Status Date Activated Date Inactivated Comments Full Code 01/05/2021 11:33 AM 01/05/2021 6:10 PM This o rder reflects the patients wishes and were consensually agreed upon. Care Teams Wallcovering Hanger Relationship Specialty Start Date End Date Taryn Melgar PA-C [address] [place], [place] [address]NE[place]IT[place] hogan [phone] PCP - General Physician Accounting System Expert 09/20/18 documented as of this encounter
--- OUTSIDE RECORDS SUMMARY | 2023-12-18 08:00 | External Medical Summary ---
Author Name Unknown Address Unknown Organization K[facility] - [address] [place] [address] Laboratory Report Ordering Provider Test Date Status LIDIA ORTA 10/12/2023 08:45:03 Final Observation Date Value Abnormality Reference (Units ) Status Ferritin 10/12/2023 08:45:03 11 Below low normal 13- 150 (ng/mL) Final Performing Location [facility] - [address] [place] [address]
--- OUTSIDE RECORDS SUMMARY | 2023-12-18 08:00 | External Medical Summary | Summary of Care ---
Author Name Unknown Organization [facility] Address [address] [place] [address] Phone [phone] Care Team Providers Care Release Coordinator Name Role Phone Taryn Melgar PA-C Primary Care Provider Reason for Visit * Reason Comments Return Visit Encounter Details Date Type Department Care Team (Late st Contact Info) Description 10/06/2023 9:30 AM EST Office Visit Gynecology/Obstetics [address] [phone] Angie Nuñez PA-C [address] [place] [address] Supervision of high-risk , third trimester*; Rh negative, antepartum; Insulin controlled gestational diabetes mellitus (GDM) during , antepartum; Short interval between pregnancies complicating , antepartum Allergies Active Allergy Reactions Criticality Noted Date Comments Pollen Other (Please comment) Low 01/05/2021 documented as of this encounter (statuses as of 10/06/2023) Medications Medication Sig Dispensed Refills Start Date [...] as of this encounter (statuses as of 10/06/2023) Active Problems Problem Noted Date Diagnosed Date [...] at bedtime 07/12/23-elevated sugars- msg send to SPECIAL SYSTEMS TECHNICIAN 07/12/23: RPM reviewed; elevated FBS; increase to [...] as of this encounter (statuses as of 10/06/2023) Resolved Problems Problem Noted Date Diagnosed Date Resolved Date arrhythmia affecting p regnancy, antepartum 08/17/2022 05/27/2023 Overview: arythmia noted 08/12, saw peds cardio IMPRESSION and PLAN: 1. PACs in [place] giving the appearance of HR variability between 60-160 bpm 2. 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 Normal biventricular function 4. Mild [place] The above findings were shared with the [...] dealing with it, otherwise can deliver in [place]. 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 Atrioventricular (AV) synchrony is noted . heart rate is 120-130 BPM. Frequent premature atrial contractions. [facility]. 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 On today's [...] and folate levels and referral to a stud master/mistress. 4. If hemoglobin levels are below 8 g/dl, we recommend Maternal Medicine ultrasound for growth every 4 weeks after 24 weeks. Consider a blood transfusion if hemoglobin levels fall below 6 g/dL. ([employer] Loom Blower Practice Bulletin Number 95, February,). 5. Consider [...] Will continue testing and report weekly to [facility] via [id number]. Discussed that medication may be needed if elevated blood sugars do not improve with diet alone. Patient agreeable to starting insulin if needed. Will review again next week. 07/25/22: [facility] ADAPT consult complete. 07/27/22: elevated [...] 08/22/22: Taking 15 units Levemir at HS. [place] woozy after 20 units. Was sick last [...] MEDICINE referral made. Last Assessment & Plan: [facility] anatomy/growth ultrasound scheduled for 08/03/22. [...] as of this encounter (statuses as of 10/06/2023) Immunizations Name Administration Dates Next Due Seasonal [...] money to get more. Never true 11/01/2022 [place] Depression Scale Answer Date Recorded [place] Depression Scale Total 2 09/14/2023 The thought [...] Sign Reading Time Taken Comments Blood Pressure 120/68 10/06/2023 9:36 AM EST Pulse - - Temperature - - Respiratory Rate - - Oxygen Saturation - - Inhaled Oxygen Concentration - - Weight 83 kg (183 lb) 10/06/2023 9:36 AM EST Height - - Body Mass Index 33.47 09/08/2022 10:04 AM EST documented in this [...] Progress Notes * Angie Nuñez PA-C - 10/06/2023 9:39 AM EST Lacy Mckinney presents for visit at 28w6d. BP 120/68 | Wt 83 kg (183 lb) | LMP 03/18/2023 (Exact Date) | BMI 33.47 kg/m | BSA 1.91 m Doing well. Denies vaginal bleeding, leaking of fluid, vaginal pressure, contractions, abdominal pain, or abnormal vaginal discharge. Denies headaches, blurry vision, or right upper quadrant pain. Patient states she feels good movement. Patient reports that blood sugars have been well controlled. Physical Exam General: alert and oriented, no acute distress Pulmonary: normal respiratory effort, no accessory muscle use. Abdomen: gravid, soft, non-tender heart rate: 130's bpm OB Mio Problems (from 05/09/23 to present) Problem Noted Resolved History of gestational diabetes mellitus (GDM) 06/27/2023 by Amy Rivas CRNP No History of gestational diabetes (GDMA2) in previous Short interval between pregnancies complicating , antepartum [...] at bedtime 07/12/23-elevated sugars- msg send to SPECIAL SYSTEMS TECHNICIAN 07/12/23: RPM reviewed; elevated FBS; increase to [...] daily and follow diet. --KW 10/04/23- stable Supervision of high-risk , third trimester 05/27/2023 [...] Tdap vaccine at 27 to 36 weeks. Rh negative, antepartum 05/12/2022 by Angie Nuñez PA-C No Rhogam given on 08/10/2023. Needs to repeat Rhogam in 12 weeks from 08/10/2023. Plan: -Patient reports that blood sugars have been well controlled. -Desires Rhogam injection and Tdap vaccine next appointment. -Ordered lab work at 28 weeks. -NSTs twice a week at 32 weeks. -Following with MATERNAL MEDICINE. Counseled patient to call triage/go to labor [...] Nursing Notes * Ivon Rankin RN - 10/06/2023 9:36 AM EST Patient presents for return visit. Denies any concerns. documented in this encounter Plan of Treatment Upcoming Encounters Date Type Department Care Team (Late st Contact Info) Description 10/12/2023 9:15 AM EST Office Visit Gynecology/Obstetics [place] [address] [facility] [facility] [place] [phone] Angie Nuñez PA-C 68 [place] [address] 10/25/2023 9:30 AM EDT Office Visit Gynecology/Obstetics [place] [address] [facility] [place] [facility] [place] [phone] Angie Nuñez PA-C 68 [place] [address] 11/08/2023 8:45 AM EDT Imaging Radiology, [place] [address] Scheduled Orders Name Type Priority Associated Diagnoses Orde r Schedule CBC WITH WBC DIFFERENTIAL AND ANEMIA REFLEX WORKUP Lab Routine Supervision of high-risk , third trimester Expected: 10/13/2023 (Approximate), Expires: 10/05/2024 TYPE AND SCREEN Lab Routine Supervision of high-risk , third trimester Expected: 10/13/2023 (Approximate), Expires: 10/05/2024 RPR Lab Routine Supervision of high-risk , third trimester Expected: 10/13/2023 (Approximate), Expires: 10/05/2024 Health Maintenance Due Date Last Done Comments [...] of other high-risk documented in this encounter Additional Health Concerns [...] the patient have Health Care Power of Food Service Ambassador? No Code Status History Code Status Date Activated Date Inactivated Comments Full Code 01/05/2021 11:33 AM 01/05/2021 6:10 PM This o rder reflects the patients wishes and were consensually agreed upon. Care Teams Release Coordinator Relationship Specialty Start Date End Date Taryn Melgar PA-C [address] [place], [place] [address]NE[place] hgoan [phone] PCP - General Physician Project Geologist 09/20/18 documented as of this encounter
--- OUTSIDE RECORDS SUMMARY | 2023-12-18 08:00 | External Medical Summary | Summary of Care ---
Author Name Unknown Organization [facility] Address [address] [place] [address] Phone [phone] Care Team Providers Care Prison Officer Name Role Phone Taryn Melgar PA-C Primary Care Provider Encounter Details Date Type Department Care Team (Late st Contact Info) Description 10/10/2023 Orders Only PATIENT PORTAL DO NOT DELETE THIS DEPT USED BY NEGRITO MICHELLE [address] Allergies Active Allergy Reactions Criticality Noted Date Comments Pollen Other (Please comment) Low 01/05/2021 documented as of this encounter (statuses as of 10/10/2023) Medications Medication Sig Dispensed Refills Start Date [...] as of this encounter (statuses as of 10/10/2023) Active Problems Problem Noted Date Diagnosed Date [...] at bedtime 07/12/23-elevated sugars- msg send to EKG MONITOR TECH 07/12/23: RPM reviewed; elevated FBS; increase [...] diabetes 05/27/2023 Supervision of high-risk , third [facility] 05/27/2023 Overview: Estimated Date of Delivery: 12/23/23 [...] as of this encounter (statuses as of 10/10/2023) Resolved Problems Problem Noted Date Diagnosed Date Resolved Date arrhythmia affecting p regnancy, antepartum 08/17/2022 05/27/2023 Overview: arythmia noted 08/12, saw peds cardio IMPRESSION and PLAN: [facility] the [facility] of HR variability between 60-160 bpm 2. 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 Normal biventricular function 4. Mild [place] The above findings were shared with the [...] dealing with it, otherwise can deliver in [place]. Last Assessment & Plan: She was seen [...] and folate levels and referral to a mastic floor layer. 4. If hemoglobin levels are below 8 g/dl, we recommend Maternal Medicine ultrasound for growth every 4 weeks after 24 weeks. Consider a blood transfusion if hemoglobin levels fall below 6 g/dL. ([employer] Hand Expansion Envelope Maker Practice Bulletin Number 95, February,). 5. Consider [...] Will continue testing and report weekly to [facility] via [employer]. Discussed that medication may be needed if elevated blood sugars do not improve with diet alone. Patient agreeable to starting insulin if needed. Will review again next week. 07/25/22: [facility] ADAPT consult complete. 07/27/22: elevated [...] 08/22/22: Taking 15 units Levemir at HS. [place] woozy after 20 units. Was sick last [...] MEDICINE referral made. Last Assessment & Plan: [facility] anatomy/growth ultrasound scheduled for 08/03/22. Patient [...] as of this encounter (statuses as of 10/10/2023) Immunizations Name Administration Dates Next Due Seasonal [...] money to get more. Never true 11/01/2022 [place] Depression Scale Answer Date Recorded [place] Depression Scale Total 2 09/14/2023 The thought [...] 10/12/2023 9:15 AM EST Office Visit Gynecology/Obstetics [place] 68 [facility] [place] [phone] Angie Nuñez PA-C [address] [place] [address] 10/25/2023 9:30 AM EDT Office Visit Gynecology/Obstetics [place] [address] [facility] [place] [facility] [place] [phone] Angie Nuñez PA-C [address] [place] [address] 11/08/2023 8:45 AM EDT Imaging Radiology, [facility] [address] [place] [address] Health Maintenance Due Date Last Done Comments [...] the patient have Health Care Power of Mobile Battery Technician? No Code Status History Code Status Date Activated Date Inactivated Comments Full Code 01/05/2021 11:33 AM 01/05/2021 6:10 PM This o rder reflects the patients wishes and were consensually agreed upon. Care Teams Prison Officer Relationship Specialty Start Date End Date Taryn Melgar PA-C [address] [place] [address] [place] [address] PCP - General Physician Trench Shovel Operator 09/20/18 documented as of this encounter
--- OUTSIDE RECORDS SUMMARY | 2023-12-18 08:01 | External Medical Summary | Summary of Care ---
Author Name Unknown Organization [facility] Address [address] [place] [address] Phone [phone] Care Team Providers Care Chief I Dispatcher Name Role Phone Taryn Melgar PA-C Primary Care Provider Reason for Visit * Reason Comments Cough Fever Ear Pain Encounter Details Date Type Department Care Team (Late st Contact Info) Description 09/16/2023 12:30 PM EST [facility] Visit [address] [phone] Huber Stephenson PA-C [address] [place] [phone] Upper respiratory tract infection, unspecified type* Allergies Active Allergy Reactions Criticality Noted Date Comments Pollen Other (Please comment) Low 01/05/2021 documented as of this encounter (statuses as of 09/16/2023) Medications Medication Sig Dispensed Refills Start Date [...] three days. 20 mL 0 09/16/2023 Active diphenhydrAMINE HCl 25 MG Oral Capsule (Benadryl) Take 1 Capsule by mouth every night at bedtime for 10 days. For congestion 10 Capsule 0 09/16/2023 09/26/2023 Active documented as of this encounter (statuses as of 09/16/2023) Active Problems Problem Noted Date Diagnosed Date [...] at bedtime 07/12/23-elevated sugars- msg send to REHAB/PRE VOCATIONAL COUNSELOR 07/12/23: RPM reviewed; elevated FBS; increase to Lantus 15 units at bedtime 07/18/23 stable 07/26/23-stable 08/01/23: RPM reviewed; missing readings but of those reported - stable; continue Lantus 15 units at bedtime 08/09/23- stable 08/16/23- stable 08/24/23- stable 08/29/23-stable 09/05/23-stable 09/12/23-stable but missing many readings Last Assessment & Plan: Working with ADAPT. [...] as of this encounter (statuses as of 09/16/2023) Resolved Problems Problem Noted Date Diagnosed Date Resolved Date arrhythmia affecting p regnancy, antepartum 08/17/2022 05/27/2023 Overview: arythmia noted 08/12, saw peds cardio IMPRESSION and PLAN: 1. [facility] the appearance of HR variability between 60-160 bpm 2. 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 Normal biventricular function 4. Mild GA The above findings were shared with the [...] dealing with it, otherwise can deliver in [place]. Last Assessment & Plan: She was seen [...] and folate levels and referral to a imaging services director. 4. If hemoglobin levels are below 8 g/dl, we recommend Maternal Medicine ultrasound for growth every 4 weeks after 24 weeks. Consider a blood transfusion if hemoglobin levels fall below 6 g/dL. ([employer] Practice Bulletin Number 95, February,). 5. [...] Will continue testing and report weekly to [facility] via [employer]. Discussed that medication may be needed if elevated blood sugars do not improve with diet alone. Patient agreeable to starting insulin if needed. Will review again next week. 07/25/22: [facility] ADAPT consult complete. 07/27/22: elevated [...] 08/22/22: Taking 15 units Levemir at HS. [place] woozy after 20 units. Was sick last [...] MEDICINE referral made. Last Assessment & Plan: [facility] anatomy/growth ultrasound scheduled for 08/03/22. Patient [...] as of this encounter (statuses as of 09/16/2023) Immunizations Name Administration Dates Next Due Seasonal [...] money to get more. Never true 11/01/2022 [place] Depression Scale Answer Date Recorded [place] Depression Scale Total 2 09/14/2023 The thought [...] Reading Time Taken Comments Blood Pressure 114/70 09/16/2023 12:03 PM EST Pulse 111 09/16/2023 12:03 PM EST Temperature 37.1 C (98.7 F) 09/16/2023 12:[address] Respiratory Rate 18 09/16/2023 12:03 PM EST Oxygen Saturation 98% 09/16/2023 12:03 PM EST Inhaled Oxygen Concentration - - Weight 82.4 kg (181 lb 9.6 oz) 09/16/2023 12:03 PM EST Height - - Body Mass Index 33.22 09/08/2022 10:04 AM EST documented in this [...] as of this encounter Progress Notes * Huber Stephenson PA-C - 09/16/2023 1:42 PM EST [facility] Basic Exam HPI: Lacy Mckinney is a 27 year old year old female who presents for evaluation of cough, congestion with runny nose. Patient is 26 weeks gestation with a hx of gestational diabetes. No SOB. No fever. PAST MEDICAL HISTORY: Past Medical History: Diagnosis Date Gestational diabetes 2021 Ovarian cyst 2020 Past Surgical History: Procedure Laterality Date LAPAROSCOPY DIAGNOSTIC N/A 01/05/2021 LAPAROSCOPY DIAGNOSTIC performed by Hermilo Taylor MD at OR [facility] LAPAROSCOPY;RMV ADNEXAL STRUCT N/A 01/05/2021 LAPAROSCOPIC OOPHORECTOMY AND OR SALPINGECTOMY performed by Hermilo Taylor MD at OR [facility] Social History Tobacco Use Smoking status: Never Smokeless tobacco: Never Substance Use Topics Alcohol use: Not Currently Comment: denies in 2022 Vaping/E-Cigarette Use Vaping/E-Cigarette Use Never User Vaping/E-Cigarette Substances Vaping/E-Cigarette Devices Patient Active Problem List Diagnosis Code Cyst of ovary N83.209 Menstrual irregularity N92.6 Pelvic pain in female R10.2 S/P ovarian cystectomy Z98.890, Z87.42 Dizziness R42 Female infertility N97.9 History of abnormal cervical Pap smear Z87.42 Rh negative, antepartum O26.899, Z67.91 Class 1 obesity E66.9 Rubella non-immune status, antepartum O09.899, Z28.39 BMI 32.0-32.9,adult Z68.32 Constipation during , antepartum O99.619, K59.00 History of gestational diabetes Z86.32 Supervision of high-risk , second trimester O09.92 Abnormal glucose tolerance in mother complicating O99.810 Insulin controlled gestational diabetes mellitus (GDM) during , antepartum O24.414 History of gestational diabetes mellitus (GDM) Z86.32 Obesity in , antepartum O99.210 Short interval between pregnancies complicating , antepartum O09.899 Review of patient's allergies indicates: Allergen Reactions Pollen Other (Please comment) Current Outpatient Medications Medication Sig Dispense Refill Pre- Formula Oral Tablet Take 1 Tablet by mouth in the morning. Docusate Sodium 100 MG Oral Capsule (Colace) Take 1 Capsule by mouth daily as needed for Constipation. 30 Capsule 3 OneTouch Verio In Vitro Strip (Glucose Blood) Test blood sugars 4 times a day (fasting and one hourafter meals). 120 Strip 5 Lancets Test blood sugars 4 times a day (fasting and one hour after meals). 120 Each 5 BD Pen Needle Mini U/F 31G X 5 MM (Insulin Pen Needle) Use to inject insulin once daily. 100 Each 3 Insulin Glargine Solostar 100 UNIT/ML Subcutaneous Solution Pen-injector (Lantus SoloStar) Inject 15 Units under the skin at bedtime. Take with bedtime snack. 15 mL 3 Albuterol Sulfate HFA 108 (90 Base) MCG/ACT Inhalation Aerosol Solution Inhale 2 Puffs by mouth every 6 hours as needed for Cough or Shortness of Breath. 18 g 0 Dextromethorphan-guaiFENesin 10-100 MG/5ML Oral Liquid (Robitussin DM) Take 5 mL by mouth every 4 hours as needed for Cough. 120 mL 0 Oxymetazoline HCl 0.05 % Nasal Solution Administer 2 Sprays into each nostril 2 times a day as needed for Congestion (for congestion). Do not use for more than three days. 20 mL 0 diphenhydrAMINE HCl 25 MG Oral Capsule (Benadryl) Take 1 Capsule by mouth every night at bedtime for 10 days. For congestion 10 Capsule 0 metroNIDAZOLE 500 MG Oral Tablet (Flagyl) Take 1 Tablet by mouth in the morning and 1 Tablet beforebedtime for 7 days until gone.. (Patient not taking: Reported on 09/16/2023) 14 Tablet 0 No current facility-administered medications for this visit. Nursing Notes and Vital Signs reviewed. BP 114/70 | Pulse 111 | Temp 37.1 C (98.7 F) (Tympanic) | Resp 18 | Wt 82.4 kg (181 lb 9.6 oz) | LMP 03/18/2023 (Exact Date) | SpO2 98% | BMI 33.22 kg/m | BSA 1.9 m Physical Exam Vitals and nursing note reviewed. Constitutional: General: She is awake. She is not in acute distress. Appearance: Normal appearance. She is not ill-appearing or toxic-appearing. HENT: Head: Normocephalic. Right Ear: Hearing, tympanic membrane, ear canal and external ear normal. Left Ear: Hearing, tympanic membrane, ear canal and external ear normal. Nose: Congestion and rhinorrhea present. Rhinorrhea is clear. Pulmonary: Effort: Pulmonary effort is normal. Breath sounds: Normal air entry. Examination of the right-upper field reveals decreased breath sounds. Examination of the left-upper field reveals decreased breath sounds. Decreased breath sounds present. Abdominal: General: Abdomen is protuberant. Comments: Gravid due to . Neurological: Mental Status: She is alert. Psychiatric: Behavior: Behavior is cooperative. ASSESSMENT: Upper respiratory tract infection, unspecified type (Primary) - INFLUENZA A/B RSV SARS-COV2,PCR Other orders - Albuterol Sulfate HFA 108 (90 Base) MCG/ACT Inhalation Aerosol Solution; Inhale 2 Puffs by mouth every 6 hours as needed for Cough or Shortness of Breath. - Dextromethorphan-guaiFENesin 10-100 MG/5ML Oral Liquid (Robitussin DM); Take 5 mL by mouth every 4 hours as needed for Cough. - Oxymetazoline HCl 0.05 % Nasal Solution; Administer 2 Sprays into each nostril 2 times a day as needed for Congestion (for congestion). Do not use for more than three days. - diphenhydrAMINE HCl 25 MG Oral Capsule (Benadryl); Take 1 Capsule by mouth every night at bedtimefor 10 days. For congestion Plan: Will 4 plex. Will treat symptoms. Patient goals for plan of care were discussed Follow up with PCP or seek emergency medical attention as needed if symptoms worsen, evolve, or fail to improve. Patient demonstrates understanding of the visit, course of treatment, and instructions. Thoroughly discussed alarming symptoms that would indicate need for emergent care/treatment. Medication instructions and possible side effects were reviewed with patient. All questions were answered and patient agrees to plan of care. Huber Stephenson PA-C [address] [address] documented in this encounter Nursing Notes * Antonia Louis CMA - 09/16/2023 12:06 PM EST Nursing Notes: CC: Chief Complaint Patient presents with Cough Fever Ear Pain Brief Hx: Patient complains of cough, fever, ear pain Duration/Onset: OTC meds: Monday Accompanied by: self documented in this encounter Plan of Treatment Upcoming Encounters Date Type Department Care Team (Late st Contact Info) Description 09/29/2023 9:30 AM EST Office Visit Gynecology/Obstetics [place] [address] [place] [address] Angie Nuñez PA-C [address] [place] [address] 10/04/2023 8:00 AM EST Imaging Radiology, [address] [address] 10/12/2023 9:15 AM EST Office Visit Gynecology/Obstetics [place] [address] [place] [address] Angie Nuñez PA-C [address] [place] [address] 10/25/2023 9:30 AM EDT Office Visit Gynecology/Obstetics [place] [address] [place] [address] Angie Nuñez PA-C [address] [place] [address] 11/08/2023 8:45 AM EDT Imaging Radiology, [address] [address] Pending Results Name Type Priority Associated Diagnoses Date /Time INFLUENZA A/B RSV SARS-COV2,PCR Lab STAT Upper respiratory tract infection, unspecified type 09/16/2023 12:33 PM EST Health Maintenance Due Date Last Done [...] as of this encounter Visit Diagnoses Diagnosis Upper respiratory tract infection, unspecified type- Primary documented in this encounter Advance Directives [...] the patient have Health Care Power of Hygiene Teacher? No Code Status History Code Status Date Activated Date Inactivated Comments Full Code 01/05/2021 11:33 AM 01/05/2021 6:10 PM This o rder reflects the patients wishes and were consensually agreed upon. Care Teams Chief I Dispatcher Relationship Specialty Start Date End Date Taryn Melgar PA-C [address] [place] [phone] PCP - General Physician Feather Stitcher 09/20/18 documented as of this encounter
--- OUTSIDE RECORDS SUMMARY | 2023-12-18 08:01 | External Medical Summary | Summary of Care ---
Author Name Unknown Organization [facility] Address [address] [place] [address] Phone [phone] Care Team Providers Care Librarian Assistant Name Role Phone Taryn Melgar PA-C Primary Care Provider Reason for Visit * Reason Comments Return Visit Encounter Details Date Type Department Care Team (Late st Contact Info) Description 08/29/2023 3:00 PM EST Office Visit Gynecology/Obstetics [place] [address] [place] [address] Angie Nuñez PA-C [address] [place] [address] Supervision of high-risk , second trimester*; Insulin controlled gestational diabetes mellitus (GDM) during , antepartum; Short interval between pregnancies complicating , antepartum Allergies Active Allergy Reactions Criticality Noted Date Comments Pollen Other (Please comment) Low 01/05/2021 documented as of this encounter (statuses as of 09/02/2023) Medications Medication Sig Dispensed Refills Start Date [...] until gone.. 14 Tablet 0 07/27/2023 Active documented as of this encounter (statuses as of 09/02/2023) Active Problems Problem Noted Date Diagnosed Date [...] at bedtime 07/12/23-elevated sugars- msg send to LONG FILLER CIGAR ROLLER MACHINE 07/12/23: RPM reviewed; elevated FBS; increase to Lantus 15 units at bedtime 07/18/23 stable 07/26/23-stable 08/01/23: RPM reviewed; missing readings but of those reported - stable; continue Lantus 15 units at bedtime 08/09/23- stable 08/16/23- stable 08/24/23- stable 08/29/23-stable Last Assessment & Plan: Working with ADAPT. Low risk NIPT appreciated. Abnormal glucose tolerance in mother complicatin g [...] as of this encounter (statuses as of 09/02/2023) Resolved Problems Problem Noted Date Diagnosed Date [...] dealing with it, otherwise can deliver in [place]. Last Assessment & Plan: She was seen [...] and folate levels and referral to a drafter geophysical. 4. If hemoglobin levels are below 8 g/dl, we recommend Maternal Medicine ultrasound for growth every 4 weeks after 24 weeks. Consider a blood transfusion if hemoglobin levels fall below 6 g/dL. ([employer] Special[employer] Practice Bulletin Number 95, February,). 5. Consider [...] Will continue testing and report weekly to [facility] via [employer]. Discussed that medication may be needed if elevated blood sugars do not improve with diet alone. Patient agreeable to starting insulin if needed. Will review again next week. 07/25/22: [facility] ADAPT consult complete. 07/27/22: elevated [...] 08/22/22: Taking 15 units Levemir at HS. [place] woozy after 20 units. Was sick last [...] MEDICINE referral made. Last Assessment & Plan: [facility] anatomy/growth ultrasound scheduled for 08/03/22. [...] as of this encounter (statuses as of 09/02/2023) Immunizations Name Administration Dates Next Due Seasonal [...] money to get more. Never true 11/01/[address] Depression Scale Answer Date Recorded [address] Depression Scale Total 2 03/13/2023 The thought of harming myself has occurred to me . Never 03/13/2023 Estimated Date of Delivery Comme nts Yes [...] Sign Reading Time Taken Comments Blood Pressure 118/70 08/29/2023 3:04 PM EST Pulse - - Temperature - - Respiratory Rate - - Oxygen Saturation - - Inhaled Oxygen Concentration - - Weight 84.2 kg (185 lb 9.6 oz) 08/29/2023 3:04 P M EST Height - - Body Mass Index 33.95 09/08/2022 10:04 AM EST documented in this [...] Progress Notes * Angie Nuñez PA-C - 08/29/2023 3:35 PM EST Lacy Mckinney presents for visit at 23w3d. BP 118/70 | Wt 84.2 kg (185 lb 9.6 oz) | LMP 03/18/2023 (Exact Date) | BMI 33.95 kg/m | BSA 1.92 m Doing well. Denies vaginal bleeding, leaking of fluid, vaginal pressure, contractions, abdominal pain, or abnormal vaginal discharge. Denies headaches, blurry vision, or right upper quadrant pain. Patient states she feels good movement. Physical Exam General: alert and oriented, no acute distress Pulmonary: normal respiratory effort, no accessory muscle use. Abdomen: gravid, soft, non-tender heart rate: 140's bpm [facility] Problems (from 05/09/23 to present) Problem Noted [...] at bedtime 07/12/23-elevated sugars- msg send to LONG FILLER CIGAR ROLLER MACHINE 07/12/23: RPM reviewed; elevated FBS; increase to Lantus 15 units at bedtime 07/18/23 stable 07/26/23-stable 08/01/23: RPM reviewed; missing readings but of those reported - stable; continue Lantus 15 units at bedtime 08/09/23- stable 08/16/23- stable 08/24/23- stable 08/29/23-stable Supervision of high-risk , second trimester 05/27/2023 by Angie Nuñez PA-CNo Estimated Date of Delivery: 12/23/23 Continue vitamin. [...] Rhogam in 12 weeks from 08/10/2023. Plan: -Delay Rhogam because given on 08/10/2023. Needs Rhogam 12 weeks from 08/10/2023. -Doing well on insulin for GDM. -Twice weekly NSTs at 32 weeks. -Following with [facility] for growth ultrasounds. Counseled patient to call triage/go to labor and delivery if she has any vaginal bleeding, leaking of fluid, vaginal pressure, four or more painful contractions in an hour, abdominal pain, decreased movements, headaches, blurry vision, or right upper quadrant pain. Patient verbalized understanding. RTO in 4 weeks for a return appointment or sooner if any concerns. Angie Estrada PA-C documented in this encounter Nursing Notes * Apple Wong CCMA - 08/29/2023 3:03 PM EST Pt here for brad visit documented in this encounter Plan of Treatment Upcoming Encounters Date Type Department Care Team (Late st Contact Info) Description 09/06/2023 8:00 AM EST Imaging Radiology, [address] [address] 09/29/2023 9:30 AM EST Office Visit Gynecology/Obstetics [place] [address] [place] [address] Angie [place] [address] 10/04/2023 8:00 AM EST Imaging Radiology, [facility] [address] [place] [address] 10/12/2023 9:15 AM EST Office Visit Gynecology/Obstetics [place] [address] [place] [address] Angie [place] [address] 10/25/2023 9:30 AM EDT Office Visit Gynecology/Obstetics [place] [address] [place] [phone] Angie [place] [address] 11/08/2023 8:45 AM EDT Imaging Radiology, [address] [address] Health Maintenance Due Date Last Done Comments [...] Visit Diagnoses Diagnosis Supervision of high-risk , second trimester- Primary Insulin controlled gestational diabetes mellitus (GDM) during [...] the patient have Health Care Power of Billboard Installer? No Code Status History Code Status Date Activated Date Inactivated Comments Full Code 01/05/2021 11:33 AM 01/05/2021 6:10 PM This o rder reflects the patients wishes and were consensually agreed upon. Care Teams Librarian Assistant Relationship Specialty Start Date End Date Taryn Melgar PA-C [address] [place] [address] [phone] PCP - General Physician Skylights Assembler 09/20/18 documented as of this encounter
--- OUTSIDE RECORDS SUMMARY | 2023-12-18 08:01 | External Medical Summary | Summary of Care ---
Author Name Unknown Organization [facility] Address [address] [place] [address] Phone [phone] Care Team Providers Care Wrapper Layer Name Role Phone Taryn Melgar PA-C Primary Care Provider Encounter Details Date Type Department Care Team ([facility] st Contact Info) Description 08/11/2023 Telephone Gynecology/Obstetics [place] [address] [place] [address] Angie Nuñez PA-C [address] [place] [address] Allergies Active Allergy Reactions Criticality Noted Date Comments Pollen Other (Please comment) Low 01/05/2021 documented as of this encounter (statuses as of 08/14/2023) Medications Medication Sig Dispensed Refills Start Date [...] as of this encounter (statuses as of 08/14/2023) Active Problems Problem Noted Date Diagnosed Date [...] at bedtime 07/12/23-elevated sugars- msg send to SALES PLANNER 07/12/23: RPM reviewed; elevated FBS; increase to Lantus 15 units at bedtime 07/18/23 stable 07/26/23-stable 08/01/23: RPM reviewed; missing readings but of those reported - stable; continue Lantus 15 units at bedtime 1/3/24- stable Last Assessment & Plan: Working with [...] bleeding in prengancy. Varicella and rubella immune. Qnatal testing low risk. MSAFP testing at 15 weeks to 22 weeks, 6 days. Anatomy ultrasound at 20 weeks. Last Assessment & Plan: Placenta is not low lying. Couple advised that no activity restrictions are necessary. Rubella non-immune status, antepartum 08/17/2022 Class 1 obesity 07/25/2022 Rh negative, antepartum 05/12/2022 Overview: Rhogam given on 07/04/2022 at 28 weeks, 1 day. History of abnormal cervical Pap smear 2 Overview: Normal pap smear in 02/2022. Female infertility 09/29/2021 S/P ovarian cystectomy 01/05/2021 Dizziness 01/05/2021 Pelvic pain in female 08/27/2020 Cyst of ovary 07/15/2013 Menstrual irregularity 07/15/2013 Estimated Date of Delivery Comme nts Yes 12/23/2023 Based on last me nstrual period of 03/18/2023 (Exact Date) documented as of this encounter (statuses as of 08/14/2023) Resolved Problems Problem Noted Date Diagnosed Date [...] dealing with it, otherwise can deliver in [place]. Last Assessment & Plan: She was seen [...] and folate levels and referral to a lock fitter. 4. If hemoglobin levels are below 8 g/dl, we recommend Maternal Medicine ultrasound for growth every 4 weeks after 24 weeks. Consider a blood transfusion if hemoglobin levels fall below 6 g/dL. ([employer] Practice Bulletin Number 95, February,). 5. Consider [...] testing and report weekly to [facility] via [employer]. Discussed that medication may be needed if [...] 08/22/22: Taking 15 units Levemir at HS. [place] woozy after 20 units. Was sick last [...] as of this encounter (statuses as of 08/14/2023) Immunizations Name Administration Dates Next Due Seasonal [...] money to get more. Never true 11/01/2022 [place] Depression Scale Answer Date Recorded [place] Depression Scale Total 2 03/13/2023 The thought [...] Telephone Encounter - Angie Nuñez PA-C - 08/11/2023 4:24 PM EST Tried to call and there was no answer. Left a message. * Telephone Encounter - Trudy Bolton RN - 08/11/2023 11:05 AM EST Received a call from a tax compliance representative from '[employer] insurance regarding contact information for billing purposes: Santiago Gonzáles [employer] [address] [place] [address] documented in this encounter Plan of Treatment Upcoming Encounters Date Type Department Care Team (Late st Contact Info) Description 08/22/2023 8:45 AM EST Office Visit Gynecology/Obstetics [place] [address] [place] [phone] Angie Nu[facility]ez PA-C [address] [facility] [address] 09/06/2023 8:00 AM EST Imaging Radiology, [facility] [address] [place] [address] 10/04/2023 8:00 AM EST Imaging Radiology, [facility] [address] [place] [address] 11/01/2023 8:00 AM EDT Imaging Radiology, [facility] [address] [place] [address] Health Maintenance Due Date Last Done Comments [...] the patient have Health Care Power of Telephone Information Supervisor? No Code Status History Code Status Date Activated Date Inactivated Comments Full Code 01/05/2021 11:33 AM 01/05/2021 6:10 PM This o rder reflects the patients wishes and were consensually agreed upon. Care Teams Wrapper Layer Relationship Specialty Start Date End Date Taryn Melgar PA-C [address] [place] [address] [place] [address] PCP - General Physician Oil Inspector 09/20/18 documented as of this encounter
--- OUTSIDE RECORDS SUMMARY | 2023-12-18 08:01 | External Medical Summary | Summary of Care ---
Author Name Unknown Organization [facility] Address [address] [place] [address] Phone [phone] Care Team Providers Care Manager Commercial Sales Name Role Phone Taryn Melgar PA-C Primary Care Provider Reason for Visit * Reason Onset Date Comments TRIAGE 09/16/2023 Encounter Details Date Type Department Care Team (Late st Contact Info) Description 09/16/2023 Telephone [facility] Obstetrics [address] [place] [address] Roseanna Madrigal MD [address] [place] [address] TRIAGE Allergies Active Allergy Reactions Criticality Noted Date [...] bedtime 07/12/23-elevated sugars- msg send to SPECIAL SERVICES DIRECTOR 07/12/23: RPM reviewed; elevated FBS; increase [...] 08/10/2023. History of abnormal cervical Pap smear 2 [...] dealing with it, otherwise can deliver in [place]. Last Assessment & Plan: She was seen [...] and folate levels and referral to a blacking machine operator. 4. If hemoglobin levels are below 8 g/dl, we recommend Maternal Medicine ultrasound for growth every 4 weeks after 24 weeks. Consider a blood transfusion if hemoglobin levels fall below 6 g/dL. ([employer] Practice Bulletin Number 95, February,). 5. Consider [...] Will continue testing and report weekly to [facility] via [facility]. Discussed that medication may be needed if elevated blood sugars do not improve with diet alone. Patient agreeable to starting insulin if needed. Will review again next week. 07/25/22: [facility] ADAPT consult complete. 07/27/22: elevated [...] Taking 15 units Levemir at HS. [place] woozy after 20 units. Was sick last [...] MEDICINE referral made. Last Assessment & Plan: [facility] anatomy/growth ultrasound scheduled for 08/03/22. [...] money to get more. Never true 11/01/2022 [place] Depression Scale Answer Date Recorded [place] Depression Scale Total 2 09/14/2023 The thought [...] encounter Miscellaneous Notes * Telephone Encounter - Roseanna Madrigal MD - 09/16/2023 7:05 PM EST Returned patient triage call. Patient identified by name and . Patient is at 26wk. Patient reports going to urgent care today due to not feeling well. Patient reports a rapid heart rate >120 per her watch. Patient also reporting 201 fasting glucose this morning (105-107 post prandial). There is a pending upper respiratory panel. Patient using albuterol, and robitussin. Patient reports SOB with mobility around the house. Patient reports drinking normally. As patient is tolerating a diet, able to ambulate and was recently seen patient will continue to monitor at home. She was encouraged to come to L&D if her symptoms got worse or if she felt she needed more urgent evaluation. All questions answered at the time of the call. documented in this encounter Plan of Treatment Upcoming Encounters Date Type Department Care Team (Late st Contact Info) Description 09/29/2023 9:30 AM EST Office Visit Gynecology/Obstetics [place] [address] [place] [address] Angie [place] [address] 10/04/2023 8:00 AM EST Imaging Radiology, [address] [address] 10/12/2023 9:15 AM EST Office Visit Gynecology/Obstetics [facility] [address] [place] [address] Angie [place] [address] 10/25/2023 9:30 AM EDT Office Visit Gynecology/Obstetics [facility] [address] [place] [address] Angie Nuñ[place] [address] 11/08/2023 8:45 AM EDT Imaging Radiology, [address] [address] Health Maintenance Due Date Last Done Comments [...] the patient have Health Care Power of Slat Basket Maker? No Code Status History Code Status Date Activated Date Inactivated Comments Full Code 01/05/2021 11:33 AM 01/05/2021 6:10 PM This o rder reflects the patients wishes and were consensually agreed upon. Care Teams Manager Commercial Sales Relationship Specialty Start Date End Date Taryn Melgar PA-C [address] [place], [place] [address] [phone] PCP - General Physician Fabric Worker Foreman 09/20/18 documented as of this encounter
--- OUTSIDE RECORDS SUMMARY | 2023-12-18 08:01 | External Medical Summary | Summary of Care ---
Author Name Unknown Organization [facility] Address [address] [place] [address] Phone [phone] Care Team Providers Care Inspector Government Property Name Role Phone Taryn Melgar PA-C Primary Care Provider Encounter Details Date Type Department Care Team (Late st Contact Info) Description 09/06/2023 8:00 AM EST Office Visit Mri Manager Obstetrics Maternal Medicine, [address] [address] Aniya Carson, DO [address] [place] [address] Ultrasound for screening for growth restriction*; 24 weeks gestation of ; Other specified related conditions, second trimester Allergies Active Allergy Reactions Criticality Noted Date Comments Pollen Other (Please comment) Low 01/05/2021 documented as of this encounter (statuses as of 09/06/2023) Medications Medication Sig Dispensed Refills Start Date [...] as of this encounter (statuses as of 09/06/2023) Active Problems Problem Noted Date Diagnosed Date [...] at bedtime 07/12/23-elevated sugars- msg send to ALUMINUM POURER 07/12/23: RPM reviewed; elevated FBS; increase to Lantus 15 units at bedtime 07/18/23 stable 12/20/23-stable 08/01/23: RPM reviewed; missing readings but of those reported - stable; continue Lantus 15 units at bedtime 08/09/23- stable 08/16/23- stable 08/24/23- stable 08/29/23-stable 09/05/23-stable Last Assessment & Plan: Working with ADAPT. [...] as of this encounter (statuses as of 09/06/2023) Resolved Problems Problem Noted Date Diagnosed Date [...] dealing with it, otherwise can deliver in [place]. Last Assessment & Plan: She was seen [...] and folate levels and referral to a combat engineer. 4. If hemoglobin levels are below 8 g/dl, we recommend Maternal Medicine ultrasound for growth every 4 weeks after 24 weeks. Consider a blood transfusion if hemoglobin levels fall below 6 g/dL. ([employer] Practice Bulletin Number 95, February,). 5. Consider [...] testing and report weekly to M via [facility] [employer]. Discussed that medication may be needed if elevated blood sugars do not improve with diet alone. Patient agreeable to starting insulin if needed. Will review again next week. 07/25/22: [facility] AD[facility]T consult complete. 07/27/22: elevated fasting; nutrition [...] 08/22/22: Taking 15 units Levemir at HS. [place] woozy after 20 units. Was sick last [...] as of this encounter (statuses as of 09/06/2023) Immunizations Name Administration Dates Next Due Seasonal [...] to get more. Never true 11/01/2022 [place] Depression Scale Answer Date Recorded [place] Depression Scale Total 2 03/13/2023 The thought [...] Progress Notes * Aniya Carson DO - 09/06/2023 2:11 PM EST Lacy presented today at 24w4d for an ultrasound for the following indications: Ultrasound for screening for growth restriction 24 weeks gestation of Ultrasound summary: Patient presented at 24w 4d for growth assessment. Normal growth with EFW 688 g at 31%ile. Normal SHANNON at 13.2 cm. Cephalic presentation. I reviewed the ultrasound [...] patient. Please call with any questions. Aniya Carsno DO 09/06/2023 2:11 PM documented in this encounter Miscellaneous Notes * Assessment & Plan Note - Aniya Carson DO - 09/06/2023 2:11 PM EST Associated Problem(s): Insulin controlled gestational diabetes mellitus (GDM) during , antepartum Working with [facility]T. documented in this encounter Plan of Treatment Upcoming Encounters Date Type Department Care Team (Late st Contact Info) Description 09/29/2023 9:30 AM EST Office Visit Gynecology/Obstetics [place] [address] [place] [address] Angie Nuñez PA-C [address] [place] [address] 10/04/2023 8:00 AM EST Imaging Radiology, [address] [address] 10/12/2023 9:15 AM EST Office Visit Gynecology/Obstetics [place] [address] [place] [address] Angie Nuñez PA-C [address] [place] [address] 10/25/2023 9:30 AM EDT Office Visit Gynecology/Obstetics [place] [address] [place] [address] Angie Nuñez PA-C [address] [place] [address] 11/08/2023 8:45 AM EDT Imaging Radiology, [address] [address] Scheduled Orders Name Type Priority Associated Diagnoses Orde r Schedule MFM US PREG FOLLOW UP EACH FETUS Medical Imaging Routine Ultrasound for screening for growth restriction 24 weeks gestation of Other specified related conditions, second trimester 2 Occurrences starting 09/06/2023 until 03/06/2024 Health Maintenance Due Date Last Done Comments [...] as of this encounter Visit Diagnoses Diagnosis Ultrasound for screening for growth restriction- Primary screening for growth retardation using ultrasonics 24 weeks gestation of state, incidental Other specified related conditions, second trimester documented in this encounter Advance Directives [...] the patient have Health Care Power of Site Surveyor? No Code Status History Code Status Date Activated Date Inactivated Comments Full Code 01/05/2021 11:33 AM 01/05/2021 6:10 PM This o rder reflects the patients wishes and were consensually agreed upon. Care Teams Inspector Government Property Relationship Specialty Start Date End Date Taryn Melgar PA-C [address] [place] [id number] PCP - General Physician Flow Specialist 09/20/18 documented as of this encounter
--- OUTSIDE RECORDS SUMMARY | 2023-12-18 08:01 | External Medical Summary | Summary of Care ---
Author Name Unknown Organization [facility] Address [address] [place] [address] Phone [phone] Care Team Providers Care Fixture Repairer Fabricator Name Role Phone Taryn Melgar PA-C Primary Care Provider Reason for Visit * Reason Onset Date Comments Triage Advice 09/18/2023 Encounter Details Date Type Department Care Team ([facility] st Contact Info) Description 09/18/[address] [phone] Angie Frye RN Triage Advice Allergies Active Allergy Reactions Criticality Noted Date Comments Pollen Other (Please comment) Low 01/05/2021 documented as of this encounter (statuses as of 09/18/2023) Medications Medication Sig Dispensed Refills Start Date [...] as of this encounter (statuses as of 09/18/2023) Active Problems Problem Noted Date Diagnosed Date [...] at bedtime 07/12/23-elevated sugars- msg send to SIDE PANEL HANGER 07/12/23: RPM reviewed; elevated FBS; increase to [...] as of this encounter (statuses as of 09/18/2023) Resolved Problems Problem Noted Date Diagnosed Date [...] dealing with it, otherwise can deliver in [place]. Last Assessment & Plan: She was seen [...] and folate levels and referral to a health data analyst. 4. If hemoglobin levels are below 8 g/dl, we recommend Maternal Medicine ultrasound for growth every 4 weeks after 24 weeks. Consider a blood transfusion if hemoglobin levels fall below 6 g/dL. ([employer] Sulfonator Operator Practice Bulletin Number 95, February,). 5. [...] and report weekly to [facility] via [employer]. Discussed that medication may be needed if [...] 08/22/22: Taking 15 units Levemir at HS. [place] woozy after 20 units. Was sick last [...] as of this encounter (statuses as of 09/18/2023) Immunizations Name Administration Dates Next Due Seasonal [...] money to get more. Never true 11/01/2022 [place] Depression Scale Answer Date Recorded [place] Depression Scale Total 2 09/14/2023 The thought [...] Miscellaneous Notes * Telephone Encounter - Angie Frye RN - 09/18/2023 11:24 AM EST Provider to address: Patient scheduled for acute visit with Patrice Romero today at 1240. Asked tocall patient to see how she was doing to see if ED was more appropriate. Patient very SOB on phone.Patient is at 26 weeks. States that anything she tries to do causes extreme SOB. Patient states that she is having burning chest pain. Patient had been previously seen by [facility] care and hasbeen using albuterol inhaler and Tylenol without relief of symptoms. Patient states that she has a "croupy cough" that is not productive of sputum. Patient's temperature was currently 99.4F, but patient has been taking Tylenol. Patient denies n/v/d but does state that she has not been eating well over the weekend and has not had a bowel movement in several days. Patient denies abdominal pain or cramping. Patient reports dizziness with standing and moving around. Patient's current heart rate (from smart watch) was 110. Due to the severity of pain, sob, and dizziness/lightheadedness, patient advised to go to ED. Patient verbalized understanding and will go directly to ED. Reason for Call: Triage Advice Contact: Telephone Call Contact Type: Advice Outcome: see above Face to face time spent with Patient (minutes): 0 Total Time including non face to face (minutes): 10 documented in this encounter Plan of Treatment Upcoming Encounters Date Type Department Care Team (Late st Contact Info) Description 09/29/2023 9:30 AM EST Office Visit Gynecology/Obstetics [address] [phone] Angie Nuñez PA-C [address] [place] [address] 10/04/2023 8:00 AM EST Imaging Radiology, [place] [address] [place] [address] 10/12/2023 9:15 AM EST Office Visit Gynecology/Obstetics [place] [address] [place] [phone] Angie Nñuez PA-C [address] [place] [address] 10/25/2023 9:30 AM EDT Office Visit Gynecology/Obstetics [address] [phone] ZozoAngie Chapin PA-C [address] [place] [address] 11/08/2023 8:45 AM EDT Imaging Radiology, [facility] [address] [place] [address] Health Maintenance Due Date Last Done Comments [...] the patient have Health Care Power of Radiotelephone Operator? No Code Status History Code Status Date Activated Date Inactivated Comments Full Code 01/05/2021 11:33 AM 01/05/2021 6:10 PM This o rder reflects the patients wishes and were consensually agreed upon. Care Teams Fixture Repairer Fabricator Relationship Specialty Start Date End Date Taryn Melgar PA-C [address] [place] [address] PCP - General Physician Binder Chainstitch 09/20/18 documented as of this encounter
--- OUTSIDE RECORDS SUMMARY | 2023-12-18 08:01 | External Medical Summary | Summary of Care ---
Author Name Unknown Organization [facility] Address [address] [place] [address] Phone [phone] Care Team Providers Care Life Science Technician Name Role Phone Taryn Melgar PA-C Primary Care Provider Encounter Details Date Type Department Care Team ([facility] st Contact Info) Description 08/11/2023 Telephone Gynecology/Obstetics [place] [address] [place] [address] Angie Nuñez PA-C [address] [place] [address] Allergies Active Allergy Reactions Criticality Noted Date Comments Pollen Other (Please comment) Low 01/05/2021 documented as of this encounter (statuses as of 08/15/2023) Medications Medication Sig Dispensed Refills Start Date [...] as of this encounter (statuses as of 08/15/2023) Active Problems Problem Noted Date Diagnosed Date [...] at bedtime 07/12/23-elevated sugars- msg send to GUYLINE OPERATOR 07/12/23: RPM reviewed; elevated FBS; increase [...] as of this encounter (statuses as of 08/15/2023) Resolved Problems Problem Noted Date Diagnosed Date Resolved Date arrhythmia affecting p regnancy, antepartum 08/17/2022 05/27/2023 Overview: arythmia noted 08/12, saw peds cardio IMPRESSION and PLAN: 1. PACs in bigeminy giving the appearance of HR variability between 60-160 bpm 2. 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 Normal biventricular function 4. Mild IL The above findings were shared with the [...] dealing with it, otherwise can deliver in [place]. Last Assessment & Plan: She was seen [...] and folate levels and referral to a crm manager. 4. If hemoglobin levels are below 8 g/dl, we recommend Maternal Medicine ultrasound for growth every 4 weeks after 24 weeks. Consider a blood transfusion if hemoglobin levels fall below 6 g/dL. ([employer] Electrical [employer]ne[employer] Practice Bulletin Number 95, February,). 5. Consider [...] testing and report weekly to M via [facility]. Discussed that medication may be needed if [...] 08/22/22: Taking 15 units Levemir at HS. [place] woozy after 20 units. Was sick last [...] as of this encounter (statuses as of 08/15/2023) Immunizations Name Administration Dates Next Due Seasonal [...] money to get more. Never true 11/01/2022 [place] Depression Scale Answer Date Recorded [place] Depression Scale Total 2 03/13/2023 The thought [...] Telephone Encounter - Angie Nuñez PA-C - 08/15/2023 8:39 AM EST FYI in case someone calls back. Thank you. * Telephone Encounter - Angie Nuñez PA-C - 08/15/2023 8:38 AM EST Tried to call patient and there was no answer. Left a message for return phone call if anything is needed. * Telephone Encounter - Angie Nuñez PA-C - 08/11/2023 4:24 PM EST Tried to call and there was no answer. Left a message. * Telephone Encounter - Trudy Bolton RN - 08/11/2023 11:05 AM EST Received a call from a client support representative from '[employer] insurance regarding contact information for billing purposes: Santiago SCHAFEREliecer [employer] [address] [place], [place] [address] documented in this encounter Plan of Treatment Upcoming Encounters Date Type Department Care Team (Late st Contact Info) Description 08/22/2023 8:45 AM EST Office Visit Gynecology/Obstetics [place] [address] [place] [phone] Angie Nuñez PA-C [address] [place] [address] 09/06/2023 8:00 AM EST Imaging Radiology, [address] [address] 10/04/2023 8:00 AM EST Imaging Radiology, [address] [address] 11/01/2023 8:00 AM EDT Imaging Radiology, [address] [address] Health Maintenance Due Date Last Done Comments [...] the patient have Health Care Power of Sanitation Worker? No Code Status History Code Status Date Activated Date Inactivated Comments Full Code 01/05/2021 11:33 AM 01/05/2021 6:10 PM This o rder reflects the patients wishes and were consensually agreed upon. Care Teams Life Science Technician Relationship Specialty Start Date End Date Taryn Melgar PA-C [address] [place] [address] [place] [address] PCP - General Physician Tool Sharpener 09/20/18 documented as of this encounter
--- OUTSIDE RECORDS SUMMARY | 2023-12-18 08:01 | External Medical Summary ---
Author Name Unknown Address Unknown Organization K01:[facility] [place] [facility] [address] [facility] [address] Laboratory Report Ordering Provider Test Date Status ARNIE ROGERS 09/16/2023 12:33:39 Final Observation Date Value Abnormality Reference (Units ) Status SARS Coronavirus 2 09/16/2023 12:33:39 Negative N egative Final No SARS-CoV2 Coronavirus RNA detected by PCR (amplified probe).
This express test was developed and its performance characteristics determined by [facility]. It has not been cleared or approved by the U.S. Food and Drug Administration (FDA). FDA does not require this test to go thru premarket FDA review. This test is used for clinical purposes. It should not be regarded as investigational or for research. This laboratory is certified under the Clinical Laboratory Improvement Amendments (CLIA) as qualified to perform high complexity clinical laboratory testing.

This test is a nucleic acid amplification test (NAAT), a reverse transcriptase polymerase chain reaction (RT-PCR) test, or a Centers for Disease Control-acceptable equivalent. The test is performed in a high complexity Clinical Laboratory Improvement Amendments-(CLIA) certified laboratory. The test is acceptable for SARS-CoV-2 diagnosis, surveillance, and travel within the [place] and to most countries. Please check with local testing authorities about requirements before travel.

The validation of bronchial specimens, tracheal aspirates, and sputum for this assay was developed and performance characteristics determined by [facility]. The validation of alternate specimen types has not been cleared or approved by the U.S. Food and Drug Administration (FDA). It has been determined that such clearance is not necessary. Influenza virus A RNA [Prese nce] in Specimen by [facility] with probe detection 09/16/2023 12:33:39 Negative Negative Final No Influenza A RNA detected by PCR (amplified probe) Influenza virus B RNA [Prese nce] in Specimen by [facility] with probe detection 09/16/2023 12:33:39 Positive Abnormal Negative Final Influenza B RNA detected by PCR (amplified probe). Test results reported to [facility]. Respiratory syncytial virus RNA [Identifier] in Specimen by LAURENCE with probe detection 09/16/2023 12:33:39 Negative Negative Final No Respiratory Syncytial Vir us RNA detected by PCR (amplified probe) Performing Location LABORATORY [place] [address] [facility] [address]
--- OUTSIDE RECORDS SUMMARY | 2023-12-18 08:01 | External Medical Summary | Summary of Care ---
Author Name Unknown Organization [facility] Address [address] [place] [address] Phone [phone] Care Team Providers Care Commodity Director Name Role Phone Taryn Melgar PA-C Primary Care Provider Encounter Details Date Type Department Care Team ([facility] Contact Info) Description 09/14/2023 Documentation Pediatrics [facility] [address] [place] [phone] Kristine Bell PA-C [address] [place] [phone] Allergies Active Allergy Reactions Criticality Noted Date Comments Pollen Other (Please comment) Low 01/05/2021 documented as of this encounter (statuses as of 09/14/2023) Medications Medication Sig Dispensed Refills Start Date [...] as of this encounter (statuses as of 09/14/2023) Active Problems Problem Noted Date Diagnosed Date [...] at bedtime 07/12/23-elevated sugars- msg send to CONTROL CLERK REPAIRS 07/12/23: RPM reviewed; elevated FBS; increase to Lantus 15 units at bedtime 07/18/23 stable 07/26/23-stable 08/01/23: RPM reviewed; missing readings but of those reported - stable; continue Lantus 15 units at bedtime 08/09/23- stable 08/16/23- stable 08/24/23- stable 08/29/23-stable 09/05/23-stable 09/12/23-stable but missing many readings Last Assessment & Plan: Working with [facility]. 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 Last Assessment & Plan: She was seen [...] and folate levels and referral to a wet wheeler. 4. If hemoglobin levels are below 8 g/dl, we recommend Maternal Medicine ultrasound for growth every 4 weeks after 24 weeks. Consider a blood transfusion if hemoglobin levels fall below 6 g/dL. ([employer] Practice Bulletin Number 95, February,). 5. Consider [...] continue testing and report weekly to [facility] via [employer]. Discussed that medication may be needed if elevated blood sugars do not improve with diet alone. Patient agreeable to starting insulin if needed. Will review again next week. 07/25/22: [facility] ADAPT consult complete. 07/27/22: elevated [...] 08/22/22: Taking 15 units Levemir at HS. [place] woozy after 20 units. Was sick last [...] MEDICINE referral made. Last Assessment & Plan: [facility] anatomy/growth ultrasound scheduled for 08/03/22. Patient [...] as of this encounter (statuses as of 09/14/2023) Immunizations Name Administration Dates Next Due Seasonal [...] money to get more. Never true 11/01/2022 [place] Depression Scale Answer Date Recorded [place] Depression Scale Total 2 03/13/2023 The thought [...] as of this encounter Progress Notes * Kristine Bell PA-C - 09/14/2023 10:14 AM EST [place] Depression Scale Documentation Lacy Mckinney was screened for post- depression on 09/14/2023 during her child's visit. [place] Depression Screen 01/12/2023 11:07 03/13/2023 11:07 09/14/2023 10:09 [place] Depression Screening I have been able to laugh and see the funny side of things. As much as I always could [0] As much as I always could [0] As much as I always could [0] I have looked forward with enjoyment to things. As much as I ever did [0] As much as I ever did [0]As much as I ever did [0] I have blamed myself unnecessarily when things went wrong. Not very often [1] Not very often [1] No, never [0] I have been anxious or worried for no good reason. No, not at all [0] Hardly ever [1] Hardly ever [1] I have felt scared or panicky for no good reason. No, not at all [0] No, not at all [0] No, not at all [0] Things have been getting on top of me. No, I have been coping as well as ever [0] No, I have been coping as well as ever [0] No, I have been coping as well as ever [0] I have been so unhappy that I have had difficulty sleeping. Not at all [0] Not at all [0] Not at all [0] I have felt sad or miserable. Not very often [1] No, not at all [0] No, not at all [0] I have been so unhappy that I have been crying. No, never [0] No, never [0] Only occasionally [1] The thought of harming myself has occurred to me. Never [0] Never [0] Never [0] [place] Depression Scale Total 2 2 2 [place] Depression Scale: [place] Depression Scale Total: 2 [place] suicide question and score: Score of 3 = Yes, quite often. Score of 2 = Sometimes. Score of 1 = Hardly ever The thought of harming myself has occurred to me.: 0 documented in this encounter Plan of Treatment Upcoming Encounters Date Type Department Care Team (Late st Contact Info) Description 09/29/2023 9:30 AM EST Office Visit Gynecology/Obstetics [address] [phone] Angie Nuñez PA-C [address] [place] [phone] 10/04/2023 8:00 AM EST Imaging Radiology, [place] [id number] [place] [address] 10/12/2023 9:15 AM EST Office Visit Gynecology/Obstetics [place] [place] [phone] Angie Nuñez PA-C [address] [place] [address] 10/25/2023 9:30 AM EDT Office Visit Gynecology/Obstetics [address] [place] [phone] Angie Nuñez PA-C [address] [place] [address] 11/08/2023 8:45 AM EDT Imaging Radiology, [facility] [address] [place] [address] Health Maintenance Due Date Last Done Comments [...] the patient have Health Care Power of Foreign Exchange Trader? No Code Status History Code Status Date Activated Date Inactivated Comments Full Code 01/05/2021 11:33 AM 01/05/2021 6:10 PM This o rder reflects the patients wishes and were consensually agreed upon. Care Teams Commodity Director Relationship Specialty Start Date End Date Taryn Melgar PA-C [address] [place] [phone] PCP - General Physician Peripheral Equipment Operator 09/20/18 documented as of this encounter
--- OUTSIDE RECORDS SUMMARY | 2023-12-18 08:02 | External Medical Summary | Summary of Care ---
Author Name Unknown Organization [facility] Address [address] [place] [address] Phone [phone] Care Team Providers Care Hotel Superintendent Name Role Phone Taryn Melgar PA-C Primary Care Provider Reason for Visit * Reason Comments Return Visit Encounter Details Date Type Department Care Team (Late st Contact Info) Description 08/10/2023 2:45 PM EST Office Visit Gynecology/Obstetics [address] [phone] Angie Nuñez PA-C [address] [place] [address] Supervision of high-risk , second trimester*; Rh negative, antepartum; Fall, initial encounter Allergies Active Allergy Reactions Criticality Noted Date Comments Pollen Other (Please comment) Low 01/05/2021 documented as of this encounter (statuses as of 08/12/2023) Medications Medication Sig Dispensed Refills Start Date [...] until gone.. 14 Tablet 0 07/27/2023 Active Hospital, Clinic, or Other Facility Administered Medication Ordered Dose Route Frequency Start Date End Date Status Rho D Immune Globulin (Rhophylac) inj 300 mcgIndications:Rh negative, antepartum 300 mcg IM ONCE 08/10/2023 08/10/2023 Ended documented as of this encounter (statuses as of 08/12/2023) Active Problems Problem Noted Date Diagnosed Date [...] at bedtime 07/12/23-elevated sugars- msg send to REFERENCE ARCHIVIST 07/12/23: RPM reviewed; elevated FBS; increase to Lantus 15 units at bedtime 07/18/23 stable 07/26/23-stable 08/01/23: RPM reviewed; missing readings but of those reported - stable; continue Lantus 15 units at bedtime 08/09/23- stable Last Assessment & Plan: Working with [...] day. History of abnormal cervical Pap smear Overview: Normal pap smear in 02/2022. 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 Last Assessment & Plan: She was seen [...] and folate levels and referral to a dispensary attendant. 4. If hemoglobin levels are below 8 g/dl, we recommend Maternal Medicine ultrasound for growth every 4 weeks after 24 weeks. Consider a blood transfusion if hemoglobin levels fall below 6 g/dL. ([employer] Practice Bulletin Number 95, February,). 5. Consider [...] testing and report weekly to M via [employer]. Discussed that medication may be needed if elevated blood sugars do not improve with diet alone. Patient agreeable to starting insulin if needed. Will review again next week. 07/25/22: [facility] ADAPT consult complete. 07/27/22: elevated fasting; [...] 08/22/22: Taking 15 units Levemir at HS. [place] woozy after 20 units. Was sick last [...] as of this encounter (statuses as of 08/12/2023) Immunizations Name Administration Dates Next Due Seasonal [...] money to get more. Never true 11/01/2022 [place] Depression Scale Answer Date Recorded [place] Depression Scale Total 2 03/13/2023 The thought [...] Sign Reading Time Taken Comments Blood Pressure 104/62 08/10/2023 3:01 PM EST Pulse - - Temperature - - Respiratory Rate - - Oxygen Saturation - - Inhaled Oxygen Concentration - - Weight 84.1 kg (185 lb 6.4 oz) 08/10/2023 3:01 P M EST Height - - Body Mass Index 33.91 09/08/2022 10:04 AM EST documented in this [...] Progress Notes * Angie Nuñez PA-C - 08/10/2023 3:02 PM EST Lacy Mckinney presents for visit at 20w5d. BP 104/62 | Wt 84.1 kg (185 lb 6.4 oz) | LMP 03/18/2023 (Exact Date) | BMI 33.91 kg/m | BSA 1.92 m Patient states that she experienced a fall at work. Patient reports that tripped on the steps and fell on her hands. The top of her abdomen hit the step per patient. Did not hit her head. Patient denies concerns since the fall. Denies vaginal bleeding, leaking of fluid, vaginal pressure, contractions, abdominal pain, or abnormal vaginal discharge. Denies headaches, blurry vision, or right upper quadrant pain. Patient states she feels good movement. Workers comp claim: [id number] Physical Exam General: alert and oriented, no acute distress Pulmonary: normal respiratory effort, no accessory muscle use. Abdomen: gravid, soft, non-tender heart rate: 140's BPM Pelvic Exam: external genitalia and vagina anatomy within normal limits, physiologic vaginal discharge, no blood in the vagina. Cervix visually closed. Roll Form Operator Documentation Patient offered wheel polisher and declined. OB [place] Problems (from 05/09/23 to present) Problem Noted Resolved Short interval between pregnancies complicating , antepartum [...] at bedtime 07/12/23-elevated sugars- msg send to REFERENCE ARCHIVIST 07/12/23: RPM reviewed; elevated FBS; increase to Lantus 15 units at bedtime 07/18/23 stable 07/26/23-stable 08/01/23: RPM reviewed; missing readings but of those reported - stable; continue Lantus 15 units at bedtime 08/09/23- stable Abnormal glucose tolerance in mother complicating 06/24/2023 by Angie Nuñez PA-C No Supervision of high-risk , second trimester 05/27/2023 by Angie Nuñez PA-CNo Estimated Date of Delivery: 12/23/23 Continue vitamin. O negative - needs Rhogam injection at 28 weeks and if she has vaginal bleeding in prengancy. Varicella and rubella immune. Qnatal testing low risk. S/p anatomy ultrasound. Rh negative, antepartum 05/12/2022 by Angie Nuñez PA-C No Rhogam given on 08/10/2023. Plan: -Completed ultrasound today. Verbal report from emerging technologies director - normal ultrasound. - heart rate normal in the office. -Pelvic exam normal. No blood in the vagina on exam. -Rh negative blood type: Advised type and screen and Rhogam injection today. Rhogam administered today. Will need Rhogam again at 28 weeks. -Counseled patient extensively on return precautions. Patient has sonographer [employer] triagenumber and office number if needed. Counseled patient to call triage/go to labor and delivery if she has any vaginal bleeding, leaking of fluid, vaginal pressure, four or more painful contractions in an hour, abdominal pain, decreased movements, headaches not resolving, blurry vision, or right upper quadrant pain. Patient verbalized understanding. Return to the office for previously scheduled return appointment or sooner if any concerns. Angie Stone-TAYLOR Darling documented in this encounter Nursing Notes * Evelyne Power LPN - 08/10/2023 3:00 PM EST Patient here for evaluation after a fall. Patient hit top of abdomen on stair. documented in this encounter Plan of Treatment Upcoming Encounters Date Type Department Care Team (Late st Contact Info) Description 08/22/2023 8:45 AM EST Office Visit Gynecology/Obstetics [place] [address] [place] [phone] Angie Nuñez PA-C [address] [place] [address] 09/06/2023 8:00 AM EST Imaging Radiology, [address] [address] 10/04/2023 8:00 AM EST Imaging Radiology, [address] [address] 11/01/2023 8:00 AM EDT Imaging Radiology, [address] [address] Health Maintenance Due Date Last Done Comments [...] filedocumented as of this encounter Results * TYPE AND SCREEN (08/10/2023 4:01 PM EST) ABO O 08/10/2023 11:33 PM EST [facility] Rh Negative 08/10/2023 11:33 PM EST [facility]ORY [facility] Red Blood Cell Antibody Screen Negative 08/10/2023 11:33 PM EST [facility]ORY [facility] Specimen Expiration Date 08/13/2023 23:59 08/10/2023 11:33 PM EST [facility] Blood Venous blood specimen / Unknown Venipuncture / Unknown 08/10/2023 4:01 PM EST 08/10/2023 4:01 PM EST Angie Darling PA-C LAB BLOOD BANK TEST ORDERABLES LAB[facility]ATORY [facility] [address] [place] [address] * US PREG LIMITED 1 OR MORE FETUSES (08/10/2023 3:38 PM EST) Anatomical Region Laterality Modality Pelvis, Body Ultrasound 08/10/2023 4:22 PM EST Impressions 08/10/2023 4:20 PM EST IMPRESSION Placenta right lateral and anterior. No retroplacental hematoma. No acute findings. Narrative 08/10/2023 4:20 PM EST EXAM US PREG LIMITED 1 OR MORE FETUSES-08/10/2023 3:38 pm HISTORY Fall. Check for bleeding. Check placenta. COMPARISON 08/04/2023 TECHNIQUE Grayscale images of the pelvis with transabdominal technique FINDINGS Live Hernandez in vertex position. Heart rate 152 beats per minute. Amount of amniotic fluid subjectively normal. Placenta right lateral and anterior, without previa. No retroplacental hematoma. Stomach, kidneys and bladder seen as well as four-chamber heart. Procedure Note Felipe Garza MD - 08/10/2023 EXAM US PREG LIMITED 1 OR MORE FETUSES-08/10/2023 3:38 pm HISTORY Fall. Check for bleeding. Check placenta. COMPARISON 08/04/2023 TECHNIQUE Grayscale images of the pelvis with transabdominal technique FINDINGS Live Hernandez in vertex position. Heart rate 152 beats perminute. Amount of amniotic fluid subjectively normal. Placenta rightlateral and anterior, without previa. No retroplacental hematoma.Stomach, kidneys and bladder seen as well as four-chamber heart. IMPRESSION IMPRESSION Placenta right lateral and anterior. No retroplacental hematoma. Noacute findings. Angie Darling PA-C RAD ULTRA SOUND documented in this encounter Visit Diagnoses Diagnosis Supervision of high-risk , second trimester- Primary Rh negative, antepartum Rhesus isoimmunization affecting management of mother, antepartum condition Fall, initial encounter Fall, initial encounter documented in this encounter Administered Medications Inactive Administered Medications - up to 3 most recent administrations Medication Order MAR Action Action Date Dose Rate Site Rho D Immune Globulin (Rhophylac) inj 300 mcg 300 mcg, Intramuscular, ONCE, On Mariah 08/10/23 at 1630, For 1 dose, Do not administer until type and screen has been collected! 1 MCG = 5 INTERNATIONAL UNITS Given 08/10/2023 4:19 PM EST 300 mcg Dorsogluteal Right documented in this encounter Advance Directives Latest [...] the patient have Health Care Power of Deputy Chief Magistrate? No Code Status History Code Status Date Activated Date Inactivated Comments Full Code 01/05/2021 11:33 AM 01/05/2021 6:10 PM This o rder reflects the patients wishes and were consensually agreed upon. Care Teams Hotel Superintendent Relationship Specialty Start Date End Date Taryn Melgar PA-C [address] [place] [address] [phone] PCP - General Physician Grades 1 Thru 5 Teacher 09/20/18 documented as of this encounter
--- OUTSIDE RECORDS SUMMARY | 2023-12-18 08:02 | External Medical Summary | Summary of Care ---
Author Name Unknown Organization [facility] Address [address] [place] [address] Phone [phone] Care Team Providers Care Footwear Sales Associate Name Role Phone Taryn Melgar PA-C Primary Care Provider Reason for Visit * Reason Comments Return Visit Encounter Details Date Type Department Care Team (Late st Contact Info) Description 08/10/2023 2:45 PM EST Office Visit Gynecology/Obstetics [address] [phone] Angie Nuñez PA-C [address] [place] [address] Supervision of high-risk , second trimester*; Rh [...] at bedtime 07/12/23-elevated sugars- msg send to VENDOR RELATIONSHIP MANAGER 07/12/23: RPM reviewed; elevated FBS; increase [...] dealing with it, otherwise 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 Last Assessment & Plan: She was seen [...] and folate levels and referral to a head of housekeeping. 4. If hemoglobin levels are below 8 g/dl, we recommend Maternal Medicine ultrasound for growth every 4 weeks after 24 weeks. Consider a blood transfusion if hemoglobin levels fall below 6 g/dL. ([employer] Practice Bulletin Number 95, February,). 5. Consider [...] and report weekly to M via [employer]. Discussed that medication may be needed if elevated blood sugars do not improve with diet alone. Patient agreeable to starting insulin if needed. Will review again next week. 07/25/22: [facility] ADAPT consult complete. 07/27/22: elevated fasting; [...] 08/22/22: Taking 15 units Levemir at HS. [place] woozy after 20 units. Was sick last [...] money to get more. Never true 11/01/2022 [place] Depression Scale Answer Date Recorded [place] Depression Scale Total 2 03/13/2023 The thought [...] she feels good movement. Workers comp claim: [id number] Physical Exam General: alert and oriented, no acute distress Pulmonary: normal respiratory effort, no accessory muscle use. Abdomen: gravid, soft, non-tender heart rate: 140's BPM Pelvic Exam: external genitalia and vagina anatomy within normal limits, physiologic vaginal discharge, no blood in the vagina. Cervix visually closed. Food Court Team Member Documentation Patient offered sales floor associate and declined. OB [place] Problems (from 05/09/23 to present) Problem Noted [...] at bedtime 07/12/23-elevated sugars- msg send to VENDOR RELATIONSHIP MANAGER 07/12/23: RPM reviewed; elevated FBS; increase [...] Plan: -Completed ultrasound today. Verbal report from plywood stock grader - normal ultrasound. - heart rate normal in the office. -Pelvic exam normal. No blood in the vagina on exam. -Rh negative blood type: Advised type and screen and Rhogam injection today. Rhogam administered today. Will need Rhogam again at 28 weeks. -Counseled patient extensively on return precautions. Patient has concrete saw operator [employer] triagenumber and office number if needed. Counseled [...] 08/22/2023 8:45 AM EST Office Visit Gynecology/Obstetics [place] [address] [place] [phone] Angie Nuñez PA-C [address] [place] [address] 09/06/2023 8:00 AM EST Imaging Radiology, [address] [address] 10/04/2023 8:00 AM EST Imaging Radiology, [address] [address] 11/01/2023 8:00 AM EDT Imaging Radiology, [address] [address] Health Maintenance Due Date Last Done Comments [...] ABO O 08/10/2023 11:33 PM EST LAB[facility]ATORY [facility]LOOD [facility] Rh Negative 08/10/2023 11:33 PM EST [facility]ORY [facility] Red Blood Cell Antibody Screen Negative 08/10/2023 11:33 PM EST [facility]ORY [facility] Specimen Expiration Date 08/13/2023 23:59 08/10/2023 11:33 PM EST [facility]ORY [facility] Blood Venous blood specimen / Unknown Venipuncture / Unknown 08/10/2023 4:01 PM EST 08/10/2023 4:01 PM EST Angie Darling PA-C LAB BLOOD BANK TEST ORDERABLES LAB[facility]ATORY [facility] BLOOD [facility] [address] [place] [address] * US PREG LIMITED 1 OR MORE [...] as well as four-chamber heart. Procedure Note Feilpe Garza MD - 08/10/2023 EXAM US PREG [...] the patient have Health Care Power of Cylinder Filler? No Code Status History Code Status Date Activated Date Inactivated Comments Full Code 01/05/2021 11:33 AM 01/05/2021 6:10 PM This o rder reflects the patients wishes and were consensually agreed upon. Care Teams Footwear Sales Associate Relationship Specialty Start Date End Date Taryn Melgar PA-C [address] [place] [address] [phone] PCP - General Physician Thermite Bomb Loader 09/20/18 documented as of this encounter
--- OUTSIDE RECORDS SUMMARY | 2023-12-18 08:02 | External Medical Summary | Summary of Care ---
Author Name Unknown Organization [facility] Address [address] [place] [address] Phone [phone] Care Team Providers Care Bond Manager Name Role Phone Taryn Melgar PA-C Primary Care Provider Reason for Visit * Reason Onset Date Comments Advice 07/28/2023 Encounter Details Date Type Department Care Team ([facility] st Contact Info) Description 07/28/2023 Telephone Gynecology/Obstetics [place] [address] [place] [address] Angie Nuñez PA-C [address] [place] [address] Advice Allergies Active Allergy Reactions Criticality Noted Date Comments Pollen Other (Please comment) Low 01/05/2021 documented as of this encounter (statuses as of 07/28/2023) Medications Medication Sig Dispensed Refills Start Date [...] as of this encounter (statuses as of 07/28/2023) Active Problems Problem Noted Date Diagnosed Date [...] at bedtime 07/12/23-elevated sugars- msg send to DIFFERENTIAL SPECIALIST 07/12/23: RPM reviewed; elevated FBS; increase to Lantus 15 units at bedtime 07/18/23 stable 07/26/23-stable Last Assessment & Plan: CONSIDERATIONS: Reviewed etiology and risks associated with gestational diabetes mellitus (GDM), including risks to , fetus, and maternal progression to Type 2 DM. Instructed on proper use of glucometer; supplies ordered, if indicated. Advised that life-long screening for diabetes is recommended every 1-3 years. RECOMMENDATIONS: Recommend monitoring blood sugars with daily fasting blood sugar (maintained at less than or equal to 95) and 1 hour postprandial measurements (maintained at less than or equal to 140). Medications should be adjusted to maintain these target values. Report levels to MFM (Maternal- Medicine) weekly. Recommend nutrition consult with RDN (Registered Dietitian Sheet Tester). Lifestyle changes are also indicated including optimizing gestational weight gain and physical activity of 30 minutes per day, if not otherwise contraindicated in . Insulin is preferred if medications are indicated to optimize euglycemia. Metformin (preferred over glyburide) may also be used in some circumstances. Reviewed the risks and benefits of each. Recommend hemoglobin A1c testing now if diagnosed with GDM prior to 24 weeks as there is potential for pre-existing diabetes. If result is 6.5% or greater, then will diagnose with overt Type 2 DM and treat as pre-existing diabetes. If compliance later in gestation is question, a HBA1c can be assessed with a goal of less than 6%. Recommend early anatomy evaluation at 11-16 weeks gestation. Recommend anatomy survey at 19-20 weeks. Recommend echocardiography at 21-23 weeks if hemoglobin A1c greater than 6.5%. Recommend ultrasound, surveillance and delivery as follows: A1GDM, delivery should be accomplished by 41w0d. A2GDM, recommend growth assessment with MFM every 4 weeks, initiate surveillance at 32 weeks and continue until delivery at 39 weeks. Recommend intrapartum monitoring every 1-2 hours (A2GDM) or every 4 hours (A1GDM) and treat with insulin if indicated. Recommend 2-hour glucose tolerance testing with 75-gram glucose load 6-8 weeks . Abnormal glucose tolerance in mother complicatin g 06/24/2023 BMI 32.0-32.9,adult 05/27/2023 Constipation during , antepartum 2022 History of gestational diabetes 05/27/2023 Supervision of high-risk , second trime [facility] 05/27/2023 Overview: Estimated Date of Delivery: 12/23/23 Continue vitamin. O negative - needs Rhogam injection at 28 weeks and if she has vaginal bleeding in prengancy. Varicella and rubella immune. Qnatal testing low risk. MSAFP testing at 15 weeks to 22 weeks, 6 days. Anatomy ultrasound at 20 weeks. Rubella non-immune status, antepartum 08/17/2022 Class 1 [...] as of this encounter (statuses as of 07/28/2023) Resolved Problems Problem Noted Date Diagnosed Date [...] dealing with it, otherwise can deliver in [place]. Last Assessment & Plan: She was seen [...] and folate levels and referral to a city routeman. 4. If hemoglobin levels are below 8 g/dl, we recommend Maternal Medicine ultrasound for growth every 4 weeks after 24 weeks. Consider a blood transfusion if hemoglobin levels fall below 6 g/dL. ([employer] Candles Pourer Practice Bulletin Number 95, February,). 5. Consider [...] Will continue testing and report weekly to [facility] via [employer]. Discussed that medication may be needed if elevated blood sugars do not improve with diet alone. Patient agreeable to starting insulin if needed. Will review again next week. 07/25/22: [facility] ADAPT consult complete. 07/27/22: elevated [...] 08/22/22: Taking 15 units Levemir at HS. [place] woozy after 20 units. Was sick last [...] MEDICINE referral made. Last Assessment & Plan: [facility] anatomy/growth ultrasound scheduled for 08/03/22. [...] as of this encounter (statuses as of 07/28/2023) Immunizations Name Administration Dates Next Due Seasonal [...] money to get more. Never true 11/01/2022 [place] Depression Scale Answer Date Recorded [place] Depression Scale Total 2 03/13/2023 The thought [...] encounter Miscellaneous Notes * Telephone Encounter - Hermilo Taylor MD - 07/28/2023 12:17 PM EST Patient identified by name advised will be reassessed at anatomy scan but will treat as a previa until then. Patient verbalized understanding * Telephone Encounter - Angie Nuñez PA-C - 07/28/2023 10:24 AM EST Spoke with patient. Notified patient about questionable previa. Will confirm at MATERNAL MEDICINE ultrasound. Pelvic rest (Less than 10 lbs lifting restriction) and no sexual intercourse. Answered patient's questions. Patient is asking about appointment every 2 weeks versus 4 weeks. What would you recommend? Thank you. documented in this encounter Plan of Treatment Upcoming Encounters Date Type Department Care Team (Late st Contact Info) Description 08/04/2023 9:30 AM EST Office Visit Windows Software Developer OB Maternal Medicine [facility] Demian Henderson[address] [place] [address] Aniya Carson, DO [address] [place] [address] 08/04/2023 9:30 AM EST Imaging Maternal Medicine [facility] Sharla Henderson [address] [place] [address] Dr [address] [place] [address] 08/22/2023 8:45 AM EST Office Visit Gynecology/Obstetics [place] [address] [place] [phone] Angie Nuñez PA-C [address] [place] [address] Health Maintenance Due Date Last Done Comments [...] the patient have Health Care Power of Anode Machine Operator? No Code Status History Code Status Date Activated Date Inactivated Comments Full Code 01/05/2021 11:33 AM 01/05/2021 6:10 PM This o rder reflects the patients wishes and were consensually agreed upon. Care Teams Bond Manager Relationship Specialty Start Date End Date Taryn Melgar PA-C [address] [place] [address] [place] Espitia [phone] PCP - General Physician Publishing Manager 09/20/18 documented as of this encounter
--- OUTSIDE RECORDS SUMMARY | 2023-12-18 08:02 | External Medical Summary | Summary of Care ---
Author Name Unknown Organization [facility] Address [address] [place] [address] Phone [phone] Care Team Providers Care Medical Social Worker Name Role Phone Taryn Melgar PA-C Primary Care Provider Reason for Visit * Reason Onset Date Comments Advice 08/10/2023 Encounter Details Date Type Department Care Team ([facility] st Contact Info) Description 08/10/2023 Telephone Gynecology/Obstetics [place] [address] [place] [address] Angie Nuñez PA-C [address] [place] [address] Advice Allergies Active Allergy Reactions Criticality Noted Date Comments Pollen Other (Please comment) Low 01/05/2021 documented as of this encounter (statuses as of 08/10/2023) Medications Medication Sig Dispensed Refills Start Date [...] as of this encounter (statuses as of 08/10/2023) Active Problems Problem Noted Date Diagnosed Date [...] at bedtime 07/12/23-elevated sugars- msg send to CHIEF PHARMACIST 07/12/23: RPM reviewed; elevated FBS; increase to [...] as of this encounter (statuses as of 08/10/2023) Resolved Problems Problem Noted Date Diagnosed Date Resolved Date arrhythmia affecting p regnancy, antepartum 08/17/2022 05/27/2023 Overview: arythmia noted 08/12, saw peds cardio IMPRESSION and PLAN: 1. PACs in bigeminy giving the appearance of HR variability between 60-160 bpm 2. 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 Normal biventricular function 4. Mild MI The above findings were shared with the [...] dealing with it, otherwise can deliver in [place]. Last Assessment & Plan: She was seen [...] and folate levels and referral to a airport operations manager. 4. If hemoglobin levels are below 8 g/dl, we recommend Maternal Medicine ultrasound for growth every 4 weeks after 24 weeks. Consider a blood transfusion if hemoglobin levels fall below 6 g/dL. ([employer]st[employer] and Car Customizer Practice Bulletin Number 95, February,). 5. Consider [...] testing and report weekly to MFM via [employer]. Discussed that medication may be needed [...] 08/22/22: Taking 15 units Levemir at HS. [place] woozy after 20 units. Was sick last [...] as of this encounter (statuses as of 08/10/2023) Immunizations Name Administration Dates Next Due Seasonal [...] money to get more. Never true 11/01/2022 [place] Depression Scale Answer Date Recorded [place] Depression Scale Total 2 03/13/2023 The thought [...] Telephone Encounter - Angie Nuñez PA-C - 08/10/2023 5:17 PM EST Spoke with patient. Patient notified that ultrasound is normal. No retroplacental hematoma. Placenta is normal - no previa. Patient given Rhogam. Patient will call with any concerns. documented in this encounter Plan of Treatment Upcoming Encounters Date Type Department Care Team (Late st Contact Info) Description 08/22/2023 8:45 AM EST Office Visit Gynecology/Obstetics [address] [phone] Angie Nuñez PA-C [address] [place] [address] 09/06/2023 8:00 AM EST Imaging Radiology, [address] [place] [address] 10/04/2023 8:00 AM EST Imaging Radiology, [address] [place] [address] 11/01/2023 8:00 AM EDT Imaging Radiology, [address] [place] [address] Health Maintenance Due Date Last Done Comments [...] the patient have Health Care Power of Hospital Internship? No Code Status History Code Status Date Activated Date Inactivated Comments Full Code 01/05/2021 11:33 AM 01/05/2021 6:10 PM This o rder reflects the patients wishes and were consensually agreed upon. Care Teams Medical Social Worker Relationship Specialty Start Date End Date Taryn Melgar PA-C [address] [place] [id number] PCP - General Physician Bowstring Maker 09/20/18 documented as of this encounter
--- OUTSIDE RECORDS SUMMARY | 2023-12-18 08:02 | External Medical Summary | Summary of Care ---
Author Name Unknown Organization [facility] Address [address] [place] [address] Phone [phone] Care Team Providers Care Truck Operator Name Role Phone Taryn Melgar PA-C Primary Care Provider Encounter Details Date Type Department Care Team (Late st Contact Info) Description 08/04/2023 9:30 AM EST Office Visit [facility] Sharla Henderson [address] [place] [address] Dr [address] [place] [address] Aniya Carson, DO [address] [place] [address] Insulin controlled gestational diabetes mellitus (GDM) during , antepartum*; Obesity in , antepartum; Encounter for anatomic survey; 19 weeks gestation of ; Supervision of high-risk , second trimester Allergies Active Allergy Reactions Criticality Noted Date Comments Pollen Other (Please comment) Low 01/05/2021 documented as of this encounter (statuses as of 08/04/2023) Medications Medication Sig Dispensed Refills Start Date [...] as of this encounter (statuses as of 08/04/2023) Active Problems Problem Noted Date Diagnosed Date [...] at bedtime 07/12/23-elevated sugars- msg send to JUNIOR PROJECT COORDINATOR 07/12/23: RPM reviewed; elevated FBS; increase to Lantus 15 units at bedtime 07/18/23 stable 07/26/23-stable 08/01/23: RPM reviewed; missing readings but of those reported - stable; continue Lantus 15 units at bedtime Last [...] as of this encounter (statuses as of 08/04/2023) Resolved Problems Problem Noted Date Diagnosed Date [...] dealing with it, otherwise can deliver in [place]. Last Assessment & Plan: She was seen [...] and folate levels and referral to a box truck washer. 4. If hemoglobin levels are below 8 g/dl, we recommend Maternal Medicine ultrasound for growth every 4 weeks after 24 weeks. Consider a blood transfusion if hemoglobin levels fall below 6 g/dL. ([employer] Obst[employer]ians and Patent Prosecution Paralegal Practice Bulletin Number 95, February,). 5. Consider [...] Will continue testing and report weekly to [facility] via [email or web address]. Discussed that medication may be needed if elevated blood sugars do not improve with diet alone. Patient agreeable to starting insulin if needed. Will review again next week. 07/25/22: [facility] ADAPT consult complete. 07/27/22: elevated fasting; [...] 08/22/22: Taking 15 units Levemir at HS. [place] woozy after 20 units. Was sick last [...] MEDICINE referral made. Last Assessment & Plan: [facility] anatomy/growth ultrasound scheduled for 08/03/22. Patient [...] as of this encounter (statuses as of 08/04/2023) Immunizations Name Administration Dates Next Due Seasonal [...] money to get more. Never true 11/01/2022 [place] Depression Scale Answer Date Recorded [place] Depression Scale Total 2 03/13/2023 The thought [...] Progress Notes * Aniya Carson DO - 08/04/2023 10:43 AM EST MATERNAL MEDICINE VISIT Lacy Mckinney presented today at 19w6d for an ultrasound and follow-up of her high risk . She was seen for the following indications: Problem List Items Addressed This Visit Endocrine/Metabolic Insulin controlled gestational diabetes mellitus (GDM) during , antepartum - Primary Working with ADAPT. Low risk NIPT appreciated. Digestive Obesity in , antepartum Other Supervision of high-risk , second trimester Placenta is not low lying. Couple advised that no activity restrictions are necessary. Other Visit Diagnoses Encounter for anatomic survey 19 weeks gestation of We reviewed today's ultrasound findings. 19w6d for anatomical survey. Normal growth with no ultrasonic evidence of structural abnormalities. (For full details, please refer to ultrasound report provided separately). Ms. Mckinney's questions were answered to her satisfaction. She was advised to contact our office or her OB provider for any additional questions regarding her . RECOMMENDATIONS: Recommend follow up ultrasound with MFM in 4 weeks for growth secondary to above indications. Thank you for allowing us to participate in the care of this patient. Please call with any questions. Aniya Carson DO 08/04/2023 10:43 AM documented in this encounter Miscellaneous Notes * Assessment & Plan Note - Aniya Carson DO - 08/04/2023 12:14 PM EST Associated Problem(s): Supervision of high-risk , second trimester Placenta is not low lying. Couple advised that no activity restrictions are necessary. * Assessment & Plan Note - Aniya Carson DO - 08/04/2023 9:50 AM EST Associated Problem(s): Insulin controlled gestational diabetes mellitus (GDM) during , antepartum Working with ADAPT. Low risk NIPT appreciated. documented in this encounter Plan of Treatment Upcoming Encounters Date Type Department Care Team (Late st Contact Info) Description 08/22/2023 8:45 AM EST Office Visit Gynecology/Obstetics [place] [address] [place] [address] Angie Nuñez PA-C [address] [place] [address] 09/06/2023 8:00 AM EST Imaging Radiology, [address] [address] 10/04/2023 8:00 AM EST Imaging Radiology, [address] [address] 11/01/2023 8:00 AM EDT Imaging Radiology, [address] [address] Health Maintenance Due Date Last Done Comments [...] diabetes mellitus (GDM) during , antepartum- Primary Obesity in , antepartum Obesity complicating , childbirth, or the puerperium, antepartum condition or complication Encounter for anatomic survey 19 weeks gestation of state, incidental Supervision of high-risk , second trimester documented in this encounter Advance [...] the patient have Health Care Power of Environmental Change Analyst? No Code Status History Code Status Date Activated Date Inactivated Comments Full Code 01/05/2021 11:33 AM 01/05/2021 6:10 PM This o rder reflects the patients wishes and were consensually agreed upon. Care Teams Truck Operator Relationship Specialty Start Date End Date Taryn Melgar PA-C [address] [place] [id number] PCP - General Physician Belt Buckle Maker 09/20/18 documented as of this encounter
--- OUTSIDE RECORDS SUMMARY | 2023-12-18 08:02 | External Medical Summary | Summary of Care ---
Author Name Unknown Organization [facility] Address [address] [place] [address] Phone [phone] Care Team Providers Care Horses Or Mules Teamster Name Role Phone Taryn Melgar PA-C Primary Care Provider Reason for Visit * Reason Onset Date Comments Advice 08/10/2023 Encounter Details Date Type Department Care Team ([facility] st Contact Info) Description 08/10/2023 Telephone Gynecology/Obstetics [place] [address] [place] [address] Angie Nuñez PA-C [address] [place] [address] Advice Allergies Active Allergy Reactions [...] at bedtime 07/12/23-elevated sugars- msg send to A CLASS LINEMAN 07/12/23: RPM reviewed; elevated FBS; increase to [...] PACs 3. Normal biventricular function 4. Mild OR The above findings were shared with the [...] dealing with it, otherwise can deliver in [place]. Last Assessment & Plan: She was seen [...] and folate levels and referral to a manager trust. 4. If hemoglobin levels are below 8 g/dl, we recommend Maternal Medicine ultrasound for growth every 4 weeks after 24 weeks. Consider a blood transfusion if hemoglobin levels fall below 6 g/dL. ([employer] and Ski Tow Operator Practice Bulletin Number 95, February,). 5. [...] testing and report weekly to MFM via [employer]. Discussed that medication may be needed if elevated blood sugars do not improve with diet alone. Patient agreeable to starting insulin if needed. Will review again next week. 07/25/22: [facility] ADAPT consult complete. 07/27/22: elevated fasting; [...] 08/22/22: Taking 15 units Levemir at HS. [place] woozy after 20 units. Was sick last [...] money to get more. Never true 11/01/2022 [place] Depression Scale Answer Date Recorded [place] Depression Scale Total 2 03/13/2023 The thought [...] Encounter - Angie Nuñez PA-C - 08/10/2023 4:36 PM EST Patient seen in the office today. * Telephone Encounter - Ivon Rankin RN - 08/10/2023 10:15 AM EST Patient called into clinic and reports she just fell walking up the concrete steps at work. Her wrist and water bottle took most of the fall. The top of her belly by her ribs did when she fell. Did not hit lower abdomen. Denies abdominal pain or any other concerns. Has to talk to risk management at her work and feels like they will most likely make her go to ER to be evaluated. She will contact office to update once she speaks with her work. documented in this encounter Plan of Treatment Upcoming Encounters Date Type Department Care Team (Late st Contact Info) Description 08/22/2023 8:45 AM EST Office Visit Gynecology/Obstetics [place] [address] [place] [phone] Angie Nuñez PA-C [address] [place] [address] 09/06/2023 8:00 AM EST Imaging Radiology, [address] [address] 10/04/2023 8:00 AM EST Imaging Radiology, [address] [address] 11/01/2023 8:00 AM EDT Imaging Radiology, [address] [address] Health Maintenance Due Date Last Done Comments [...] the patient have Health Care Power of Systems Architecture Analyst? No Code Status History Code Status Date Activated Date Inactivated Comments Full Code 01/05/2021 11:33 AM 01/05/2021 6:10 PM This o rder reflects the patients wishes and were consensually agreed upon. Care Teams Horses Or Mules Teamster Relationship Specialty Start Date End Date Taryn Melgar PA-C [address] [place], [place] [address]NE[place]IT[place] hogan [phone] PCP - General Physician Senior Net Software Developer 09/20/18 documented as of this encounter
--- OUTSIDE RECORDS SUMMARY | 2023-12-18 08:02 | External Medical Summary | Summary of Care ---
Author Name Unknown Organization [facility] Address [address] [place] [address] Phone [phone] Care Team Providers Care Electronic Publishing Specialist Name Role Phone Taryn Melgar PA-C Primary Care Provider Reason for Visit * Reason Comments Outpatient Testing Encounter Details Date Type Department Care Team (Late st Contact Info) Description 08/10/2023 4:10 PM [facility] Laboratory Laboratory Patient Service [address] [phone] [facility] [address] Rh negative, antepartum Allergies Active Allergy Reactions Criticality Noted [...] negative, antepartum 300 mcg IM ONCE 08/10/2023 08/11/2023 Active documented as of this encounter (statuses [...] options 07/05/23- sugars elevated- msg sent to [facility] [[email or web address] to schedule ADAPT 07/06/23: ADAPT visit complete; elevated FBS; ordered Lantus 10 units at bedtime 07/12/23-elevated sugars- msg send to SPANISH INTERPRETER/TRANSLATOR 07/12/23: RPM reviewed; elevated FBS; increase to [...] dealing with it, otherwise can deliver in [place]. Last Assessment & Plan: She was seen [...] and folate levels and referral to a clinical reviewer. 4. If hemoglobin levels are below 8 g/dl, we recommend Maternal Medicine ultrasound for growth every 4 weeks after 24 weeks. Consider a blood transfusion if hemoglobin levels fall below 6 g/dL. ([employer] Obstetricians and Preschool Assistant Principal Practice Bulletin Number 95, February,). 5. Consider [...] testing and report weekly to M via [employer]. Discussed that medication may be needed if elevated blood sugars do not improve with diet alone. Patient agreeable to starting insulin if needed. Will review again next week. 07/25/22: [facility] ADAPT consult complete. 07/27/22: elevated fasting; [...] 08/22/22: Taking 15 units Levemir at HS. [place] woozy after 20 units. Was sick last [...] money to get more. Never true 11/01/2022 [place] Depression Scale Answer Date Recorded [place] Depression Scale Total 2 03/13/2023 The [...] 08/22/2023 8:45 AM EST Office Visit Gynecology/Obstetics [place] [address] [place] [address] Angie Nuñez PA-C [address] [place] [address] 09/06/2023 8:00 AM EST Imaging Radiology, [address] [address] 10/04/2023 8:00 AM EST Imaging Radiology, [address] [address] 11/01/2023 8:00 AM EDT Imaging Radiology, [address] [address] Pending Results Name Type Priority Associated Diagnoses Date /Time TYPE AND SCREEN Lab Routine Rh negative, antepartum 08/10/2023 4:01 PM EST Health Maintenance Due Date Last [...] this encounter Visit Diagnoses Diagnosis Rh negative, antepartum Rhesus isoimmunization affecting management of mother, antepartum condition documented in this encounter Advance Directives Latest [...] the patient have Health Care Power of Research Biologist? No Code Status History Code Status Date Activated Date Inactivated Comments Full Code 01/05/2021 11:33 AM 01/05/2021 6:10 PM This o rder reflects the patients wishes and were consensually agreed upon. Care Teams Electronic Publishing Specialist Relationship Specialty Start Date End Date Taryn Melgar PA-C [address] [place] [phone] PCP - General Physician Naval Gunfire Spotter 09/20/18 documented as of this encounter
--- OUTSIDE RECORDS SUMMARY | 2023-12-18 08:02 | External Medical Summary ---
Author Name Unknown Address Unknown Organization [id number]:[facility] - [address] [place] [address] Laboratory Report Ordering Provider Test Date Status LIDIA ORTA 08/10/2023 16:01:00 Final Observation Date Value Abnormality Reference (Units ) Status ABO 08/10/2023 16:01:00 O Final RH 08/10/2023 16:01:00 Negative Final RED BLOOD CELL ANTIBODY SCREEN 08/10/2023 16:01:00 Negative Final SPECIMEN EXPIRATION DATE 08/10/2023 16:01:00 08/13/2023 23:59 Final Performing Location [facility] - [address] [place] [address]
--- OUTSIDE RECORDS SUMMARY | 2023-12-18 08:02 | External Medical Summary | Summary of Care ---
Author Name Unknown Organization [facility] Address [address] [place] [address] Phone [phone] Care Team Providers Care Director Learning Name Role Phone Taryn Melgar PA-C Primary Care Provider Reason for Visit * Reason Comments Return Visit Encounter Details Date Type Department Care Team (Late st Contact Info) Description 07/26/2023 8:30 AM EST Office Visit Gynecology/Obstetic s Dean Espitia [address] [place] [phone] You Nuñez PA-C [address] [place] [phone] Nurse Adebayo Espitia RN [address] [place] [address] [phone] Supervision of high-risk , second trimester*; Rh negative, antepartum; Insulin controlled gestational diabetes mellitus (GDM) during , antepartum; Vaginal discharge; Urinary incontinence, unspecified type Allergies Active Allergy Reactions Criticality Noted Date Comments Pollen Other (Please comment) Low 01/05/2021 documented as of this encounter (statuses as of 07/29/2023) Medications Medication Sig Dispensed Refills Start Date [...] as of this encounter (statuses as of 07/29/2023) Active Problems Problem Noted Date Diagnosed Date [...] at bedtime 07/12/23-elevated sugars- msg send to HVAC ENGINEERING TECHNICIAN 07/12/23: RPM reviewed; elevated FBS; increase [...] Recommend nutrition consult with RDN (Registered Dietitian Provider Enrollment Specialist). Lifestyle changes are also indicated including optimizing [...] as of this encounter (statuses as of 07/29/2023) Resolved Problems Problem Noted Date Diagnosed Date Resolved Date arrhythmia affecting p regnancy, antepartum 08/17/2022 05/27/2023 Overview: arythmia noted 08/12, saw peds cardio IMPRESSION and PLAN: 1. PACs in [place] giving the appearance of HR variability between 60-160 bpm 2. 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 Normal biventricular function 4. Mild MD The above findings were shared with the [...] dealing with it, otherwise can deliver in [place]. 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 Atrioventricular (AV) synchrony is noted . heart rate is 120-130 BPM. Frequent premature atrial contractions. PACs in [facility]. 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 [...] folate levels and referral to a manager business operations. 4. If hemoglobin levels are below 8 g/dl, we recommend Maternal Medicine ultrasound for growth every 4 weeks after 24 weeks. Consider a blood transfusion if hemoglobin levels fall below 6 g/dL. ([employer] [place] [employer] Obstetricians and Inserting Press Operator Practice Bulletin Number 95, February,). 5. [...] Will continue testing and report weekly to [facility] via [employer]. Discussed that medication may be needed if elevated blood sugars do not improve with diet alone. Patient agreeable to starting insulin if needed. Will review again next week. 07/25/22: [facility] ADAPT consult complete. 07/27/22: elevated [...] 08/22/22: Taking 15 units Levemir at HS. [place] woozy after 20 units. Was sick last [...] of mother 06/09/2022 Overview: Discussed with Dr. Adigun. Continue to [...] as of this encounter (statuses as of 07/29/2023) Immunizations Name Administration Dates Next Due Seasonal [...] money to get more. Never true 11/01/2022 [place] Depression Scale Answer Date Recorded [place] Depression Scale Total 2 03/13/2023 The thought [...] Reading Time Taken Comments Blood Pressure 100/58 07/26/2023 8:47 AM EST Pulse - - Temperature - - Respiratory Rate - - Oxygen Saturation - - Inhaled Oxygen Concentration - - Weight 81.6 kg (180 lb) 07/26/2023 8:47 AM EST Height - - Body Mass Index 32.92 09/08/2022 10:04 AM EST documented in this [...] as of this encounter Progress Notes * You Nuñez PA-C - 07/26/2023 8:56 AM EST Lacy Mckinney presents for visit at 18w4d. BP 100/58 | Wt 81.6 kg (180 lb) | LMP 03/18/2023 (Exact Date) | BMI 32.92 kg/m | BSA 1.89 m Doing well. Denies vaginal bleeding, leaking of fluid, vaginal pressure, contractions, abdominal pain. Denies blurry vision, or right upper quadrant pain. Patient has some intermittent headaches thatresolve with Tylenol and hydration. Patient states that she is working on good hydration with water. Patient states she feels some flutters of movement. Patient had a sinus infection and ear infection that she was treated for and is feeling better now. Patient has continued vaginal discharge that is more watery in nature that started yesterday. Patient denies vaginal odor, itching, or burning. Patient agreeable to pelvic exam today. Patient reports that she has some carpal tunnel symptoms. Physical Exam General: alert and oriented, no acute distress Pulmonary: normal respiratory effort, no accessory muscle use. Abdomen: gravid, soft, non-tender heart rate: 140's bpm Pelvic Exam: external genitalia and vagina anatomy within normal limits, white vaginal discharge, vaginitis culture obtained today. No blood in the vagina. No pooling in the vagina on valsalva. Cervix visually closed. Russian History Professor Documentation Patient offered motorcycle assembler and declined. OB [place] Problems (from 05/09/23 to present) Problem Noted Resolved Obesity in , antepartum 06/27/2023 by Amy Rivas CRNP No The patient's pre-gravid BMI is 32.73. Class 1 Short interval between pregnancies complicating , antepartum 06/27/2023 by Amy Rivas CRNP No Last delivered in 09/2022. Insulin controlled gestational diabetes mellitus (GDM) during , antepartum 06/26/2023 by You Nuñez PA-C No Diagnosed at 14 weeks via home glucose monitoring (elevated FBS) Nutrition referral: deferred OneTouch Verio meter Note: history of gestational diabetes in previous Lab Results Component Value Date/Time 50-G GESTATIONAL GLUCOSE, 1 HOUR - [facility] 154 (H) 06/02/2023 10:20 AM HEMOGLOBIN A1C - [facility] 5.2 06/21/2023 09:44 AM 06/28/23: [facility] ADAPT consult complete. Enrolled in [facility]. Instructions provided to report blood sugars [...] at bedtime 07/12/23-elevated sugars- msg send to HVAC ENGINEERING TECHNICIAN 07/12/23: RPM reviewed; elevated FBS; increase to Lantus 15 units at bedtime 07/18/23 stable 07/26/23-stable Supervision of high-risk , second trimester 05/27/2023 by You Nuñez PA-CNo Estimated Date of Delivery: 12/23/23 Continue vitamin. O negative - needs Rhogam injection at 28 weeks and if she has vaginal bleeding in prengancy. Varicella and rubella immune. Qnatal testing low risk. Declines MSAFP testing. Anatomy ultrasound at 20 weeks. Rh negative, antepartum 05/12/2022 by You Nuñez PA-C No Plan: -Patient declines MSAFP testing. - heart rate within normal limits. -Vaginitis culture and urine culture obtained today. Will treat based on results. Counseled patienton labor precautions. -Counseled patient to use wrist splints at night for carpal tunnel symptoms. -Advised patient to work on good hydration. Patient agrees. Counseled patient to call triage/go to labor and delivery if she has any vaginal bleeding, leaking of fluid, vaginal pressure, four or more painful contractions in an hour, abdominal pain, decreased movements, headaches, blurry vision, or right upper quadrant pain. Patient verbalized understanding. RTO in 4 weeks for a return appointment or sooner if any concerns. You Estrada PA-C documented in this encounter Nursing Notes * Trudy Bolton RN - 07/26/2023 8:47 AM EST Pt presents for RUBINA. Reports some sort of leaking when sneezing yesterday. Reports continued discharge. documented in this encounter Miscellaneous Notes * Addendum Note - You Nuñez PA-C - 07/29/2023 12:07 PM EST Addended by: YOU NUÑEZ on: 07/29/2023 12:07 PM Modules accepted: Level of Service documented in this encounter Plan of Treatment Upcoming Encounters Date Type Department Care Team (Late st Contact Info) Description 08/04/2023 9:30 AM EST Office Visit Office Helper Clerical OB Maternal Medicine [facility] Sharla Henderson [address] [place] [address] [address] [id number] Aniya Carson, DO [address] [place] [address] 08/04/2023 9:30 AM EST Imaging Maternal Medicine [facility] Sharla Henderson [address] [place] [address] [address] [place] [address] 08/22/2023 8:45 AM EST Office Visit Gynecology/Obstetics [place] [address] [place] [phone] You Nuñez PA-C [address] [place] [address] Health Maintenance Due Date Last Done Comments [...] Procedure Name Priority Date/Time Associated Diagnosis Comments VAGINOSIS PANEL, PCR Routine 07/26/2023 9:41 AM EST Vaginal discharge CULTURE, URINE, QUANTITATIVE Routine 07/26/2023 9:24 AM EST Urinary incontinence, unspecified type documented in this encounter Results * (ABNORMAL) VAGINOSIS PANEL, PCR (07/26/2023 9:41 AM EST) Ashley Glabrata PCR Result Negative Negative 07/27/2023 1:51 PM EST [facility] Comment:Ashley glabrata not detected by PCR. Ashley Albicans PCR Result Negative Negative 07/27/2023 1:51 PM EST [facility] Comment:Ashley albicans not detected by PCR. Trichomonas Vaginalis PCR Result Negative Negative 07/27/2023 1:51 PM EST [facility] Comment:Trichomonas vaginali s not detected by PCR. Gardnerella Vaginalis PCR Result Positive(A) Negative 07/27/2023 1:51 PM EST [facility] Comment: Gardnerella vaginalis detected by PCR. Organism may be associated with colonization. Clinical correlation needed. This test was developed and its performance characteristics determined by [facility]. It has not been cleared or approved by the U.S. Food and Drug Administration (FDA). FDA does not require this test to go through premarket FDA review. This test is used for clinical purposes. It should not be regarded as investigational or for research. This laboratory is certified under the Clinical Laboratory Improvement Amendments (CLIA) as qualified to perform high complexity clinical laboratory testing. The validation of self-collected vaginal swabs for this assay was developed and performance characteristics determined by [facility]. The validation of alternate specimen types has not been cleared or approved by the U.S. Food and Drug Administration (FDA). It has been determined that such clearance or approval is not necessary. Swab Specimen from wound / Unknown 07/26/2023 9:41 AM EST 07/26/2023 9:41 AM EST You [place] LAB MICRO - GENERAL ORDERABLES Performing Organization Address City/[facility]/ZIP Co de Phone Number [facility] [address] [place] [address] * CULTURE, URINE, QUANTITATIVE (07/26/2023 9:24 AM EST) Culture Growth No significant growth 07/27/2023 4:59 PM EST [facility] Urine Urine specimen obtained by clean catch procedure / Unknown Non-blood Collection / Unknown 07/26/2023 9:24 AM EST 07/26/2023 9:24 AM EST You Brooke [place]-C LAB MICRO - GENERAL ORDERABLES [facility] [address] [place] [address] documented in this encounter Visit Diagnoses Diagnosis Supervision of high-risk , second trimester- Primary Rh negative, antepartum Rhesus isoimmunization affecting management of mother, antepartum condition Insulin controlled gestational diabetes mellitus (GDM) during , antepartum Vaginal discharge Leukorrhea, not specified as infective Urinary incontinence, unspecified type documented in this encounter Advance Directives Latest [...] the patient have Health Care Power of [place]? No Code Status History Code Status Date Activated Date Inactivated Comments Full Code 01/05/2021 11:33 AM 01/05/2021 6:10 PM This o rder reflects the patients wishes and were consensually agreed upon. Care Teams Director Learning Relationship Specialty Start Date End Date Taryn Melgar PA-C [address] [place] [phone] PCP - General Physician Director Construction Services 09/20/18 documented as of this encounter
--- OUTSIDE RECORDS SUMMARY | 2023-12-18 08:02 | External Medical Summary | Summary of Care ---
Author Name Unknown Organization [facility] Address [address] [place] [address] Phone [phone] Care Team Providers Care Gum Maker Name Role Phone Taryn Melgar PA-C Primary Care Provider Reason for Visit * Reason Comments Return Visit Encounter Details Date Type Department Care Team (Late st Contact Info) Description 08/10/2023 2:45 PM EST Office Visit Gynecology/Obstetics [address] [phone] Angie Nuñez PA-C [address] [place] [address] Supervision of high-risk , second trimester*; Rh [...] at bedtime 07/12/23-elevated sugars- msg send to OUTCOME ANALYST 07/12/23: RPM reviewed; elevated FBS; increase to [...] PACs 3. Normal biventricular function 4. Mild DC The above findings were shared with the [...] dealing with it, otherwise can deliver in [place]. Last Assessment & Plan: She was seen [...] and folate levels and referral to a radius corner machine operator. 4. If hemoglobin levels are below 8 g/dl, we recommend Maternal Medicine ultrasound for growth every 4 weeks after 24 weeks. Consider a blood transfusion if hemoglobin levels fall below 6 g/dL. ([place] [employer] Obstetricians and Telephone Exchange Operator Practice Bulletin Number 95, February,). 5. [...] testing and report weekly to M via [employer]. Discussed that medication may be needed if [...] 08/22/22: Taking 15 units Levemir at HS. [place] woozy after 20 units. Was sick last [...] money to get more. Never true 11/01/2022 [place] Depression Scale Answer Date Recorded [place] Depression Scale Total 2 03/13/2023 The thought [...] she feels good movement. Workers comp claim: [id number] Physical Exam General: alert and oriented, no acute distress Pulmonary: normal respiratory effort, no accessory muscle use. Abdomen: gravid, soft, non-tender heart rate: 140's BPM Pelvic Exam: external genitalia and vagina anatomy within normal limits, physiologic vaginal discharge, no blood in the vagina. Cervix visually closed. Mine Development Engineer Documentation Patient offered coiled tubing operator and declined. OB [place] Problems (from 05/09/23 to present) Problem Noted [...] at bedtime 07/12/23-elevated sugars- msg send to OUTCOME ANALYST 07/12/23: RPM reviewed; elevated FBS; increase to [...] Plan: -Completed ultrasound today. Verbal report from power distributor - normal ultrasound. - heart rate normal in the office. -Pelvic exam normal. No blood in the vagina on exam. -Rh negative blood type: Advised type and screen and Rhogam injection today. Rhogam administered today. Will need Rhogam again at 28 weeks. -Counseled patient extensively on return precautions. Patient has rehabilitation teacher [place] triagenumber and office number if needed. Counseled [...] 08/22/2023 8:45 AM EST Office Visit Gynecology/Obstetics [place] [address] [place] [phone] Angie Nuñez PA-C [address] [place] [address] 09/06/2023 8:00 AM EST Imaging Radiology, [address] [address] 10/04/2023 8:00 AM EST Imaging Radiology, [address] [address] 11/01/2023 8:00 AM EDT Imaging Radiology, [address] [address] Health Maintenance Due Date Last Done Comments [...] ABO O 08/10/2023 11:33 PM EST [facility] Rh Negative 08/10/2023 11:33 PM EST [facility] Red Blood Cell Antibody Screen Negative 08/10/2023 11:33 PM EST [facility] Specimen Expiration Date 08/13/2023 23:59 08/10/2023 11:33 PM EST [facility] Blood Venous blood specimen / Unknown Venipuncture / Unknown 08/10/2023 4:01 PM EST 08/10/2023 4:01 PM EST Angie Darling PA-C LAB BLOOD BANK TEST ORDERABLES [facility] [address] [place] [address] * US PREG LIMITED 1 OR MORE [...] the patient have Health Care Power of Inspector Tool? No Code Status History Code Status Date Activated Date Inactivated Comments Full Code 01/05/2021 11:33 AM 01/05/2021 6:10 PM This o rder reflects the patients wishes and were consensually agreed upon. Care Teams Gum Maker Relationship Specialty Start Date End Date Taryn Melgar PA-C [address] [place] [address] [phone] PCP - General Physician Pathology Collector 09/20/18 documented as of this encounter
--- OUTSIDE RECORDS SUMMARY | 2023-12-18 08:03 | External Medical Summary | Summary of Care ---
Author Name Unknown Organization [facility] Address [address] [place] [address] Phone [phone] Care Team Providers Care Motor Block Mechanic Name Role Phone Taryn MelgarC Primary Care Provider Reason for Visit * Reason Comments Return Visit Encounter Details Date Type Department Care Team (Late st Contact Info) Description 07/26/2023 8:30 AM EST Office Visit Gynecology/Obstetic s Dean Espitia [address] [place] [phone] Angie Nuñez PA-C [address] [place] [phone] Nurse Adebayo Espitia RN [address] [place] [address] [phone] Supervision of high-risk , second trimester*; Rh negative, antepartum; Insulin controlled gestational diabetes mellitus (GDM) during , antepartum; Vaginal discharge; Urinary incontinence, unspecified type Allergies Active Allergy Reactions Criticality Noted Date Comments Pollen Other (Please comment) Low 01/05/2021 documented as of this encounter (statuses as of 07/27/2023) Medications Medication Sig Dispensed Refills Start Date [...] as of this encounter (statuses as of 07/27/2023) Active Problems Problem Noted Date Diagnosed Date [...] at bedtime 07/12/23-elevated sugars- msg send to TRANSPORT COORDINATOR 07/12/23: RPM reviewed; elevated FBS; increase [...] Recommend nutrition consult with RDN (Registered Dietitian Armor Officer). Lifestyle changes are also indicated including optimizing [...] as of this encounter (statuses as of 07/27/2023) Resolved Problems Problem Noted Date Diagnosed Date [...] dealing with it, otherwise can deliver in [place]. 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 Atrioventricular (AV) synchrony is noted . heart rate is 120-130 BPM. Frequent premature atrial contractions. PACs in [facility]. 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 On [...] and folate levels and referral to a route sales person. 4. If hemoglobin levels are below 8 g/dl, we recommend Maternal Medicine ultrasound for growth every 4 weeks after 24 weeks. Consider a blood transfusion if hemoglobin levels fall below 6 g/dL. ([place] [employer] Obstetricians and Warehouse Assembly Worker Practice Bulletin Number 95, February,). 5. [...] Will continue testing and report weekly to [facility] via [employer]. Discussed that medication may be needed if elevated blood sugars do not improve with diet alone. Patient agreeable to starting insulin if needed. Will review again next week. 07/25/22: [facility] ADAPT consult complete. 07/27/22: elevated [...] 08/22/22: Taking 15 units Levemir at HS. [place] woozy after 20 units. Was sick last [...] as of this encounter (statuses as of 07/27/2023) Immunizations Name Administration Dates Next Due Seasonal [...] money to get more. Never true 11/01/2022 [place] Depression Scale Answer Date Recorded [place] Depression Scale Total 2 03/13/2023 The thought [...] Progress Notes * Angie Nuñez PA-C - 07/26/2023 8:56 AM EST [...] the vagina on valsalva. Cervix visually closed. Signal Operator Linguist Documentation Patient offered icu registered nurse and declined. OB [place] Problems (from 05/09/23 to present) Problem Noted [...] 06/28/23: [facility] AD[facility] consult complete. Enrolled in [facility]. Instructions provided to report blood sugars each [...] at bedtime 07/12/23-elevated sugars- msg send to TRANSPORT COORDINATOR 07/12/23: RPM reviewed; elevated FBS; increase [...] 20 weeks. Rh negative, antepartum 05/12/2022 by Angie Nuñez PA-C No Plan: -Patient declines MSAFP [...] Reports continued discharge. documented in this encounter Plan of Treatment Upcoming Encounters Date Type Department Care Team (Late st Contact Info) Description 07/27/2023 12:00 PM EST Imaging Radiology, [address] [phone] Arrived 08/04/2023 9:30 AM EST Office Visit Tassel Clipper OB Maternal Medicine [facility] Sharla Henderson [address] [place] [address] [address] [place] [address] Aniya Carson, DO [address] [place] [address] 08/04/2023 9:30 AM EST Imaging Maternal Medicine [facility] Sharla Henderson [address] [place] [address] Dr [address] [place] [address] 08/22/2023 8:45 AM EST Office Visit Gynecology/Obstetics [address] [phone] Angie Nuñez PA-C [address] [place] [phone] Pending Results Name Type Priority Associated Diagnoses Date /Time VAGINOSIS PANEL, PCR Lab Routine Vaginal discharge 07/26/2023 9:41 AM EST CULTURE, URINE, QUANTITATIVE Lab Routine Urinary incontinence, unspecified type 07/26/2023 9:24 AM EST Health Maintenance Due Date Last [...] the patient have Health Care Power of Comber Operator? No Code Status History Code Status Date Activated Date Inactivated Comments Full Code 01/05/2021 11:33 AM 01/05/2021 6:10 PM This o rder reflects the patients wishes and were consensually agreed upon. Care Teams Motor Block Mechanic Relationship Specialty Start Date End Date Taryn Melgar PA-C [address] [place], [place] [address] [id number] PCP - General Physician Semiconductor Testing Group Leader 09/20/18 documented as of this encounter
--- OUTSIDE RECORDS SUMMARY | 2023-12-18 08:03 | External Medical Summary | Summary of Care ---
Author Name Unknown Organization [facility] Address [address] [place] [address] Phone [phone] Care Team Providers Care General Farm Hand Name Role Phone Taryn Melgar PA-C Primary Care Provider Reason for Visit * Reason Onset Date Comments Test Results 07/27/2023 Unexpected or In determinate Result Encounter Details Date Type Department Care Team ([facility] st Contact Info) Description 07/27/2023 Telephone Gynecology/Obstetics [place] [address] [place] [address] Hermilo Taylor MD [address] [place] [address] Test Results (Unexpected or Indeterminate ... Allergies Active Allergy Reactions Criticality Noted Date [...] at bedtime 07/12/23-elevated sugars- msg send to TECHNOLOGY SALES CONSULTANT 07/12/23: RPM reviewed; elevated FBS; increase to [...] Recommend nutrition consult with RDN (Registered Dietitian Button Puncher). Lifestyle changes are also indicated including optimizing [...] cardio IMPRESSION and PLAN: 1. PACs in [place] giving the appearance of HR variability between [...] dealing with it, otherwise can deliver in [place]. Last Assessment & Plan: She was seen [...] and folate levels and referral to a agriscience technology instructor. 4. If hemoglobin levels are below 8 g/dl, we recommend Maternal Medicine ultrasound for growth every 4 weeks after 24 weeks. Consider a blood transfusion if hemoglobin levels fall below 6 g/dL. ([employer] Hydro[employer] Plant Mechanical Engineer Practice Bulletin Number 95, February,). 5. [...] higher numbers after meals. Nutrition consult completed 12/13. Will continue testing and report weekly to [facility] via [employer]. Discussed that medication may be needed if elevated blood sugars do not improve with diet alone. Patient agreeable to starting insulin if needed. Will review again next week. 07/25/22: [facility] ADAPT consult complete. 07/27/22: elevated fasting; [...] 08/22/22: Taking 15 units Levemir at HS. [place] woozy after 20 units. Was sick last [...] MEDICINE referral made. Last Assessment & Plan: [facility] anatomy/growth ultrasound scheduled for 08/03/22. Patient [...] money to get more. Never true 11/01/2022 [place] Depression Scale Answer Date Recorded [place] Depression Scale Total 2 03/13/2023 The thought [...] encounter Miscellaneous Notes * Telephone Encounter - Mallika Cuellar, RYNE - 07/27/2023 1:28 PM EST [place]- The radiologist discovered an unexpected or indeterminate finding on Lacy Mckinney ([id number]) and asks that you review the following report. Study Type:US PELVIS TRANS-VAGINAL OB Date of Study: 07/27/2023 IMPRESSION The cervix measures 5.1 cm long. The cervix is closed. Findings suggestive of placenta previa. Attention on the follow up studies suggested. Please respond to this encounter to acknowledge receipt of this message and take responsibility to ensure this report is reviewed. Thank you, RYNE Garcia Client Service Rep Diagnostic Medicine [place] documented in this encounter Plan of Treatment Upcoming Encounters Date Type Department Care Team (Late st Contact Info) Description 08/04/2023 9:30 AM EST Office Visit Utility Teller OB Maternal Medicine [facility] Sharla Henderson [address] [place] [address] Dr [address] [place] [address] Aniya Carson, DO [address] [place] [address] 08/04/2023 9:30 AM EST Imaging Maternal Medicine [facility] Sharla Henderson [address] [place] [address] Dr [address] [place] [address] 08/22/2023 8:45 AM EST Office Visit Gynecology/Obstetics [place] [address] [place] [phone] Angie Nuñez PA-C [address] [place], [place] [phone] Health Maintenance Due Date Last Done Comments [...] the patient have Health Care Power of Exercise Equipment Repair Technician? No Code Status History Code Status Date Activated Date Inactivated Comments Full Code 01/05/2021 11:33 AM 01/05/2021 6:10 PM This o rder reflects the patients wishes and were consensually agreed upon. Care Teams General Farm Hand Relationship Specialty Start Date End Date Taryn Melgar PA-C [address] [place], [place] [address] [id number] PCP - General Physician Circuit Clerk 09/20/18 documented as of this encounter
--- OUTSIDE RECORDS SUMMARY | 2023-12-18 08:03 | External Medical Summary | Summary of Care ---
Author Name Unknown Organization [facility] Address [address] [place] [address] Phone [phone] Care Team Providers Care Insurance Sales Assistant Name Role Phone Taryn Melgar PA-C Primary Care Provider Reason for Visit * Reason Onset Date Comments Advice 07/25/2023 Encounter Details Date Type Department Care Team ([facility] st Contact Info) Description 07/25/2023 Telephone Gynecology/Obstetics [place] [address] [place] [address] Angie Nuñez PA-C [address] [place] [address] Advice Allergies Active Allergy Reactions Criticality Noted Date Comments Pollen Other (Please comment) Low 01/05/2021 documented as of this encounter (statuses as of 07/25/2023) Medications Medication Sig Dispensed Refills Start Date [...] as of this encounter (statuses as of 07/25/2023) Active Problems Problem Noted Date Diagnosed Date [...] at bedtime 07/12/23-elevated sugars- msg send to PASTRY COOK HELPER 07/12/23: RPM reviewed; elevated FBS; increase to Lantus 15 units at bedtime 07/18/23 stable Last Assessment & Plan: CONSIDERATIONS: Reviewed etiology [...] Recommend nutrition consult with RDN (Registered Dietitian Cloth Worker). Lifestyle changes are also indicated including optimizing [...] as of this encounter (statuses as of 07/25/2023) Resolved Problems Problem Noted Date Diagnosed Date Resolved Date arrhythmia affecting p regnancy, antepartum 08/17/2022 05/27/2023 Overview: arythmia noted 08/12, saw peds cardio IMPRESSION and PLAN: 1. [facility] giving the appearance of HR variability [...] dealing with it, otherwise can deliver in [place]. Last Assessment & Plan: She was seen [...] and folate levels and referral to a statistical modeler. 4. If hemoglobin levels are below 8 g/dl, we recommend Maternal Medicine ultrasound for growth every 4 weeks after 24 weeks. Consider a blood transfusion if hemoglobin levels fall below 6 g/dL. ([employer] and Patent Litigation Associate Practice Bulletin Number 95, February,). 5. Consider [...] continue testing and report weekly to [facility] via [employer]. Discussed that medication may be needed if elevated blood sugars do not improve with diet alone. Patient agreeable to starting insulin if needed. Will review again next week. 07/25/22: [facility] ADAPT consult complete. 07/27/22: elevated fasting; nutrition [...] Taking 15 units Levemir at HS. [place] woozy after 20 units. Was sick last [...] referral made. Last Assessment & Plan: [facility] anatomy/growth ultrasound scheduled for 08/03/22. Patient reports [...] as of this encounter (statuses as of 07/25/2023) Immunizations Name Administration Dates Next Due Seasonal [...] money to get more. Never true 11/01/2022 [place] Depression Scale Answer Date Recorded [place] Depression Scale Total 2 03/13/2023 The thought [...] Telephone Encounter - Angie Nuñez PA-C - 07/25/2023 6:17 PM EST Sent MyG message. Has appointment tomorrow. * Telephone Encounter - Evelyne Power LPN - 07/25/2023 2:06 PM EST Patient calling into clinic with reports of an increase in water-like discharge. Notes this is white in color. This began after she sneezed. Denies abdominal pain, denies vaginal itching or irritation. Denies bleeding. Patient is scheduled for an appointment tomorrow at 8:45 am. Advised nothing available in clinic today but will send a message to provider documented in this encounter Plan of Treatment Upcoming Encounters Date Type Department Care Team (Late st Contact Info) Description 07/26/2023 8:30 AM EST Office Visit Gynecology/Obstetics [place] [address] [place] [phone] Angie Nuñez PA-C [address] [place] [address] Nurse Adebayo Espitia RN [address] [place] [address] 08/04/2023 9:30 AM EST Office Visit Residential Youth Counselor OB Maternal Medicine [facility] Sharla Henderson [address] [place] [address] Dr [address] [facility] [address] Aniya Carson, DO [address] [place] [address] 08/04/2023 9:30 AM EST Imaging [facility] Sharla Henderson [address] [place] [address] Dr [address] [place] [address] Health Maintenance Due Date Last Done Comments [...] the patient have Health Care Power of Geographic Information Systems Analyst? No Code Status History Code Status Date Activated Date Inactivated Comments Full Code 01/05/2021 11:33 AM 01/05/2021 6:10 PM This o rder reflects the patients wishes and were consensually agreed upon. Care Teams Insurance Sales Assistant Relationship Specialty Start Date End Date Taryn Melgar PA-C [address] [place] [address] [place] [address] PCP - General Physician School Bus Inspector 09/20/18 documented as of this encounter
--- OUTSIDE RECORDS SUMMARY | 2023-12-18 08:03 | External Medical Summary | Summary of Care ---
Author Name Unknown Organization [facility] Address [address] [place] [address] Phone [phone] Care Team Providers Care Hand Bootmaker Name Role Phone Taryn Melgar PA-C Primary Care Provider Reason for Visit * Reason Onset Date Comments Test Results 07/27/2023 Unexpected or In determinate Result Encounter Details Date Type Department Care Team ([facility] st Contact Info) Description 07/27/2023 Telephone Gynecology/Obstetics [place] [address] [place] [address] Hermilo Taylor MD [address] [place] [address] Test Results (Unexpected or Indeterminate [...] at bedtime 07/12/23-elevated sugars- msg send to NUCLEAR UNIT OPERATOR 07/12/23: RPM reviewed; elevated FBS; increase [...] Recommend nutrition consult with RDN (Registered Dietitian Form Builder). Lifestyle changes are also indicated including optimizing [...] cardio IMPRESSION and PLAN: 1. PACs in [place] giving the appearance of HR variability between [...] dealing with it, otherwise can deliver in [place]. Last Assessment & Plan: She was seen [...] and folate levels and referral to a pouncer. 4. If hemoglobin levels are below 8 g/dl, we recommend Maternal Medicine ultrasound for growth every 4 weeks after 24 weeks. Consider a blood transfusion if hemoglobin levels fall below 6 g/dL. ([employer] and Produce Shipper Practice Bulletin Number 95, February,). 5. Consider [...] Will continue testing and report weekly to [facility] via [employer]. Discussed that medication may be needed if elevated blood sugars do not improve with diet alone. Patient agreeable to starting insulin if needed. Will review again next week. 07/25/22: [facility] ADAPT consult complete. 07/27/22: elevated [...] 08/22/22: Taking 15 units Levemir at HS. [place] woozy after 20 units. Was sick last [...] MEDICINE referral made. Last Assessment & Plan: [facility] anatomy/growth ultrasound scheduled for 08/03/22. [...] money to get more. Never true 11/01/2022 [place] Depression Scale Answer Date Recorded [place] Depression Scale Total 2 03/13/2023 The thought [...] Telephone Encounter - Hermilo Taylor MD - 07/27/2023 3:16 PM EST Noted * Telephone Encounter - Mallika Cuellar OSA - 07/27/2023 1:28 PM EST Hello- The radiologist discovered an unexpected or indeterminate finding on Lacy Ramoso ([id number]) and asks that you review the following [...] Thank you, RYNE Garcia Client Service Rep [facility] Medicine [place] documented in this encounter Plan of Treatment Upcoming Encounters Date Type Department Care Team (Late st Contact Info) Description 08/04/2023 9:30 AM EST Office Visit Plush Cutter OB Maternal Medicine [facility] Demian Henderson[address] [place] [address] Aniya Carson, DO [address] [place] [address] 08/04/2023 9:30 AM EST Imaging Maternal Medicine [facility] Sharla Henderson [address] [place] [address] Dr [address] [place] [address] 08/22/2023 8:45 AM EST Office Visit Gynecology/Obstetics [place] [address] [place] [phone] Angie Nuñez PA-C [address] [place] [address] Health Maintenance Due Date Last Done Comments [...] the patient have Health Care Power of Electrician Ship? No Code Status History Code Status Date Activated Date Inactivated Comments Full Code 01/05/2021 11:33 AM 01/05/2021 6:10 PM This o rder reflects the patients wishes and were consensually agreed upon. Care Teams Hand Bootmaker Relationship Specialty Start Date End Date Taryn Melgar PA-C [address] [place] [address] [place] [address] PCP - General Physician Telecommunications Professional 09/20/18 documented as of this encounter
--- OUTSIDE RECORDS SUMMARY | 2023-12-18 08:03 | External Medical Summary | Summary of Care ---
Author Name Unknown Organization [facility] Address [address] [place] [address] Phone [phone] Care Team Providers Care Stuffing Machine Operator Name Role Phone Taryn Melgar PA-C Primary Care Provider Reason for Visit * Reason Comments Acute Encounter Details Date Type Department Care Team ([facility] st Contact Info) Description 07/12/2023 10:00 AM EST Office Visit [address] [phone] Pily Fiore PA-C [address] [place] [phone] Acute non-recurrent frontal sinusitis* Allergies Active Allergy Reactions Criticality Noted Date Comments Pollen Other (Please comment) Low 01/05/2021 documented as of this encounter (statuses as of 07/12/2023) Medications Medication Sig Dispensed Refills Start Date End Date Status Pre- Formula Oral Tablet Take 1 Tablet by mouth in the morning. 0 Active Docusate Sodium 100 MG Oral Capsule (Colace)Indications: Constipation during , antepartum Take 1 Capsule by mouth daily as needed for Constipation. 30 Capsule 3 05/23/2023 Active OneTouch Verio In Vitro Strip (Glucose Blood)Indications:Ab normal glucose tolerance in mother complicating Test blood sugars 4 times a day (fasting and one hour after meals). 120 Strip 5 06/21/2023 Active LancetsIndications:A bnormal glucose tolerance in mother complicating Test blood sugars 4 times a day (fasting and one hour after meals). 120 Each 5 06/21/2023 Active Insulin Glargine Solostar 100 UNIT/ML Subcutaneous Solution Pen-injector (Lantus SoloStar)Indications :Insulin controlled gestational diabetes mellitus (GDM) in second trimester,Supervisio n of high risk in second trimester Inject 10 Units under the skin at bedtime. Take with bedtime snack. 15 mL 3 07/06/2023 Active BD Pen Needle Mini U/F 31G X 5 MM (Insulin Pen Needle)Indications:I nsulin controlled gestational diabetes mellitus (GDM) in second trimester,Supervisio n of high risk in second trimester Use to inject insulin once daily. 100 Each 3 07/06/2023 Active Amoxicillin 875 MG Oral TabletIndications:Ac nightmute non-recurrent frontal sinusitis Take 1 Tablet by mouth in the morning and 1 Tablet before bedtime. Do all this for 10 days. 20 Tablet 0 07/12/2023 07/22/2023 Active documented as of this encounter (statuses as of 07/12/2023) Active Problems Problem Noted Date Diagnosed Date [...] at bedtime 07/12/23-elevated sugars- msg send to SECOND VP HR ASSESSMENT Last Assessment & Plan: CONSIDERATIONS: Reviewed etiology [...] Recommend nutrition consult with RDN (Registered Dietitian Satellite Communications Engineer). Lifestyle changes are also indicated including optimizing [...] as of this encounter (statuses as of 07/12/2023) Resolved Problems Problem Noted Date Diagnosed Date [...] dealing with it, otherwise can deliver in [place]. Last Assessment & Plan: She was seen [...] and folate levels and referral to a agronomy teacher. 4. If hemoglobin levels are below 8 g/dl, we recommend Maternal Medicine ultrasound for growth every 4 weeks after 24 weeks. Consider a blood transfusion if hemoglobin levels fall below 6 g/dL. ([employer] Bulletin Number 95, February,). 5. Consider [...] Will continue testing and report weekly to [facility] via [facility]. Discussed that medication may be needed if [...] 08/22/22: Taking 15 units Levemir at HS. [place] woozy after 20 units. Was sick last [...] MEDICINE referral made. Last Assessment & Plan: [facility] anatomy/growth ultrasound scheduled for 08/03/22. Patient [...] as of this encounter (statuses as of 07/12/2023) Immunizations Name Administration Dates Next Due Seasonal [...] money to get more. Never true 11/01/2022 [place] Depression Scale Answer Date Recorded [place] Depression Scale Total 2 03/13/2023 The thought [...] Sign Reading Time Taken Comments Blood Pressure 102/64 07/12/2023 9:58 AM EST Pulse 104 07/12/2023 9:58 AM EST Temperature 36.9 C (98.5 F) 07/12/2023 9:58 AM ES T Respiratory Rate 20 07/12/2023 9:58 AM EST Oxygen Saturation 97% 07/12/2023 9:58 AM EST Inhaled Oxygen Concentration - - Weight 81.7 kg (180 lb 3.2 oz) 07/12/2023 9:58 A M EST Height - - Body Mass Index 32.96 09/08/2022 10:04 AM EST documented in this [...] as of this encounter Progress Notes * Pily Fiore PA-C - 07/12/2023 10:04 AM EST Images from the original note were not included. History of Present Illness Lacy Mckinney is a 27 year old female that presents for Acute Pt states that she started with sore throat, congestion and sinus pressure. Pt denies any fever. Ptis 17 weeks with gestational diabetes. Pt states that her sugars have been all over the place since not feeling well. Pt states that she has gotten more low readings especially after lunch. Amoxicillin 875 MG Oral Tablet BD Pen Needle Mini U/F 31G X 5 MM (Insulin Pen Needle) Insulin Glargine Solostar 100 UNIT/ML Subcutaneous Solution Pen-injector (Lantus SoloStar) Lancets OneTouch Verio In Vitro Strip (Glucose Blood) Docusate Sodium 100 MG Oral Capsule (Colace) Pre-Antolin Formula Oral Tablet Review of patient's allergies indicates: Allergen Reactions Pollen Other (Please comment) Patient Active Problem List Diagnosis Date Noted History of gestational diabetes mellitus (GDM) [Z86.32] 06/27/2023 History of gestational diabetes (GDMA2) in previous Obesity in , antepartum [O99.210] 06/27/2023 The patient's pre-gravid BMI is 32.73. Class 1 Short interval between pregnancies complicating , antepartum [O09.899] 06/27/2023 Last delivered in 09/2022. Insulin controlled gestational diabetes mellitus (GDM) during , antepartum [O24.414] 06/26/2023 Diagnosed at 14 weeks via home glucose [...] at bedtime 07/12/23-elevated sugars- msg send to SECOND VP HR ASSESSMENT Abnormal glucose tolerance in mother complicating [O99.810] 06/24/2023 BMI 32.0-32.9,adult [Z68.32] 05/27/2023 Constipation during , antepartum [O99.619, K59.00] 05/27/2023 History of gestational diabetes [Z86.32] 05/27/2023 Supervision of high-risk , second trimester [O09.92] 05/27/2023 Estimated Date of Delivery: 12/23/23 Continue vitamin. O negative - needs Rhogam injection at 28 weeks and if she has vaginal bleeding in prengancy. Varicella and rubella immune. Qnatal testing low risk. MSAFP testing at 15 weeks to 22 weeks, 6 days. Anatomy ultrasound at 20 weeks. Rubella non-immune status, antepartum [O09.899, Z28.39] 08/17/2022 Class 1 obesity [E66.9] 07/25/2022 Rh negative, antepartum [O26.899, Z67.91] 05/12/2022 Rhogam given on 07/04/2022 at 28 weeks, 1 day. History of abnormal cervical Pap smear [Z87.42] 02/17/2022 Normal pap smear in 02/2022. 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: [employer] Tobacco Use Smoking status: Never Smokeless tobacco: Never Vaping Use Vaping Use: Never used Substance and Sexual Activity Alcohol use: Not Currently Comment: denies in 2022 Drug use: Never Sexual activity: Not on file Other Topics Concern Not on file Social History Narrative Not on file Social Determinants of Health Financial Resource Strain: Not on file Food Insecurity: No Food Insecurity (11/01/2022) Hunger Vital Sign Worried About Running Out of Food in the Last Year: Never true Ran Out of Food in the Last Year: Never true Transportation Needs: Not on file Physical Activity: Not on file Stress: Not on file Social Connections: Not on file Intimate Partner Violence: Not on file Housing Stability: Not on file Past Surgical History: Procedure Laterality Date LAPAROSCOPY DIAGNOSTIC N/A 01/05/2021 LAPAROSCOPY DIAGNOSTIC performed by Hermilo Taylor MD at OR [facility] LAPAROSCOPY;RMV ADNEXAL STRUCT N/A 01/05/2021 LAPAROSCOPIC OOPHORECTOMY AND OR SALPINGECTOMY performed by Hermilo Taylor MD at OR [facility] Family History Problem Relation Age of Onset Thyroid Disorder Mother Hypothyroid - Kurtis's Heart attack Father 49 Diabetes Father Type 2 - diet controlled Other (sleep apnea) Father Other (sleep apnea) Brother No Known Problems Son Review of Systems Constitutional: Positive for fever. Negative for fatigue. HENT: Positive for congestion, sinus pressure, sinus pain and sore throat. Respiratory: Negative. Cardiovascular: Negative. Gastrointestinal: Negative. Physical Exam BP 102/64 | Pulse 104 | Temp 36.9 C (98.5 F) (Tympanic) | Resp 20 | Wt 81.7 kg (180 lb 3.2 oz) | LMP 03/18/2023 (Exact Date) | SpO2 97% | BMI 32.96 kg/m | BSA 1.89 m Physical Exam HENT: Right Ear: Tympanic membrane normal. Left Ear: Tympanic membrane is injected. Nose: Congestion present. Mouth/Throat: Pharynx: Posterior oropharyngeal erythema present. Cardiovascular: Rate and Rhythm: Normal rate and regular rhythm. Pulmonary: Effort: Pulmonary effort is normal. Breath sounds: Normal breath sounds. Neurological: Mental Status: She is alert. I have reviewed most recent labs None Assessment and Plan Acute non-recurrent frontal sinusitis - Amoxicillin 875 MG Oral Tablet; Take 1 Tablet by mouth in the morning and 1 Tablet before bedtime. Do all this for 10 days. Lots of fluids and rest. Pt to call if symptoms worsen or persist. Pt to let OB know if sugars keepdropping. Wrap-Up Time: I spent a total of 20-29 minutes (exact time 20 mins) on the date of service in preparation, delivery, and documentation of the care provided to Lacy Mckinney excluding any time spent in the performance of separately billed services. documented in this encounter Nursing Notes * Amy Carranza MED ASSIST - 07/12/2023 9:58 AM EST The patient has been properly identified by confirmation of name and date of . Chief Complaint Patient presents with Acute Pt here for sinus congestion. Sx started Monday. documented in this encounter Plan of Treatment Upcoming Encounters Date Type Department Care Team (Late st Contact Info) Description 07/20/2023 10:15 AM EST Office Visit Gynecology/Obstetics Dean Espitia [address] [facility] [place] [phone] Angie Nuñez PA-C [address] [facility] [place] [address] Nurse Adebayo Esp[facility] [place] [phone] 08/04/2023 9:30 AM EST Office Visit President & Ceo OB Maternal Medicine [facility] Sharla Henderson [address] [place] [address] [address] [place] [address] Aniya Carson, DO [address] [place] [address] 08/04/2023 9:30 AM EST Imaging Maternal Medicine [facility] Sharla Henderson [address] [place] [address] [address] [place] [address] Health Maintenance Due Date Last Done Comments [...] as of this encounter Visit Diagnoses Diagnosis Acute non-recurrent frontal sinusitis- Primary documented in this encounter Advance Directives [...] the patient have Health Care Power of Building Coordinator? No Code Status History Code Status Date Activated Date Inactivated Comments Full Code 01/05/2021 11:33 AM 01/05/2021 6:10 PM This o rder reflects the patients wishes and were consensually agreed upon. Care Teams Stuffing Machine Operator Relationship Specialty Start Date End Date Taryn Melgar PA-C [address] [place], [place] [address] [phone] PCP - General Physician Adaptive Physical Education Teacher 09/20/18 documented as of this encounter
--- OUTSIDE RECORDS SUMMARY | 2023-12-18 08:03 | External Medical Summary | Summary of Care ---
Author Name Unknown Organization [facility] Address [address] [place] [address] Phone [phone] Care Team Providers Care Stenciler Name Role Phone Taryn Melgar PA-C Primary Care Provider Encounter Details Date Type Department Care Team (Late st Contact Info) Description 07/12/2023 Orders Only Cytotechnologist Obstetrics Maternal Medicine, [place] [address] [address] Amy Rivas CRNP [address] [place] [address] Insulin controlled gestational diabetes mellitus (GDM) in second trimester; Supervision of high risk in second trimester Allergies Active Allergy Reactions Criticality [...] 3 07/06/2023 Active Amoxicillin 875 MG Oral TabletIndications: Acute non-recurrent frontal sinusitis Take 1 Tablet by mouth in the morning and 1 Tablet before bedtime. Do all this for 10 days. 20 Tablet 0 07/12/2023 07/22/2023 Active Insulin Glargine Solostar 100 UNIT/ML Subcutaneous Solution Pen-injector (Lantus SoloStar)Indicatio ns:Insulin controlled gestational diabetes mellitus (GDM) in second trimester,Supervis ion of high risk in second trimester Inject 15 Units under the skin at bedtime. Take with bedtime snack. 15 mL 3 07/12/2023 Active Insulin Glargine Solostar 100 UNIT/ML Subcutaneous Solution Pen-injector (Lantus SoloStar)Indicatio ns:Insulin controlled gestational diabetes mellitus (GDM) in second trimester,Supervis ion of high risk in second trimester Inject 10 Units under the skin at bedtime. Take with bedtime snack. 15 mL 3 07/06/2023 07/12/2023 Discontinued (Refill) documented as of this encounter (statuses as [...] at bedtime 07/12/23-elevated sugars- msg send to PERINATAL INSTRUCTOR 07/12/23: RPM reviewed; elevated FBS; increase to Lantus 15 units at bedtime Last Assessment & Plan: CONSIDERATIONS: Reviewed etiology [...] Recommend nutrition consult with RDN (Registered Dietitian Rip And Groove Machine Operator). Lifestyle changes are also indicated including optimizing [...] dealing with it, otherwise can deliver in [place]. 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 Atrioventricular (AV) synchrony is noted . heart rate is 120-130 BPM. Frequent premature atrial contractions. PACs in [facility]. 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 On [...] and folate levels and referral to a taper and floater. 4. If hemoglobin levels are below 8 g/dl, we recommend Maternal Medicine ultrasound for growth every 4 weeks after 24 weeks. Consider a blood transfusion if hemoglobin levels fall below 6 g/dL. ([employer] Practice Bulletin Number 95, February,). 5. Consider [...] Will continue testing and report weekly to [facility] via [employer]. Discussed that medication may be needed if elevated blood sugars do not improve with diet alone. Patient agreeable to starting insulin if needed. Will review again next week. 07/25/22: [facility]T consult complete. 07/27/22: elevated fasting; [...] 08/22/22: Taking 15 units Levemir at HS. [place] woozy after 20 units. Was sick last [...] money to get more. Never true 11/01/2022 [place] Depression Scale Answer Date Recorded [place] Depression Scale Total 2 03/13/2023 The thought [...] EST Office Visit Gynecology/Obstetics Dean Espitia [address] [place] [phone] Angie Nuñez PA-C [address] [place] [address] Nurse Adebayo Espitia Beginningcher Moran RN [address] [place] [address] 08/04/2023 9:30 AM EST Office Visit Cytotechnologist OB Maternal Medicine [facility] Sharla Henderson [address] [place] [address] [address] [facility] [place] [address] Aniya Carson, DO [address] [place], [place] [id number] 08/04/2023 9:30 AM EST Imaging Maternal Medicine [facility] Sharla Henderson [address] [place] [address] Dr [address] [place] [address] Health Maintenance Due Date Last Done Comments [...] Diagnosis Insulin controlled gestational diabetes mellitus (GDM) in second trimester Supervision of high risk in second trimester Unspecified high-risk documented in this encounter Advance Directives [...] the patient have Health Care Power of Road Mixer Operator? No Code Status History Code Status Date Activated Date Inactivated Comments Full Code 01/05/2021 11:33 AM 01/05/2021 6:10 PM This o rder reflects the patients wishes and were consensually agreed upon. Care Teams Stenciler Relationship Specialty Start Date End Date Taryn Melgar PA-C [address] [place] [address] [place] [address] PCP - General Physician Glaze Supervisor 09/20/18 documented as of this encounter
--- OUTSIDE RECORDS SUMMARY | 2023-12-18 08:03 | External Medical Summary | Summary of Care ---
Author Name Unknown Organization [facility] Address [address] [place] [address] Phone [phone] Care Team Providers Care Armed Custom Protection Officer Name Role Phone Taryn Melgar PA-C Primary Care Provider Reason for Visit * Reason Comments Return Visit Encounter Details Date Type Department Care Team (Late st Contact Info) Description 07/27/2023 11:15 AM EST Office Visit Gynecology/Obstetics [address] [phone] Hermilo Taylor MD [address] [place] [address] Rh negative, antepartum*; Supervision of high-risk , second trimester; Abnormal glucose tolerance in mother complicating ; Insulin controlled gestational diabetes mellitus (GDM) during , antepartum; History of gestational diabetes mellitus (GDM); Obesity in , antepartum; Short interval between pregnancies complicating , antepartum; Vaginal pain Allergies Active Allergy Reactions Criticality Noted Date [...] Constipation. 30 Capsule 3 05/23/2023 Active OneTouch [place] In Vitro Strip (Glucose Blood)Indications:Abn ormal glucose [...] bedtime 07/12/23-elevated sugars- msg send to SALES LEDGER ADMINISTRATOR 07/12/23: RPM reviewed; elevated FBS; increase to [...] Recommend nutrition consult with RDN (Registered Dietitian Blind Cleaner). Lifestyle changes are also indicated including optimizing [...] dealing with it, otherwise can deliver in [place]. Last Assessment & Plan: She was seen [...] and folate levels and referral to a sales contracts analyst. 4. If hemoglobin levels are below 8 g/dl, we recommend Maternal Medicine ultrasound for growth every 4 weeks after 24 weeks. Consider a blood transfusion if hemoglobin levels fall below 6 g/dL. ([employer] Car[employer] Helper Practice Bulletin Number 95, February,). 5. Consider [...] continue testing and report weekly to [facility] via [employer]. Discussed that medication may be needed if elevated blood sugars do not improve with diet alone. Patient agreeable to starting insulin if needed. Will review again next week. 07/25/22: [facility] ADAPT consult complete. 07/27/22: elevated [...] 08/22/22: Taking 15 units Levemir at HS. [place] woozy after 20 units. Was sick last [...] referral made. Last Assessment & Plan: [facility] anatomy/growth ultrasound scheduled for 08/03/22. [...] money to get more. Never true 11/01/2022 [place] Depression Scale Answer Date Recorded [place] Depression Scale Total 2 03/13/2023 The thought [...] Sign Reading Time Taken Comments Blood Pressure 100/66 07/27/2023 10:52 AM EST Pulse - - Temperature - [...] as of this encounter Progress Notes * Hermilo Taylor MD - 07/27/2023 11:16 AM EST 1) 18 wks 5 days RTOB C/o cramping lower abdomen x 48 hrs with near syncopal episode Denied any other complaints today just worsening crmaping Denied any vag bleeding lof and admits to pos movement 2) Ve Ft/L/H advised cerviucal length and recheck in 2 hrs to r/o labor Vaginal cultures ad swabs pending 3) Class 1 obese 4) Contraception discuss at a later date 5) 18 wks FH:18 FHR:130's Plant Guard Documentation Provider requested waste management recycling technician. Name of waste management recycling technician: Apple Advised pelvic rest x 2 wks Advised cervical length Advised work note today Advised reassess in 2 hrs Labor and bleeding precautions given preeclampsia precautions given Call with any questions or concerns Return to clinic in 4 wks Addendum Patient seen 2 hrs later cervix unchanged however placenta previa now possible diagnosis. Repeat VEnot done SSE reveal unchanged cervis with mild discharge and no active bleeding. Cervix appears FT Advised previa Advised pelvic rest until delivery or resolution of previa whichever comes first Will discuss consequences in more detail after anatomy scan in 2 weeks FINDINGS The patient's DEE is 12/22/2023. Per DEE, the gestational age is 18 weeks 6 days. The cervix measures 5.1 cm long. The cervix is closed. There is placenta previa. The heart rate measures 137 beats per minute. IMPRESSION IMPRESSION The cervix measures 5.1 cm long. The cervix is closed. Findings suggestive of placenta previa. Attention on the follow up studies suggested. documented in this encounter Nursing Notes * Trudy Bolton RN - 07/27/2023 10:51 AM EST Pt presents with c/o pain in her lower abdomen. Pt states that it was so severe that she felt like she was going to pass out. Reports pain worse while standing. Cramping is coming and going. documented in this encounter Plan of Treatment Upcoming Encounters Date Type Department Care Team (Late st Contact Info) Description 08/04/2023 9:30 AM EST Office Visit Marketing Support Specialist OB Maternal Medicine [facility] Sharla Henderson [address] [place] [address] [address] [place] [address] Aniya Carson, DO [address] [place] [address] 08/04/2023 9:30 AM EST Imaging Maternal Medicine [facility] Sharla Henderson [address] [place] [address] Dr [address] [place] [address] 08/22/2023 8:45 AM EST Office Visit Gynecology/Obstetics [place] [address] [place] [phone] Angie Nuñez PA-C [address] [place] [address] Health Maintenance Due Date Last Done Comments [...] Procedure Name Priority Date/Time Associated Diagnosis Comments US PELVIS TRANS-VAGINAL OB Routine 07/27/2023 12:24 PM EST Supervision of high-risk , second trimester Vaginal pain documented in this encounter Results * US PELVIS TRANS-VAGINAL OB (07/27/2023 12:24 PM EST) Anatomical Region Laterality Modality Pelvis, Body Ultrasound 07/27/2023 1:17 PM EST Impressions 07/27/2023 1:15 PM EST IMPRESSION The cervix measures 5.1 cm long. The cervix is closed. Findings suggestive of placenta previa. Attention on the follow up studies suggested. Narrative 07/27/2023 1:15 PM EST EXAM US PELVIS TRANS-VAGINAL OB-07/27/2023 12:24 pm HISTORY cervical length COMPARISON Ultrasound dated 06/30/2023 TECHNIQUE Obstetric pelvic ultrasound FINDINGS The patient's DEE is 12/22/2023. Per DEE, the gestational age is 18 weeks 6 days. The cervix measures 5.1 cm long. The cervix is closed. There is placenta previa. The heart rate measures 137 beats per minute. Procedure Note Dottie Benito MD - 07/27/2023 EXAM US PELVIS TRANS-VAGINAL OB-07/27/2023 12:24 pm HISTORY cervical length COMPARISON Ultrasound dated 06/30/2023 TECHNIQUE Obstetric pelvic ultrasound FINDINGS The patient's DEE is 12/22/2023. Per DEE, the gestational age is 18 weeks6 days. The cervix measures 5.1 cm long. The cervix is closed. There is placentaprevia. The heart rate measures 137 beats per minute. IMPRESSION IMPRESSION The cervix measures 5.1 cm long. The cervix is closed. Findings suggestive of placenta previa. Attention on the follow upstudies suggested. Hermilo Tayolr MD RAD ULTRASOUND documented in this encounter Visit Diagnoses Diagnosis Rh negative, antepartum- Primary Rhesus isoimmunization affecting management of mother, antepartum condition Supervision of high-risk , second trimester Abnormal glucose tolerance in mother complicating Abnormal maternal glucose tolerance, complicating , childbirth, or the puerperium, unspecified as to episode of care Insulin controlled gestational diabetes mellitus (GDM) during , antepartum History of gestational diabetes mellitus (GDM) Obesity in , antepartum Obesity complicating , childbirth, or the puerperium, antepartum condition or complication Short interval between pregnancies complicating , antepartum Supervision of other high-risk Vaginal pain Unspecified symptom associated with female genital organs documented in this encounter Advance Directives Latest [...] the patient have Health Care Power of Dispatch Machine Runner? No Code Status History Code Status Date Activated Date Inactivated Comments Full Code 01/05/2021 11:33 AM 01/05/2021 6:10 PM This o rder reflects the patients wishes and were consensually agreed upon. Care Teams Armed Custom Protection Officer Relationship Specialty Start Date End Date Taryn Melgar PA-C [address] [place], [place] [address]NEGRITO hogan [phone] PCP - General Physician Electronic Warfare Operator 09/20/18 documented as of this encounter
--- OUTSIDE RECORDS SUMMARY | 2023-12-18 08:03 | External Medical Summary ---
Author Name Unknown Address Unknown Organization K[facility] [address] [facility] [address] [facility] Report Ordering Provider Test Date Status LIDIA ORTA 07/26/2023 09:41:13 Final Observation Date Value Abnormality Reference (Units ) Status Ashley glabrata DNA [Presence] in Vaginal fluid by LAURENCE with probe detection 07/26/2023 09:41:13 Negative Negative Final Ashley glabrata not detecte d by PCR. Ashley albicans DNA [Presen ce] in Vaginal fluid by LAURENCE with probe detection 07/26/2023 09:41:13 Negative Negative Final Ashley albicans not detecte d by PCR. Trichomonas vaginalis DNA [P resence] in Vaginal fluid by LAURENCE with probe detection 07/26/2023 09:41:13 Negative Negative Final Trichomonas vaginalis not de tected by PCR. Gardnerella vaginalis DNA [Presence] in Vaginal fluid by Probe with signal amplification 07/26/2023 09:41:13 Positive Abnormal Ne gative Final Gardnerella vaginalis detect ed by PCR.

Organism may be associated with colonization. Clinical correlation needed.
This test was developed and its performance characteristics determined by [facility]. It has not been cleared or approved [...] was developed and performance characteristics determined by [facility]. The validation of alternate specimen types has not been cleared or approved by the U.S. Food and Drug Administration (FDA). It has been determined that such clearance or approval is not necessary.

null Performing Location LABORATORY [address] [facility] [address]
--- OUTSIDE RECORDS SUMMARY | 2023-12-18 08:03 | External Medical Summary | Summary of Care ---
Author Name Unknown Organization [facility] Address [address] [place] [address] Phone [phone] Care Team Providers Care Hospice Superintendent Name Role Phone Taryn Melgar PA-C Primary Care Provider Reason for Visit * Reason Comments Return Visit Encounter Details Date Type Department Care Team (Late st Contact Info) Description 07/27/2023 11:15 AM EST Office Visit Gynecology/Obstetics [address] [phone] Hermilo Taylor MD [address] [place] [address] Rh negative, antepartum*; Supervision of high-risk , [...] at bedtime 07/12/23-elevated sugars- msg send to EXERCISE PHYSIOLOGY PROFESSOR 07/12/23: RPM reviewed; elevated FBS; increase to [...] Recommend nutrition consult with RDN (Registered Dietitian Atomic Physics Professor). Lifestyle changes are also indicated including optimizing [...] dealing with it, otherwise can deliver in [place]. Last Assessment & Plan: She was seen [...] and folate levels and referral to a senior java programmer. 4. If hemoglobin levels are below 8 g/dl, we recommend Maternal Medicine ultrasound for growth every 4 weeks after 24 weeks. Consider a blood transfusion if hemoglobin levels fall below 6 g/dL. ([employer] Ob[employer] and [employer] Nurse Practice Bulletin Number 95, February,). 5. [...] Will continue testing and report weekly to [facility] via [employer]. Discussed that medication may be needed if elevated blood sugars do not improve with diet alone. Patient agreeable to starting insulin if needed. Will review again next week. 07/25/22: [facility] ADAPT consult complete. 07/27/22: elevated [...] 08/22/22: Taking 15 units Levemir at HS. [place] woozy after 20 units. Was sick last [...] MEDICINE referral made. Last Assessment & Plan: [facility] anatomy/growth ultrasound scheduled for 08/03/22. [...] money to get more. Never true 11/01/2022 [place] Depression Scale Answer Date Recorded [place] Depression Scale Total 2 03/13/2023 The thought [...] later date 5) 18 wks FH:18 FHR:130's Drying Unit Felting Machine Operator Documentation Provider requested deployment manager. Name of deployment manager: Apple Advised pelvic rest x 2 wks [...] Description 08/04/2023 9:30 AM EST Office Visit Milliner Helper OB Maternal Medicine [facility] Sharla Henderson [address] [place] [address] Dr [address] [place] [address] Aniya Carson, DO [address] [place] [address] 08/04/2023 9:30 AM EST Imaging Maternal Medicine [facility] Sharla Henderson [address] [place] [address] Dr [address] [place] [address] 08/22/2023 8:45 AM EST Office Visit Gynecology/Obstetics [place] [address] [place] [phone] Angie Nuñez PA-C [address] [place] [address] Health Maintenance Due Date Last Done Comments [...] Attention on the follow upstudies suggested. Hermilo Taylor MD RAD ULTRASOUND documented in this encounter [...] the patient have Health Care Power of Chief Cruiser? No Code Status History Code Status Date Activated Date Inactivated Comments Full Code 01/05/2021 11:33 AM 01/05/2021 6:10 PM This o rder reflects the patients wishes and were consensually agreed upon. Care Teams Hospice Superintendent Relationship Specialty Start Date End Date Taryn Melgar PA-C [address] [place], [place] [address]NE[place]ITO hogan [phone] PCP - General Physician Tool Carrier 09/20/18 documented as of this encounter
--- OUTSIDE RECORDS SUMMARY | 2023-12-18 08:03 | External Medical Summary | Summary of Care ---
Author Name Unknown Organization [facility] Address [address] [place] [address] Phone [phone] Care Team Providers Care Special Tester Name Role Phone Taryn Melgar PA-C Primary Care Provider Encounter Details Date Type Department Care Team ([facility] st Contact Info) Description 07/27/2023 Orders Only Gynecology/Obstetics [place] [address] [place] [phone] Angie Nuñez PA-C [address] [place] [address] Allergies Active Allergy Reactions Criticality [...] at bedtime 07/12/23-elevated sugars- msg send to OVEN UNLOADER 07/12/23: RPM reviewed; elevated FBS; increase to [...] Recommend nutrition consult with RDN (Registered Dietitian Manager Advanced). Lifestyle changes are also indicated including optimizing [...] dealing with it, otherwise can deliver in [place]. Last Assessment & Plan: She was seen [...] and folate levels and referral to a desk reporter. 4. If hemoglobin levels are below 8 g/dl, we recommend Maternal Medicine ultrasound for growth every 4 weeks after 24 weeks. Consider a blood transfusion if hemoglobin levels fall below 6 g/dL. ([employer] and Rock Duster Practice Bulletin Number 95, February,). 5. Consider [...] report weekly to [facility] via [employer]. Discussed that medication may be needed [...] 08/22/22: Taking 15 units Levemir at HS. [place] woozy after 20 units. Was sick [...] money to get more. Never true 11/01/2022 [place] Depression Scale Answer Date Recorded [place] Depression Scale Total 2 03/13/2023 The thought [...] Description 08/04/2023 9:30 AM EST Office Visit Manhole Stripper OB Maternal Medicine [facility] Sharla Henderson [address] [place] [address] Dr [address] [place] [address] Aniya Carson, DO [address] [place] [address] 08/04/2023 9:30 AM EST Imaging Maternal Medicine [facility] Sharla Henderson [address] [place] [address] Dr [address] [place] [address] 08/22/2023 8:45 AM EST Office Visit Gynecology/Obstetics [place] [address] [place] [phone] Angie Nuñez PA-C [address] [place] [address] Health Maintenance Due Date Last Done Comments [...] the patient have Health Care Power of Resident Care Provider? No Code Status History Code Status Date Activated Date Inactivated Comments Full Code 01/05/2021 11:33 AM 01/05/2021 6:10 PM This o rder reflects the patients wishes and were consensually agreed upon. Care Teams Special Tester Relationship Specialty Start Date End Date Taryn Melgar PA-C [address] [place], [place] [address]NE[place]ITO hogan [phone] PCP - General Physician Manager Renewable Energy 09/20/18 documented as of this encounter
--- OUTSIDE RECORDS SUMMARY | 2023-12-18 08:03 | External Medical Summary ---
Author Name Unknown Address Unknown Organization K01:LABORATORY [facility] - [address] [place] [address] Laboratory Report Ordering Provider Test Date Status LIDIA ORTA 07/26/2023 09:24:25 Final Observation Date Value Abnormality Reference (Units) Status Bacteria identified in Specimen by Culture 07/26/2023 09:24:25 No significant growth Final Test: Culture, Urine, Quanti tative
Specimen Source: Urine, Clean Catch
Specimen Type: Urine
Specimen Date: 07/26/2023 9:24 AM
Result Date: 07/27/2023 4:59 PM
Result Status: Final result
Resulting Lab: LABORATORY [facility]
[address]
[place] [id number]

CULTURE

No significant growth

null Performing Location LABORATORY [facility] - [address] [facility] [address]
--- OUTSIDE RECORDS SUMMARY | 2023-12-18 08:03 | External Medical Summary | Summary of Care ---
Author Name Unknown Organization [facility] Address [address] [place] [address] Phone [phone] Care Team Providers Care E Commerce Merchant Name Role Phone Taryn Melgar PA-C Primary Care Provider Reason for Visit * Reason Onset Date Comments Test Results 07/27/2023 Encounter Details Date Type Department Care Team ([facility] st Contact Info) Description 07/27/2023 Telephone Gynecology/Obstetics [place] [address] [place] [address] Angie Nuñez PA-C [address] [place] [address] Test Results Allergies Active Allergy Reactions Criticality Noted Date [...] at bedtime 07/12/23-elevated sugars- msg send to VICE PRESIDENT OF DEVELOPMENT 07/12/23: RPM reviewed; elevated FBS; increase to [...] Recommend nutrition consult with RDN (Registered Dietitian Financial Administration Officer). Lifestyle changes are also indicated including [...] 05/27/2023 Supervision of high-risk , second [facility] 05/27/2023 Overview: Estimated Date of Delivery: [...] dealing with it, otherwise can deliver in [place]. Last Assessment & Plan: She was seen [...] and folate levels and referral to a fur dresser. 4. If hemoglobin levels are below 8 g/dl, we recommend Maternal Medicine ultrasound for growth every 4 weeks after 24 weeks. Consider a blood transfusion if hemoglobin levels fall below 6 g/dL. ([employer] Obstetricians and Shear Scrapman Practice Bulletin Number 95, February,). 5. Consider [...] Will continue testing and report weekly to [facility] via [employer]. Discussed that medication may be needed if elevated blood sugars do not improve with diet alone. Patient agreeable to starting insulin if needed. Will review again next week. 07/25/22: [facility] ADAPT consult complete. 07/27/22: elevated fasting; [...] 08/22/22: Taking 15 units Levemir at HS. [place] woozy after 20 units. Was sick last [...] money to get more. Never true 11/01/2022 [place] Depression Scale Answer Date Recorded [place] Depression Scale Total 2 03/13/2023 The thought [...] Telephone Encounter - Angie Nuñez PA-C - 07/27/2023 5:06 PM EST Spoke with patient. Patient notified that culture is positive for bacterial vaginosis. Prescription given for Metronidazole. Patient will pick this up and start this right away. Patient notified that urine culture is negative. documented in this encounter Plan of Treatment Upcoming Encounters Date Type Department Care Team (Late st Contact Info) Description 08/04/2023 9:30 AM EST Office Visit Marketing Associate OB Maternal Medicine [facility] Sharla Henderson [address] [place] [address] Dr [address] [facility] [place] [address] Aniya Carson, DO [address] [place] [address] 08/04/2023 9:30 AM EST Imaging Maternal Medicine [facility] Sharla Henderson [address] [place] [address] [address] [place] [address] 08/22/2023 8:45 AM EST Office Visit Gynecology/Obstetics [place] [address] [place] [phone] Angie Nuñez PA-C [address] [place] [address] Health Maintenance Due Date Last Done Comments [...] patient have Health Care Power of Agricultural Technician? No Code Status History Code Status Date Activated Date Inactivated Comments Full Code 01/05/2021 11:33 AM 01/05/2021 6:10 PM This o rder reflects the patients wishes and were consensually agreed upon. Care Teams E Commerce Merchant Relationship Specialty Start Date End Date Taryn Melgar PA-C [address] [place] [id number] PCP - General Physician School Teacher 09/20/18 documented as of this encounter
--- OUTSIDE RECORDS SUMMARY | 2023-12-18 08:04 | External Medical Summary | Summary of Care ---
Author Name Unknown Organization [facility] Address [address] [place] [address] Phone [phone] Care Team Providers Care Clinical Operations Manager Name Role Phone Taryn Melgar PA-C Primary Care Provider Reason for Visit * Reason Onset Date Comments Home Monitoring Orders Only 06/28/2023 Encounter Details Date Type Department Care Team ([facility] st Contact Info) Description 06/28/2023 Home Monitoring Care Coordination [address] [place] [address] Amy Rivas CRNP [address] [place] [address] History of gestational diabetes* Allergies Active Allergy Reactions Criticality Noted Date Comments Pollen Other (Please comment) Low 01/05/2021 documented as of this encounter (statuses as of 06/28/2023) Medications Medication Sig Dispensed Refills Start Date [...] as of this encounter (statuses as of 06/28/2023) Active Problems Problem Noted Date Diagnosed Date [...] and anemia as well as placental abruption. Gestational diabetes mellitus (GDM) in second tr imester 06/26/2023 Overview: Diagnosed at 14 weeks via [...] with protein; reviewed healthy bedtime snack options Last Assessment & Plan: CONSIDERATIONS: Reviewed etiology [...] Recommend nutrition consult with RDN (Registered Dietitian Waiter/Waitress Head). Lifestyle changes are also indicated including optimizing [...] of gestational diabetes 05/27/2023 Supervision of high-risk first yonatan 05/27/2023 Overview: Estimated Date of Delivery: 12/23/23 Continue vitamin. O negative - needs Rhogam injection at 28 weeks and if she has vaginal bleeding in prengancy. Varicella and rubella immune. Qnatal testing low risk. MSAFP testing at 15 weeks to 22 weeks, 6 days. Rubella non-immune status, antepartum 08/17/2022 Class 1 [...] as of this encounter (statuses as of 06/28/2023) Resolved Problems Problem Noted Date Diagnosed Date [...] dealing with it, otherwise can deliver in [place]. Last Assessment & Plan: She was seen [...] folate levels and referral to a director of exhibits. 4. If hemoglobin levels are below 8 g/dl, we recommend Maternal Medicine ultrasound for growth every 4 weeks after 24 weeks. Consider a blood transfusion if hemoglobin levels fall below 6 g/dL. ([employer] Practice Bulletin Number 95, February,). 5. [...] Will continue testing and report weekly to [facility] via [employer] Discussed that medication may be needed if elevated blood sugars do not improve with diet alone. Patient agreeable to starting insulin if needed. Will review again next week. 07/25/22: [facility] ADAPT consult complete. 07/27/22: elevated [...] 08/22/22: Taking 15 units Levemir at HS. [place] woozy after 20 units. Was sick last [...] as of this encounter (statuses as of 06/28/2023) Immunizations Name Administration Dates Next Due Seasonal [...] money to get more. Never true 11/01/2022 [place] Depression Scale Answer Date Recorded [place] Depression Scale Total 2 03/13/2023 The thought [...] as of this encounter Progress Notes * Gregory Townsend Community Health Manager Web Application - 06/28/2023 1:32 PM EST Patient has been successfully enrolled to the [id number] Diabetes Management in program. Standard alarm settings have been set as follows: Singular glucose level > 200 Singular glucose level < 60 Patient has been advised to take blood sugar four times a day (fasting upon waking, and one hour after each meal). Patient has been oriented to remote patient monitoring, assisted with initial device set-up, and provided with instruction and education regarding the program. Patient understands that this monitoring should not be used as a replacement for emergency and/or urgent care. If patient experiences any urgent symptoms, they are aware to call office/career information specialist provider for additional instructions. In emergency situations, they will report directly to the ED for further evaluation. If you would like to customize the alert parameters and/or instructions for this patient, please let me know and we can have them changed. documented in this encounter Plan of Treatment Upcoming Encounters Date Type Department Care Team (Late st Contact Info) Description 06/30/2023 2:00 PM EST Office Visit Mingler Operator [facility] Sharla Henderson [address] [place] [address] [address] [place] [address] Taiwo Montanez MD [address] [place] [address] 06/30/2023 2:00 PM EST Imaging Maternal Medicine [facility] Sharla Henderson [address] [place] [address] Dr [address] [place] [address] 07/04/2023 1:15 PM EST Office Visit Gynecology/Obstetics [facility] [address] [place] [phone] Angie Nuñez PA-C [address] [place] [address] 08/04/2023 9:30 AM EST Office Visit Mingler Operator OB Maternal Medicine [facility] Demian Henderson[address] [place] [address] Aniya Carson, DO [address] [place] [address] 08/04/2023 9:30 AM EST Imaging Maternal Medicine [facility] Sharla Henderson [address] [place] [address] Dr [address] [place] [address] Health Maintenance Due Date Last Done Comments [...] as of this encounter Visit Diagnoses Diagnosis History of gestational diabetes- Primary Personal history of gestational diabetes documented in this encounter Advance Directives Latest [...] the patient have Health Care Power of Receipt And Report Clerk? No Code Status History Code Status Date Activated Date Inactivated Comments Full Code 01/05/2021 11:33 AM 01/05/2021 6:10 PM This o rder reflects the patients wishes and were consensually agreed upon. Care Teams Clinical Operations Manager Relationship Specialty Start Date End Date Taryn Melgar PA-C [address] [place] [address] NEGRITO Espitia [id number] PCP - General Physician Manager Web Application 09/20/18 documented as of this encounter
--- OUTSIDE RECORDS SUMMARY | 2023-12-18 08:04 | External Medical Summary | Summary of Care ---
Author Name Unknown Organization [facility] Address [address] [place] [address] Phone [phone] Care Team Providers Care Horticulture/Floriculture Teacher Name Role Phone Taryn Melgar PA-C Primary Care Provider Reason for Visit * Reason Onset Date Comments Diabetes Follow-Up 07/06/2023 Encounter Details Date Type Department Care Team ([facility] st Contact Info) Description 07/06/2023 Telephone Baseball Umpire For Little League Obstetrics Maternal Medicine, [place] [address] [facility] [address] [place] [address] Amy Rivas CRNP [address] [place] [address] Diabetes Follow-Up Allergies Active Allergy Reactions Criticality Noted Date Comments Pollen Other (Please comment) Low 01/05/2021 documented as of this encounter (statuses as of 07/06/2023) Medications Medication Sig Dispensed Refills Start Date [...] once daily. 100 Each 3 07/06/2023 Active documented as of this encounter (statuses as of 07/06/2023) Active Problems Problem Noted Date Diagnosed Date [...] 07/05/23- sugars elevated- msg sent to [facility] to schedule ADAPT 07/06/23: ADAPT visit complete; elevated FBS; ordered Lantus 10 units at bedtime Last Assessment & Plan: [...] Recommend nutrition consult with RDN (Registered Dietitian Loan Assistant). Lifestyle changes are also indicated including optimizing [...] as of this encounter (statuses as of 07/06/2023) Resolved Problems Problem Noted Date Diagnosed Date Resolved Date arrhythmia affecting p regnancy, antepartum 08/17/2022 05/27/2023 Overview: arythmia noted 08/12, saw peds cardio IMPRESSION and PLAN: 1. PACs in bigeminy giving the appearance of HR variability between 60-160 bpm 2. 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 Normal biventricular function 4. Mild [place] The above findings were shared with the [...] dealing with it, otherwise can deliver in [place]. Last Assessment & Plan: She was seen [...] folate levels and referral to a director graphics. 4. If hemoglobin levels are below 8 g/dl, we recommend Maternal Medicine ultrasound for growth every 4 weeks after 24 weeks. Consider a blood transfusion if hemoglobin levels fall below 6 g/dL. ([employer] Practice Bulletin Number 95, February,). 5. Consider [...] Will continue testing and report weekly to [facility] via [employer]. Discussed that medication may be needed if elevated blood sugars do not improve with diet alone. Patient agreeable to starting insulin if needed. Will review again next week. 07/25/22: [facility] ADAPT consult complete. 07/27/22: elevated fasting; [...] 08/22/22: Taking 15 units Levemir at HS. [place] woozy after 20 units. Was sick last [...] MEDICINE referral made. Last Assessment & Plan: [facility] anatomy/growth ultrasound scheduled for 08/03/22. Patient [...] as of this encounter (statuses as of 07/06/2023) Immunizations Name Administration Dates Next Due Seasonal [...] money to get more. Never true 11/01/2022 [place] Depression Scale Answer Date Recorded [place] Depression Scale Total 2 03/13/2023 The thought [...] Telephone Encounter - Amy Rivas CRNP - 07/06/2023 12:58 PM EST Ms. Mckinney was started on insulin for GDMA2. Ordered: Lantus 10 units at bedtime MFM recommends and patient is aware: -Recommend twice weekly surveillance starting or once weekly BPP starting at 32 weeks -Recommend every 4 week growth ultrasounds with MFM -Recommend delivery during the 39th week and by EDC MIRTA Delacruz 07/06/2023 12:58 PM documented in this encounter Plan of Treatment Upcoming Encounters Date Type Department Care Team (Late st Contact Info) Description 07/20/2023 10:15 AM EST Office Visit Gynecology/Obstetics Dean Espitia [address] [facility] [place] [phone] Angie Nuñez PA-C [address] [place] [address] Nurse Adebayo Espitia Beginningcher Moran RN [address] [place] [address] 08/04/2023 9:30 AM EST Office Visit Baseball Umpire For Little League OB Maternal Medicine [facility] Sharla Henderson [address] [place] [address] [address] [place] [address] Aniya Carson, DO [address] [place], [place] [phone] 08/04/2023 9:30 AM EST Imaging Maternal Medicine [facility] Sharla Henderson [address] [place] [address] [address] [place] [phone] Health Maintenance Due Date Last Done Comments [...] the patient have Health Care Power of Commissary Helper? No Code Status History Code Status Date Activated Date Inactivated Comments Full Code 01/05/2021 11:33 AM 01/05/2021 6:10 PM This o rder reflects the patients wishes and were consensually agreed upon. Care Teams Horticulture/Floriculture Teacher Relationship Specialty Start Date End Date Taryn Melgar PA-C [address] [place] [address] NEGRITO Espitia [phone] PCP - General Physician Sole Leveling Machine Operator 09/20/18 documented as of this encounter
--- OUTSIDE RECORDS SUMMARY | 2023-12-18 08:04 | External Medical Summary | Summary of Care ---
Author Name Unknown Organization [facility] Address [address] [place] [address] Phone [phone] Care Team Providers Care Coke Drawer Name Role Phone Taryn Melgar PA-C Primary Care Provider Reason for Visit * Reason Onset Date Comments Diabetes Follow-Up 07/06/2023 Encounter Details Date Type Department Care Team ([facility] st Contact Info) Description 07/06/2023 Telephone Exhibit Designer Obstetrics Maternal Medicine, [place] [address] [facility] [address] [place] [address] Amy Rivas CRNP [address] [place] [address] Diabetes Follow-Up Allergies Active Allergy Reactions Criticality Noted Date Comments Pollen Other (Please comment) Low 01/05/2021 documented as of this encounter (statuses as of 07/07/2023) Medications Medication Sig Dispensed Refills Start Date [...] as of this encounter (statuses as of 07/07/2023) Active Problems Problem Noted Date Diagnosed Date [...] options 07/05/23- sugars elevated- msg sent to [facility] to schedule ADAPT 07/06/23: ADAPT visit [...] Recommend nutrition consult with RDN (Registered Dietitian Boom Operator). Lifestyle changes are also indicated including [...] as of this encounter (statuses as of 07/07/2023) Resolved Problems Problem Noted Date Diagnosed Date [...] dealing with it, otherwise can deliver in [place]. Last Assessment & Plan: She was seen [...] folate levels and referral to a senior administrative associate. 4. If hemoglobin levels are below 8 g/dl, we recommend Maternal Medicine ultrasound for growth every 4 weeks after 24 weeks. Consider a blood transfusion if hemoglobin levels fall below 6 g/dL. ([employer] T[employer] Practice Bulletin Number 95, February,). 5. Consider [...] Will continue testing and report weekly to [facility] via [employer]. Discussed that medication may be needed if elevated blood sugars do not improve with diet alone. Patient agreeable to starting insulin if needed. Will review again next week. 07/25/22: [facility] ADAPT consult complete. 07/27/22: elevated fasting; nutrition [...] 08/22/22: Taking 15 units Levemir at HS. [place] woozy after 20 units. Was sick last [...] MEDICINE referral made. Last Assessment & Plan: [facility] anatomy/growth ultrasound scheduled for 08/03/22. Patient reports [...] as of this encounter (statuses as of 07/07/2023) Immunizations Name Administration Dates Next Due Seasonal [...] money to get more. Never true 11/01/2022 [place] Depression Scale Answer Date Recorded [place] Depression Scale Total 2 03/13/2023 The thought [...] Telephone Encounter - Angie Nuñez PA-C - 07/07/2023 1:42 PM EST Noted. * Telephone Encounter - Amy Rivas CRNP [...] EST Office Visit Gynecology/Obstetics Dean Espitia [address] [place] [phone] Angie Nuñez PA-C [address] [place] [address] Nurse Adebayo Espitia Beginning Dean, SOBIA [address] [place] [address] 08/04/2023 9:30 AM EST Office Visit Exhibit Designer OB Maternal Medicine [facility] Sharla Henderson [address] [place] [address] Dr [address] [place] [address] Aniya Carson, DO [address] [place] [address] 08/04/2023 9:30 AM EST Imaging Maternal Medicine [facility] Sharla Henderson [address] [place] [address] [place] [phone] Health Maintenance Due Date Last Done Comments [...] the patient have Health Care Power of Train Examiner? No Code Status History Code Status Date Activated Date Inactivated Comments Full Code 01/05/2021 11:33 AM 01/05/2021 6:10 PM This o rder reflects the patients wishes and were consensually agreed upon. Care Teams Coke Drawer Relationship Specialty Start Date End Date Taryn Melgar PA-C [address] [place] [phone] PCP - General Physician Supervisor Lamp Shades 09/20/18 documented as of this encounter
--- OUTSIDE RECORDS SUMMARY | 2023-12-18 08:04 | External Medical Summary | Summary of Care ---
Author Name Unknown Organization [facility] Address [address] [place] [address] Phone [phone] Care Team Providers Care Junior Automation Engineer Name Role Phone Taryn Melgar PA-C Primary Care Provider Encounter Details Date Type Department Care Team (Late st Contact Info) Description 06/30/2023 2:00 PM EST Office Visit Mounted Police [facility] Sharla Henderson [address] [place] [address] [address] [place] [address] Taiwo Montanez MD [address] [place] [address] Gestational diabetes mellitus (GDM) in second trimester, gestational diabetes method of control unspecified*; Class 1 obesity; Short interval between pregnancies complicating , antepartum; Obesity in , antepartum Allergies Active Allergy Reactions Criticality Noted Date Comments Pollen Other (Please comment) Low 01/05/2021 documented as of this encounter (statuses as of 06/30/2023) Medications Medication Sig Dispensed Refills Start Date [...] as of this encounter (statuses as of 06/30/2023) Active Problems Problem Noted Date Diagnosed Date [...] Recommend nutrition consult with RDN (Registered Dietitian Biometrics Analyst). Lifestyle changes are also indicated including optimizing [...] Comme nts Yes 12/23/2023 Based on last la nstrual period of 03/18/2023 (Exact Date) documented as of this encounter (statuses as of 06/30/2023) Resolved Problems Problem Noted Date Diagnosed Date Resolved Date arrhythmia affecting p regnancy, antepartum 08/17/2022 05/27/2023 Overview: arythmia noted 08/12, saw peds cardio IMPRESSION and PLAN: 1. PACs in bigeminy giving the appearance of HR variability between 60-160 bpm 2. 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 Normal biventricular function 4. Mild [place] The above findings were shared with the [...] dealing with it, otherwise can deliver in [place]. Last Assessment & Plan: She was seen [...] and folate levels and referral to a automobile body repair chief. 4. If hemoglobin levels are below 8 g/dl, we recommend Maternal Medicine ultrasound for growth every 4 weeks after 24 weeks. Consider a blood transfusion if hemoglobin levels fall below 6 g/dL. ([employer] Florist Manager Practice Bulletin Number 95, February,). 5. [...] Will continue testing and report weekly to [facility] via [employer]. Discussed that medication may be needed if elevated blood sugars do not improve with diet alone. Patient agreeable to starting insulin if needed. Will review again next week. 07/25/22: [facility] ADAPT consult complete. 07/27/22: elevated fasting; [...] 08/22/22: Taking 15 units Levemir at HS. [place] woozy after 20 units. Was sick [...] as of this encounter (statuses as of 06/30/2023) Immunizations Name Administration Dates Next Due Seasonal [...] money to get more. Never true 11/01/2022 [place] Depression Scale Answer Date Recorded [place] Depression Scale Total 2 03/13/2023 The thought [...] as of this encounter Progress Notes * Taiwo Montanez MD - 06/30/2023 2:39 PM EST MATERNAL MEDICINE ULTRASOUND VISIT. Lacy Mckinney presented today to [facility] for an ultrasound at 14w6d for the following indications: Gestational diabetes mellitus (GDM) in second trimester, gestational diabetes method of control unspecified Class 1 obesity Short interval between pregnancies complicating , antepartum Obesity in , antepartum I reviewed the ultrasound images. The report will be sent to the primary obstetric provider to review with the patient. Ms. Mckinney was given the opportunity to meet with me if she has any questions. RDMS confirmed that Ms. Mckinney does not have any additional questions for me today. Please refer to the U ltrasound report today for additional details about today's ultrasound examination. RECOMMENDATIONS: She was scheduled for follow up ultrasound with MFM at 19-20 weeks for anatomy secondary to above indications. Please refer to prior formal MFM consultation note for additional recommendations for management. Thank you for allowing us to participate in the care of this patient. Please call with any questions. Taiwo Montanez MD 06/30/2023 2:39 PM documented in this encounter Plan of Treatment Upcoming Encounters Date Type Department Care Team (Late st Contact Info) Description 07/04/2023 1:15 PM EST Office Visit Gynecology/Obstetics [place] [address] [place] [phone] Angie Nuñez PA-C [address] [place] [address] 08/04/2023 9:30 AM EST Office Visit Mounted Police OB Maternal Medicine [facility] Sharla Henderson [address] [place] [address] [address] [place] [address] Aniya Carson, DO [address] [place], [place] [phone] 08/04/2023 9:30 AM EST Imaging Maternal Medicine [facility] Sharla Henderson [address] [place] [address] [address] [place] [address] Health Maintenance Due Date Last Done Comments [...] as of this encounter Visit Diagnoses Diagnosis Gestational diabetes mellitus (GDM) in second trimester, gestational diabetes method of control unspecified- Primary Class 1 obesity Short interval between pregnancies complicating , antepartum Supervision of other high-risk Obesity in , antepartum Obesity complicating , childbirth, or the puerperium, antepartum condition or complication documented in this encounter Advance Directives Latest [...] the patient have Health Care Power of Manufacturing Baker? No Code Status History Code Status Date Activated Date Inactivated Comments Full Code 01/05/2021 11:33 AM 01/05/2021 6:10 PM This o rder reflects the patients wishes and were consensually agreed upon. Care Teams Junior Automation Engineer Relationship Specialty Start Date End Date Taryn Melgar PA-C [address] [place] [id number] PCP - General Physician Order Builder 09/20/18 documented as of this encounter
--- OUTSIDE RECORDS SUMMARY | 2023-12-18 08:04 | External Medical Summary | Summary of Care ---
Author Name Unknown Organization [facility] Address [address] [place] [address] Phone [phone] Care Team Providers Care [employer] Name Role Phone Taryn Melgar PA-C Primary Care Provider Reason for Visit * Reason Comments Return Visit Encounter Details Date Type Department Care Team (Late st Contact Info) Description 07/04/2023 7:45 AM EST Office Visit Gynecology/Obstetics [address] [phone] Angie Nuñez PA-C [address] [place], [place] [phone] Supervision of high-risk , second trimester*; Rh negative, antepartum; Gestational diabetes mellitus (GDM) in second trimester, gestational diabetes method of control unspecified; Short interval between pregnancies complicating , antepartum; Obesity in , antepartum Allergies Active Allergy Reactions Criticality Noted Date Comments Pollen Other (Please comment) Low 01/05/2021 documented as of this encounter (statuses as of 07/09/2023) Medications Medication Sig Dispensed Refills Start Date [...] as of this encounter (statuses as of 07/09/2023) Active Problems Problem Noted Date Diagnosed Date [...] 06/28/23: MFM ADAPT consult complete. Enrolled in [facility]. Instructions provided to report blood sugars [...] options 07/05/23- sugars elevated- msg sent to [facility] to schedule ADAPT 07/06/23: ADAPT [...] Recommend nutrition consult with RDN (Registered Dietitian Rand Cementer). Lifestyle changes are also indicated including optimizing [...] as of this encounter (statuses as of 07/09/2023) Resolved Problems Problem Noted Date Diagnosed Date Resolved Date arrhythmia affecting p regnancy, antepartum 08/17/2022 05/27/2023 Overview: arythmia noted 08/12, saw peds cardio IMPRESSION and PLAN: 1. [facility]s [facility] giving the appearance of HR variability between 60-160 bpm 2. 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 Normal biventricular function 4. Mild [place] The above findings were shared with the [...] dealing with it, otherwise can deliver in [place]. Last Assessment & Plan: She was seen [...] and folate levels and referral to a marketing communications leader. 4. If hemoglobin levels are below 8 g/dl, we recommend Maternal Medicine ultrasound for growth every 4 weeks after 24 weeks. Consider a blood transfusion if hemoglobin levels fall below 6 g/dL. ([employer] and [employer] Network Systems Administrator Practice Bulletin Number 95, February,). 5. Consider [...] weekly to [facility] via [employer]. Discussed that medication may be needed if [...] 08/22/22: Taking 15 units Levemir at HS. [place] woozy after 20 units. Was sick last [...] as of this encounter (statuses as of 07/09/2023) Immunizations Name Administration Dates Next Due Seasonal [...] money to get more. Never true 11/01/2022 [place] Depression Scale Answer Date Recorded [place] Depression Scale Total 2 03/13/2023 The thought [...] Sign Reading Time Taken Comments Blood Pressure 108/62 07/04/2023 7:45 AM EST Pulse - - Temperature - - Respiratory Rate - - Oxygen Saturation - - Inhaled Oxygen Concentration - - Weight 81.1 kg (178 lb 12.8 oz) 07/04/2023 7:45 AM EST Height - - Body Mass Index 32.7 09/08/2022 10:04 AM EST documented in this [...] Progress Notes * Angie Nuñez PA-C - 07/04/2023 8:03 AM EST Lacy Mckinney presents for visit at 15w3d. BP 108/62 | Wt 81.1 kg (178 lb 12.8 oz) | LMP 03/18/2023 (Exact Date) | BMI 32.70 kg/m | BSA 1.88m Doing well. Denies vaginal bleeding, leaking of fluid, vaginal pressure, contractions, abdominal pain, or abnormal vaginal discharge. Denies headaches, blurry vision, or right upper quadrant pain. Patient states she feels some flutters of movement. Patient has been trying to get her fasting blood sugars lower. Physical Exam General: alert and oriented, no acute distress Pulmonary: normal respiratory effort, no accessory muscle use. Abdomen: gravid, soft, non-tender heart rate: 140's bpm OB [place] Problems (from 05/09/23 to present) Problem Noted Resolved History of gestational diabetes mellitus (GDM) 06/27/2023 by Amy Rivas CRNP No History of gestational diabetes (GDMA2) in previous Obesity in , antepartum 06/27/2023 by Amy Rivas CRNP No The patient's pre-gravid BMI is 32.73. Class 1 Short interval between pregnancies complicating , antepartum 06/27/2023 by Amy Rivas CRNP No Last delivered in 09/2022. Gestational diabetes mellitus (GDM) during , antepartum 06/26/2023 [...] with protein; reviewed healthy bedtime snack options Supervision of high-risk , second trimester 05/27/2023 by Angie Nuñez PA-CNo Estimated Date of Delivery: 12/23/23 Continue vitamin. O negative - needs Rhogam injection at 28 weeks and if she has vaginal bleeding in prengancy. Varicella and rubella immune. Qnatal testing low risk. MSAFP testing at 15 weeks to 22 weeks, 6 days. Anatomy ultrasound at 20 weeks. Rh negative, antepartum 05/12/2022 by Angie Nuñez PA-C No Rhogam given on 07/04/2022 at 28 weeks, 1 day. Plan: -Patient has been testing blood sugars and working on lowering fasting blood sugars. Made suggestions for bedtime snack options to lower fasting blood sugars. Patient is reporting blood sugars to MATERNAL MEDICINE. - hear rate normal today. -Due to blood sugar concerns, patient agreeable to follow up appointment in 2 weeks instead of 4 weeks. Patient will schedule at checkout. Counseled patient to call triage/go to labor and delivery if she has any vaginal bleeding, leaking of fluid, vaginal pressure, four or more painful contractions in an hour, abdominal pain, decreased movements, headaches, blurry vision, or right upper quadrant pain. Patient verbalized understanding. RTO in 2 weeks for a return appointment or sooner if any concerns. Angie Estrada PA-C * Apple Wong CCMA - 07/04/2023 7:45 AM EST Pt here for brad visit - no concerns documented in this encounter Plan of Treatment Upcoming Encounters Date Type Department Care Team (Late st Contact Info) Description 07/20/2023 10:15 AM EST Office Visit Gynecology/Obstetics [address] [phone] Angie Nuñez PA-C [address] [place] [address] Nurse Adebayo Espitia Beginningcher Moran, SOBIA [address] [facility] [place] [id number] 08/04/2023 9:30 AM EST Office Visit Piped Buttonhole Machine Operator [facility] Sharla Henderson [address] [place] [address] Dr Mariano [address] [place] [address] Alli Aniyarichard Patrick, DO [address] [place] [address] 08/04/2023 9:30 AM EST Imaging Maternal Medicine [facility] Sharla Henderson [address] [place] [address] Dr Mariano [address] [place] [address] Health Maintenance Due Date Last Done Comments [...] 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 No Code Status History Code Status Date Activated Date Inactivated Comments Full Code 01/05/2021 11:33 AM 01/05/2021 6:10 PM This o rder reflects the patients wishes and were consensually agreed upon. Care Teams [employer] Police Relationship Specialty Start Date End Date Taryn Melgar PA-C [address] [place], [place] [address] [id number] PCP - General Physician Newspaper Clipper 09/20/18 documented as of this encounter
--- OUTSIDE RECORDS SUMMARY | 2023-12-18 08:04 | External Medical Summary | Summary of Care ---
Author Name Unknown Organization [facility] Address [address] [place] [address] Phone [phone] Care Team Providers Care [employer] Registrar Name Role Phone Taryn Melgar PA-C Primary Care Provider Reason for Visit * Reason Comments Follow Up Gestational diabetes Encounter Details Date Type Department Care Team (Late st Contact Info) Description 07/06/2023 12:30 PM EST Telemedicine Cruller Maker Obstetrics Maternal Medicine, [address] [address] Amy Rivas CRNP [address] [place] [address] Supervision of high risk in second trimester*; 15 weeks gestation of ; Insulin controlled gestational diabetes mellitus (GDM) in second trimester Allergies Active Allergy Reactions [...] Recommend nutrition consult with RDN (Registered Dietitian Pasteurizing Machine Operator). Lifestyle changes are also indicated [...] cardio IMPRESSION and PLAN: 1. [facility]s in [facility] giving the appearance of HR variability between 60-160 bpm 2. 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 Normal biventricular function 4. Mild CT The above findings were shared with the [...] dealing with it, otherwise can deliver in [place]. Last Assessment & Plan: She was seen [...] and folate levels and referral to a band director. 4. If hemoglobin levels are below 8 g/dl, we recommend Maternal Medicine ultrasound for growth every 4 weeks after 24 weeks. Consider a blood transfusion if hemoglobin levels fall below 6 g/dL. 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 5. Consider [...] and report weekly to [facility] via [employer]. Discussed that medication may be needed if [...] 08/22/22: Taking 15 units Levemir at HS. [place] woozy after 20 units. Was sick last [...] Overview: Doing well on Colace. Postoperative nausea 01/05/202101/22/2 021 Encounter for preconception consultation 09/23/2020 08/17/2022 [...] money to get more. Never true 11/01/2022 [place] Depression Scale Answer Date Recorded [place] Depression Scale Total 2 03/13/2023 The thought [...] as of this encounter Progress Notes * Amy Rivas CRNP - 07/06/2023 12:32 PM EST Images from the original note were not included. MATERNAL MEDICINE VISIT Patient location: HOME. I was in a hospital or clinic location. After connecting through televideo,patient was verified with two unique identifiers. Patient (or authorized legal sales and marketing representative) was then informed that this was a Telemedicine visit and being conducted confidentially over secure lines. Methods to assure confidentiality were taken. Patient acknowledged consent and understanding of pr ivacy and security of the Telemedicine visit. The patient agreed to participate. Lacy Mckinney is a 27 year old year old with intrauterine at 15w5d who presents to [facility] for management of diabetes in . CC/HPI: Here for GDM f/u visit. Current issues include: elevated fasting values Current GDM management: diet controlled Diet: gestational diabetes diet Exercise: walking dog & taking the stairs at work Weight gain: Wt Readings from Last 10 Encounters: 07/04/23 81.1 kg (178 lb 12.8 oz) 06/21/23 81.2 kg (179 lb 1.6 oz) 04/18/23 81.4 kg (179 lb 6.4 oz) 11/01/22 77.9 kg (171 lb 12.8 oz) 09/08/22 86.2 kg (190 lb) 09/01/22 83.9 kg (185 lb) 08/22/22 82.7 kg (182 lb 4.8 oz) 08/17/22 83.4 kg (183 lb 12.8 oz) 07/29/22 82.7 kg (182 lb 6.4 oz) 07/19/22 81.8 kg (180 lb 5.4 oz) Hypoglycemia episodes: N/A Glucose review: Hemoglobin A1C last 2 results: Lab Results Component Value Date/Time HEMOGLOBIN A1C - [facility] 5.2 06/21/2023 09:44 AM HEMOGLOBIN A1C - [facility] 5.2 09/06/2019 08:12 AM She reports her home blood glucose as following: DATE Fasting 1 hr after Breakfast 1 hr after Lunch 1 hr after Dinner 07/06/23 x 130 x x Fasting 8-10 hours overnight and is having bedtime snack. REVIEW OF SYSTEMS: Patient offers no concerns today. PHYSICAL EXAM: LMP 03/18/2023 (Exact Date) Constitutional: well-developed, well nourished General: pleasant, alert and oriented Neuro: mood and affect normal, alert and oriented, no acute distress DISCUSSION: -We discussed continuing to test blood sugars 4 times a day (fasting, one hour after breakfast, lunch, and dinner). Encouraged continued reporting via [facility]. -Continue following gestational diabetes diet. -We discussed eating a bedtime snack and fasting 8-10 hours overnight to help with sugar control inthe fasting timeframe. -Encouraged 20-30 minutes a day of exercise (walking, light upper body strength training, yoga, stationary cycling, or swimming). -We discussed the goal of euglycemia in order to create a stable environment for the fetus. She is aware that with diabetes are at increased risk for multiple complications to both mother and fetus. -Recommend starting medication for elevated fasting values. Reviewed medication options. Patient elects for insulin. Reviewed insulin administration instruction. I advised her on appropriate technique for administration and she verbalized understanding. -Reviewed how to recognize and treat hypoglycemia. -I encouraged the patient to reach out to [facility] in the event that she has any questions regarding diabetes management. RECOMMENDATIONS: Ordered Lantus 10 units at bedtime. Scheduled on 08/04/[address] Carson for anatomy scan. Recommend twice weekly NSTs starting at 32 weeks for A2GDM. Recommend delivery during the 39th week of by EDC for A2GDM. Follow up for glucose management in 1 week via [employer]. Thank you for allowing us to participate in the care of this patient. Please call with any questions. MIRTA Delacruz 07/06/2023 12:59 PM documented in this encounter Miscellaneous Notes * Pt Handout (on AVS) - Amy Rivas CRNP - 07/06/2023 12:56 PM EST Images from the original note were not included. Lantus Solostar Pen: How to Inject a Dose - Video Let's take a minute to talk about how to use your Lantus SoloStar insulin pen. You will need clean hands, alcohol swabs, and a compatible needle, like BD Ultra-Fine pen needles. You will also need anapproved "sharps container". To dispose of the needles. To view the video go to this web address: https://bit.ly/[email or web address] Or, scan this QR code with your smart phone 2022 [employer]. All Rights Reserved. documented in this encounter Plan of Treatment Upcoming Encounters Date Type Department Care Team (Late st Contact Info) Description 07/20/2023 10:15 AM EST Office Visit Gynecology/Obstetics Dena Espitia [address] [place] [phone] Angie Nuñez PA-C [address] [place] [address] Nurse Adebayo Espitia Beginnings SOBIA Moran [address] [place], [place] [phone] 08/04/2023 9:30 AM EST Office Visit Cruller Maker OB Maternal Medicine [facility] Sharla Henderson [address] [place] [address] Dr [address] [place] [address] Aniya Carson, [address] [place] [address] 08/04/2023 9:30 AM EST Imaging [facility] Sharla Henderson [address] [place] [address] Dr Mar[address] [place] [id number] Health Maintenance Due Date Last Done Comments [...] this encounter Visit Diagnoses Diagnosis Supervision of high risk in second trimester- Primary Unspecified high-risk 15 weeks gestation of state, incidental Insulin controlled gestational diabetes mellitus (GDM) in second trimester documented in this encounter Advance [...] the patient have Health Care Power of Career Development Director? No Code Status History Code Status Date Activated Date Inactivated Comments Full Code 01/05/2021 11:33 AM 01/05/2021 6:10 PM This o rder reflects the patients wishes and were consensually agreed upon. Care Teams [employer] Registrar Relationship Specialty Start Date End Date Taryn Melgar PA-C [address] [place] [address] [place] [id number] PCP - General Physician Control Panel Builder 09/20/18 documented as of this encounter
--- OUTSIDE RECORDS SUMMARY | 2023-12-18 08:05 | External Medical Summary | Summary of Care ---
Author Name Unknown Organization [facility] Address [address] [place] [address] Phone [phone] Care Team Providers Care Investigation Division Sergeant Name Role Phone Taryn MelgarC Primary Care Provider Reason for Referral * Evaluate & Treat - Unlimited Visits (Within 3 days (urgent)) - Pending Review Specialty Diagnoses / Procedures Referred By Tracey booth Referred To Contact Intake Counselor Diagnoses Diet controlled gestational diabetes mellitus (GDM) in second trimester Supervision of high risk in second trimester Amy Rivas CRNP [address] [place] [address] Referral ID Status Reason Start Date Expiration Date Visits Requested Visits Authorized [id number] Pending Review Specialty Services Required 3 1 1 Question Answer Referral Priority Within 3 days (urgent) Where should this appointment be scheduled? [facility] Program Type Chronic Disease Management Chronic Disease Management Diabetes in Alarm Settings Standard per protocol Comments OneTouch Verio meter Reason for Visit * Reason Comments Consultation High-risk : Gestational diabetes, history of gestational diabetes, class 1 obesity, and short interval * Evaluate & Treat - Unlimited Visits (Within 3 days (urgent)) - Pending Review Specialty Diagnoses / Procedures Referred By Tracey booth Referred To Contact Obstetrics/Gynecology / Maternal Medicine Diagnoses Gestational diabetes mellitus (GDM) in second trimester, gestational diabetes method of control unspecified Angie Nuñez PA-C [address] [place] [address] Referral ID Status Reason Start Date Expiration Date Visits Requested Visits Authorized [id number] Pending Review Specialty Services Required [phone] Encounter Details Date Type Department Care Team (Late st Contact Info) Description 06/28/2023 9:00 AM EST Telemedicine [employer] Obstetrics Maternal Medicine, [place] [address] [facility] [address] [place] [address] Amy Rivas CRNP [address] [place] [address] Supervision of high risk in second trimester*; 14 weeks gestation of ; Diet controlled gestational diabetes mellitus (GDM) in second trimester; Short interval between pregnancies complicating , antepartum; Obesity in , antepartum; History of gestational diabetes mellitus (GDM) Allergies Active Allergy Reactions Criticality Noted Date [...] (H) 06/02/2023 10:20 AM HEMOGLOBIN A1C - [facility] 5.2 06/21/2023 09:44 AM 06/28/23: MFM ADAPT [...] Recommend nutrition consult with RDN (Registered Dietitian Fashion Artist). Lifestyle changes are also indicated including optimizing [...] dealing with it, otherwise can deliver in [place]. Last Assessment & Plan: She was seen [...] and folate levels and referral to a digital advisor. 4. If hemoglobin levels are below 8 g/dl, we recommend Maternal Medicine ultrasound for growth every 4 weeks after 24 weeks. Consider a blood transfusion if hemoglobin levels fall below 6 g/dL. ([employer] Practice Bulletin Number 95, February,). 5. [...] Will continue testing and report weekly to [facility] via leemail. Discussed that medication may be needed if [...] 08/22/22: Taking 15 units Levemir at HS. [place] woozy after 20 units. Was sick last [...] MEDICINE referral made. Last Assessment & Plan: [facility] anatomy/growth ultrasound scheduled for 08/03/22. Patient [...] Date Smoking Tobacco: Never Smokeless Tobacco: Never Tobacco Cessation:Counseling Given: Not Answered Alcohol Use Standard Drinks/Week Comments Not Currently [...] money to get more. Never true 11/01/2022 [place] Depression Scale Answer Date Recorded [place] Depression Scale Total 2 03/13/2023 The thought [...] Progress Notes * Amy Rivas CRNP - 06/28/2023 9:32 AM EST MATERNAL MEDICINE CONSULT Lacy Mckinney 06/[birth year] REFERRING PROVIDER: Angie Darling PA-C Patient location: HOME. I was in a hospital or clinic location. After connecting through televideo,patient was verified with two unique identifiers. 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 Methods to assure confidentiality were taken. Patient acknowledged consent and understanding of pr ivacy and security of the Telemedicine visit. The patient agreed to participate. Lacy Mckinney is a 27 year old with intrauterine at 14w4d (Estimated Date of Delivery: 12/23/23 by exact LMP) who presents today for an MFM consult due to gestational diabetes, history of gestational diabetes, class 1 obesity, and short interval . HPI/CURRENT : pre- BMI=class 1 obesity (81.2 kg (179 lb); 5' 2"); FOB #1; complicated by above. Genetic testing: Low Risk Cell Free DNA (patient aware of male gender) [place] Problems (from 05/09/23 to present) Problem Noted Resolved History of gestational diabetes mellitus (GDM) Overview Addendum 06/27/2023 12:40 PM by Amy Rivas CRNP History of gestational diabetes (GDMA2) in previous Obesity in , antepartum Overview Signed 06/27/2023 12:39 PM by Amy Rivas CRNP The patient's pre-gravid BMI is 32.73. Class 1 Short interval between pregnancies complicating , antepartum Overview Signed 06/27/2023 12:40 PM by Amy Rivas CRNP Last delivered in 09/2022. Gestational diabetes mellitus (GDM) in second trimester Overview Addendum 06/28/2023 9:29 AM by Amy Rivas CRNP Diagnosed at 14 weeks via home glucose monitoring (elevated FBS) Nutrition referral: deferred OneTouch Verio meter Note: history of gestational diabetes in previous Lab Results Component Value Date/Time 50-G GESTATIONAL GLUCOSE, 1 HOUR - [facility] 154 (H) 06/02/2023 10:20 AM HEMOGLOBIN A1C - [facility] 5.2 06/21/2023 09:44 AM 06/28/23: MFM ADAPT consult complete. Enrolled in [facility]. Instructions provided to report blood sugars each [...] with protein; reviewed healthy bedtime snack options I have reviewed this patient's previous OB ultrasound reports, pertinent labwork and testing provided by her referring OB provider. Current Outpatient Medications Medication Sig Dispense Refill Docusate Sodium 100 MG Oral Capsule (Colace) Take 1 Capsule by mouth daily as needed for Constipation. 30 Capsule 3 Lancets Test blood sugars 4 times a day (fasting and one hour after meals). 120 Each 5 OneTouch Verio In Vitro Strip (Glucose Blood) Test blood sugars 4 times a day (fasting and one hourafter meals). 120 Strip 5 Pre- Formula Oral Tablet Take 1 Tablet by mouth in the morning. No current facility-administered medications for this visit. Review of patient's allergies indicates: Allergen Reactions Pollen Other (Please comment) OB History Para Term AB Living 2 1 1 0 0 1 SAB IAB Ectopic Multiple Live Births 0 0 0 0 1 # Outcome Date GA Lbr Dylon/2nd Weight Sex Delivery Anes PTL Lv 2 Current 1 Term 09/10/22 37w6d 3.317 kg (7 lb 5 oz) M Vag-Spont N RENE Comments: FOB#1; GDMA2 Obstetric Comments 2022 FOB#1 Jacky Mckinney 31YO. Healthy. Has 10 year-old twin girls from a previous relationship - healthy. Past Medical History: Diagnosis Date Gestational diabetes 2021 Ovarian cyst 2020 Past Surgical History: Procedure Laterality Date LAPAROSCOPY DIAGNOSTIC N/A 01/05/2021 LAPAROSCOPY DIAGNOSTIC performed by Hermilo Taylor MD at OR [facility] LAPAROSCOPY;RMV ADNEXAL STRUCT N/A 01/05/2021 LAPAROSCOPIC OOPHORECTOMY AND OR SALPINGECTOMY performed by Hermilo Taylor MD at OR [facility] Family History Problem Relation Age of Onset Thyroid Disorder Mother Hypothyroid - Kurtis's Heart attack Father 49 Diabetes Father Type 2 - diet controlled Other (sleep apnea) Father Other (sleep apnea) Brother No Known Problems Son Social History Tobacco Use Smoking status: Never Smokeless tobacco: Never Vaping Use Vaping Use: Never used Substance Use Topics Alcohol use: Not Currently Comment: denies in 2022 Drug use: Never REVIEW OF SYSTEMS: headaches: none today nausea/vomiting: reports nausea resolved reports movement: n/a abdominal pain/tenderness/cramping/contractions: no vaginal bleeding: no vaginal leaking of fluid: no all other systems negative PHYSICAL EXAM: LMP 03/18/2023 (Exact Date) General: Well appearing and in no acute distress Psych: Alert to time, place, and person and Pleasant DISCUSSION/RECOMMENDATIONS: Problem List Items Addressed This Visit [facility] [place] Supervision of high risk in second trimester Gestational diabetes mellitus (GDM) in second trimester CONSIDERATIONS: Reviewed etiology and risks associated with gestational diabetes mellitus (GDM), including risks topregnancy, fetus, and maternal progression to Type 2 [...] Recommend nutrition consult with RDN (Registered Dietitian Fashion Artist). Lifestyle changes are also indicated including optimizing gestational weight gain and physical activity of 30 minutes per day, if not otherwise contraindicated in . Insulin is preferred if medications are indicated to optimize euglycemia. Metformin (preferred overglyburide) may also be used in some circumstances. Reviewed the risks and benefits of each. Recommend hemoglobin A1c testing now if diagnosed with GDM prior to 24 weeks as there is potential for pre-existing diabetes. If result is 6.5% or greater, then will diagnose with overt Type 2 DM andtreat as pre-existing diabetes. If compliance later in [...] with 75-gram glucose load 6-8 weeks . Relevant Orders REMOTE PATIENT MONITORING REFERRAL History of gestational diabetes mellitus (GDM) Reviewed with patient that women who have a history of GDM in a previous may have up to a75% risk for GDM in subsequent pregnancies. Obesity in , antepartum DISCUSSION: Discussed obstetrical risks associated with class I obesity (pre- BMI of 30 to 34.9). Reviewed that the accuracy of ultrasound at diagnosing anomalies is significantly decreased for women with an increased BMI. RECOMMENDATIONS: Recommend restricting weight gain during to 11-20 pounds. Consider referral for nutritionconsult. Recommend evaluation for signs and symptoms (snoring, excessive daytime sleepiness witnessed apnea or unexplained hypoxia) of obstructive sleep apnea. If any of these are present, referral to Sleep Medicine specialist for further evaluation should be considered. Recommend Maternal- Medicine ultrasound for anatomy at 20 weeks. Short interval between pregnancies complicating , antepartum CONSIDERATIONS: Reviewed that a short Inter- Interval (IPI) may place the patient at an increased risk forpreterm , low weight, and SGA . IPI is defined as less than a year from the time ofdelivery of one to conception of the next . Some studies show that a short IPI may be associated with an increased risk for maternal , third trimester bleeding, premature rupture of membranes, puerperal endometritis, and anemia as well as placental abruption. Follow up ultrasound with Maternal Medicine is scheduled on 06/30/[address] Montanez for limited anatomy scan and on 08/04/[address] Cruz for anatomy scan secondary to gestational diabetes, history of gestational diabetes, class 1 obesity, and short interval . Patientis aware of upcoming MFM appointment. MIRTA Delacruz 06/28/2023 9:36 AM documented in this encounter Miscellaneous Notes * Pt Handout (on AVS) - Amy Rivas CRNP - 06/28/2023 9:31 AM EST Images from the original note were not included. [id number] Healthy Meals for Diabetes Ask your healthcare team to help you make a meal plan that fits your needs. Your meal plan tells you when to eat your meals and snacks, what kinds of foods to eat, and how much of each food to eat. You don?t have to give up all the foods you like. But you do need to follow some guidelines. A healthcare provider will help you develop a meal plan that fits your needs. Choose healthy carbohydrates Starches, sugars, and fiber are all types of carbohydrates (carbs). Carbs can get a bad reputation,especially since they affect your blood sugar. But your body benefits from the right amount of healthy carbs. Fiber can help lower your cholesterol and triglycerides. Fiber is also healthy for your heart. You should have 20 to 35 grams of total fiber each day. Fiber comes from plants. Fiber-rich foods include: Whole-grain breads and cereals Nuts Brown rice and quinoa Whole-wheat pasta Fruits and vegetables Beans and peas Keep track of the amount of carbs you eat. This can help you keep the right balance of physical activity and medicine. The amount of carbs needed will vary for each person. It depends on many things such as your health, the medicines you take, and how active you are. Your healthcare team will help you figure out the right amount of carbs for you. You may start with around 45 to 60 grams of carbs per meal, depending on your situation. Here are some examples of foods containing about 15 grams of carbs (1 serving of carbs): 1/2 cup of canned or frozen fruit A small piece of fresh fruit (4 ounces) 1 slice of bread 1/2 cup of oatmeal 1/3 cup of rice 4 to 6 crackers 1/2 Malagasy muffin 1/2 cup of black beans 1/4 of a large baked potato (3 ounces) 2/3 cup of plain fat-free yogurt 1 cup of soup 1/2 cup of casserole 6 chicken nuggets 8-xfak-cwenzw brownie or cake without frosting 2 small cookies 1/2 cup of ice cream or sherbet Choose healthy protein foods Proteins plays a goss role in building healthy muscles, bones, skin, and many other parts of your body. Eating protein that's low in fat can help you control your weight. It also helps keep your hearthealthy. Low-fat protein foods include: Fish Plant proteins, such as lentils, beans, peas, nuts, and soy products like tofu and soymilk Lean meat with all visible fat removed Poultry with the skin removed Low-fat or nonfat milk, cheese, and yogurt Limit unhealthy fats and sugar Saturated and trans fats are unhealthy for your heart. They raise LDL ("bad") cholesterol. Fat is also high in calories, so it can make you gain weight. To cut down on unhealthy fats and sugar, limitthese foods: Butter or margarine Palm and palm kernel oils and coconut oil Cream Cheese Lin Lunch meats Ice cream Sweet bakery goods such as pies, muffins, and donuts Jams and jellies Candy bars Regular sodas How much to eat The amount of food you eat affects your blood sugar. It also affects your weight. Your healthcare team will tell you how much of each type of food you should eat. Use measuring cups and spoons and a food scale to measure serving sizes. Learn what a correct serving size looks like on your plate. This will help when you're away fromhome and can?t measure your servings. For instance, a serving of meat is about the size of the palmof your hand. Eat only the number of servings given on your meal plan for each food. Don?t take seconds. Learn to read food labels. Be sure to look at serving size, total carbohydrates, fiber, calories, sugar, salt, and saturated and trans fats. Look for healthier options to foods that have added sugar or salt. Plan ahead for parties. Then you can still have a good time without going overboard with unhealthy food choices. Set a good example yourself by bringing a healthy dish to [employer]. Choose healthy snacks When it comes to snacks, we often think about foods with added sugar and fats. But there are many other options for healthier snack choices. Here are a few snack ideas to choose from: Snacks with less than 5 grams of carbohydrates 1 piece of string cheese 3 celery sticks plus 1 tablespoon of peanut butter 5 galarza tomatoes plus 1 tablespoon of ranch dressing 1 hard-boiled egg 1/4 cup of fresh blueberries 5 baby carrots 1 cup of light popcorn 1/2 cup of sugar-free gelatin 15 almonds Snacks with about 10 to 20 grams of carbohydrates 1/3 cup of hummus plus 1 cup of fresh cut nonstarchy vegetables (carrots, green peppers, broccoli, celery, or a mix) 1/2 cup of fresh or canned fruit plus 1/4 cup of cottage cheese 1/2 cup of tuna salad with 4 crackers 2 rice cakes and a tablespoon of peanut butter 1 small apple or orange 3 cups light popcorn 1/2 of a turkey sandwich (1 slice of whole-wheat bread, 2 ounces of turkey, and mustard) Portion sizes are important to controlling your blood sugar and staying at a healthy weight. Stock up on healthy snack items so you always have them on hand. When to eat Your meal plan will likely include breakfast, lunch, dinner, and some snacks. Try to eat your meals and snacks at about the same times each day. Eat all your meals and snacks. Skipping a meal or snack can make your blood sugar drop too low. It can also cause you to eat too much at the next meal or snack. Then your blood sugar could get toohigh. Last Reviewed Date: 07/07/202119993499-0895 [employer]. All rights reserved. This information is not intended as a substitute for professional medical care. Always follow your healthcare professional's instructions. * Pt Handout (on AVS) - Amy Rivas CRNP - 06/28/2023 9:31 AM EST Images from the original note were not included. [id number] If You Need Extra Insulin During During , your body may not be able to make enough insulin to control your blood sugar. If this happens, you may need extra insulin. This will help control your blood sugar. In some cases, anoral antidiabetic medicine may be used. An example of this is glyburide. But insulin is used most often. Insulin is a natural substance. It is not addictive. It does not harm your baby. It does not cross the placenta. That means it does not affect your baby the way taking a pill would. If you did not have diabetes before , you will likely stop taking insulin after your baby is born. Learning to use insulin Your healthcare provider will prescribe your insulin. They will teach you how to give yourself a shot. With practice, you?ll get comfortable doing it. You will need to inject it 1 or more times a day. Insulin is injected into fatty tissue. The best site for a shot of insulin is in your belly area. But you can also do the shot in your upper arm or thigh. Talk with your healthcare provider about where to give the shot. Here are some steps to follow: Choose an injection site. Clean it with alcohol if the skin is dirty. Pinch a fold of skin. Insert the needle at a steep angle. The best angle will depend on your body type, the length of the needle, and where you put the shot. Your healthcare provider will help youfind the best angle. Keeping the skin pinched, push the plunger down. This injects the insulin. Release the pinched skin. Remove the needle from your skin. If you see blood or insulin leaking from your skin, press firmly on the site for 5 to 8 seconds. Don?t rub your skin in the area. [place] and syringes should be used only 1 time. After using, throw them away in a puncture-proof container. This is known as a sharps container. Don?t throw needles in your household trash. Talk to your healthcare provider if you have any questions or concerns about taking insulin. The best site for injecting insulin is your abdomen. But you can also inject into an upper arm or thigh. Talk with your health care provider about where to give yourself a shot. Finding the right dose for you Your healthcare provider will work with you to find the right dose of insulin for you. It may take time. This is because you need to balance your insulin with your food and exercise. And your body needs more insulin as your baby grows. You must check your blood sugar several times a day. This is to be sure your insulin is working. Ifyour blood sugar is too high or too low, your healthcare provider will adjust your dose. Low blood sugar Taking insulin puts you at risk of low blood sugar. Symptoms of low blood sugar include: Shakiness Dizziness Weakness Confusion If you feel any of these symptoms, check your blood sugar right away. Always treat low blood sugar quickly. To do this, eat 15 grams of fast-acting sugar, such as: 3 glucose tablets 5 to 6 pieces of hard candy 1 to 2 tablespoons of honey or sugar cup fruit juice or regular, nondiet soda 1 cup fat-free milk Then check your blood sugar again in 15 minutes. If your blood sugar is still low, eat another 15 grams of sugar. If your blood sugar does not return to the target range in 30 minutes, call your healthcare provider. Last Reviewed Date: 07/07/202219999653-6062 [employer]. All rights reserved. This information is not intended as a substitute for professional medical care. Always follow your healthcare professional's instructions. * Pt Handout (on AVS) - Amy Rivas CRNP - 06/28/2023 9:31 AM EST Images from the original note were not included. [id number] Understanding Carbohydrates A car needs the right type of fuel to run. And you need the right kind of food to function. To keepyour energy level up, your body needs food that has carbohydrates (carbs). But carbs raise blood sugar levels higher and faster than other kinds of food. Your dietitian will work with you to figure out the amount of carbs you need. Carbs come in 3 types: starches, sugars, and fiber. Starches Starches are found in grains, some vegetables, and beans. Grain products include bread, pasta, cereal, and tortillas. Starchy vegetables include potatoes, peas, corn, rivera beans, yams, and squash. Kidney beans, pack beans, black beans, garbanzo beans, and lentils also have starches. Sugars Sugars are found naturally in many foods. Or they can be added. Foods that contain natural sugar include fruits and fruit juices, dairy products, honey, and molasses. Added sugars are found in most desserts, processed foods, candy, regular soda, and fruit drinks. These are very helpful to treat lowblood sugar (hypoglycemia). They give you sugar quickly. Try to keep at least 15 to 20 grams of these simple sugars with you at all times. Eat or drink these if you start to have symptoms of low blood sugar. Fiber Fiber comes from plant foods. Your body can't digest most fiber. Instead of raising blood sugar levels like other carbs, fiber stops blood sugar from rising too fast. Fiber is found in fruits, vegetables, whole grains, beans, peas, and many nuts. Carb counting Keep track of the amount of carbs you eat. This can help you keep the right balance of carbs, physical activity, and medicine. The amount of carbs you need will be different from what other people need. How much you need depends on many things. These include your health, the medicines you take, andhow active you are. Your healthcare team will help you figure out the right amount of carbs for you. You may start with 45 to 60 grams of carbs per meal, depending on your case. Carb counting is a system that helps you keep track of the carbohydrates you eat at each meal. Carbs come from many foods. These include grains, starchy vegetables, fruit, milk, beans, and snackfoods. You can either count carbohydrate grams or carbohydrate servings. When you count carbohydrate servings, 1 carbohydrate serving = 15 grams of carbohydrates. Here are some examples of foods that have about 15 grams of carbs (1 serving of carbohydrates): 1/2 cup of canned or frozen fruit A small piece of fresh fruit (4 ounces) 1 slice of bread 1/2 cup of oatmeal 1/3 cup of rice 4 to 6 crackers 1/2 Malagasy muffin 1/2 cup of black beans 1/4 of a large baked potato (3 ounces) 2/3 cup of plain fat-free yogurt 1 cup of soup 1/2 cup of casserole 6 chicken nuggets 9-bkpl-meipnd brownie or cake without frosting 2 small cookies 1/2 cup of ice cream or sherbet Carb counting is easier when food labels are available. Look at the label to see how many grams of total carbs per serving the food contains. Then you can figure out how much you should eat. If your food doesn't have a nutrition label, you should be able to get an idea how many carbs there are per serving by using a book or website. Two very important lines to look at on the label are the serving size and the total carbohydrate amount per serving. Here are some tips for using food labels to count your carbs: Check the serving size. The information on the label is based on that serving size. If you eat more than the listed serving size, you may have to double or triple the other information on the label. Check the total grams of carbs. Total carbohydrate from the label includes sugar, starch, and fiber. Be sure to use the total carbohydrate number (minus the fiber) and not sugar alone. Know how many grams of carbs you can have. Be familiar with the matching portion sizes. Compare labels. Compare the labels of different products. Look at serving sizes and total carbs to find the products that work best for you. Don't forget protein and fat. With the focus on carb counting, it might be easy to forget protein and fat in your meals. Don't forget to include sources of protein and healthy fat to balance your meals. Also watch how much salt (sodium) you eat. This is especially true if you have high blood pressure. If you have diabetes, limit the amount of sodium to less than 2,300 mg a day. It?s also important to be consistent with the amount of carbs and time you eat when taking a fixed dose of diabetes medicine. Work with your healthcare provider or dietitian if you need more help. They can help you keep track of your carbs. They can also help you figure out how many grams of carbs you should have. Last Reviewed Date: 07/07/202119999607-6239 [employer]. All rights reserved. This information is not intended as a substitute for professional medical care. Always follow your healthcare professional's instructions. * Pt Handout (on AVS) - Amy Rivas CRNP - 06/28/2023 9:31 AM EST Images from the original note were not included. 86238 What Is Gestational Diabetes? Diabetes is when your body doesn?t use blood sugar normally. Gestational diabetes happens only in . When food is digested, it turns into sugar (glucose) that goes into your bloodstream. Yourbody sends out insulin. This is a hormone that helps your cells use this blood sugar for energy. Changes in your body during may affect this process. This can cause your blood sugar to be too high. This can cause problems for both you and your baby. You can take steps to control your blood sugar. This will help reduce the risks for you and your baby. Managing gestational diabetes You need to control your blood sugar while you are . Your healthcare team will help you make a plan to do this. This plan will include: Eating the right foods. This is the main way to control your blood sugar. You need to eat a variety of healthy foods each day. To help you plan changes in your diet, you will likely work with a registered dietitian. This is an expert on food and nutrition. The dietitian may have you take part edith nutrition program to help you reach your goals. Getting exercise. Your body uses more blood sugar when you exercise. Your healthcare team can help you pick the best kinds of exercise for you. Checking your blood sugar. You will likely need to check your blood sugar at home. You will do this 2 or more times a day. Your healthcare team will teach you how. They will talk with you about your blood sugar goals. Your blood sugar may also be tested every week or so at a clinic. If your blood sugar stays too high, you may need to have insulin shots during your . Risks to your baby If your blood sugar stays high, your baby is at risk for these problems: Your baby may grow too large. If your blood sugar stays too high, your baby may grow too large. This is called macrosomia. This means a baby is too big for a safe vaginal . A large baby may get their shoulder stuck behind the pubic bone during . This is called shoulder dystocia. The baby's arms and shoulders could be injured. This may cause permanent arm damage. The baby may also have low oxygen levels (hypoxia) while they are stuck. Hypoxia can lead to cerebral palsy. In rare cases, it can lead to . Your baby?s organs may not be fully grown at . If you have diabetes, your baby may need to be delivered early. This may be because of problems with the . Or it may be because of risks to you or your baby. If your baby is delivered early, their lungs may not work well. This is called respiratory distress syndrome. Your baby's liver also may not work normally. And your baby may have yellow color in their skin and eyes (jaundice) after . Your baby?s blood sugar may be low after . If your blood sugar is too high, your baby makesextra insulin. The baby will keep making extra insulin right after . Your baby may need to be treated for low blood sugar. Your baby could be stillborn. This is very rare. But your baby could before if your blood sugar stays high for too long. Risks to you If you don?t control your blood sugar, you are more likely to have: High blood pressure. High blood sugar makes you more likely to have high blood pressure during your . This is a danger to your health. It could lead to early delivery for your baby. Infections. High blood sugar makes you more likely to have bladder, kidney, and vaginal infections. Trouble breathing. You may feel short of breath. High blood sugar can cause too much fluid around the baby. This is called polyhydramnios. Your abdomen gets big and pushes up on your lungs. Difficult labor. Your delivery may be harder. And your recovery may take longer. If your blood sugar stays too high, your baby may grow too large. A large baby might cause injury to you during . Or the baby may have to be delivered by section (). This means making a cut (incision) in your abdomen and uterus. A is a common risk of gestational diabetes. Reduce your future risk for type 2 diabetes Women who have gestational diabetes are at higher risk of type 2 diabetes later. You are also at higher risk for gestational diabetes in your next . You can help reduce your risk in these ways: Lose excess weight. Be as active as you can. Eat more fruits and vegetables. Eat fewer processed foods. Get regular blood tests to check for diabetes. Who is at risk for gestational diabetes? You're more at risk if you: Are overweight Have a family history of diabetes Have had a baby who before Had gestational diabetes in the past Are , , , [place] or [place] , or How daily issues affect your health Many things in your daily life impact your health. This can include transportation, money problems,housing, access to food, and childcare. If you can?t get to medical appointments, you may not receive the care you need. When money is tight, it may be difficult to pay for medicines. And living far from a grocery store can make it hard to buy healthy food. If you have concerns in any of these or other areas, talk with your healthcare team. They may know of local resources to assist you. Or they may have a staff person who can help. Last Reviewed Date: 03/07/202319992096-6613 [employer]. All rights reserved. This information is not intended as a substitute for professional medical care. Always follow your healthcare professional's instructions. * Pt Handout (on AVS) - Amy Rivas CRNP - 06/28/2023 9:31 AM EST 25175 Gestational Diabetes: Exercise Exercise can help you keep your blood sugar in a normal range. That?s because your body uses more blood sugar when you exercise. Diabetes in can often be managed with careful nutrition and exercise alone. Then you may not need medicine to control your blood sugar. Exercise regularly Your healthcare provider may want you to exercise each day. The best time depends on when your blood sugar is highest. Exercising may also help ease some common symptoms of . These include bloating, constipation, and backaches. Ask about exercise at your first care visit. Your provider will work with you to make an exercise plan that fits your needs. Here are some tips: Aim to exercise for 30 to 60 minutes a day. Do this at moderate intensity. This means you're moving enough to raise your heart rate and start sweating. But you can still talk normally. Try breaking up daily exercise into 2 or 3 sessions. For example, take a 15- minute walk after each meal. Exercise with a friend or your partner. This may help you stick to your exercise plan. Go at a comfortable pace. Don?t tire yourself out. Exercise safely Ask your provider about exercise safety for you and your baby. Walking, swimming, and low-impact orwater aerobics are often the safest things to do. Other safety tips include: Don't do activities where you jump, turn, twist, stop or start quickly. Don't lift heavy weights. Don't exercise on your back after the first trimester. This can put too much pressure on an important vein. It can limit blood flow to the baby. If you do yoga or Pilates, find a class designed for . Use a sports bra to support your breasts. You may also want to use a belly support belt later inpregnancy. Don't get overheated. Don't do hot yoga or hot Pilates. Don't raise your heart rate to a level that makes it hard to talk. Drink plenty of water. If you use insulin, carry a carbohydrate snack with you. If you walk or do low-impact aerobics, wear sturdy shoes. If you haven?t eaten in 2 or more hours, have a light snack before exercising. Don't do contact sports that put you at risk of being hit in the belly. These include boxing, ice hockey, soccer, and basketball. Don't go skydiving or scuba diving. Don't do things that may cause a serious fall. These include horseback riding, gymnastics, and off-road cycling. Use a stationary bike. It's a safer choice than a standard bike. It will stop you from getting off balance with your growing belly. When it's not safe to exercise It's not advised to exercise when if you have any of these health conditions: Some types of heart and lung diseases with twins or more, and at risk for labor labor of your water has broken (ruptured membranes) Placenta previa later than 26 weeks of Preeclampsia or high blood pressure due to Severe anemia Cervical insufficiency or cerclage When to call your healthcare provider Call your provider right away or go to the emergency room (ER) if you have any of these: Belly pain Shortness of breath before starting exercise Vaginal bleeding Dizziness or feeling faint Chest pain Headache Decreased movement contractions Muscle weakness Calf pain or swelling Fluid leaking from the vagina Last Reviewed Date: 09/07/202119998463-1276 [employer]. All rights reserved. This information is not intended as a substitute for professional medical care. Always follow your healthcare professional's instructions. * Pt Handout (on AVS) - Amy Rivas CRNP - 06/28/2023 9:31 AM EST Images from the original note were not included. 52348 Gestational Diabetes: After Your blood sugar will most likely return to normal after delivery. But gestational diabetes is a warning sign that you are at risk of getting diabetes later in life. You?re also more likely to have gestational diabetes with your next . But you can take steps to reduce these risks. Taking care of yourself Even if your blood sugar goes back to normal, you still need to take care of yourself. This will help prevent diabetes later in life. You'll need to: Keep your weight down. Eating food that is low in fat and sugar can help you control your weight. If you?re overweight, your risk of getting diabetes in 10 to 15 years more than doubles. Keeping your weight down also reduces your risk of gestational diabetes in your next . Get regular exercise. Exercise helps lower your blood sugar. It can also help you control your weight. Try to work up to at least 150 to 300 minutes of moderate exercise every week. This is at least 30 minutes each day. Have your blood sugar checked. Make an appointment to have your blood sugar checked 6 to 8 weeksafter delivery. If your blood sugar is still high, you may have type 2 diabetes. Your healthcare provider will tell you more about how to manage diabetes long-term. Have regular diabetes screenings. Have blood tests every year, or as often as your healthcare provider advises. Breastmilk is the best food for your baby. Giving only breastmilk is advised for at least your baby's first 6 months. may also help lower your blood sugar. Your healthcare provider can show you how to breastfeed. Be sure to eat healthy foods and drink extra water while you?re . You may find exercise easier right after . This is when your breasts may feel encyclopedia research worker. Planning a future Your blood sugar needs to be back to normal before you get again. Have your blood sugar checked before you plan your next . And remember that it?s possible to get again soon after you give . Talk with your healthcare provider about the best method of control for you and your partner. Last Reviewed Date: 09/07/202119991176-6155 [employer]. All rights reserved. This information is not intended as a substitute for professional medical care. Always follow your healthcare professional's instructions. * Assessment & Plan Note - Amy Rivas CRNP - 06/27/2023 12:41 PM ESTAssociated Problem(s): Short interval between pregnancies complicating , antepartum CONSIDERATIONS: Reviewed that a short Inter- Interval (IPI) may place the patient at an increased risk forpreterm , low weight, and SGA . IPI is defined as less than a year from the time ofdelivery of one to conception of the next . Some studies show that a short IPI may be associated with an increased risk for maternal , third trimester bleeding, premature rupture of membranes, puerperal endometritis, and anemia as well as placental abruption. * Assessment & Plan Note - Amy Rivas CRNP - 06/27/2023 12:39 PM ESTAssociated Problem(s): Obesity in , antepartum DISCUSSION: Discussed obstetrical risks associated with class I obesity (pre- BMI of 30 to 34.9). Reviewed that the accuracy of ultrasound at diagnosing anomalies is significantly decreased for women with an increased BMI. RECOMMENDATIONS: Recommend restricting weight gain during to 11-20 pounds. Consider referral for nutritionconsult. Recommend evaluation for signs and symptoms (snoring, excessive daytime sleepiness witnessed apnea or unexplained hypoxia) of obstructive sleep apnea. If any of these are present, referral to Sleep Medicine specialist for further evaluation should be considered. Recommend Maternal- Medicine ultrasound for anatomy at 20 weeks. * Assessment & Plan Note - Amy Rivas CRNP - 06/27/2023 12:39 PM ESTAssociated Problem(s): History of gestational diabetes mellitus (GDM) Reviewed with patient that women who have a history of GDM in a previous may have up to a75% risk for GDM in subsequent pregnancies. * Assessment & Plan Note - Amy Rivas CRNP - 06/27/2023 12:38 PM ESTAssociated Problem(s): Gestational diabetes mellitus (GDM) in second trimester CONSIDERATIONS: Reviewed etiology and risks associated with gestational diabetes mellitus (GDM), including risks topregnancy, fetus, and maternal progression to Type 2 [...] Recommend nutrition consult with RDN (Registered Dietitian Fashion Artist). Lifestyle changes are also indicated including optimizing gestational weight gain and physical activity of 30 minutes per day, if not otherwise contraindicated in . Insulin is preferred if medications are indicated to optimize euglycemia. Metformin (preferred overglyburide) may also be used in some circumstances. Reviewed the risks and benefits of each. Recommend hemoglobin A1c testing now if diagnosed with GDM prior to 24 weeks as there is potential for pre-existing diabetes. If result is 6.5% or greater, then will diagnose with overt Type 2 DM andtreat as pre-existing diabetes. If compliance later in [...] with 75-gram glucose load 6-8 weeks . 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[employer] OB Maternal Medicine [facility] Sharla Henderson [address] [place] [address] [address] [place] [address] Taiwo Montanez MD [address] [place] [id number] 06/30/2023 2:00 PM EST Imaging Maternal Medicine [facility] Sharla Henderson [address] [place] [address] Dr [address] [facility] [place] [address] 07/04/2023 1:15 PM EST Office Visit Gynecology/Obstetics [place] [address] [place] [phone] Angie Nuñez PA-C [address] [place] [address] 08/04/2023 9:30 AM EST Office Visit [employer] Sharla Henderson [address] [place] [address] Dr [address] [facility] [address] Aniya Carson, DO [address] [place] [address] 08/04/2023 9:30 AM EST Imaging [facility] Medicine [facility] Sharla Henderson [address] [place] [address] [address] [place] [id number] Scheduled Referrals Name Type Priority Associated Diagnoses Orde r Schedule REMOTE PATIENT MONITORING REFERRAL Referral Within 3 days (urgent) Diet controlled gestational diabetes mellitus (GDM) in second trimester Supervision of high risk in second trimester Ordered: 06/28/2023 Health Maintenance Due Date Last Done Comments [...] risk in second trimester- Primary Unspecified high-risk 14 weeks gestation of state, incidental Diet controlled gestational diabetes mellitus (GDM) in second trimester Short interval between pregnancies complicating , antepartum Supervision of other high-risk Obesity in , antepartum Obesity complicating , childbirth, or the puerperium, antepartum condition or complication History of gestational diabetes mellitus (GDM) documented in this encounter Advance Directives Latest [...] the patient have Health Care Power of Plumbing Engineer? No Code Status History Code Status Date Activated Date Inactivated Comments Full Code 01/05/2021 11:33 AM 01/05/2021 6:10 PM This o rder reflects the patients wishes and were consensually agreed upon. Care Teams Investigation Division Sergeant Relationship Specialty Start Date End Date Taryn Melgar PA-C [address] [place] [address] [place] [address] PCP - General Physician Digital Media Intern 09/20/18 documented as of this encounter
--- OUTSIDE RECORDS SUMMARY | 2023-12-18 08:05 | External Medical Summary | Summary of Care ---
Author Name Unknown Organization [facility] Address [address] [place] [address] Phone [phone] Care Team Providers Care Bag Making Machine Operator Name Role Phone Taryn Melgar PA-C Primary Care Provider Reason for Visit * Reason Comments Outpatient Testing Encounter Details Date Type Department Care Team (Late st Contact Info) Description 06/21/2023 10:30 AM [facility] Laboratory Laboratory Patient Service [address] [phone] [address] [employer] Other*[id number]; headache, antepartum Allergies Active Allergy Reactions Criticality Noted Date Comments Pollen Other (Please comment) Low 01/05/2021 documented as of this encounter (statuses as of 06/21/2023) Medications Medication Sig Dispensed Refills Start Date [...] as of this encounter (statuses as of 06/21/2023) Active Problems Problem Noted Date Diagnosed Date BMI 32.0-32.9,adult 05/27/2023 Constipation during , antepartum 2022 History of gestational diabetes 05/27/2023 Supervision of high-risk , first trimes ter 05/27/2023 Rubella non-immune status, antepartum 08/17/2022 Class 1 [...] as of this encounter (statuses as of 06/21/2023) Resolved Problems Problem Noted Date Diagnosed Date [...] dealing with it, otherwise can deliver in [place]. 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 Atrioventricular (AV) synchrony is noted . heart rate is 120-130 BPM. Frequent premature atrial contractions. PACs in [facility]. 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 On [...] and folate levels and referral to a skills trainer. 4. If hemoglobin levels are below 8 g/dl, we recommend Maternal Medicine ultrasound for growth every 4 weeks after 24 weeks. Consider a blood transfusion if hemoglobin levels fall below 6 g/dL. ([employer] Bulletin Number 95, February,). 5. Consider [...] weekly to [facility] via [employer]. Discussed that medication may be needed if [...] 08/22/22: Taking 15 units Levemir at HS. [place] woozy after 20 units. Was sick last [...] as of this encounter (statuses as of 06/21/2023) Immunizations Name Administration Dates Next Due Seasonal [...] money to get more. Never true 11/01/2022 [place] Depression Scale Answer Date Recorded [place] Depression Scale Total 2 03/13/2023 The thought [...] 07/04/2023 1:15 PM EST Office Visit Gynecology/Obstetics [place] [address] [place] [phone] Angie Nuñez PA-C [address] [place] [address] Pending Results Name Type Priority Associated Diagnoses Date /Time MYCODE SUBSEQUENT ADULT Lab Routine [employer] Other*[id number] 06/21/2023 9:44 AM EST CBC WITH WBC DIFFERENTIAL AND ANEMIA REFLEX WORKUP Lab Routine headache, antepartum 06/21/2023 9:44 AM EST COMPREHENSIVE METABOLIC PANEL Lab Routine headache, antepartum 06/21/2023 9:44 AM EST MYCODE SST1 Lab Routine [employer] Other*[id number] 06/21/2023 9:44 AM EST MYCODE SST2 Lab Routine [employer] Other*[id number] 06/21/2023 9:44 AM EST ANEMIA CBC Lab Routine headache, antepartum 06/21/2023 9:44 AM EST DIFFERENTIAL, AUTOMATED Lab Routine headache, antepartum 06/21/2023 9:44 AM EST ANEMIA REFLEX CHEMISTRY HOLD Lab Routine headache, antepartum 06/21/2023 9:44 AM EST Health Maintenance Due Date Last [...] as of this encounter Visit Diagnoses Diagnosis [employer] Other*[id number] headache, antepartum Other specified complication, antepartum documented in this encounter Advance Directives [...] the patient have Health Care Power of Tenant Selector? No Code Status History Code Status Date Activated Date Inactivated Comments Full Code 01/05/2021 11:33 AM 01/05/2021 6:10 PM This o rder reflects the patients wishes and were consensually agreed upon. Care Teams Bag Making Machine Operator Relationship Specialty Start Date End Date Taryn Melgar PA-C [address] [place], [place] [address] [id number] PCP - General Physician Mortgage Banker 09/20/18 documented as of this encounter
--- OUTSIDE RECORDS SUMMARY | 2023-12-18 08:05 | External Medical Summary | Summary of Care ---
Author Name Unknown Organization [facility] Address [address] [place] [address] Phone [phone] Care Team Providers Care Construction Administrative Assistant Name Role Phone Taryn MelgarC Primary Care Provider Reason for Referral * Evaluate & Treat - Unlimited Visits (Within 3 days (urgent)) - Pending Review Specialty Diagnoses / Procedures Referred By Tracey booth Referred To Contact Seed Laboratory Assistant Diagnoses Diet controlled gestational diabetes mellitus (GDM) in second trimester Supervision of high risk in second trimester Amy Rivas CRNP [address] [place] [address] Referral ID Status Reason Start Date Expiration Date Visits Requested Visits Authorized [id number] Pending Review Specialty Services Required 3 1 1 Question Answer Referral Priority Within 3 days (urgent) Where should this appointment be scheduled? [facility] Program Type Chronic Disease Management Chronic Disease [...] of control unspecified Angie Nuñez PA-C [address] [place] [address] Referral ID Status Reason Start Date Expiration Date Visits Requested Visits Authorized [id number] Pending Review Specialty Services Required [phone] Encounter Details Date Type Department Care Team (Late st Contact Info) Description 06/28/2023 9:00 AM EST Telemedicine Director General Obstetrics Maternal Medicine, [place] [facility] [address] [place] [address] Amy Rivas CRNP [address] [place] [address] Supervision of high risk in second trimester*; [...] Recommend nutrition consult with RDN (Registered Dietitian Optics Test Technician). Lifestyle changes are also indicated including optimizing [...] PACs 3. Normal biventricular function 4. Mild IA The above findings were shared with the [...] dealing with it, otherwise can deliver in [place]. Last Assessment & Plan: She was seen [...] and folate levels and referral to a instructor hairspring. 4. If hemoglobin levels are below 8 g/dl, we recommend Maternal Medicine ultrasound for growth every 4 weeks after 24 weeks. Consider a blood transfusion if hemoglobin levels fall below 6 g/dL. ([employer] Bulletin Number 95, February,). 5. [...] Will continue testing and report weekly to [facility] via [employer]. Discussed that medication may be needed if elevated blood sugars do not improve with diet alone. Patient agreeable to starting insulin if needed. Will review again next week. 07/25/22: [facility] ADAPT consult complete. 07/27/22: [...] 08/22/22: Taking 15 units Levemir at HS. [place] woozy after 20 units. Was sick last [...] MEDICINE referral made. Last Assessment & Plan: [facility] anatomy/growth ultrasound scheduled for [...] to get more. Never true 11/01/2022 [place] Depression Scale Answer Date Recorded [place] Depression Scale Total 2 03/13/2023 The thought [...] two unique identifiers. Patient (or authorized legal community engagement representative) was then informed that this was [...] DNA (patient aware of male gender) OB [place] Problems (from 05/09/23 to present) Problem Noted [...] 06/28/23: MFM ADAPT consult complete. Enrolled in [facility]. Instructions provided to report blood [...] performed by Hermilo Taylor MD at OR [facility] LAPAROSCOPY;RMV ADNEXAL STRUCT N/A 01/05/2021 LAPAROSCOPIC OOPHORECTOMY AND OR SALPINGECTOMY performed by Hermilo Taylor MD at OR [facility] Family History Problem Relation Age of [...] Problem List Items Addressed This Visit OB [place] Supervision of high risk in second trimester [...] Recommend nutrition consult with RDN (Registered Dietitian Optics Test Technician). Lifestyle changes are also indicated including optimizing [...] anatomy scan and on 08/04/[address] Carson for anatomy scan secondary to early diagnosis of gestational diabetes, history of gestational diabetes, class 1 obesity, and short interval . Patient is aware of upcoming MFM appointments. MIRTA Delacruz 06/28/2023 9:40 AM documented in this encounter Miscellaneous Notes * Pt Handout (on AVS) - Amy Rivas CRNP - 06/28/2023 9:31 AM EST Images from the original note were not included. 12446 Healthy Meals for Diabetes Ask your healthcare [...] of rice 4 to 6 crackers 1/2 Serbian muffin 1/2 cup of black beans 1/4 of a large baked potato (3 ounces) 2/3 cup of plain fat-free yogurt 1 cup of soup 1/2 cup of casserole 6 chicken nuggets 8-gnml-avzrff brownie or cake without frosting 2 small [...] yourself by bringing a healthy dish to Buy buy tea. Choose healthy snacks When it comes to [...] sugar could get toohigh. Last Reviewed Date: 07/07/202119990693-4720 [employer]. All rights reserved. This information is not intended as a substitute for professional medical care. Always follow your healthcare professional's instructions. * Pt Handout (on AVS) - Amy Rivas CRNP - 06/28/2023 9:31 AM EST Images from the original note were not included. 97637 If You Need Extra Insulin During During [...] Don?t rub your skin in the area. [place] and syringes should be used only 1 [...] call your healthcare provider. Last Reviewed Date: 07/07/202219991235-6288 [employer]. All rights reserved. This information is not intended as a substitute for professional medical care. Always follow your healthcare professional's instructions. * Pt Handout (on AVS) - Amy Rivas CRNP - 06/28/2023 9:31 AM EST Images from the original note were not included. 80019 Understanding Carbohydrates A car needs the right [...] of rice 4 to 6 crackers 1/2 Serbian muffin 1/2 cup of black beans 1/4 of a large baked potato (3 ounces) 2/3 cup of plain fat-free yogurt 1 cup of soup 1/2 cup of casserole 6 chicken nuggets 3-odxb-fkjvpr brownie or cake without frosting 2 small [...] carbs you should have. Last Reviewed Date: 07/07/202119998179-7702 [employer]. All rights reserved. This information is not intended as a substitute for professional medical care. Always follow your healthcare professional's instructions. * Pt Handout (on AVS) - Amy Rivas CRNP - 06/28/2023 9:31 AM EST Images from the original note were not included. 93999 What Is Gestational Diabetes? Diabetes is when [...] person who can help. Last Reviewed Date: 03/07/202319999485-6287 [employer]. All rights reserved. This information is not intended as a substitute for professional medical care. Always follow your healthcare professional's instructions. * Pt Handout (on AVS) - Amy Rivas CRNP - 06/28/2023 9:31 AM EST 07835 Gestational Diabetes: Exercise Exercise can help you [...] leaking from the vagina Last Reviewed Date: 09/07/202119991760-3341 [employer]. All rights reserved. This information is not intended as a substitute for professional medical care. Always follow your healthcare professional's instructions. * Pt Handout (on AVS) - Amy Rivas CRNP - 06/28/2023 9:31 AM EST Images from the original note were not included. 71793 Gestational Diabetes: After Your blood sugar will [...] This is when your breasts may feel product planner. Planning a future Your blood sugar needs to be back to normal before you get again. Have your blood sugar checked before you plan your next . And remember that it?s possible to get again soon after you give . Talk with your healthcare provider about the best method of control for you and your partner. Last Reviewed Date: 09/07/202119999334-0496 [employer]. All rights reserved. This information is not [...] Recommend nutrition consult with RDN (Registered Dietitian Optics Test Technician). Lifestyle changes are also indicated including optimizing [...] Description 06/30/2023 2:00 PM EST Office Visit Director General OB Maternal Medicine [facility] Sharla Henderson [address] [place] [address] Dr [address] [place] [address] Taiwo Montanez MD [address] [place] [address] 06/30/2023 2:00 PM EST Imaging Maternal Medicine [facility] Sharla Henderson [address] [place] [address] Dr [address] [place] [address] 07/04/2023 1:15 PM EST Office Visit Gynecology/Obstetics [place] [address] [place] [phone] Angie Nuñez PA-C [address] [place] [address] 08/04/2023 9:30 AM EST Office Visit Director General OB [facility]aternal Medicine [facility] Sharla Henderson [address] [place] [address] [address] [facility] [address] Aniya Carson, DO [address] [place] [address] 08/04/2023 9:30 AM EST Imaging Maternal Medicine [facility] Sharla Henderson [address] [place] [address] [address] [facility] [address] Scheduled Referrals Name Type Priority Associated Diagnoses [...] patient have Health Care Power of Career Services Representative? No Code Status History Code Status Date Activated Date Inactivated Comments Full Code 01/05/2021 11:33 AM 01/05/2021 6:10 PM This o rder reflects the patients wishes and were consensually agreed upon. Care Teams Construction Administrative Assistant Relationship Specialty Start Date End Date Taryn Melgar PA-C [address] [place] [address] [place] [address] PCP - General Physician Healthcare Liaison 09/20/18 documented as of this encounter
--- OUTSIDE RECORDS SUMMARY | 2023-12-18 08:05 | External Medical Summary | Summary of Care ---
Author Name Unknown Organization [facility] Address [address] [place] [address] Phone [phone] Care Team Providers Care Hiv Counselor Name Role Phone Taryn MelgarC Primary Care Provider Reason for Referral * Evaluate & Treat - Unlimited Visits (Within 3 days (urgent)) - Pending Review Specialty Diagnoses / Procedures Referred By Tracey booth Referred To Contact Pulmonary Nurse Practitioner Diagnoses Diet controlled gestational diabetes mellitus (GDM) in second trimester Supervision of high risk in second trimester Amy Rivas CRNP [address] [place] [address] Referral ID Status Reason Start Date Expiration Date Visits Requested Visits Authorized [id number] Pending Review Specialty Services Required 3 1 1 Question Answer Referral Priority Within 3 days (urgent) Where should this appointment be scheduled? [facility] Program Type Chronic Disease Management Chronic Disease [...] of control unspecified Angie Nuñez PA-C [address] [place] [address] Referral ID Status Reason Start Date Expiration Date Visits Requested Visits Authorized [id number] Pending Review Specialty Services Required [phone] Encounter Details Date Type Department Care Team (Late st Contact Info) Description 06/28/2023 9:00 AM EST Telemedicine [facility] Obstetrics Maternal Medicine, [place] [address] [facility] [address] [place] [address] Amy Rivas CRNP [address] [place] [address] Supervision of high risk in second trimester*; [...] Recommend nutrition consult with RDN (Registered Dietitian Class A Lineman). Lifestyle changes are also indicated including optimizing [...] dealing with it, otherwise can deliver in [place]. Last Assessment & Plan: She was seen [...] and folate levels and referral to a tape fastener machine operator. 4. If hemoglobin levels are below 8 g/dl, we recommend Maternal Medicine ultrasound for growth every 4 weeks after 24 weeks. Consider a blood transfusion if hemoglobin levels fall below 6 g/dL. ([employer] Practice Bulletin Number 95, February,). 5. [...] Will continue testing and report weekly to [facility] via [employer]. Discussed that medication may be needed if elevated blood sugars do not improve with diet alone. Patient agreeable to starting insulin if needed. Will review again next week. 07/25/22: [facility] ADAPT consult complete. 07/27/22: elevated fasting; [...] 08/22/22: Taking 15 units Levemir at HS. [place] woozy after 20 units. Was sick last [...] MEDICINE referral made. Last Assessment & Plan: [facility] anatomy/growth ultrasound scheduled for 08/03/22. Patient reports [...] Date Recorded [place] Depression Scale Total 2 03/13/2023 The thought [...] two unique identifiers. Patient (or authorized legal insurance claims representative) was then informed that this was [...] DNA (patient aware of male gender) OB [place] Problems (from 05/09/23 to present) Problem Noted [...] 06/28/23: MFM ADAPT consult complete. Enrolled in [facility]. Instructions provided to report blood sugars each [...] performed by Hermilo Taylor MD at OR [facility] LAPAROSCOPY;RMV ADNEXAL STRUCT N/A 01/05/2021 LAPAROSCOPIC OOPHORECTOMY AND OR SALPINGECTOMY performed by Hermilo Taylor MD at OR [facility] Family History Problem Relation Age of [...] Problem List Items Addressed This Visit OB [place] Supervision of high risk in second trimester [...] Recommend nutrition consult with RDN (Registered Dietitian Class A Lineman). Lifestyle changes are also indicated including optimizing [...] from the original note were not included. 80446 Healthy Meals for Diabetes Ask your healthcare [...] of rice 4 to 6 crackers 1/2 Martiniquais muffin 1/2 cup of black beans 1/4 of a large baked potato (3 ounces) 2/3 cup of plain fat-free yogurt 1 cup of soup 1/2 cup of casserole 6 chicken nuggets 5-bodd-tcxijx brownie or cake without frosting 2 small [...] yourself by bringing a healthy dish to [employer]. Choose healthy snacks When it comes to [...] sugar could get toohigh. Last Reviewed Date: 07/07/202119999450-5916 [employer]. All rights reserved. This information is not intended as a substitute for professional medical care. Always follow your healthcare professional's instructions. * Pt Handout (on AVS) - Amy Rivas CRNP - 06/28/2023 9:31 AM EST Images from the original note were not included. 29029 If You Need Extra Insulin During During [...] Don?t rub your skin in the area. [place] and syringes should be used only 1 [...] call your healthcare provider. Last Reviewed Date: 07/07/202219991544-2821 [employer]. All rights reserved. This information is not intended as a substitute for professional medical care. Always follow your healthcare professional's instructions. * Pt Handout (on AVS) - Amy Rivas CRNP - 06/28/2023 9:31 AM EST Images from the original note were not included. 77680 Understanding Carbohydrates A car needs the right [...] of rice 4 to 6 crackers 1/2 Martiniquais muffin 1/2 cup of black beans 1/4 of a large baked potato (3 ounces) 2/3 cup of plain fat-free yogurt 1 cup of soup 1/2 cup of casserole 6 chicken nuggets 0-msgw-agesub brownie or cake without frosting 2 small [...] carbs you should have. Last Reviewed Date: 07/07/202119993157-9915 [employer]. All rights reserved. This information is not intended as a substitute for professional medical care. Always follow your healthcare professional's instructions. * Pt Handout (on AVS) - Amy Rivas CRNP - 06/28/2023 9:31 AM EST Images from the original note were not included. 08822 What Is Gestational Diabetes? Diabetes is when [...] person who can help. Last Reviewed Date: 03/07/202319994508-3093 [employer]. All rights reserved. This information is not intended as a substitute for professional medical care. Always follow your healthcare professional's instructions. * Pt Handout (on AVS) - Amy Rivas CRNP - 06/28/2023 9:31 AM EST 88461 Gestational Diabetes: Exercise Exercise can help you [...] leaking from the vagina Last Reviewed Date: 09/07/202119996393-0707 [employer]. All rights reserved. This information is not intended as a substitute for professional medical care. Always follow your healthcare professional's instructions. * Pt Handout (on AVS) - Amy Rivas CRNP - 06/28/2023 9:31 AM EST Images from the original note were not included. 55739 Gestational Diabetes: After Your blood sugar will [...] This is when your breasts may feel spike driver. Planning a future Your blood sugar needs to be back to normal before you get again. Have your blood sugar checked before you plan your next . And remember that it?s possible to get again soon after you give . Talk with your healthcare provider about the best method of control for you and your partner. Last Reviewed Date: 09/07/202119994029-8778 [employer]. All rights reserved. This information is not [...] Recommend nutrition consult with RDN (Registered Dietitian Class A Lineman). Lifestyle changes are also indicated including optimizing [...] Description 06/30/2023 2:00 PM EST Office Visit [facility] OB Maternal Medicine [facility] Sharla Henderson [address] [place] [address] [address] [place] [address] Taiwo Montanez MD [address] [place] [address] 06/30/2023 2:00 PM EST Imaging Maternal Medicine [facility] Sharla Henderson [address] [place] [address] [address] [place] [address] 07/04/2023 1:15 PM EST Office Visit Gynecology/Obstetics [place] [address] [place] [phone] Angie Nuñez PA-C [address] [place] [address] 08/04/2023 9:30 AM EST Office Visit [facility] Sharla Henderson [address] [place] [address] [address] [facility] [address] Aniya Carson, DO [address] [place] [address] 08/04/2023 9:30 AM EST Imaging Maternal Medicine [facility] Sharla Henderson [address] [place] [address] [address] [facility] [address] Scheduled Referrals Name Type Priority Associated Diagnoses [...] the patient have Health Care Power of Locomotive Mechanic Apprentice? No Code Status History Code Status Date Activated Date Inactivated Comments Full Code 01/05/2021 11:33 AM 01/05/2021 6:10 PM This o rder reflects the patients wishes and were consensually agreed upon. Care Teams Hiv Counselor Relationship Specialty Start Date End Date Taryn Melgar PA-C [address] [place] [address] [place] [address] PCP - General Physician Lead Cytogenetic Technologist 09/20/18 documented as of this encounter
--- OUTSIDE RECORDS SUMMARY | 2023-12-18 08:05 | External Medical Summary | Summary of Care ---
Author Name Unknown Organization [facility] Address [address] [place] [address] Phone [phone] Care Team Providers Care Surgical Asst Name Role Phone Taryn Melgar PA-C Primary Care Provider Reason for Visit * Reason Comments Return Visit Encounter Details Date Type Department Care Team (Late st Contact Info) Description 06/21/2023 8:45 AM EST Office Visit Gynecology/Obstetics [address] [phone] Angie Nuñez PA-C [address] [place] [address] Supervision of high-risk , first trimester*; Rh negative, antepartum; headache, antepartum; Right flank pain; Abnormal glucose tolerance in mother complicating Allergies Active Allergy Reactions Criticality Noted Date Comments Pollen Other (Please comment) Low 01/05/2021 documented as of this encounter (statuses as of 06/24/2023) Medications Medication Sig Dispensed Refills Start Date [...] as of this encounter (statuses as of 06/24/2023) Active Problems Problem Noted Date Diagnosed Date Abnormal glucose tolerance in mother complicatin g 06/24/2023 BMI 32.0-32.9,adult 05/27/2023 Constipation during , antepartum 2022 History of gestational diabetes 05/27/2023 Supervision of high-risk , first yonatan flores 05/27/2023 Overview: Estimated Date of Delivery: 12/23/23 [...] as of this encounter (statuses as of 06/24/2023) Resolved Problems Problem Noted Date Diagnosed Date [...] dealing with it, otherwise can deliver in [place]. Last Assessment & Plan: She was seen [...] and folate levels and referral to a integrated circuit layout designer. 4. If hemoglobin levels are below 8 g/dl, we recommend Maternal Medicine ultrasound for growth every 4 weeks after 24 weeks. Consider a blood transfusion if hemoglobin levels fall below 6 g/dL. ([employer] Practice Bulletin Number 95, February,). 5. [...] continue testing and report weekly to [facility] via [employer]. Discussed that medication may be needed if elevated blood sugars do not improve with diet alone. Patient agreeable to starting insulin if needed. Will review again next week. 07/25/22: [facility] ADAPT consult complete. 07/27/22: elevated fasting; [...] 08/22/22: Taking 15 units Levemir at HS. [place] woozy after 20 units. Was sick last [...] referral made. Last Assessment & Plan: [facility] anatomy/growth ultrasound scheduled for 08/03/22. Patient [...] as of this encounter (statuses as of 06/24/2023) Immunizations Name Administration Dates Next Due Seasonal [...] money to get more. Never true 11/01/2022 [place] Depression Scale Answer Date Recorded [place] Depression Scale Total 2 03/13/2023 The thought [...] Sign Reading Time Taken Comments Blood Pressure 116/68 06/21/2023 8:55 AM EST Pulse - - Temperature - - Respiratory Rate - - Oxygen Saturation - - Inhaled Oxygen Concentration - - Weight 81.2 kg (179 lb 1.6 oz) 06/21/2023 8:55 A M EST Height - - Body Mass Index 32.76 09/08/2022 10:04 AM EST documented in this [...] Progress Notes * Angie Nuñez PA-C - 06/21/2023 9:08 AM EST Lacy Mckinney presents for visit at 13w4d. BP 116/68 | Wt 81.2 kg (179 lb 1.6 oz) | LMP 03/18/2023 (Exact Date) | BMI 32.76 kg/m | BSA 1.88 m Doing well. Denies vaginal bleeding, leaking of fluid, vaginal pressure, or abdominal pain. Does not yet feel movements. Patient reports that she has right flank pain that comes and goes. Patient reports a more firm section of right flank area. Patient reports that she has symptoms for a few minutes and then resolve. Patient has been having intermittent headaches that resolve with Tylenol. Patient has some food aversions, but managing. Physical Exam General: alert and oriented, no acute distress Pulmonary: normal respiratory effort, no accessory muscle use. Abdomen: gravid, soft, non-tender heart rate: 150's bpm OB [place] Problems (from 05/09/23 to present) Problem Noted Resolved Abnormal glucose tolerance in mother complicating 06/24/2023 by Angie Nuñez PA-C No Supervision of high-risk , first trimester 05/27/2023 by Angie Nuñez PA-C No Estimated Date of Delivery: 12/23/23 Continue vitamin. O negative - needs Rhogam injection at 28 weeks and if she has vaginal bleeding in prengancy. Varicella and rubella immune. Qnatal testing low risk. MSAFP testing at 15 weeks to 22 weeks, 6 days. Rh negative, antepartum 05/12/2022 by Angie Nuñez PA-C No Rhogam given on 07/04/2022 at 28 weeks, 1 day. Plan: -Patient has been testing blood sugars and getting some elevations in blood sugars in the 140's after meals. Suspect patient may have early onset gestation diabetes. Hemoglobin A1C ordered. Advised patient to continue to take her blood sugars and report them to me weekly. -Headache: Pre-eclampsia lab work ordered. Suspect could be due to blood sugars versus hydration versus unknown. -Right flank pain: Urine culture ordered. Suspect muscular in nature based on exam. Advised patientto contact the office if symptoms worsen or do not resolve. - heart rate normal. Advised patient to call triage/go to the ER if she has vaginal bleeding, lower abdominal pain, or any other unusual symptoms. Patient verbalized understanding. Return to the office for previously scheduled return appointment or sooner if any concerns. Angie Estrada PA-C documented in this encounter Nursing Notes * Ivon Rankin RN - 06/21/2023 8:59 AM EST Patient presents for return visit. documented in this encounter Plan of Treatment Upcoming Encounters Date Type Department Care Team (Late st Contact Info) Description 07/04/2023 1:15 PM EST Office Visit Gynecology/Obstetics [place] [address] [place] [phone] Angie Nuñez PA-C [address] [facility] [place] [address] Health Maintenance Due Date Last Done Comments [...] Procedure Name Priority Date/Time Associated Diagnosis Comments HEMOGLOBIN A1C Routine 06/21/2023 9:44 AM EST Abnormal glucose tolerance in mother complicating CULTURE, URINE, QUANTITATIVE Routine 06/21/2023 9:43 AM EST Right flank pain PROTEIN/ CREATININE RATIO, URINE Routine 06/21/2023 9:43 AM EST headache, antepartum documented in this encounter Results * HEMOGLOBIN A1C (06/21/2023 9:44 AM EST) Hemoglobin A1C 5.2 4.0 - 5.6 % 06/21/2023 8:23 PM EST [facility] Comment:The use of HbA1c to monitor glycemic status is based on normal hemoglobin and HbA composition. This test should not be used in patients with abnormal hemoglobin that affects the half life of the red blood cell or the in vivo glycation rates. Estimated Average Glucose 103 <126 mg/dL 06/21/2023 8:23 PM EST [facility] Blood Venous blood specimen / Unknown Venipuncture / Unknown 06/21/2023 9:44 AM EST 06/21/2023 9:44 AM EST Angie Darling PA-C LAB BLOOD ORDERABLES [facility] [address] [place] [address] * (ABNORMAL) COMPREHENSIVE METABOLIC PANEL (06/21/2023 9:44 AM EST) BUN 6 6 - 20 mg/dL 06/21/2023 9:59 PM EST [facility] Creatinine 0.5 0.5 - 1.0 mg/dL 06/21/2023 9:59 PM EST [facility] Estimated Glomerular Filtration Rate >90 >=60 mL/min 06/21/2023 9:59 PM EST [facility] Comment:eGFR is calculated b ased on the CKD-EPI 2020 equation Sodium 135 135 - 146 mmol/L 06/21/2023 9:59 PM EST [facility] Potassium 4.1 3.5 - 5.1 mmol/L 06/21/2023 9:59 PM EST [facility] Chloride 103 98 - 107 mmol/L 06/21/2023 9:59 PM EST [facility] CO2 21(L) 22 - 32 mmol/L 06/21/2023 9:59 PM EST [facility] Anion Gap 11 7 - 15 mmol/L 06/21/2023 9:59 PM EST [facility] Glucose 92 70 - 120 mg/dL 06/21/2023 9:59 PM EST [facility] Albumin 4.2 3.8 - 5.0 g/dL 06/21/2023 9:59 PM EST [facility] AST 13 10 - 35 U/L 06/21/2023 9:59 PM EST [facility] Alkaline Phosphatase 50 35 - 130 U/L 06/21/2023 9:59 PM EST [facility] Bilirubin, Total 0.3 <=1.2 mg/dL 06/21/2023 9:59 PM EST [facility] Calcium 9.2 8.4 - 10.2 mg/dL 06/21/2023 9:59 PM EST [facility] Protein 6.4 6.0 - 8.3 g/dL 06/21/2023 9:59 PM EST [facility] ALT 11 10 - 35 U/L 06/21/2023 9:59 PM EST [facility] Blood Venous blood specimen / Unknown Venipuncture / Unknown 06/21/2023 9:44 AM EST 06/21/2023 9:44 AM EST Angie Darling PA-C LAB BLOOD ORDERABLES [facility] [address] [place] [address] * CULTURE, URINE, QUANTITATIVE (06/21/2023 9:43 AM EST) Culture Growth No significant growth 06/22/2023 6:03 PM EST [facility] Urine Urine specimen / Unknown Non-blood Collection / Unknown 06/21/2023 9:43 AM EST 06/21/2023 9:43 AM EST Angie Darling PA-C LAB MICRO - GENERAL ORDERABLES [facility] [address] [place] [address] * PROTEIN/ CREATININE RATIO, URINE (06/21/2023 9:43 AM EST) Protein/ Creatinine Ratio, Urine 65 <150 mg/g 06/21/2023 10:19 PM EST [facility] Protein, Random Urine 8 mg/dL 06/21/2023 10:19 PM EST [facility] Creatinine, Random Urine 124 mg/dL 06/21/2023 10:19 PM EST [facility] Urine Urine specimen / Unknown Non-blood Collection / Unknown 06/21/2023 9:43 AM EST 06/21/2023 9:43 AM EST Narrative [facility] - 06/21/2023 10:19 PM EST Normal: <150 mg/g creatinine High: 150-500 mg/g creatinine Very High: >500 mg/g creatinine Nephrotic: >3000 mg/g creatinine Angie Darling PA-C LAB URINE ORDERABLES LAB[facility] [address] [place] [address] documented in this encounter Visit Diagnoses Diagnosis Supervision of high-risk , first trimester- Primary Rh negative, antepartum Rhesus isoimmunization affecting management of mother, antepartum condition headache, antepartum Other specified complication, antepartum Right flank pain Abdominal pain, unspecified site Abnormal glucose tolerance in mother complicating Abnormal maternal glucose tolerance, complicating , childbirth, or the puerperium, unspecified as to episode of care documented in this encounter Advance Directives Latest [...] the patient have Health Care Power of Feather Sawyer? No Code Status History Code Status Date Activated Date Inactivated Comments Full Code 01/05/2021 11:33 AM 01/05/2021 6:10 PM This o rder reflects the patients wishes and were consensually agreed upon. Care Teams Surgical Asst Relationship Specialty Start Date End Date Taryn Melgar PA-C [address] [place] [id number] PCP - General Physician Model Maker [employer] 09/20/18 documented as of this encounter
[2023-12-18] MEDS ORDERED: LIDOCAINE 1% LOCAL 20 ML VIAL INFIL PRN (10:18)
--- NOTE | 2023-12-18 10:26 | History & Physical Report ---
Date of Service December 18, 2023 Assessment & Plan (1) Gestational diabetes requiring insulin: Plan: induction of labor Admission and Anticipated Discharge Date Admission Date: December 18, 2023 History of Present Illness Chief Complaint: induction of labor Primary Care Provider: MICHELLE PCP 28 F [id number] at 39.2 weeks admitted for IOL for GDM on insulin. GBS is negative. Allergies Allergy/AdvReac Type Severity Reaction Status Date / Time No Known Allergies Allergy Verified 12/18/23 08:10 Home Medications Medication Instructions Recorded Confirmed Type docusate sodium 100 mg capsule 100 mg PO BID 09/10/22 12/18/23 History (Colace) ferrous sulfate 325 mg (65 mg 325 mg PO DAILY 09/10/22 12/18/23 History iron) tablet vit no.95-ferrous 1 tab PO DAILY 09/10/22 12/18/23 History fumarate 28 mg-folic acid 800 mcg tablet () insulin glargine 100 unit/mL 15 unit subcut PM 12/18/23 12/18/23 History subcutaneous cartridge Patient History Medical History (Updated 12/18/23 @ 10:24 by Greg Lamas MD) Adverse effect of anesthesia nausea, vertigo and passing out Kidney stone right kidney 4mm Gestational diabetes requiring insulin required insulin Cyst of right ovary History of abnormal cervical Pap smear Constipation Anemia Surgical History H/O ovarian cystectomy Social History Smoking Status: Never smoker Hx Alcohol Use: No Hx Substance Use: No Preferred Language: Macedonian Communication Ability: Effective School Photographer Required: No Beliefs That Will Affect Care: None marital status: marital status details: Jacky Mckinney Current Living Situation: Spouse Current Living Situation Comment: lives with and children current occupational status: employed current occupation: [employer] Care Feels Safe at Home: Yes Safety Concerns: Feels Safe At This Time Assistive Devices: Contacts 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 ovarian cyst removed with Laparoscopy Review of Systems All systems reviewed & are unremarkable except as noted in HPI & below Physical Exam Constitutional: WD/WN, vitals as above Eyes: PERRL, conjunctivae normal, anicteric sclerae Respiratory: normal respiratory effort, lungs clear to auscultation Cardiovascular: RRR, no murmur, no edema Gastrointestinal (Abdomen): Inspection/Auscultation: abdomen normal to inspection Musculoskeletal: Extremities: extremities normal to inspection Skin: no rashes, warm and dry Neurologic: patellar DTR's 2+ bilat, sensation intact Psychiatric: A+Ox3, euthymic affect Genitourinary: no vaginal lesions, no adnexal mass OB Exam Abdomen: + fundal height and + vertex Manual OB Exam: + cervical dilation 1 cm, + cervical effacement 50% and + station high OB Exam Monitor Tracing: + exter nal FHT monitor used, + external uterine monitor used, + category I and + normal FHT variability cervix long/posterior/firm EFW 7.5 lbs. Results & Data Vital Signs (Past 12 Hours) Vital Signs Temp Pulse Resp BP 12/18/23 08:03 36.8 C 18 12/18/23 08:02 96 H 112/71 Laboratory Results Laboratory Results - last 24 hr 12/18/23 08:44 Blood Type Pending Antibody Screen Pending Code Status & VTE Plan VTE Prophylaxis Plan VTE Prophylaxis will be ordered: No
[2023-12-18 10:30] LABS: Hematocrit (blood only) 35.7 % (37.0-47.0); Hemoglobin 11.8 g/dl (12.0-16.0); Mean Corpuscular Hgb Conc 33.1 g/dL (32.0-36.0); Mean Corpuscular Volume 84.6 fL (80.0-100.0); Mean Platelet Volume 12.6 fL (9.4-12.4); Platelet Count 183 K/uL (130-400); RDW Coefficient of Variation 15.3 % (11.5-14.5); RDW Standard Deviation 46.2 fL (36.4-46.3); Red Blood Count 4.22 M/uL (4.20-5.40); White Blood Count 10.02 K/ul (4.8-10.8)
[2023-12-18] MEDS: DINOPROSTONE 10 MG INSERT PV ONE (10:51)
--- NOTE | 2023-12-18 10:57 | Labor Progress Brief Note ---
Date of Service December 18, 2023 Assessment & Plan Admission and Anticipated Discharge Date Admission Date: December 18, 2023 Physical Exam Genitourinary: OB Exam Monitor Tracing: + external FHT monitor used, + external uterine monitor used, + category I and + normal FHT variability Cervidil 10 mg placed vaginally Results & Data Vital Signs (Past 12 Hours) Vital Signs Temp Pulse Resp BP 12/18/23 10:55 75 128/77 12/18/23 08:03 36.8 C 18 12/18/23 08:02 96 H 112/71
[2023-12-18] MEDS: LACTATED RINGER'S 1,000 ML IV PRN (23:12)
[2023-12-18] MEDS ORDERED: fentANYL 2 MCG/ML BUPIVacaine 0.125%-NSS 100ML BAG EPI PRN (23:24)
[2023-12-18] MEDS ORDERED: BUPIVACAINE 0.25% PF 30 ML VIAL EPI PRN (23:24)
[2023-12-18] MEDS ORDERED: LIDOCAINE 2% MPF LOCAL 5 ML VIAL EPI PRN (23:24)
[2023-12-18] MEDS ORDERED: NALBUPHINE HCL 5 MG in SYRINGE 0 ML IV PRN (23:24)
[2023-12-18] MEDS ORDERED: diphenhydrAMINE 50 MG/ML VIAL IV PRN (23:24)
[2023-12-18] MEDS ORDERED: fentaNYL citrate PF 100 MCG/2 ML VIAL EPI PRN (23:24)
[2023-12-18] MEDS ORDERED: SODIUM CHLORIDE 0.9% PF INJ 10 ML VIAL EPI PRN (23:24)
[2023-12-18] MEDS ORDERED: ePHEDrine sulfate 50 MG/ML AMP IV PRN (23:24)
[2023-12-18] MEDS ORDERED: NALOXONE HCL 1 MG in SODIUM CHLORIDE 0.9% 1,000 ML IV PRN (23:24)
[2023-12-18] MEDS ORDERED: ROPIVACAINE 0.5% PF 5 MG/ML 20 ML VIAL EPI PRN (23:24)
[2023-12-18] MEDS ORDERED: NALOXONE HCL 0.4 MG/1 ML VIAL/CARP IV PRN (23:24)
--- NOTE | 2023-12-18 23:27 | Anesthesiology Consultation ---
Date of Service December 18, 2023 Assessment & Plan Chart Review Chart Review: Patient NOT seen in Pre Admission Testing and Acceptable Risk for Labor Epidural Consults Requested none ASA ASA2 Proposed Anesthesia Anesthesia Type: Labor Epidural Risk / Benefits Reviewed With: PT / POA / Parent / Guardian, Accepts Plan and Informed Consent Obtained History Height/Weight Height: 5 ft 2 in Weight: 88.451 kg Allergies Allergy/AdvReac Type Severity Reaction Status Date / Time No Known Allergies Allergy Verified 12/18/23 08:10 Medications Home Medications Medication Instructions Recorded Confirmed Last Taken docusate sodium 100 mg capsule 100 mg PO BID 09/10/22 12/18/23 12/06/23 (Colace) ferrous sulfate 325 mg (65 mg 325 mg PO DAILY 09/10/22 12/18/23 12/17/23 iron) tablet vit no.95-ferrous 1 tab PO DAILY 09/10/22 12/18/23 12/17/23 fumarate 28 mg-folic acid 800 mcg tablet () insulin glargine 100 unit/mL 15 unit subcut PM 12/18/23 12/18/23 12/17/23 subcutaneous cartridge Active Medications Generic Name Dose Route Start Last Admin Trade Name Freq PRN Reason Stop Dose Admin Lactated Ringer's 1,000 mls @ 125 mls/hr 12/18/23 10:18 12/18/23 23:12 Lr IV 12/20/23 10:17 999 mls/hr .Q8H PRN Administration L&D Protocol Protocol NPO Date Last Intake of Fluids: 12/18/23 Time Last Intake of Fluids: 23:00 Date Last Intake of Solids: 12/18/23 Time Last Intake of Solids: 17:00 Past Medical History Medical History Adverse effect of anesthesia nausea, vertigo and passing out Kidney stone right kidney 4mm Gestational diabetes requiring insulin required insulin Cyst of right ovary History of abnormal cervical Pap smear Constipation Anemia Exercise / Class Metabolic Activity II 4-5 Yardwork/Stairs/Walk up hill Past Surgical History Surgical History H/O ovarian cystectomy Past Anesthesia History No Hx of Anesthesia Complications and No Family Hx of Anesthesia Complications History of PONV No Hx of PONV and No Hx of Motion Sickness Social History Smoking Status: Never smoker Hx Alcohol Use: No Hx Substance Use: No substance use type: does not use Review of Systems ROS Unobtainable: All systems reviewed & are unremarkable except as noted in HPI & below Physical Exam Vital Signs Last Vital Signs Temp 36.8 C 12/18/23 19:05 Pulse 81 12/18/23 22:58 Resp 18 12/18/23 19:05 BP 114/62 12/18/23 22:58 ENMT Mouth: no TMJ abnormality Thyromental Distance: > or= 3.5 Finger Breadths Mallampati Class: II Neck normal visual inspection and trachea midline; neck extension not limited Respiratory normal respiratory effort Auscultation: lungs clear to auscultation bilaterally Cardiovascular Rate/Rhythm: regular rate and regular rhythm Heart Sounds: no murmur Musculoskeletal Spine: normal cervical ROM Extremities: full ROM of extremities Neurologic moves all extremities Psychiatric Orientation: alert and oriented x 3 Testing Laboratory Results 12/18/23 08:44 Blood Type O Negative 12/18/23 08:44 Antibody Screen NEGATIVE 12/18/23 08:44 12/18/23 12/18/23 19:03 15:04 POC Glucose 113 H 113 H
[2023-12-18] MEDS: fentaNYL citrate PF 100 MCG/2 ML VIAL ONE (23:44)
[2023-12-18] MEDS: fentANYL 2 MCG/ML BUPIVacaine 0.125%-NSS 100ML BAG ONE (23:44)
[2023-12-18] MEDS: BUPIVACAINE 0.25% PF 30 ML VIAL ONE (23:45)
[2023-12-18] MEDS: LIDOCAINE 2%/EPINEPHRINE 1:200,000 20 ML PF ONE (23:45)
[2023-12-18] MEDS: BUPIVACAINE 0.25% PF 30 ML VIAL EPI STA (23:54)
[2023-12-18] MEDS: SODIUM CHLORIDE 0.9% PF INJ 10 ML VIAL EPI STA (23:54)
[2023-12-18] MEDS: LIDOCAINE 2%/EPINEPHRINE 1:200,000 20 ML PF EPI STA (23:54)
[2023-12-18] MEDS: fentaNYL citrate PF 100 MCG/2 ML VIAL EPI STA (23:54)
[2023-12-18] MEDS: SODIUM CHLORIDE 0.9% PF INJ 10 ML VIAL ONE (23:54)
[2023-12-19] MEDS: LANTUS PER UNIT CHARGE SQ STA (00:32)
--- NOTE | 2023-12-19 01:58 | Labor Progress Brief Note ---
Date of Service December 19, 2023 Assessment & Plan Admission and Anticipated Discharge Date Admission Date: December 18, 2023 Physical Exam Genitourinary: Manual OB Exam: + cervical dilation 10 cm, + cervical effacement 100%, + station -1 and + amniotic fluid clear OB Exam Monitor Tracing: + external FHT monitor used, + external uterine monitor used, + category I and + normal FHT variability AROM with Amni-hook clear fluid Results & Data Vital Signs (Past 12 Hours) Vital Signs Temp Pulse Resp BP Pulse Ox 12/19/23 01:52 83 122/82 12/19/23 01:50 92 H 100 12/19/23 01:45 88 100 12/19/23 01:40 76 100 12/19/23 01:36 93 H 123/62 12/19/23 01:35 91 H 100 12/19/23 01:30 80 99 12/19/23 01:25 79 98 12/19/23 01:22 73 91/52 L 12/19/23 01:20 87 98 12/19/23 01:15 70 98 12/19/23 01:10 94 H 97 12/19/23 01:06 68 102/65 12/19/23 01:05 82 98 12/19/23 01:00 98 H 97 12/19/23 00:55 91 H 99 12/19/23 00:52 83 109/58 L 12/19/23 00:50 80 97 12/19/23 00:45 81 96 12/19/23 00:40 94 H 97 12/19/23 00:37 81 109/60 12/19/23 00:35 87 98 12/19/23 00:30 83 96 12/19/23 00:25 88 96 12/19/23 00:20 98 12/19/23 00:20 80 12/19/23 00:20 83 109/61 12/19/23 00:15 89 111/68 97 12/19/23 00:13 75 110/62 12/19/23 00:11 90 106/65 12/19/23 00:10 85 97 12/19/23 00:09 81 113/67 12/19/23 00:07 76 108/60 12/19/23 00:05 96 12/19/23 00:05 75 12/19/23 00:05 73 109/59 L 12/19/23 00:03 78 112/63 12/19/23 00:01 81 107/57 L 12/19/23 00:00 83 96 12/18/23 23:59 77 122/59 L 12/18/23 23:57 87 117/68 12/18/23 23:55 85 113/70 95 12/18/23 23:53 86 112/63 12/18/23 23:51 87 124/66 12/18/23 23:50 89 96 12/18/23 23:49 86 122/62 12/18/23 23:47 86 122/59 L 12/18/23 23:45 82 135/73 96 12/18/23 23:40 87 145/68 H 94 12/18/23 23:35 102 H 99 12/18/23 23:30 107 H 97 12/18/23 23:26 92 H 94 12/18/23 23:25 96 H 96 12/18/23 23:19 16 12/18/23 23:19 36.9 C 16 12/18/23 22:58 81 114/62 12/18/23 19:26 93 H 136/71 12/18/23 19:05 18 12/18/23 19:05 36.8 C 18 12/18/23 15:01 92 H 115/62
[2023-12-19] MEDS: OXYTOCIN 30 UNITS/NSS 30 UNITS/500 ML BAG IV PRN (02:12)
--- NOTE | 2023-12-19 02:25 | Delivery Summary ---
Vaginal Delivery Summary Date of Service December 19, 2023 Vaginal Delivery Summary live male DORON over intact perineum with delayed cord clamping and Apgars 7/9 weight pending. Cord blood obtained followed by spontaneous delivery of intact placenta. First degree tear repaired with 3/0 Vicryl suture. QBL 70 ml. Final sponge, needle and instrument count are correct. Mom and baby stable.
[2023-12-19] MEDS ORDERED: HYDROCORTISONE ACETATE 25 MG SUPP PR PRN (03:52)
[2023-12-19] MEDS ORDERED: OXYTOCIN 30 UNITS/NSS 30 UNITS/500 ML BAG IV PRN (03:52)
[2023-12-19] MEDS ORDERED: ACETAMINOPHEN 325 MG TAB PO PRN (03:52)
[2023-12-19] MEDS: DIPHTHER/TETAN/PERTUS Vaccine (Tdap, Adol/Adult) 0.5mL IM ONE (04:11)
[2023-12-19] MEDS: ePHEDrine sulfate 50 MG/ML AMP ONE (04:11)
[2023-12-19] MEDS: PRENATAL VITAMIN 1 TAB PO SCH (08:03)
[2023-12-19] MEDS: DOCUSATE SODIUM 100 MG CAP PO SCH (08:03)
[2023-12-19] MEDS: IBUPROFEN 600 MG TAB PO PRN (08:03)
[2023-12-19] MEDS: FERROUS SULFATE 325 MG TAB PO SCH (08:03)
[2023-12-19] MEDS: BENZOCAINE 20% SPRY 85 APPLN/85 GM CAN EXT PRN (08:04)
--- NOTE | 2023-12-19 08:48 | Anesthesia Procedure Note ---
Date of Service December 19, 2023 Anesthesia Post Epidural Note Vital Signs Vital Signs: Temp Pulse Resp BP Pulse Ox O2 Del Method 36.7 C 91 H 18 121/79 96 Room Air 12/19/23 08:10 12/19/23 08:10 12/19/23 08:10 12/19/23 08:10 12/19/23 08:10 12/19/23 08:10 Pain Intensity Abdomen: Pain Intensity: 1 Notes Mental Status: alert / awake / arousable and participated in evaluation Nausea / Vomiting: adequately controlled Pain: adequately controlled Airway Patency, RR, SpO2: stable & adequate BP & HR: stable & adequate Hydration State: stable & adequate Neuraxial Anesthesia: was administered and sensory block is resolving Anesthetic Complications: no major complications apparent and Pt Satisfied with anesthetic care Epidural: Removed without complications and With tip intact
[2023-12-19] MEDS ORDERED: NON-FORMULARY MEDICATION (Ferrous Sulfate 325 mg (65 mg iron) Tablet) PO SCH (09:00)
[2023-12-19] MEDS ORDERED: NON-FORMULARY MEDICATION (Pnv Cmb#95-Ferrous Fumarate-Fa [Prenatal] 28 mg iron- 800 mcg Ta PO SCH (09:00)
[2023-12-19] MEDS ORDERED: DOCUSATE SODIUM 100 MG CAP PO SCH (09:00)
[2023-12-19] MEDS: bisacodyL 5 MG TABEC PO SCH (20:28)
[2023-12-20 06:18] LABS: Mean Corpuscular Hemoglobin 27.8 pg (25.0-34.0); Mean Corpuscular Hgb Conc 33.3 g/dL (32.0-36.0); Mean Corpuscular Volume 83.5 fL (80.0-100.0); Mean Platelet Volume 12.5 fL (9.4-12.4); Platelet Count 197 K/uL (130-400); RDW Coefficient of Variation 15.2 % (11.5-14.5); RDW Standard Deviation 45.8 fL (36.4-46.3); Red Blood Count 4.31 M/uL (4.20-5.40); White Blood Count 12.94 K/ul (4.8-10.8)
[2023-12-21] MEDS ORDERED: bisacodyL 10 MG SUPP PR PRN
== END 2023-12-20 11:23 | disposition home or self-care (01) | DRG 807 ==
LOC: 4S1 07:38 → 4E2 12-19 06:10